=== PATIENT | male | born 2005 | race Caucasian/White ===

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

== ENCOUNTER 2023-03-01 10:14 | Inpatient (IN) | payer OTHER, MEDICAID ==
[~2023-03-01] VITALS: Ht 147.3 cm; Wt 49.9 kg
[2023-03-01 10:25] VITALS: BP 112/75
--- OUTSIDE RECORDS SUMMARY | 2023-03-01 10:49 | XMS REPORT | Clinical Summary ---
Author Author [facility] Organization [facility] Address Unknown Phone Unavailable Care Team Providers Care Six Sigma Black Trainer Name Role Phone Database, Physician Not In PCP Unavailable Laron Crenshaw MD Unavailable Source Comments Some departments are not documenting in the electronic medical record. If you d o not see the information that you expected, contact Release of Information in [facility] [employer] Information Management department at [phone] for further assistan ce in locating additional records.[facility] Allergies Comments Active Allergy Reactions Criticality Noted Date Latex RASH 06/05/2008 Medications End Date Status Medication Sig Dispensed Refills Start Date Active PREVACID 30 mg SuDR Take 30 mg by 0 mouth At Bedtime Daily. Active PREVACID 15 mg SuDR Take 15 mg by 0 mouth Daily. In AM Active Polyethylene Glycol 3350 8.5 g by PEG 0 Powd Tube route Daily. With overnight feeds Active ZYRTEC 1 mg/mL Soln Take 5 mg by 0 mouth At Bedtime Daily. Per peg tube Active SINGULAIR 10 mg Tab Take 4 mg by 0 mouth At Bedtime Daily. Active baclofen(#) (LIORESAL) 10 Take 5 mg by 0 mg/mL mouth Twice Daily. Active POLYCITRA-K PO Take 2 tsp by 0 mouth Daily. With overnight feeds Active albuterol 0.5% Inhale 2.5 mg 0 (PROVENTIL; VENTOLIN) 2.5 by mouth As mg/0.5 mL Nebu Needed Active FLOVENT HFA 44 Inhale 4 0 mcg/Actuation Aero Puffs by mouth Twice Daily. 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 Dermoid cyst neck- removed Hearing loss on right unilateral, moderate, condu ctive- has hearing aid Farsightedness Strabismus Hydrocephalus (HCC) COLD PRESS OPERATOR shunt in 2004 Obstructive sleep apnea Asthma Cerebral palsy (HCC) Constipation Family History Medical History Relation Name Comments Asthma Father Cancer Father Depression Maternal Aunt Migraines Maternal Aunt Arthritis-osteo Maternal Grandfather Depression Maternal Grandfather Diabetes Maternal Grandfather High Cholesterol Maternal Grandfather Hypertension Maternal Grandfather Depression Maternal Grandmother Diabetes Maternal Grandmother High Cholesterol Maternal Grandmother Hypertension Maternal Grandmother Migraines Maternal Grandmother Asthma Maternal Uncle Depression Maternal Uncle Asthma Mother Depression Mother Migraines Mother Rashes/Skin Problems Mother Thyroid Disease Mother Asthma Paternal Grandfather Diabetes Paternal Grandfather Hypertension Paternal Grandfather Diabetes Paternal Grandmother Heart Failure Paternal Grandmother High Cholesterol Paternal Grandmother Hypertension Paternal Grandmother Thyroid Disease Paternal Grandmother Relation Name Status Comments Father Maternal Aunt Maternal Grandfather Maternal Grandmother Maternal Uncle Mother Paternal Grandfather Paternal Grandmother Social History Date Tobacco Use Types Packs/Day Years Used Smoking Tobacco: Never Comments Alcohol Use Standard Drinks/Week No 0 (1 standard drink = 0.6 o z pure alcohol) Date Recorded Sex and Gender Information Value Sex Assigned at Not on file Gender Identity Not on file Sexual Orientation Not on file Obstetrics History Growth Chart Information Age Height Weight Frdnoa-qjf-o BMI Head Circum Head Circum Date ength Percentile Percentile Percentile 2 years 101 cm (3' 17 kg (37 lb 77.53 %* 82.09 %* 06/06/20 08 3.76") 7.7 oz) 2 years 17 kg (37 lb 06/05/2008 7.7 oz) * CDC (Boys, 2-20 Years) Last Filed Vital Signs Reading Time Taken Comments Vital Sign 139/71 06/06/2008 2:00 PM CDT Blood Pressure 109 06/06/2008 2:00 PM CDT Pulse 36.3 C (97.3 F) 06/06/2008 2:00 PM CDT Temperature - - Respiratory Rate 97% 06/06/2008 2:00 PM CDT Oxygen Saturation - - Inhaled Oxygen Concentration 17 kg (37 lb 7.7 oz) 06/06/2008 2:00 PM CDT Wt from 06/05. Weight 101 cm (3' 3.76") 06/06/2008 2:00 PM CDT Ht from 06/06. Height 77.53 % 06/06/2008 2:00 PM CDT Dsquek-asg-Vtrlyk Percentile Growth Chart: [facility] (Boys, 2-20 Years) 16.66 06/06/2008 2:00 PM CDT Body Mass Index 82.09 % 06/06/2008 2:00 PM CDT Body Mass Index Percentile Growth Chart: [facility] (Boys, 2-20 Years) Plan of Treatment Health Maintenance Due Date Last Done Comments COVID-19 VACCINE (#1) 03/08/2004 HPV VACCINES (1 - Male 2014 2-dose series) HIV SCREENING 2018 DTAP/TDAP VACCINES (1 - 2021 Tdap) HEPATITIS C SCREENING 2021 PHYSICAL (COMPREHENSIVE) 2021 EXAM DEPRESSION SCREENING 09/06/2022 INFLUENZA VACCINE (Season 06/06/2023 Ended) MENINGOCOCCAL VACCINE Aged Out No longer eligib le based on patient's age to (ACWY,Menactra) complete this topic PNEUMOCOCCAL VACCINE 0-64 Aged Out No longer el igible based on patient's age to YRS complete this topic Results Not on filefrom Last 3 Months Care Teams Start Date End Date Six Sigma Black Trainer Relationship Specialty 06/05/08 Database, Physician Not PCP - General In 07/07/10 Laron Crenshaw MD [address] [place] [address]
--- OUTSIDE RECORDS SUMMARY | 2023-03-01 10:49 | XMS REPORT ---
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 confirmed 952928586 Problem Non-seasonal allergic rhinitis due to pollen J30.1 confirmed 57901576 Problem 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 confirmed 216776297 Problem Chronic idiopathic constipation K59.04 confi rmed 13554641 Problem Environmental and seasonal allergies J30.89 confirmed 872720146 Problem Acquired subluxation of left hip, sequela S73.002S confirmed 567276941 Problem Allergic rhinitis, unspecified J30.9 confir med 25592604 Problem 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 confirmed 7 8149366 Problem Port-a-cath in place Z95.828 confirmed 326443206 Problem Presence of intrathecal baclofen pump Z96.89 confirmed 439500227 Problem AGRICULTURE MANAGER (ventriculoperitoneal) shunt status Z98.2 confirmed 796760046 Problem History of hydrocephalus Z86.69 confirmed 388321499 Problem Mild intermittent asthma without complication J45.20 confirmed 481143906 Problem Hearing loss, unspecified laterality H91.90 confirmed 77258337 Problem Obstructive sleep apnea G47.33 confirmed 75428322 Problem Gastroesophageal reflux disease without esophagitis K21.9 confirmed 957560004 Problem 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 confirm ed 79913606 Problem Renal calculus N20.0 confirmed 47353 007 Problem Other dysphagia R13.19 confirmed 4073 9000 Problem 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, 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 confirmed 6966344 6 Problem Hydrocele, unspecified hydrocele type N43.3 confirmed 44467064 Problem Iron deficiency anemia, unspecified iron deficiency an emia type D50.9 confirmed 98715222 Problem High risk medication use Z79.899 confirmed [id number] Problem 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 confirmed 302430139 Problem Seizure disorder G40.909 confirmed 12 2220182 Problem Secondary hypertension I15.9 confirmed 98003282 Problem 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 confirmed 47142446 Problem History of nephrolithiasis Z87.442 confirmed 313339304 Problem Nephrolithiasis N20.0 confirmed 9557 0007 Problem Scrotal swelling N50.89 confirmed 271 562973 Problem Short stature R62.52 confirmed 776698 008 ALLERGIES Allergen (clinical drug ingredient) Drug/Non Drug Allergy do cumented on EMR Reaction Allergy Type Onset Date Status Latex Gloves([facility] Code:09918-12636) hives Drug Allergy Active Rocephin hives Drug Allergy Active Morphine Unknown Drug Allergy Active ENCOUNTERS from 2003 to 2023-02-08 Encounter Location Date Provider Diagnosis [facility] [address] [facility] [id number] [place] [address] Feb, JOHN BIGGS Dental examination Z 01.20 IMMUNIZATIONS Vaccine Route Administration Date Status PRIVATE MENINGOCOCCAL (MENACTRA) Unknown Sep 26, 2014 Administered PRIVATE BEXSERO (MEN B) IM Intramuscular February 02, 2020 Adminis tered Hib-Hep B Unknown 2003 Administered PRIVATE MENINGOCOCCAL (MENVEO) IM Intramuscular February 02, 2020 Administered hib (history) Unknown January 07, 2004 Administered hib (history) Unknown March 13, 2004 Administered PRIVATE DTAP (DAPTACEL) Unknown March 13, 2004 Administ ered PRIVATE GARDASIL 9 (HPV) IM Intramuscular January 20, 2017 Admini stered PRIVATE DTAP (DAPTACEL) Unknown December 16, 2004 Administ ered PRIVATE PPSV23 (PNEUMOVAX) IM Intramuscular Jul 17, 2022 Admi nistered PRIVATE DTAP (DAPTACEL) Unknown December 14, 2007 Administ ered 1st Dose PFIZER HRSA, COVID-19, 0.3 mL IM Intramuscular December Administered PRIVATE TDAP (ADACEL) Unknown Sep 26, 2014 Administer ed PRIVATE FLULAVAL QUAD 0.5ML (6 MO AND UP) 2018 IM Intramuscular May 22, 2019 Administered PRIVATE HEP B (PEDS/ADOLESCENT, 3-DOSE) Unknown January 07, 2004 Administered hib (history) Unknown December 16, 2004 Administered PRIVATE BEXSERO (MEN B) IM Intramuscular February 28, 2021 Adminis tered PRIVATE POLIO (IPV) Unknown January 07, 2004 Administered PRIVATE POLIO (IPV) Unknown 2003 Administered PRIVATE VARICELLA Unknown December 14, 2007 Administered PRIVATE VARICELLA Unknown Sep 23, 2004 Administered PRIVATE PPSV23 (PNEUMOVAX) Unknown May 21, 2009 Admin istered PRIVATE MMR Unknown December 14, 2007 Administered PRIVATE MMR Unknown Sep 23, 2004 Administered PRIVATE HEP B (PEDS/ADOLESCENT, 3-DOSE) Unknown Jul 29, 2004 Administered FLUARIX QUAD P-FREE 3 AND UP .50 2015 IM Intramuscular May 19, 2016 Administered PRIVATE HEP A (PEDS/ADOLESCENT-2 DOSE) Unknown Jul 12 008 Administered Booster PFIZER, COVID-19, 0.3mL IM Intramuscular Aug 21, 2021 Administered prevnar pcv 7 (history) Unknown 2003 Administ ered 1st Booster PFIZER Bivalent , COVID-19, 0.3mL (Comirnaty) IM Intramuscular Jul 17, 2022 Administered prevnar pcv 7 (history) Unknown January 07, 2004 Administ ered C FLU 22-23 (FLULAVAL) AGE 6MO & UP IM Intramuscular Jun 05, 2022 Administered prevnar pcv 7 (history) Unknown March 13, 2004 Administ ered FLUARIX QUAD (3 AND UP) 2016 IM Intramuscular May 21, 2017 Ad ministered PRIVATE FLULAVAL QUAD 0.5ML (6 MO AND UP) 2018 IM Intramuscular May 27, 2018 Administered PRIVATE POLIO (IPV) Unknown December 16, 2004 Administered PRIVATE FLULAVAL QUAD 0.5ML (6 MO AND UP) 2019 IM Intramuscular May 17, 2020 Administered PRIVATE POLIO (IPV) Unknown December 14, 2007 Administered 2nd Dose PFIZER HRSA, COVID-19, 0.3 mL IM Intramuscular January 17, 2021 Administered PRIVATE HEP A (PEDS/ADOLESCENT-2 DOSE) Unknown December 14, 2007 Administered PRIVATE FLULAVAL QUAD 0.5ML (6 MO AND UP) 2020 IM Intramuscular May 23, 2021 Administered prevnar pcv 7 (history) Unknown Sep 23, 2004 Administ ered FLUARIX QUAD P-FREE 3 AND UP .50 2016 IM Intramuscular May 14, 2016 Administered PRIVATE DTAP (DAPTACEL) Unknown 2003 Administ ered PRIVATE DTAP (DAPTACEL) Unknown January 07, 2004 Administ ered FLUARIX QUAD (3 & UP)-GSK-2014 ID Intradermal May 27, 2015 A dministered PRIVATE GARDASIL 9 (HPV) IM Intramuscular Apr 20, 2018 Admini yumi SOCIAL HISTORY Sex Assigned At : Social History Observation Description Sex Assigned At Unknown PHQ2 Question Answer Notes In the last 2 weeks, how often have you had little interest or pleasure in doing things? Declined to specify In the last 2 weeks, how often have you been feeling down, depressed, or hopeless? Declined to specify Total PHQ2 Score 0 REASON FOR REFERRAL No Information VITAL SIGNS No information MEDICATIONS Medication SIG (Take, Route, Frequency, Duration) Notes Start Da te End Date Status Levocetirizine Dihydrochloride 2.5 MG/5ML 10 mL by PEG tube once daily as needed peg tube Once a day Active Albuterol Sulfate (2.5 MG/3ML) 0.083% 3 ml Inhalation every 4 hours as needed for shortness of breath or wheezing prn Jul, Not-Taking Albuterol Sulfate 2.5 mg /3 mL (0.083 %) 1 Each by Inh alation route every 4 hours for cough and wheeze PRN for wheezing or cough [facility] Apr, Active Cytra-K 1100-334 MG/5ML 10mL g-tube three times daily for 90 days Active Amoxicillin 500 MG 1 capsule Orally every 12 hours for 7 days May, Not-Taking Nutren 1.0/Fiber - 240 mL (1 can) G-TUBE 6 times per day Di spejade 1 month supply Nov, Active Baclofen 41753 MCG/20ML Intrathecal Active CARON-BYERS Gastrostomy Kit 14FR 1 14 Danish, 2.5 cm lengt h; Use with tube feedings via g-tube as directed. Fill to 2cm water. Nov, Active Mometasone Furoate 50 MCG/ACT 2 sprays (1 spray in eac h nostril) Nasally twice a day for 30 days Dec, Active Amoxicillin 400 MG/5ML 6.25mL Orally twice a day for 5 days May, Not-Taking Trileptal 300 MG/5ML 5 mL by PEG tube route 3 drew es per day in the morning Orally 3 times a day Nov, Active hydroCHLOROthiazide 25 MG GIVE ONE TABLET VIA G-TUBE ONCE DAILY for 9 0 Active Polyethylene Glycol 3350 17 gm/dose 17 grams PEG tube Once a day Aug, Active Zonisamide 100 MG 3 capsules G-TUBE Once a day Active ProAir HFA 108 (90 Base) MCG/ACT 2 -4 puffs with space r Inhalation every 4 hrs as needed for shortness of breath prn Nov, Active Acetaminophen 160 MG/5ML 15-20 ml G-TUBE Every 6 hours as needed for 3 days Mar, Active Lidocaine-Prilocaine 2.5-2.5 % apply a jazlyn sized am ount of cream over center of ITB pump one hour before refill Externally PRN for 1 days prn Active Potassium Citrate-Citric Acid 1100-334 MG/5ML GIVE 10M LS VIA G-TUBE THREE (3) TIMES DAILY for 30 Active Lansoprazole 30 MG 1 tablet dissolved G-TUBE twice a day for 30 day(s ) Active PROCEDURES No Information RESULTS No Results REASON FOR VISIT intdent/wcc/peds MEDICAL (GENERAL) HISTORY Type Description Date Medical History Congenital subaortic stenosis Medical History Stricture and stenosis of esophagus Medical History Unspecified hearing loss Medical History Unspecified anemia Medical History Unspecified orchitis and epididymitis Medical History VACTERL (vertebral: multiple michelle-vertebrae, Anal anomaly:imperforate anus with perineal fistula(repaired), cardiac anomaly: ASD(now closed) VSD(no longer detectable-was 5mm at )Sub Aortic Valve St enosis, tracheoesophageal Fistula (TEF with atresia-repaired), Renal anomaly: kidney stone (no longer present), 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, left radial club hand and absent thumb (anomaly found on U/S(partially repaired) Medical History Prematurity (31 weeks) Medical History GERD Medical History ROP-resolved Medical History Congenital scoliosis Medical History Tethered cord-Lipoma in filtrum (repaire d) Medical History Tracheomalacia Medical History Subglottic cysts - 1 removed Medical History Dermoid cyst in neck - removed Medical History Hearing loss- moderate, conductive (has hearing aids) Medical History Farsighted (wears glasses) Medical History Right ocular Lipodermoid Medical History Strabismus Medical History Hydrocephalus (AGRICULTURE MANAGER shunt) Medical History Obstructive Sleep Apnea Medical History Asthma (intermittent-no symp toms since 2012 laryngeal cleft repair Medical History Cerebral palsy Medical History Constipation Medical History Right Temporal Lobe Seizures Medical History Laryngeal cleft (see surgery list) Medical History Esophageal stricture Medical History hypertension Surgical History TE fistula repair, anoplasty (to repair imperforate anus)- Dr. Tellez, [facility] 2003 Surgical History Fabian Fundoplication, G-tub e placement, circumcision, bilateral inguinal hernia repair - Dr. Tellez, [facility] 2003 Surgical History Second G-tube placement- Dr. Rodrigues, [facility] 2003 Surgical History Left wrist- ulnar centralization- Dr. Stu dave, [facility] 06/18/2004 Surgical History Tethered cord release -Dr. Crenshaw, [facility] 1 2003 Surgical History Left index finger pollicizat ion (to form thumb)- Dr. Hernandez, [facility] 10/08/2004 Surgical History Bilateral ear tubes, broncho scopy, subglottic cyst removed-- Dr. Mitzi Mckeon, [facility] 01/14/2005 Surgical History AGRICULTURE MANAGER Shunt-- Dr. Crenshaw, [facility] 01/27/2005 Surgical History Bilateral ear tubes, broncho scopy, tonsillectomy, adeneoidectomy --Dr. Mitzi Mckeon, [facility] 12/02/2005 Surgical History Midline dermoid cyst removal (from neck) & bilateral ear tubes-- Dr. Mitzi Mckeon, [facility] 06/16/2006 Surgical [facility] & bilateral ear tubes ( Dr. Chávez, [facility]) 01/12/2007 Surgical History Bilateral ear tubes, broncho scopy, adneoidectomy, laryngeal cleft repair, [facility] & endoscopy & esophageal dilation ( Dr. Rincon, [facility]) 07/17/2009 Surgical History Endoscopy & esophageal dilation- Dr. Juan Carlos hardin, [facility] 07/30/2009 Surgical History Endoscopy & esophageal dilation- Dr. Carlo gonzalez, [facility] 11/22/2009 Surgical History Endoscopy & esophageal dilation- Dr. Juan Carlos hardin, [facility] 01/28/2010 Surgical History Endoscopy & esophageal dilation- Dr. Antonio wolff, [facility] 03/21/2010 Surgical History Laryngeal cleft repaired, tu rbinectomy, bilateral ear tubes - Dr. Josias Mckeon, [facility] 04/07/2012 Surgical History Baclofen pump placement- Dr. Lal, [facility] 11/19/2014 [facility] Surgical History AGRICULTURE MANAGER shunt revision - Dr. Lal, [facility] 05/12/2015 Surgical History AGRICULTURE MANAGER [facility] Ventriculostomy and baclofen pump removal- Dr. Lal [facility] 06/26/2015 [facility] AGRICULTURE MANAGER [facility] Surgical History Kidney stone removal and sti nt placement- Dr. Esparza [facility] 07/10/2015 Surgical History Residential Child Care Counselor [facility] Surgical History AGRICULTURE MANAGER shunt revision and port p lacement-Dr. Lal(shunt) & Dr. Choudhury (port), [facility] 07/29/2015 Surgical History Kindey Stone removal and sti nt replacement- Dr. Esparza, [facility] 07/30/2015 Surgical History Right Abdominal Baclofen Pum p with intrathecal catheter-Dr. Lal, [facility] 11/18/2015 Surgical History Baclofen pump replacement-Dr Venus Cadet, [facility] 02/2022 Surgical History Baclofen pump revision Dr. Mehul rosen [facility], Port replacement by IR 03/2022 Hospitalization History NICU- [facility] 2003 Hospitalization History NICU- [facility] /0 11/2003-12/20/2003 Hospitalization History After some surgeries for observation Hospitalization History Non-RSV Bronchiolitis 10/29/2004-10/2004 Hospitalization History [facility]- pH probe stud y 06/10/2005 Hospitalization History [facility]-- Upper GI ble eding 09/24/2007- 09/26/2007 Hospitalization History [facility] -sudden unconsciousne ss, later determined to be seizures 06/06/2008-06/07/2008 Hospitalization History [facility]- epididymi tis 04/10/[address] [facility] for seizures an d AGRICULTURE MANAGER Shunt failure 05/12/2015-05/23/2015 Hospitalization History [facility]- AGRICULTURE MANAGER sh unt failure, CSF infection, [place] lomax, HTN 06/21/2015-07/13/2015 Goals Section No Information Health Concerns No Information MEDICAL EQUIPMENT No Information MENTAL STATUS No Information FUNCTIONAL STATUS No Information ASSESSMENTS Encounter Date Diagnosis Assessment Notes Treatment Notes Treatm ent Clinical Notes Feb, Dental examination (ICD-10 - Z01.20) PLAN OF TREATMENT Next Appt Details Provider Name:BULMARO MOLINA, 2023-03-26 1 1:00:00 AM, [address] [facility], [id number], [place], [address], Insurance Providers Payer Name Payer Address Payer Phone Insured Name Patient Relati onship to Insured Coverage Start Date Coverage End Date Subscriber Number Group Nu mber [facility] Benefits [address] [facility] [address] [phone] Pricilla Sauer Child - Insured has Financial Responsibility [id number] MEDICATIONS ADMINISTERED Medication Instructions Date of Administration Dosage ROCEPHIN 1 GM (IM) January, 1 grm Ketorolac Tromethamine January, 30 mg Bicillin L-A Sep, 2 mL Penicillin G Benzathine & Proc January, 2 mL Bicillin L-A Oct, [id number] U
--- OUTSIDE RECORDS SUMMARY | 2023-03-01 10:49 | XMS REPORT ---
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 confirmed 268514739 Problem Non-seasonal allergic rhinitis due to pollen J30.1 confirmed 19670812 Problem 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 confirmed 570480325 Problem Chronic idiopathic constipation K59.04 confi rmed 90212338 Problem Environmental and seasonal allergies J30.89 confirmed 292771773 Problem Acquired subluxation of left hip, sequela S73.002S confirmed 110408278 Problem Allergic rhinitis, unspecified J30.9 confir med 99980778 Problem 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 confirmed 7 6163756 Problem Port-a-cath in place Z95.828 confirmed 184671852 Problem Presence of intrathecal baclofen pump Z96.89 confirmed 461006446 Problem 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 confirmed 776612696 Problem History of hydrocephalus Z86.69 confirmed 144551585 Problem Mild intermittent asthma without complication J45.20 confirmed 603718393 Problem Hearing loss, unspecified laterality H91.90 confirmed 23946362 Problem Obstructive sleep apnea G47.33 confirmed 64996755 Problem Gastroesophageal reflux disease without esophagitis K21.9 confirmed 118354398 Problem 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 confirm ed 89876682 Problem Renal calculus N20.0 confirmed 24542 007 Problem Other dysphagia R13.19 confirmed 4073 9000 Problem 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, 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 confirmed 8110709 6 Problem Hydrocele, unspecified hydrocele type N43.3 confirmed 81746723 Problem Iron deficiency anemia, unspecified iron deficiency an emia type D50.9 confirmed 03025065 Problem High risk medication use Z79.899 confirmed [id number] Problem 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 confirmed 737309676 Problem Seizure disorder G40.909 confirmed 12 4423616 Problem Secondary hypertension I15.9 confirmed 75890855 Problem 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 [address] [facility] [id number] [place] [address] Feb, LUCIANA ARMENDARIZ Counseled by nurse Z 71.9 IMMUNIZATIONS Vaccine Route Administration Date Status PRIVATE VARICELLA Unknown December 14, 2007 Administered PRIVATE VARICELLA Unknown Sep 23, 2004 Administered PRIVATE PPSV23 (PNEUMOVAX) Unknown May 21, 2009 Admin istered PRIVATE MMR Unknown December 14, 2007 Administered PRIVATE POLIO (IPV) Unknown December 14, 2007 Administered PRIVATE POLIO (IPV) Unknown December 16, 2004 Administered PRIVATE POLIO (IPV) Unknown January 07, 2004 Administered PRIVATE POLIO (IPV) Unknown 2003 Administered PRIVATE PPSV23 (PNEUMOVAX) IM Intramuscular Jul 17, 2022 Admi nistered FLUARIX QUAD (3 AND UP) 2016 IM Intramuscular May 21, 2017 Ad ministered FLUARIX QUAD P-FREE 3 AND UP .50 2015 IM Intramuscular May 14, 2016 Administered PRIVATE BEXSERO (MEN B) IM Intramuscular February 02, 2020 Adminis tered FLUARIX QUAD (3 & UP)-GSK-2015 ID Intradermal May 27, 2015 A dministered influenza IIV3 (history) Unknown May 25, 2014 Pending influenza IIV3 (history) Unknown May 16, 2013 Pending PRIVATE MENINGOCOCCAL (MENVEO) IM Intramuscular February 02, 2020 Administered Influenza, seasonal, injectable (split), for 3 yrs and up Unknow n May 19, 2010 Pending PRIVATE MMR Unknown Sep 23, 2004 Administered PRIVATE HEP B (PEDS/ADOLESCENT, 3-DOSE) Unknown Jul 29, 2004 Administered PRIVATE HEP B (PEDS/ADOLESCENT, 3-DOSE) Unknown January 07, 2004 Administered 1st Booster PFIZER Bivalent , COVID-19, 0.3mL (Comirnaty) IM Intramuscular Jul 17, 2022 Administered VFC FLU 22-23 (FLULAVAL) AGE 6MO & UP IM Intramuscular Jun 05, 2022 Administered Booster PFIZER, COVID-19, 0.3mL IM Intramuscular Aug 21, 2021 Administered 1st Dose PFIZER HRSA, COVID-19, 0.3 mL IM Intramuscular December Administered PRIVATE FLULAVAL QUAD 0.5ML (6 MO AND UP) 2018 IM Intramuscular May 27, 2018 Administered 2nd Dose PFIZER HRSA, COVID-19, 0.3 mL IM Intramuscular January 17, 2021 Administered PRIVATE FLULAVAL QUAD 0.5ML (6 MO AND UP) 2020 IM Intramuscular May 23, 2021 Administered PRIVATE FLULAVAL QUAD 0.5ML (6 MO AND UP) 2019 IM Intramuscular May 17, 2020 Administered PRIVATE FLULAVAL QUAD 0.5ML (6 MO AND UP) 2018 IM Intramuscular May 22, 2019 Administered FLUARIX QUAD P-FREE 3 AND UP .50 2015 IM Intramuscular May 19, 2016 Administered influenza IIV3 (history) Unknown May 12, 2011 Pending hib (history) Unknown December 16, 2004 Administered hib (history) Unknown March 13, 2004 Administered hib (history) Unknown January 07, 2004 Administered PRIVATE BEXSERO (MEN B) IM Intramuscular February 28, 2021 Adminis tered PRIVATE GARDASIL 9 (HPV) IM Intramuscular Apr 20, 2018 Admini stered PRIVATE GARDASIL 9 (HPV) IM Intramuscular January 20, 2017 Admini stered influenza IIV3 (history) Unknown May 13, 2012 Pending Hib-Hep B Unknown 2003 Administered PRIVATE MENINGOCOCCAL (MENACTRA) Unknown Sep 26, 2014 Administered PRIVATE TDAP (ADACEL) Unknown Sep 26, 2014 Administer ed PRIVATE DTAP (DAPTACEL) Unknown 2003 Administ ered prevnar pcv 7 (history) Unknown Sep 23, 2004 Administ ered prevnar pcv 7 (history) Unknown March 13, 2004 Administ ered prevnar pcv 7 (history) Unknown January 07, 2004 Administ ered PRIVATE DTAP (DAPTACEL) Unknown December 14, 2007 Administ ered PRIVATE DTAP (DAPTACEL) Unknown December 16, 2004 Administ ered PRIVATE DTAP (DAPTACEL) Unknown March 13, 2004 Administ ered PRIVATE DTAP (DAPTACEL) Unknown January 07, 2004 Administ ered prevnar pcv 7 (history) Unknown 2003 Administ ered PRIVATE HEP A (PEDS/ADOLESCENT-2 DOSE) Unknown Jul 12 008 Administered PRIVATE HEP A (PEDS/ADOLESCENT-2 DOSE) Unknown December 14, 2007 Administered SOCIAL HISTORY Sex Assigned At : Social [...] REASON FOR REFERRAL No Information VITAL SIGNS Weight 110.8 lbs Feb, Weight-kg 50.26 kg Feb, MEDICATIONS Medication SIG (Take, Route, Frequency, Duration) Notes Start Da te End Date Status Amoxicillin 500 MG 1 capsule Orally every 12 hours for 7 days May, Not-Taking Lansoprazole 30 MG 1 tablet dissolved G-TUBE twice a day for 30 day(s ) Active Zonisamide 100 MG 3 capsules G-TUBE Once a day Active Potassium Citrate-Citric Acid 1100-334 MG/5ML GIVE 10M LS VIA G-TUBE THREE (3) TIMES DAILY for 30 Active Cytra-K 1100-334 MG/5ML 10mL g-tube three times daily for 90 days Active Mometasone Furoate 50 MCG/ACT 2 sprays (1 spray in eac h nostril) Nasally twice a day for 30 days Dec, Active hydroCHLOROthiazide 25 MG GIVE ONE TABLET VIA G-TUBE ONCE DAILY for 9 0 Active Lidocaine-Prilocaine 2.5-2.5 % apply a jazlyn sized am ount of cream over center of ITB pump one hour before refill Externally PRN for 1 days prn Active CARON-BYERS Gastrostomy Kit 14FR 1 14 Slovak, 2.5 cm lengt h; Use with tube feedings via g-tube as directed. Fill to 2cm water. Nov, Active Amoxicillin 400 MG/5ML 6.25mL Orally twice a day for 5 days May, Not-Taking ProAir HFA 108 (90 Base) MCG/ACT 2 -4 puffs with space r Inhalation every 4 hrs as needed for shortness of breath prn Nov, Active Albuterol Sulfate 2.5 mg /3 mL (0.083 %) 1 Each by Inh alation route every 4 hours for cough and wheeze PRN for wheezing or cough [facility] Apr, Active Nutren 1.0/Fiber - 240 mL (1 can) G-TUBE 6 times per day Di emigdio 1 month supply Nov, Active Trileptal 300 MG/5ML 5 mL by PEG tube route 3 drew es per day in the morning Orally 3 times a day Nov, Active Acetaminophen 160 MG/5ML 15-20 ml G-TUBE Every 6 hours as needed for 3 days Mar, Active Baclofen 07033 MCG/20ML Intrathecal Active Levocetirizine Dihydrochloride 2.5 MG/5ML 10 mL by PEG tube once daily as needed peg tube Once a day Active Polyethylene Glycol 3350 17 gm/dose 17 grams PEG tube Once a day Aug, Active Albuterol Sulfate (2.5 MG/3ML) 0.083% 3 ml Inhalation every 4 hours as needed for shortness of breath or wheezing prn Jul, Not-Taking PROCEDURES No Information RESULTS No Results REASON FOR VISIT Weight check---JILLIAN Mchugh MEDICAL (GENERAL) HISTORY Type Description Date Medical [...] Lipodermoid Medical History Strabismus Medical History Hydrocephalus (SPINNING FRAME CHANGER shunt) Medical History Obstructive Sleep Apnea Medical History Asthma (intermittent-no symp toms since 2011 laryngeal cleft repair Medical History Cerebral palsy Medical History Constipation Medical History Right Temporal Lobe Seizures Medical History Laryngeal cleft (see surgery list) Medical History Esophageal stricture Medical History hypertension Surgical History TE fistula repair, anoplasty (to repair imperforate anus)- Dr. Tellez, [facility] 2003 Surgical History Fabian Fundoplication, G-tub e placement, circumcision, bilateral inguinal hernia repair - Dr. Tellez, [facility] 2003 Surgical History Second G-tube placement- Dr. Rodrigues, [facility] 2003 Surgical History Left wrist- ulnar centralization- Dr. Stu dave, [facility] 06/18/2004 Surgical History Tethered cord release -Dr. Crenshaw, [facility] 1 2003 Surgical History Left index finger pollicizat ion (to form thumb)- Dr. Hernandez, [facility] 10/08/2004 Surgical History Bilateral ear tubes, broncho scopy, subglottic cyst removed-- Dr. Mitzi Mckeon, [facility] 01/14/2005 Surgical History SPINNING FRAME [employer]ANGER Shunt-- Dr. Crenshaw, [facility] 01/27/2005 Surgical History Bilateral ear tubes, broncho scopy, tonsillectomy, adeneoidectomy --Dr. Mitzi Mckeon, [facility] 12/02/2005 Surgical History Midline dermoid cyst removal (from neck) & bilateral ear tubes-- Dr. Mitzi Mckeon, [facility] 06/16/2006 Surgical History Left ulnar osteotomy (Dr. Stu dave, [facility]) & bilateral ear tubes ( Dr. Chávez, [facility]) 01/12/2007 Surgical History Bilateral ear tubes, broncho scopy, adneoidectomy, laryngeal cleft repair, turbinectomy (Dr. Mitzi Mckeon, [facility]) & endoscopy & esophageal dilation ( Dr. Rincon, [facility]) 07/17/2009 Surgical History Endoscopy & esophageal dilation- Dr. Juan Carlos hardin, [facility] 07/30/2009 Surgical History Endoscopy & esophageal dilation- Dr. Carlo gonzalez, [facility] 11/22/2009 Surgical History Endoscopy & esophageal dilation- Dr. Juan Carlos hardin, [facility] 01/28/2010 Surgical History Endoscopy & esophageal dilation- Dr. Antonio wolff, [facility] 03/21/2010 Surgical History Laryngeal cleft repaired, tu rbinectomy, bilateral ear tubes - Dr. Josias Mckeon, [facility] 04/07/2012 [facility] [employer] [facility] Ventriculostomy and baclofen pump removal- Dr. Lal [facility] 06/26/2015 Surgical History Ventriculostomy -Dr. Lal [facility] 07/03/2015 Surgical History [employer] [facility] History SP[employer]ING [employer]AME CH[employer]ER shunt revision and port p lacement-Dr. Lal(shunt) & Dr. Choudhury (port[facility] 07/29/2015 Surgical History Kindey Stone [facility] Surgical History Right Abdominal Baclofen Pum p with intrathecal catheter-Dr. Lal, [facility] 11/18/2015 Surgical History Baclofen pump replacement-Dr Venus Cadet, [facility] 02/2022 Surgical History Baclofen pump revision Dr. Mehul rosen [facility], Port replacement by IR 03/2022 Hospitalization History NICU- [facility] 2003 Hospitalization History NICU- [facility] 11/2003-12/20/2003 Hospitalization History After some surgeries for observation Hospitalization History Non-RSV Bronchiolitis 10/29/2004-10/2004 Hospitalization History [facility]- pH probe stud y 06/10/2005 Hospitalization History [facility]-- Upper GI ble eding 09/24/2007- 09/26/2007 Hospitalization History [facility] -sudden unconsciousne ss, later determined to be seizures 06/06/2008-06/07/2008 Hospitalization History [facility]- epididymi tis 04/10/2014 Hospitalization History [facility] seizures an d SP[employer]ER Shunt failure 05/12/2015-05/23/2015 Hospitalization History [facility]- SP[employer]ING [employer]AME CH[employer]ER sh unt failure, CSF infection, [place]akota lomax, HTN 06/21/2015-07/13/2015 Goals Section No Information Health Concerns No Information MEDICAL EQUIPMENT No Information MENTAL STATUS No Information FUNCTIONAL STATUS No Information ASSESSMENTS Encounter Date Diagnosis Assessment Notes Treatment Notes Treatm ent Clinical Notes Feb, Counseled by nurse (ICD-10 - Z71.9) PLAN OF TREATMENT Medication Medication Name Sig Start Date Stop Date Mometasone Furoate 50 MCG/ACT 2 sprays (1 spray in eac h nostril) Nasally twice a day for 30 days Dec, Next Appt Details Provider Name:BULMARO MOLINA, 2023-03-26 1 1:00:00 AM, [address] [facility], [id number], [place], [address], Insurance Providers Payer Name Payer Address Payer Phone Insured Name Patient Relati onship to Insured Coverage Start Date Coverage End Date Subscriber Number Group Nu er [facility] [employer] Benefits [address] [facility] [phone] Pricilla Sauer Child - Insured has Financial Responsibility [id number] MEDICATIONS ADMINISTERED Medication Instructions Date of Administration Dosage Bicillin L-A Sep, 2 mL ROCEPHIN 1 GM (IM) January, 1 grm Bicillin L-A Oct, [id number] U
--- OUTSIDE RECORDS SUMMARY | 2023-03-01 10:49 | XMS REPORT ---
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 confirmed 585361369 Problem Non-seasonal allergic rhinitis due to pollen J30.1 confirmed 03683603 Problem 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 confirmed 548851839 Problem Chronic idiopathic constipation K59.04 confi rmed 92048608 Problem Environmental and seasonal allergies J30.89 confirmed 591723497 Problem Acquired subluxation of left hip, sequela S73.002S confirmed 672053057 Problem Allergic rhinitis, unspecified J30.9 confir med 41294809 Problem 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 confirmed 7 9367644 Problem Port-a-cath in place Z95.828 confirmed 196320034 Problem Presence of intrathecal baclofen pump Z96.89 confirmed 053157274 Problem CORN COOKER (ventriculoperitoneal) shunt status Z98.2 confirmed 908922725 Problem History of hydrocephalus Z86.69 confirmed 837125899 Problem Mild intermittent asthma without complication J45.20 confirmed 287548118 Problem Hearing loss, unspecified laterality H91.90 confirmed 48652818 Problem Obstructive sleep apnea G47.33 confirmed 50399439 Problem Gastroesophageal reflux disease without esophagitis K21.9 confirmed 644081470 Problem 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 confirm ed 42018477 Problem Renal calculus N20.0 confirmed 60726 007 Problem Other dysphagia R13.19 confirmed 4073 9000 Problem 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, 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 confirmed 2050165 6 Problem Hydrocele, unspecified hydrocele type N43.3 confirmed 80250914 Problem Iron deficiency anemia, unspecified iron deficiency an emia type D50.9 confirmed 91781913 Problem High risk medication use Z79.899 confirmed [id number] Problem 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 confirmed 611417992 Problem Seizure disorder G40.909 confirmed 12 3375325 Problem Secondary hypertension I15.9 confirmed 04337622 Problem 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 confirmed 43668218 Problem History of nephrolithiasis Z87.442 confirmed 648489621 Problem Nephrolithiasis N20.0 confirmed 9557 0007 Problem Scrotal swelling N50.89 confirmed 271 422976 Problem Short stature R62.52 confirmed 767439 008 ALLERGIES Allergen (clinical drug ingredient) Drug/Non Drug Allergy do cumented on EMR Reaction Allergy Type Onset Date Status Latex Gloves([facility] Code:13474-12061) hives Drug Allergy Active Rocephin hives Drug Allergy Active Morphine Unknown Drug Allergy Active ENCOUNTERS from 2003 to 2023-02-20 Encounter Location Date Provider Diagnosis [facility] [address] [facility] [id number] [place] [address] Mar, LUCIANA MARCELLO High risk medication use Z79.899 and Iron deficiency anemia, unspecified iron deficiency anemia type D50.9 IMMUNIZATIONS Vaccine Route Administration Date Status PRIVATE DTAP (DAPTACEL) Unknown December 16, 2004 Administ ered FLUARIX QUAD (3 & UP)-GSK-2015 ID Intradermal May 27, 2015 A dministered PRIVATE DTAP (DAPTACEL) Unknown March 13, 2004 Administ ered 1st Dose PFIZER HRSA, COVID-19, 0.3 mL IM Intramuscular December Administered PRIVATE DTAP (DAPTACEL) Unknown January 07, 2004 Administ ered PRIVATE DTAP (DAPTACEL) Unknown 2003 Administ ered Hib-Hep B Unknown 2003 Administered PRIVATE MMR Unknown Sep 23, 2004 Administered PRIVATE MENINGOCOCCAL (MENACTRA) Unknown Sep 26, 2014 Administered PRIVATE HEP B (PEDS/ADOLESCENT, 3-DOSE) Unknown Jul 29, 2004 Administered PRIVATE TDAP (ADACEL) Unknown Sep 26, 2014 Administer ed PRIVATE HEP B (PEDS/ADOLESCENT, 3-DOSE) Unknown January 07, 2004 Administered PRIVATE DTAP (DAPTACEL) Unknown December 14, 2007 Administ ered PRIVATE GARDASIL 9 (HPV) IM Intramuscular January 20, 2017 Admini stered PRIVATE PPSV23 (PNEUMOVAX) IM Intramuscular Jul 17, 2022 Admi nistered prevnar pcv 7 (history) Unknown Sep 23, 2004 Administ ered prevnar pcv 7 (history) Unknown March 13, 2004 Administ ered PRIVATE FLULAVAL QUAD 0.5ML (6 MO AND UP) 2018 IM Intramuscular May 22, 2019 Administered 2nd Dose PFIZER HRSA, COVID-19, 0.3 mL IM Intramuscular January 17, 2021 Administered Booster PFIZER, COVID-19, 0.3mL IM Intramuscular Aug 21, 2021 Administered VFC FLU 22-23 (FLULAVAL) AGE 6MO & UP IM Intramuscular Jun 05, 2022 Administered 1st Booster PFIZER Bivalent , COVID-19, 0.3mL (Comirnaty) IM Intramuscular Jul 17, 2022 Administered PRIVATE FLULAVAL QUAD 0.5ML (6 MO AND UP) 2020 IM Intramuscular May 23, 2021 Administered PRIVATE FLULAVAL QUAD 0.5ML (6 MO AND UP) 2019 IM Intramuscular May 17, 2020 Administered FLUARIX QUAD P-FREE 3 AND UP .50 2015 IM Intramuscular May 19, 2016 Administered prevnar pcv 7 (history) Unknown January 07, 2004 Administ ered PRIVATE BEXSERO (MEN B) IM Intramuscular February 28, 2021 Adminis tered PRIVATE POLIO (IPV) Unknown December 16, 2004 Administered PRIVATE BEXSERO (MEN B) IM Intramuscular February 02, 2020 Adminis tered PRIVATE POLIO (IPV) Unknown January 07, 2004 Administered PRIVATE GARDASIL 9 (HPV) IM Intramuscular Apr 20, 2018 Admini stered PRIVATE POLIO (IPV) Unknown 2003 Administered hib (history) Unknown December 16, 2004 Administered PRIVATE VARICELLA Unknown December 14, 2007 Administered prevnar pcv 7 (history) Unknown 2003 Administ ered PRIVATE FLULAVAL QUAD 0.5ML (6 MO AND UP) 2018 IM Intramuscular May 27, 2018 Administered PRIVATE HEP A (PEDS/ADOLESCENT-2 DOSE) Unknown Jul 12, 008 Administered FLUARIX QUAD (3 AND UP) 2016 IM Intramuscular May 21, 2017 Ad ministered PRIVATE HEP A (PEDS/ADOLESCENT-2 DOSE) Unknown December 14, 2007 Administered FLUARIX QUAD P-FREE 3 AND UP .50 2015 IM Intramuscular May 14, 2016 Administered PRIVATE POLIO (IPV) Unknown December 14, 2007 Administered hib (history) Unknown March 13, 2004 Administered PRIVATE VARICELLA Unknown Sep 23, 2004 Administered hib (history) Unknown January 07, 2004 Administered PRIVATE MENINGOCOCCAL (MENVEO) IM Intramuscular February 02, 2020 Administered PRIVATE PPSV23 (PNEUMOVAX) Unknown May 21, 2009 Admin istered PRIVATE MMR Unknown December 14, 2007 Administered SOCIAL HISTORY [...] Notes Start Da te End Date Status Nutren 1.0/Fiber - 240 mL (1 can) G-TUBE 6 times per day Di emigdio 1 month supply Nov, Active Polyethylene Glycol 3350 17 gm/dose 17 grams PEG tube Once a day Aug, Active Quick Hang-BYERS Gastrostomy Kit 14FR 1 14 Mauritanian, 2.5 cm lengt h; Use with tube feedings via g-tube as directed. Fill to 2cm water. Nov, Active Trileptal 300 MG/5ML 5 mL by PEG tube route 3 drew es per day in the morning Orally 3 times a day Nov, Active Mometasone Furoate 50 MCG/ACT 2 sprays (1 spray in eac h nostril) Nasally twice a day for 30 days Dec, Active Azithromycin 200 MG/5ML 12.5mL Orally once a day for 3 days 500mg daily x 3 days Feb, Active Lidocaine-Prilocaine 2.5-2.5 % apply a jazlyn sized am ount of cream over center of ITB pump one hour before refill Externally PRN for 1 days prn Active Lansoprazole 30 MG 1 tablet dissolved G-TUBE twice a day for 30 day(s ) Active Albuterol Sulfate (2.5 MG/3ML) 0.083% 3 ml Inhalation every 4 hours as needed for shortness of breath or wheezing prn Jul, Not-Taking Amoxicillin 500 MG 1 capsule Orally every 12 hours for 7 days May, Not-Taking ProAir HFA 108 (90 Base) MCG/ACT 2 -4 puffs with space r Inhalation every 4 hrs as needed for shortness of breath prn Nov, Active Baclofen 14557 MCG/20ML Intrathecal Active hydroCHLOROthiazide 25 MG GIVE ONE TABLET VIA G-TUBE ONCE DAILY for 9 0 Active Albuterol Sulfate 2.5 mg /3 mL (0.083 %) 1 Each by Inh alation route every 4 hours for cough and wheeze PRN for wheezing or cough [facility] Apr, Active Diflucan 150 MG 150mg liquid G tube once for 1 days Feb Active Cytra-K 1100-334 MG/5ML 10mL g-tube three times daily for 90 days Active Potassium Citrate-Citric Acid 1100-334 MG/5ML GIVE 10M LS VIA G-TUBE THREE (3) TIMES DAILY for 30 Active Amoxicillin 400 MG/5ML 6.25mL Orally twice a day for 5 days May, Not-Taking Levocetirizine Dihydrochloride 2.5 MG/5ML 10 mL by PEG tube once daily as needed peg tube Once a day Active Zonisamide 100 MG 3 capsules G-TUBE Once a day Active Acetaminophen 160 MG/5ML 15-20 ml G-TUBE Every 6 hours as needed for 3 days Mar, Active PROCEDURES No Information RESULTS No Results REASON FOR VISIT Lab MEDICAL (GENERAL) HISTORY Type Description Date Medical [...] Lipodermoid Medical History Strabismus Medical History Hydrocephalus (CORN COOKER shunt) Medical History Obstructive Sleep Apnea Medical History Asthma (intermittent-no symp toms since 2011 laryngeal cleft repair Medical History Cerebral palsy Medical History Constipation Medical History Right Temporal Lobe Seizures Medical History Laryngeal cleft (see surgery list) Medical History Esophageal stricture Medical History hypertension Surgical History TE fistula repair, anoplasty (to repair imperforate anus)- Dr. Tellez, [facility] 2003 Surgical History Fabian Fundoplication, G-tub e placement, circumcision, bilateral inguinal hernia repair - Dr. Tellez, [facility] 2003 Surgical History Second G-tube placement- Dr. Rodrigues, [facility] 2003 Surgical History Left wrist- ulnar centralization- Dr. Stu dave, [facility] 06/18/2004 Surgical History Tethered cord release -Dr. Crenshaw, [facility] 1 2003 Surgical History Left index finger pollicizat ion (to form thumb)- Dr. Hernandez, [facility] 10/08/2004 Surgical History Bilateral ear tubes, broncho scopy, subglottic cyst removed-- Dr. Mitzi Mckeon, [facility] 01/14/2005 Surgical History CORN COOKER Shunt-- Dr. Crenshaw, [facility] 01/27/2005 Surgical History Bilateral ear tubes, broncho scopy, tonsillectomy, adeneoidectomy --Dr. Mitzi Mckeon, [facility] 12/02/2005 Surgical History Midline dermoid cyst removal (from neck) & bilateral ear tubes-- Dr. Mitzi Mckeon, [facility] 06/16/2006 [facility] & bilateral ear tubes ( Dr. Chávez, [facility]) 01/12/2007 Surgical History Bilateral ear tubes, broncho scopy, adneoidectomy, laryngeal cleft repair, turbinectomy (Dr. Mitzi Mckeon, [facility]) & endoscopy & esophageal dilation ( Dr. Rincon, [facility]) 07/17/2009 Surgical History Endoscopy & esophageal dilation- Dr. Juan Carlos hardin, [facility] 07/30/2009 Surgical History Endoscopy & esophageal dilation- Dr. Carlo gonzalez, [facility] 11/22/2009 Surgical History Endoscopy & esophageal dilation- Dr. Juan Carlos hardin, [facility] 01/28/2010 Surgical History Endoscopy & esophageal dilation- Dr. Antonio wolff, [facility] 03/21/2010 Surgical History Laryngeal cleft repaired, tu rbinectomy, bilateral ear tubes - Dr. Josias Mckeon, [facility] 04/07/2012 [facility] Surgical History CORN COOKER shunt revision - Dr. Lal [facility] 05/12/2015 Surgical History [facility] COOK[facility] Surgical History Kidney stone removal and sti nt placement- Dr. Esparza [facility] 07/10/2015 Surgical History [employer] shunt revision-Dr. Lal [facility] 07/19/2015 Surgical History CORN COOKER shunt revision and port p lacement-Dr. Lal(shunt) & Dr. Choudhury (port)[facility] 07/29/2015 Surgical History Kindey Stone [facility] and [facility] Surgical History Right Abdominal Baclofen Pum p with intrathecal catheter-Dr. Lal, [facility] 11/18/2015 Surgical History Baclofen pump replacement-Dr Venus Cadet, [facility] 02/2022 Surgical History Baclofen pump revision Dr. Mehul rosen [facility], Port replacement by IR 03/2022 Hospitalization History NICU- [facility] 2003 Hospitalization History NICU- [facility] 0 11/2003-12/20/2003 Hospitalization History After some surgeries for observation Hospitalization History Non-RSV Bronchiolitis 10/29/2004-10/2004 Hospitalization History [facility]- pH probe stud y 06/10/2005 Hospitalization History [facility]-- Upper GI ble eding 09/24/2007- 09/26/2007 Hospitalization History [facility] -sudden unconsciousne ss, later determined to be seizures 06/06/2008-06/07/2008 Hospitalization History [facility]- epididymi tis 04/10/2014 Hospitalization History [facility] for seizures an d CORN COOKER Shunt failure 05/12/2015-05/23/2015 Hospitalization History [facility]- CORN COOKER sh unt failure, CSF infection, dakota lomax, HTN 06/21/2015-07/13/2015 Goals Section No Information Health Concerns No Information MEDICAL EQUIPMENT No Information MENTAL STATUS No Information FUNCTIONAL STATUS No Information ASSESSMENTS Encounter Date Diagnosis Assessment Notes Treatment Notes Treatm ent Clinical Notes Mar, High risk medication use (ICD-10 - Z79.8 99) Mar, Iron deficiency anemia, unsp ecified iron deficiency anemia type (ICD-10 - D50.9) PLAN OF TREATMENT Medication Medication Name Sig Start Date Stop Date Diflucan 150 MG 150mg liquid G tube once for 1 days Feb, Azithromycin 200 MG/5ML 12.5mL Orally once a day for 3 days 15 J 2022 Next Appt Details Provider Name:BULMARO MOLINA, 2023-03-26 1 1:00:00 AM, [address] [facility], [id number], [place], [address], Insurance Providers Payer Name Payer Address Payer Phone Insured Name Patient Relati onship to Insured Coverage Start Date Coverage End Date Subscriber Number Group [facility] [address] [facility] [address] [phone] Pricilla Sauer Child - Insured has Financial Responsibility [id number] MEDICATIONS ADMINISTERED Medication Instructions Date of Administration Dosage Penicillin G Benzathine & Proc January, 2 mL Bicillin L-A Feb, 2 mL Bicillin L-A Sep, 2 mL ROCEPHIN 1 GM (IM) January, 1 grm Ketorolac Tromethamine January, 30 mg Bicillin L-A Oct, [id number] U
--- OUTSIDE RECORDS SUMMARY | 2023-03-01 10:49 | XMS REPORT ---
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 confirmed 489717030 Problem Secondary hypertension I15.9 confirmed 55628345 Problem Environmental and seasonal allergies J30.89 confirmed 829484485 Problem Other dysphagia R13.19 confirmed 4073 9000 Problem Allergic rhinitis, unspecified J30.9 confir med 65085537 Problem 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 confirm ed 73501932 Problem Gastroesophageal reflux disease without esophagitis K21.9 confirmed 147148726 Problem Obstructive sleep apnea G47.33 confirmed 60883299 Problem 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 confirmed 7 8002811 Problem Acquired subluxation of left hip, sequela S73.002S confirmed 120917592 Problem Port-a-cath in place Z95.828 confirmed 817864309 Problem Presence of intrathecal baclofen pump Z96.89 confirmed 740687960 Problem 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 confirmed 71756065 Problem 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 confirmed 214572567 Problem [employer] (ventriculoperitoneal) shunt status Z98.2 confirmed 934659006 Problem Renal calculus N20.0 confirmed 04650 007 Problem History of hydrocephalus Z86.69 confirmed 524448588 Problem 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, 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 confirmed 0477697 6 Problem Hydrocele, unspecified hydrocele type N43.3 confirmed 68136247 Problem History of nephrolithiasis Z87.442 confirmed 775866554 Problem Short stature R62.52 confirmed 804298 008 Problem Non-seasonal allergic rhinitis due to pollen J30.1 confirmed 78123377 Problem Seizure disorder G40.909 confirmed 12 4120579 Problem Chronic idiopathic constipation K59.04 confi rmed 89592999 Problem 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 confirmed 948150711 Problem Iron deficiency anemia, unspecified iron deficiency an emia type D50.9 confirmed 15099294 Problem Nephrolithiasis N20.0 confirmed 9557 0007 Problem Scrotal swelling N50.89 confirmed 271 168793 Problem High risk medication use Z79.899 confirmed [id number] ALLERGIES Allergen (clinical drug ingredient) Drug/Non Drug Allergy do cumented on EMR Reaction Allergy Type Onset Date Status Latex Gloves([facility] Code:51947-22476) hives Drug Allergy Active Rocephin hives Drug Allergy Active Morphine Unknown Drug Allergy Active ENCOUNTERS from 2003 to 2023-02-25 Encounter Location Date Provider Diagnosis [facility] [place] [id number] [place] [address] Mar, LUCIANA ARMENDARIZ IMMUNIZATIONS Vaccine Route Administration Date Status PRIVATE HEP A (PEDS/ADOLESCENT-2 DOSE) Unknown Jul 12 008 Administered PRIVATE GARDASIL 9 (HPV) IM Intramuscular Apr 20, 2018 Admini stered PRIVATE HEP A (PEDS/ADOLESCENT-2 DOSE) Unknown December 14, 2007 Administered PRIVATE GARDASIL 9 (HPV) IM Intramuscular January 20, 2017 Admini stered PRIVATE POLIO (IPV) Unknown December 14, 2007 Administered PRIVATE POLIO (IPV) Unknown December 16, 2004 Administered prevnar pcv 7 (history) Unknown Sep 23, 2004 Administ ered PRIVATE FLULAVAL QUAD 0.5ML (6 MO AND UP) 2019 IM Intramuscular May 27, 2018 Administered prevnar pcv 7 (history) Unknown March 13, 2004 Administ ered FLUARIX QUAD (3 AND UP) 2017 IM Intramuscular May 21, 2017 Ad ministered prevnar pcv 7 (history) Unknown January 07, 2004 Administ ered FLUARIX QUAD P-FREE 3 AND UP .50 2015 IM Intramuscular May 14, 2016 Administered prevnar pcv 7 (history) Unknown 2003 Administ ered FLUARIX QUAD (3 & UP)-GSK-2015 ID Intradermal May 27, 2015 A dministered PRIVATE MENINGOCOCCAL (MENVEO) IM Intramuscular February 02, 2020 Administered PRIVATE POLIO (IPV) Unknown January 07, 2004 Administered PRIVATE POLIO (IPV) Unknown 2003 Administered hib (history) Unknown December 16, 2004 Administered PRIVATE BEXSERO (MEN B) IM Intramuscular February 28, 2021 Adminis tered FLUARIX QUAD P-FREE 3 AND UP .50 2015 IM Intramuscular May 19, 2016 Administered 2nd Dose PFIZER HRSA, COVID-19, 0.3 mL IM Intramuscular January 17, 2021 Administered Booster PFIZER, COVID-19, 0.3mL IM Intramuscular Aug 21, 2021 Administered 1st Booster PFIZER Bivalent , COVID-19, 0.3mL (Comirnaty) IM Intramuscular Jul 17, 2022 Administered VFC FLU 22-23 (FLULAVAL) AGE 6MO & UP IM Intramuscular Jun 05, 2022 Administered PRIVATE BEXSERO (MEN B) IM Intramuscular February 02, 2020 Adminis tered PRIVATE VARICELLA Unknown December 14, 2007 Administered PRIVATE MENINGOCOCCAL (MENACTRA) Unknown Sep 26, 2014 Administered PRIVATE MMR Unknown Sep 23, 2004 Administered PRIVATE TDAP (ADACEL) Unknown Sep 26, 2014 Administer ed PRIVATE HEP B (PEDS/ADOLESCENT, 3-DOSE) Unknown Jul 29, 2004 Administered PRIVATE DTAP (DAPTACEL) Unknown December 14, 2007 Administ ered PRIVATE HEP B (PEDS/ADOLESCENT, 3-DOSE) Unknown January 07, 2004 Administered PRIVATE DTAP (DAPTACEL) Unknown December 16, 2004 Administ ered PRIVATE FLULAVAL QUAD 0.5ML (6 MO AND UP) 2020 IM Intramuscular May 23, 2021 Administered PRIVATE VARICELLA Unknown Sep 23, 2004 Administered hib (history) Unknown March 13, 2004 Administered PRIVATE PPSV23 (PNEUMOVAX) IM Intramuscular Jul 17, 2022 Admi nistered hib (history) Unknown January 07, 2004 Administered PRIVATE PPSV23 (PNEUMOVAX) Unknown May 21, 2009 Admin istered Hib-Hep B Unknown 2003 Administered PRIVATE MMR Unknown December 14, 2007 Administered PRIVATE DTAP (DAPTACEL) Unknown March 13, 2004 Administ eregemma 1st Dose PFIZER HRSA, COVID-19, 0.3 mL IM Intramuscular December Administered PRIVATE DTAP (DAPTACEL) Unknown January 07, 2004 Administ ered PRIVATE DTAP (DAPTACEL) Unknown 2003 Administ ered PRIVATE FLULAVAL QUAD 0.5ML (6 MO AND UP) 2019 IM Intramuscular May 17, 2020 Administered PRIVATE FLULAVAL QUAD 0.5ML (6 MO AND UP) 2018 IM Intramuscular May 22, 2019 Administered SOCIAL HISTORY Sex Assigned At : [...] can) G-TUBE 6 times per day Di shantanujanet 1 month supply Nov, Active Polyethylene Glycol 3350 17 gm/dose 17 grams PEG tube Once a day Aug, Active [employer]-BYERS Gastrostomy Kit 14FR 1 14 Divehi, 2.5 cm lengt h; Use with tube [...] shortness of breath prn Nov, Active Baclofen 19512 MCG/20ML Intrathecal Active hydroCHLOROthiazide 25 MG GIVE ONE TABLET VIA G-TUBE ONCE DAILY for 9 0 Active Albuterol Sulfate 2.5 mg /3 mL (0.083 %) 1 Each by Inh alation route every 4 hours for cough and wheeze PRN for wheezing or cough [facility] Apr, Active Diflucan 150 MG 150mg liquid [...] Information RESULTS No Results REASON FOR VISIT New order MEDICAL (GENERAL) HISTORY Type Description Date Medical [...] Lipodermoid Medical History Strabismus Medical History Hydrocephalus ([employer] shunt) Medical History Obstructive Sleep Apnea Medical History Asthma (intermittent-no symp toms since 2012 laryngeal cleft repair Medical History Cerebral palsy Medical History Constipation Medical History Right Temporal Lobe Seizures Medical History Laryngeal cleft (see surgery list) Medical History Esophageal stricture Medical History hypertension Surgical History TE fistula repair, anoplasty (to repair imperforate anus)- Dr. Tellez, [facility] 2003 Surgical History Fabian Fundoplication, G-tub e placement, circumcision, bilateral inguinal hernia repair - Dr. Tellez, [facility] 2003 Surgical History Second G-tube placement- Dr. Rodrigues, [facility] 2003 Surgical History Left wrist- ulnar centralization- Dr. Stu dave, [facility] 06/18/2004 Surgical History Tethered cord release -Dr. Crenshaw, [facility] 1 2003 Surgical History Left index finger pollicizat ion (to form thumb)- Dr. Hernandez, [facility] 10/08/2004 Surgical History Bilateral ear tubes, broncho scopy, subglottic cyst removed-- Dr. Mitzi Mckeon, [facility] 01/14/2005 Surgical History [employer] Shunt-- Dr. Crenshaw, [facility] 01/27/2005 Surgical History Bilateral ear tubes, broncho scopy, tonsillectomy, adeneoidectomy --Dr. Mitzi Mckeon, [facility] 12/02/2005 Surgical History Midline dermoid cyst removal (from neck) & bilateral ear tubes-- Dr. Mitzi Mckeon, [facility] 06/16/2006 [facility] & bilateral ear tubes ( Dr. Chávez, [facility]) 01/12/2007 Surgical History Bilateral ear tubes, broncho scopy, adneoidectomy, laryngeal cleft repair, turbinectomy (Dr. Mitzi Mckeon, [facility]) & endoscopy & esophageal dilation ( Dr. Rincon, [facility]) 07/17/2009 Surgical History Endoscopy & esophageal dilation- Dr. Juan Carlos hardin, [facility] 07/30/2009 Surgical History Endoscopy & esophageal dilation- Dr. Carlo gonzalez, [facility] 11/22/2009 Surgical History Endoscopy & esophageal dilation- Dr. Juan Carlos hardin, [facility] 01/28/2010 Surgical History Endoscopy & esophageal dilation- Dr. Antonio wolff, [facility] 03/21/2010 Surgical History Laryngeal cleft repaired, tu rbinectomy, bilateral ear tubes - Dr. Josias Mckeon, [facility] 04/07/2012 [facility]acl[facility]en pump [facility] History [employer] [facility] [employer] [facility] Ventricul[facility] and baclofen [facility] History [employer] [facility] Surgical History Kidney stone removal and sti nt placement- Dr. Esparza [facility] 07/10/2015 Surgical History Master Carpenter [facility] Surgical History [employer] shunt revision and port p lacement-Dr. Lal(shunt) & Dr. Choudhury (port), [facility] 07/29/2015 Surgical History Kindey Stone [facility] and st[facility] Surgical History Right Abdominal Baclofen Pum p with intrathecal catheter-Dr. Lal, [facility] 11/18/2015 Surgical History [facility] Surgical History Baclofen pump revision Dr. Mehul rosen [facility], Port replacement by IR 03/2022 Hospitalization History NICU- [facility] 2003 Hospitalization History NICU- [facility] 11/2003-12/20/2003 Hospitalization History After some surgeries for observation Hospitalization History Non-RSV Bronchiolitis 10/29/2004-10/2004 Hospitalization History [facility]- pH probe stud y 06/10/2005 Hospitalization History [facility]-- Upper GI ble eding 09/24/2007- 09/26/2007 Hospitalization History [facility] -sudden unconsciousne ss, later determined to be seizures 06/06/2008-06/07/2008 Hospitalization History [facility]- epididymi tis 04/10/2014 Hospitalization History [facility] for seizures an d [employer] Shunt failure 05/12/2015-05/23/2015 Hospitalization History [facility]- [employer] sh unt failure, CSF infection, [place] lomax, HTN 06/21/2015-07/13/2015 Goals Section No Information Health Concerns No Information MEDICAL EQUIPMENT No Information MENTAL STATUS No Information FUNCTIONAL STATUS No Information ASSESSMENTS No Information PLAN OF TREATMENT Medication Medication Name Sig Start Date Stop Date Diflucan 150 MG 150mg liquid G tube once for 1 days Feb, Azithromycin 200 MG/5ML 12.5mL Orally once a day for 3 days 15 J 2022 Next Appt Details Provider Name:BULMARO MOLINA, 2023-03-26 1 1:00:00 AM, [address], [id number], [place], [address], Insurance Providers Payer Name Payer Address Payer Phone Insured Name Patient Relati onship to Insured Coverage Start Date Coverage End Date Subscriber Number Group Nu mber [facility] Health Benefits [address] [place] [id number] [phone] Pricilla Sauer Child - Insured has Financial Responsibility [id number] MEDICATIONS ADMINISTERED Medication Instructions Date of Administration Dosage Bicillin L-A Sep, 2 mL Bicillin L-A Feb, 2 mL Penicillin G Benzathine & Proc January, 2 mL ROCEPHIN 1 GM (IM) January, 1 grm Ketorolac Tromethamine January, 30 mg Bicillin L-A Oct, [id number] U
--- OUTSIDE RECORDS SUMMARY | 2023-03-01 10:49 | XMS REPORT ---
Author Author 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 confirmed 259133819 Problem Non-seasonal allergic rhinitis due to pollen J30.1 confirmed 32677084 Problem 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 confirmed 239426146 Problem Chronic idiopathic constipation K59.04 confi rmed 46302153 Problem Environmental and seasonal allergies J30.89 confirmed 531786227 Problem Acquired subluxation of left hip, sequela S73.002S confirmed 900581326 Problem Allergic rhinitis, unspecified J30.9 confir med 80511888 Problem 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 confirmed 7 9702289 Problem Port-a-cath in place Z95.828 confirmed 277683746 Problem Presence of intrathecal baclofen pump Z96.89 confirmed 902451231 Problem CAR PORTER (ventriculoperitoneal) shunt status Z98.2 confirmed 468667155 Problem History of hydrocephalus Z86.69 confirmed 251356252 Problem Mild intermittent asthma without complication J45.20 confirmed 413610552 Problem Hearing loss, unspecified laterality H91.90 confirmed 18121505 Problem Obstructive sleep apnea G47.33 confirmed 54275421 Problem Gastroesophageal reflux disease without esophagitis K21.9 confirmed 292306127 Problem 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 confirm ed 06661230 Problem Renal calculus N20.0 confirmed 14119 007 Problem Other dysphagia R13.19 confirmed 4073 9000 Problem 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, 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 confirmed 3453428 6 Problem Hydrocele, unspecified hydrocele type N43.3 confirmed 81553524 Problem Iron deficiency anemia, unspecified iron deficiency an emia type D50.9 confirmed 91200951 Problem High risk medication use Z79.899 confirmed [id number] Problem 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 confirmed 779229538 Problem Seizure disorder G40.909 confirmed 12 5750239 Problem Secondary hypertension I15.9 confirmed 76580129 Problem 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 confirmed 65554235 Problem History of nephrolithiasis Z87.442 confirmed 973016653 Problem Nephrolithiasis N20.0 confirmed 9557 0007 Problem Scrotal swelling N50.89 confirmed 271 985204 Problem Short stature R62.52 confirmed 130464 008 ALLERGIES Allergen (clinical drug ingredient) Drug/Non Drug Allergy do cumented on EMR Reaction Allergy Type Onset Date Status Latex Gloves([facility] Code:85907-41617) hives Drug Allergy Active Rocephin hives Drug Allergy Active Morphine Unknown Drug Allergy Active ENCOUNTERS from 2003 to 2023-02-14 Encounter Location Date Provider Diagnosis [facility] [address] [facility] [id number] [place] [address] Feb, LUCIANA ARMENDARIZ IMMUNIZATIONS Vaccine Route Administration Date Status hib (history) Unknown March 13, 2004 Administered PRIVATE MMR Unknown Sep 23, 2004 Administered Hib-Hep B Unknown 2003 Administered PRIVATE HEP B (PEDS/ADOLESCENT, 3-DOSE) Unknown Jul 29, 2004 Administered PRIVATE MENINGOCOCCAL (MENACTRA) Unknown Sep 26, 2014 Administered PRIVATE TDAP (ADACEL) Unknown Sep 26, 2014 Administer ed FLUARIX QUAD (3 & UP)-GSK-2014 ID Intradermal May 27, 2015 A dministered PRIVATE VARICELLA Unknown December 14, 2007 Administered PRIVATE GARDASIL 9 (HPV) IM Intramuscular Apr 20, 2018 Admini stered PRIVATE VARICELLA Unknown Sep 23, 2004 Administered PRIVATE GARDASIL 9 (HPV) IM Intramuscular January 20, 2017 Admini stered PRIVATE PPSV23 (PNEUMOVAX) Unknown May 21, 2009 Admin istered hib (history) Unknown December 16, 2004 Administered PRIVATE MMR Unknown December 14, 2007 Administered PRIVATE HEP B (PEDS/ADOLESCENT, 3-DOSE) Unknown January 07, 2004 Administered PRIVATE DTAP (DAPTACEL) Unknown December 14, 2007 Administ ered PRIVATE DTAP (DAPTACEL) Unknown December 16, 2004 Administ ered PRIVATE FLULAVAL QUAD 0.5ML (6 MO AND UP) 2018 IM Intramuscular May 27, 2018 Administered FLUARIX QUAD P-FREE 3 AND UP .50 2015 IM Intramuscular May 19, 2016 Administered PRIVATE BEXSERO (MEN B) IM Intramuscular February 28, 2021 Adminis tered PRIVATE BEXSERO (MEN B) IM Intramuscular February 02, 2020 Adminis tered hib (history) Unknown January 07, 2004 Administered PRIVATE MENINGOCOCCAL (MENVEO) IM Intramuscular February 02, 2020 Administered prevnar pcv 7 (history) Unknown January 07, 2004 Administ ered PRIVATE PPSV23 (PNEUMOVAX) IM Intramuscular Jul 17, 2022 Admi nistered PRIVATE DTAP (DAPTACEL) Unknown March 13, 2004 Administ ered PRIVATE FLULAVAL QUAD 0.5ML (6 MO AND UP) 2020 IM Intramuscular May 23, 2021 Administered prevnar pcv 7 (history) Unknown 2003 Administ ered 1st Booster PFIZER Bivalent , COVID-19, 0.3mL (Comirnaty) IM Intramuscular Jul 17, 2022 Administered PRIVATE HEP A (PEDS/ADOLESCENT-2 DOSE) Unknown Jul 12 008 Administered VFC FLU 22-23 (FLULAVAL) AGE 6MO & UP IM Intramuscular Jun 05, 2022 Administered PRIVATE HEP A (PEDS/ADOLESCENT-2 DOSE) Unknown December 14, 2007 Administered Booster PFIZER, COVID-19, 0.3mL IM Intramuscular Aug 21, 2021 Administered PRIVATE POLIO (IPV) Unknown December 14, 2007 Administered PRIVATE DTAP (DAPTACEL) Unknown January 07, 2004 Administ ered PRIVATE FLULAVAL QUAD 0.5ML (6 MO AND UP) 2018 IM Intramuscular May 22, 2019 Administered PRIVATE DTAP (DAPTACEL) Unknown 2003 Administ ered PRIVATE FLULAVAL QUAD 0.5ML (6 MO AND UP) 2019 IM Intramuscular May 17, 2020 Administered prevnar pcv 7 (history) Unknown Sep 23, 2004 Administ ered 2nd Dose PFIZER HRSA, COVID-19, 0.3 mL IM Intramuscular January 17, 2021 Administered prevnar pcv 7 (history) Unknown March 13, 2004 Administ ered 1st Dose PFIZER HRSA, COVID-19, 0.3 mL IM Intramuscular December Administered PRIVATE POLIO (IPV) Unknown December 16, 2004 Administered FLUARIX QUAD (3 AND UP) 2017 IM Intramuscular May 21, 2017 Ad ministered FLUARIX QUAD P-FREE 3 AND UP .50 2016 IM Intramuscular May 14, 2016 Administered PRIVATE POLIO (IPV) Unknown January 07, 2004 Administered PRIVATE POLIO (IPV) Unknown 2003 Administered SOCIAL HISTORY Sex Assigned At : [...] Notes Start Da te End Date Status Mometasone Furoate 50 MCG/ACT 2 sprays (1 spray in eac h nostril) Nasally twice a day for 30 days Dec, Active Nutren 1.0/Fiber - 240 mL (1 can) G-TUBE 6 times per day Di emigdio 1 month supply Nov, Active Lidocaine-Prilocaine 2.5-2.5 % apply a jazlyn sized am ount of cream over center of ITB pump one hour before refill Externally PRN for 1 days prn Active Baclofen 92568 MCG/20ML Intrathecal Active CARON-BYERS Gastrostomy Kit 14FR 1 14 Czech, 2.5 cm lengt h; Use with tube feedings via g-tube as directed. Fill to 2cm water. Nov, Active hydroCHLOROthiazide 25 MG GIVE ONE TABLET VIA G-TUBE ONCE DAILY for 9 0 Active Amoxicillin 400 MG/5ML 6.25mL Orally twice a day for 5 days May, Not-Taking Lansoprazole 30 MG 1 tablet dissolved G-TUBE twice a day for 30 day(s ) Active Albuterol Sulfate (2.5 MG/3ML) 0.083% 3 ml Inhalation every 4 hours as needed for shortness of breath or wheezing prn Jul, Not-Taking Amoxicillin 500 MG 1 capsule Orally every 12 hours for 7 days May, Not-Taking Potassium Citrate-Citric Acid 1100-334 MG/5ML GIVE 10M LS VIA G-TUBE THREE (3) TIMES DAILY for 30 Active ProAir HFA 108 (90 Base) MCG/ACT 2 -4 puffs with space r Inhalation every 4 hrs as needed for shortness of breath prn Nov, Active Zonisamide 100 MG 3 capsules G-TUBE Once a day Active Acetaminophen 160 MG/5ML 15-20 ml G-TUBE Every 6 hours as needed for 3 days Mar, Active Trileptal 300 MG/5ML 5 mL by PEG tube route 3 drew es per day in the morning Orally 3 times a day Nov, Active Albuterol Sulfate 2.5 mg /3 mL (0.083 %) 1 Each by Inh alation route every 4 hours for cough and wheeze PRN for wheezing or cough [facility] Apr, Active Diflucan 150 MG 150mg liquid G tube once for 1 days Feb Active Levocetirizine Dihydrochloride 2.5 MG/5ML 10 mL by PEG tube once daily as needed peg tube Once a day Active Cytra-K 1100-334 MG/5ML 10mL g-tube three times daily for 90 days Active Polyethylene Glycol 3350 17 gm/dose 17 grams PEG tube Once a day Aug, Active PROCEDURES No Information RESULTS No Results REASON FOR VISIT updates MEDICAL (GENERAL) HISTORY Type Description Date Medical [...] Lipodermoid Medical History Strabismus Medical History Hydrocephalus (CAR PORTER shunt) Medical History Obstructive Sleep Apnea Medical History Asthma (intermittent-no symp toms since 2012 laryngeal cleft repair Medical History Cerebral palsy Medical History Constipation Medical History Right Temporal Lobe Seizures Medical History Laryngeal cleft (see surgery list) Medical History Esophageal stricture Medical History hypertension Surgical History TE fistula repair, anoplasty (to repair imperforate anus)- Dr. Tellez, [facility] 2003 Surgical History Fabian Fundoplication, G-tub e placement, circumcision, bilateral inguinal hernia repair - Dr. Tellez, [facility] 2003 Surgical History Second G-tube placement- Dr. Rodrigues, [facility] 2003 Surgical History Left wrist- ulnar centralization- Dr. Stu dave, [facility] 06/18/2004 Surgical History Tethered cord release -Dr. Crenshaw, [facility] 1 2003 Surgical History Left index finger pollicizat ion (to form thumb)- Dr. Hernandez, [facility] 10/08/2004 Surgical History Bilateral ear tubes, broncho scopy, subglottic cyst removed-- Dr. Mitzi Mckeon, [facility] 01/14/2005 Surgical History CAR PORTER Shunt-- Dr. Crenshaw, [facility] 01/27/2005 Surgical History Bilateral ear tubes, broncho scopy, tonsillectomy, adeneoidectomy --Dr. Mitzi Mckeon, [facility] 12/02/2005 Surgical History Midline dermoid cyst removal (from neck) & bilateral ear tubes-- Dr. Mitzi Mckeon, [facility] 06/16/2006 [facility] & bilateral ear tubes ( Dr. Chávez, [facility]) 01/12/2007 Surgical History Bilateral ear tubes, broncho scopy, adneoidectomy, laryngeal cleft repair, [facility] & endoscopy & esophageal dilation ( Dr. Rincon, [facility]) 07/17/2009 Surgical History Endoscopy & esophageal dilation- Dr. Juan Carlos hardin, [facility] 07/30/2009 Surgical History Endoscopy & esophageal dilation- Dr. Carlo gonzalez, [facility] 11/22/2009 Surgical History Endoscopy & esophageal dilation- Dr. Juan Carlos hardin, [facility] 01/28/2010 Surgical History Endoscopy & esophageal dilation- Dr. Antonio wolff, [facility] 03/21/2010 Surgical History Laryngeal cleft repaired, tu rbinectomy, bilateral ear tubes - Dr. Josias Mckeon, [facility] 04/07/2012 Surgical History Baclofen pump placement- Dr. Lal, [facility] 11/19/2014 Surgical History [facility] Surgical History Baclofen pump catheter repla cement- [facility] 01/03/2015 Surgical History CAR PORTER shunt revision - Dr. Lal, [facility] 05/12/2015 Surgical History CAR PORTER [facility]unt [facility]- [facility]/22/2015 Surgical History Ventriculostomy and baclofen pump removal- Dr. Lal [facility] 06/26/2015 Surgical History [facility]entricul[facility] 07/[facility]/2015 Surgical History CAR PORTER shunt [facility] 07/06/2015 Surgical History Kidney stone removal and sti nt placement- Dr. Esparza [facility] 07/10/2015 Surgical History Traffic Operator shunt [facility]/19[facility]2015 Surgical History CAR PORTER shunt revision and port p lacement-Dr. Lal(shunt) & Dr. Choudhury (port), [facility] 07/29/2015 Surgical History Kindey Stone removal and sti nt replacement- [facility]/30/2015 Surgical History Right Abdominal Baclofen Pum p with intrathecal catheter-[facility] 11/18/2015 Surgical History Baclofen pump replacement-Dr Venus Cadet, [facility] 02/2022 Surgical History Baclofen pump revision Dr. Mehul rosen [facility], Port replacement by IR 03/2022 Hospitalization History NICU- [facility] 2003 Hospitalization History NICU- [facility] 11/2003-12/20/2003 Hospitalization History After some surgeries for observation Hospitalization History Non-RSV Bronchiolitis 10/29/2004-10/2004 Hospitalization History [facility]- pH probe stud y 06/10/2005 Hospitalization History [facility]-- Upper GI ble eding 09/24/2007- 09/26/2007 Hospitalization History [facility] -sudden unconsciousne ss, later determined to be seizures 06/06/2008-06/07/2008 Hospitalization History [facility]- epididymi tis 04/10/[address] [facility] for seizures an d CAR PORTER Shunt failure 05/12/2015-05/23/2015 Hospitalization History [facility]- CAR PORTER sh unt failure, CSF infection, [place] lomax, HTN 06/21/2015-07/13/2015 Goals Section No Information Health Concerns No Information MEDICAL EQUIPMENT No Information MENTAL STATUS No Information FUNCTIONAL STATUS No Information ASSESSMENTS No Information PLAN OF TREATMENT Medication Medication Name Sig Start Date Stop Date Diflucan 150 MG 150mg liquid G tube once for 1 days Feb, Next Appt Details Provider Name:BULMARO MOLINA, 2023-03-26 1 1:00:00 AM, [address], [id number], [place], [address], Insurance Providers Payer Name Payer Address Payer Phone Insured Name Patient Relati onship to Insured Coverage Start Date Coverage End Date Subscriber Number Group Nu mber [facility] Benefits [address] [facility] [phone] Pricilla Sauer Child - Insured has Financial Responsibility [id number] MEDICATIONS ADMINISTERED Medication Instructions Date of Administration Dosage Bicillin L-A Sep, 2 mL Bicillin L-A Feb, 2 mL Penicillin G Benzathine & Proc January, 2 mL Bicillin L-A Oct, [id number] U ROCEPHIN 1 GM (IM) January, 1 grm Ketorolac Tromethamine January, 30 mg
--- NOTE | 2023-03-01 12:15 | Diagnostic Imaging Report ---
Indication: Hypoxia Frontal chest obtained at 1208 p.m. compared to 05/11/2015. The heart is normal in size. There is a Port-A-Cath over the right chest with tip overlying the low SVC. There is a shunt catheter over the left hemithorax. There is central vascular congestion with perihilar infiltrates. There is no pneumothorax or pleural fluid. Impression: Bilateral perihilar infiltrates are present, pneumonia is not excluded. There is no pneumothorax or pleural fluid. Heart is normal in size. There is dextroscoliotic change. Dictated by: Dictated on workstation # [id number]
[2023-03-01] MEDS: RT-ALBUTEROL SULF 2.5 MG/3 ML PRE-MIX VIAL INH PRN (12:30)
--- NOTE | 2023-03-01 12:33 | Tele-ICU Consult ---
History of Present Illness History of Present Illness Date Seen by Provider: Mar 01, 2023 Time Seen by Provider: 12:33 Date of Admission History of Present Illness (Tele-ICU Physician , consultation as per request of PCP Service provided via interactive audio and video telecommunManjrasoft E-CARE system to a patient admitted to ICU bed in [facility]. Available chart/ vitals / labs / Images reviewed H&P is from ER notes Patient's information available about PMH, Shx, Fhx allergy reviewed inEMR. ROS as per chart and RN report Now in ICU, hemodynamically stable Video assessment done using teleICU camera, rest of exam as per RN Discussed with RN. 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 Discussed with RN to reach out if any questions or concerns A total of 31 minutes of critical care time was devoted to this patient today, required to treat and/or prevent further deterioration of critical care condition ( as above ) . I am remotely monitoring this patient from another state. I am unable to do the bedside exam, and history/physical and pertinent information is taken from other notes in the computer and bedside staff. . Allergies and Home Medications Allergies Coded Allergies: cefazolin (Verified Allergy, Severe, ANAPHYLAXIS, 03/01/23) latex (Verified Allergy, Unknown, 10/28/10) morphine (Verified Allergy, Unknown, 05/12/15) Home Medications Albuterol 8.5 Gm Hfa.aer.ad, 2-4 PUFF IH PRN, (Reported) 2 PUFFS Baclofen 10 Mg Tablet, 1 EACH GT BID, (Reported) O615 AND HS Baclofen 10 Mg Tablet, 0.5 EACH GT DAILY@1400, (Reported) Cetirizine Hcl 10 Mg Tablet, 1 EACH GT HS, (Reported) Fluticasone Propionate 1 Ea Aero, 4 PUFF INH BID, (Reported) Fluticasone Propionate 50 Mcg/16 G [place], 1 SPRAY NA BID, (Reported) Gabapentin 250 Mg/5 Ml Solution, 2 ML GT TID, (Reported) @0615, 1400, HS Lansoprazole 30 Mg/Bottle Tab.rap.dr, 15 MG GT DAILY@614, (Reported) Lansoprazole 30 Mg/Bottle Tab.rap.dr, 30 MG HS@2029, (Reported) Montelukast Sodium 5 Mg Tab.chew, 5 MG GT HS, (Reported) Polyethylene Glycol 17 Gm Pack, 8.5 G GT HS, (Reported) [trileptal] , 4 ML GT TID, (Reported) 60MG/ML SUSPENSION @0615, 1400, HS Past Medical/Social/Family Hx Patient Social History Tobacco Use?: No Smoking Status: Never a Smoker Immunizations Up To Date Tetanus Booster (TDap): Unknown Current Status Advance Directives: No Primary Language: Italian Sensory deficits: Vision impairment, Hearing impairment, Speech impairment Review of Systems Constitutional: see HPI Focused Exam Height, Weight, BMI Height: 4'0" Weight: 72lbs. oz. 32.109325br; BMI Method: Exam Exam Patient acknowledged, consented, and participated in this virtual visit which was conducted using real time audio/video Vital Signs Date Time Temp Pulse Resp B/P (MAP) Pulse Ox O2 Delivery O2 Flow Rate FiO2 03/01/23 12:30 122 26 93 60.00 03/01/23 12:00 124 133/65 (87) 90 NIV Bilevel 45.00 03/01/23 11:37 36.4 NIV Bilevel 45.00 03/01/23 11:01 NIV Bilevel 03/01/23 11:00 110 125/59 (81) 95 NIV Bilevel 45.00 03/01/23 10:57 37.2 03/01/23 10:43 112 22 115/70 (85) 97 NIV Bilevel 45.00 03/01/23 10:39 112 03/01/23 10:25 114 24 97 60.00 Height & Weight Height: 4'0" Weight: 72lbs. oz. 32.964358rh; BMI Method: General Appearance: Other Assessment/Plan Assessment/Plan 1 VANESSA MIRAMONTES MD Mar 01, 2023 12:33
[2023-03-01] MEDS: NS IV 1000 ML 1,000 ML IV SCH ×2 (12:39→22:00)
[2023-03-01 12:53] LABS: BASOPHILS % (AUTO) 1 % (0-10); EOSINOPHILS % (AUTO) 0 % (0-10); HEMATOCRIT 43 % (40-54); HEMOGLOBIN 14.2 g/dL (13.3-17.7); LYMPHOCYTES # (AUTO) 1.2 10^3/uL (1.0-4.0); LYMPHOCYTES % (AUTO) 23 % (12-44); MEAN CORPUSCULAR HEMOGLOBIN 30 pg (25-34); MEAN CORPUSCULAR HGB CONC 33 g/dL (32-36); MEAN CORPUSCULAR VOLUME 90 fL (80-99); MEAN PLATELET VOLUME 11.7 fL (9.0-12.2); MONOCYTES # (AUTO) 0.4 10^3/uL (0.0-1.0); MONOCYTES % (AUTO) 7 % (0-12); NEUTROPHILS # (AUTO) 3.5 10^3/uL (1.8-7.8); NEUTROPHILS % (AUTO) 69 % (42-75); PLATELET COUNT 187 10^3/uL (130-400); WHITE BLOOD COUNT 5.1 10^3/uL (4.3-11.0)
[2023-03-01 13:03] LABS: POTASSIUM 3.4 MMOL/L (3.6-5.0)
[2023-03-01 13:04] LABS: CALCIUM 9.2 MG/DL (8.5-10.1)
[2023-03-01 13:09] LABS: CREATININE SERUM 0.49 MG/DL (0.60-1.30)
[2023-03-01 13:11] LABS: MAGNESIUM 1.7 MG/DL (1.6-2.4)
[2023-03-01] MEDS: MEROPENEM 500 MG in NS (IVPB) 100 ML 100 ML IV SCH ×2 (13:52→19:14)
[2023-03-01] MEDS: ACETAMINOPHEN 325 MG/10.15 ML ORAL SOLN UDC PO PRN (13:53)
[2023-03-01 14:59] VITALS: BP 110/49
[2023-03-01] MEDS: AZITHROMYCIN INJECTION 500 MG in NS (IVPB) 250 ML 250 ML IV SCH (15:03)
[2023-03-01] MEDS ORDERED: ALBUMIN 25% 25 GM/100 ML 100 ML IV PRN (17:45)
[2023-03-01] MEDS ORDERED: KETOROLAC 15 MG/ML VIAL IVP ONE (17:45)
[2023-03-01] MEDS ORDERED: NS IV 500 ML 500 ML IV ONE (18:30)
[2023-03-01 18:39] VITALS: BP 101/52
[2023-03-01] MEDS: RT-ALBUTEROL SULF 2.5 MG/3 ML PRE-MIX VIAL INH SCH ×2 (18:53→22:14)
[2023-03-01] MEDS: LORazepam INJ 2 MG/ML (ATIVAN) VIAL IVP PRN (19:15)
--- NOTE | 2023-03-01 21:49 | History & Physical ---
HPI History of Present Illness: This is a 17 yo with history of spastic CP with intrathecal baclofen pump, [facility] association, history of hydrocephalus and temporal lob epilepsy and valvular heart disease. Patient has had intermittent strep and respiratory infections over the past month for which he has been treated with bicillin x1, clindamycin x7d, zithromax x3 d which he completed about 1 week prior to admission. He would improve then become ill again after treatment was completed. Family members have had similar respiratory issues and were diagnosed with micoplasma. Patient developed increasing congestion and secretions and was seen by his PCP who identified an infiltrate on CXR and noted stats in the 80's requiring 4L of supplemental oxygen to improve. Patient was directly admitted for antibiotic and respiratory support. Source: patient Exam Limitations: physical impairment Date seen by provider: Mar 01, 2023 Time Seen by Provider: 12:00 Attending Physician Harris Mazariegos DO PCP Admitting Physician: Harris Mazariegos DO Attending Physician: Harris Mazariegos DO Consult Date of Admission Mar 01, 2023 at 10:14 Home Medications Home Medications Reviewed patient Home Medication Reconciliation performed by pharmacy medication reconciliations computer hardware technician and/or nursing. Patients Allergies have been reviewed. 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 with multiple revisions G-tube placement [facility] association temporal lobe epilepsy hearing loss, visually impared (legally blind) esophageal stricture MADISYN trachamalacia scoliosis congentail subaortic stenosis 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 s/p removal x1 R ocular lipodermoid Asthma - intermittent chronic constipation laryngeal cleft s/p repair esophageal stricture s/p multiple dilations hypercalciuria hyrdocele hx kidney stone s/p removal/stent placement s/p T&A, ear tubes Family Medical History Significant Family History: No Pertinent Family Hx Review of Systems (CHC) Constitutional: see HPI Reviewed Test Results Reviewed Test Results Lab Laboratory Tests 03/01/23 12:20: White Blood Count 5.1, Red Blood Count 4.79, Hemoglobin 14.2, Hematocrit 43, Mean Corpuscular Volume 90, Mean Corpuscular Hemoglobin 30, Mean Corpuscular Hemoglobin Concent 33, Red Cell Distribution Width 14.0, Platelet Count 187, Mean Platelet Volume 11.7, Immature Granulocyte % (Auto) 0, Neutrophils (%) (Auto) 69, Lymphocytes (%) (Auto) 23, Monocytes (%) (Auto) 7, Eosinophils (%) (Auto) 0, Basophils (%) (Auto) 1, Neutrophils # (Auto) 3.5, Lymphocytes # (Auto) 1.2, Monocytes # (Auto) 0.4, Eosinophils # (Auto) 0.0, Basophils # (Auto) 0.0, Immature Granulocyte # (Auto) 0.0, Sodium Level 133L, Potassium Level 3.4L, Chloride Level 96L, Carbon Dioxide Level 28, Anion Gap 9, Blood Urea Nitrogen 9, Creatinine 0.49L, Estimat Glomerular Filtration Rate 152, BUN/Creatinine Ratio 18, Glucose Level 103, Lactic Acid Level 0.76, Calcium Level 9.2, Phosphorus Level 3.0, Magnesium Level 1.7 03/01/23 15:17: Venous Blood pH 7.37, Venous Blood Partial Pressure CO2 53H, Venous Blood HCO3 30H Radiology ADMIT DATE: 03/01/23/ICU Signed Date of Exam:03/01/23 CHEST 1 VIEW, AP/PA ONLY Indication: Hypoxia Frontal chest obtained at 1208 p.m. compared to 05/11/2015. The heart is normal in size. There is a Port-A-Cath over the right chest with tip overlying the low SVC. There is a shunt catheter over the left hemithorax. There is central vascular congestion with perihilar infiltrates. There is no pneumothorax or pleural fluid. Impression: Bilateral perihilar infiltrates are present, pneumonia is not excluded. There is no pneumothorax or pleural fluid. Heart is normal in size. There is dextroscoliotic change. Dictated by: Dictated on workstation # [id number] Dict: 03/01/23 1212 Trans: 03/01/23 1328 [facility] [id number] Interpreted by: KAMARI MACHUCA MD Physical Exam-(CHC) Physical Exam Vital Signs VS - Last 72 Hours, by Label 03/01/23 03/01/23 03/01/23 03/01/23 10:25 10:39 10:43 10:57 Temp 37.2 Pulse 114 112 112 Resp 24 22 B/P (MAP) 115/70 (85) Pulse Ox 97 97 O2 Delivery NIV Bilevel O2 Flow Rate 60.00 45.00 03/01/23 03/01/23 03/01/23 03/01/23 11:00 11:01 11:37 12:00 Temp 36.4 Pulse 110 124 B/P (MAP) 125/59 (81) 133/65 (87) Pulse Ox 95 90 O2 Delivery NIV Bilevel NIV Bilevel NIV Bilevel NIV Bilevel O2 Flow Rate 45.00 45.00 45.00 03/01/23 03/01/23 03/01/23 03/01/23 12:30 12:46 13:00 13:53 Temp 38.6 Pulse 122 133 137 Resp 26 B/P (MAP) 122/62 (82) Pulse Ox 93 90 O2 Delivery NIV Bilevel O2 Flow Rate 60.00 45.00 03/01/23 03/01/23 03/01/23 03/01/23 14:00 14:23 14:59 15:00 Temp 37.8 Pulse 137 133 137 Resp 29 B/P (MAP) 110/49 (69) 111/52 (71) Pulse Ox 98 90 98 O2 Delivery NIV Bilevel NIV Bilevel O2 Flow Rate 45.00 60.00 45.00 03/01/23 03/01/23 03/01/23 03/01/23 15:34 16:00 16:00 17:00 Temp 35.9 Pulse 129 126 B/P (MAP) 92/44 (60) 88/59 (69) Pulse Ox 90 94 O2 Delivery NIV Bilevel NIV Bilevel NIV Bilevel NIV Bilevel O2 Flow Rate 60.00 60.00 60.00 03/01/23 03/01/23 03/01/23 03/01/23 18:00 18:39 19:00 19:00 Pulse 122 118 122 122 Resp 23 20 B/P (MAP) 117/59 (78) 117/59 (78) Pulse Ox 96 98 97 O2 Delivery NIV Bilevel NIV Bilevel O2 Flow Rate 60.00 50.00 60.00 03/01/23 03/01/23 03/01/23 03/01/23 20:00 20:00 20:24 21:00 Temp 36.3 Pulse 123 116 Resp 26 B/P (MAP) 108/43 (66) 97/57 (71) Pulse Ox 93 91 O2 Delivery NIV Bilevel NIV Bilevel NIV Bilevel O2 Flow Rate 60.00 60.00 FiO2 60 03/01/23 03/01/23 03/01/23 03/01/23 22:00 22:14 23:00 23:52 Temp 37.4 Pulse 113 114 129 Resp 28 29 30 B/P (MAP) 98/52 (66) 120/64 (78) Pulse Ox 91 94 96 O2 Delivery NIV Bilevel NIV Bilevel O2 Flow Rate 60.00 70.00 70.00 03/02/23 03/02/23 03/02/23 03/02/23 00:00 00:00 01:00 01:00 Pulse 134 130 130 Resp 34 30 B/P (MAP) 124/64 (88) 124/64 (84) Pulse Ox 97 96 97 O2 Delivery NIV Bilevel NIV Bilevel NIV Bilevel O2 Flow Rate 70.00 70.00 FiO2 70 03/02/23 03/02/23 03/02/23 03/02/23 02:00 03:00 03:08 03:48 Temp 36.4 Pulse 130 123 122 Resp 37 33 25 B/P (MAP) 118/65 (80) 120/58 (76) Pulse Ox 96 97 96 O2 Delivery NIV Bilevel NIV Bilevel O2 Flow Rate 70.00 70.00 70.00 03/02/23 03/02/23 03/02/23 03/02/23 04:00 04:29 05:00 06:00 Pulse 121 113 133 Resp 24 27 30 B/P (MAP) 100/52 (71) 112/62 (77) 138/91 (107) Pulse Ox 95 94 92 95 O2 Delivery NIV Bilevel NIV Bilevel NIV Bilevel NIV Bilevel O2 Flow Rate 70.00 70.00 70.00 FiO2 70 03/02/23 03/02/23 03/02/23 03/02/23 06:42 07:00 07:00 07:03 Pulse 125 135 135 Resp 20 39 B/P (MAP) 133/69 (90) Pulse Ox 95 92 O2 Delivery NIV Bilevel O2 Flow Rate 75.00 70.00 70.00 03/02/23 03/02/23 03/02/23 03/02/23 07:44 08:00 08:00 09:00 Temp 37.3 Pulse 135 130 Resp 44 43 B/P (MAP) 123/68 (86) 128/71 (90) Pulse Ox 92 96 94 O2 Delivery NIV Bilevel NIV Bilevel NIV Bilevel O2 Flow Rate 70.00 70.00 FiO2 70 03/02/23 03/02/23 03/02/23 09:14 10:00 10:08 Temp 37.0 Pulse 128 131 Resp 35 20 B/P (MAP) 133/79 (97) Pulse Ox 93 92 O2 Delivery NIV Bilevel O2 Flow Rate 70.00 70.00 Capillary Refill : General Appearance: moderate distress (moderate work of breathing) Respiratory: accessory muscle use, rales, rhonchi (throughout all lung gonsales) Cardiovascular: tachycardia Gastrointestinal: soft Extremities: slow capillary refill Assessment/Plan Assessment/Plan Admission Status: Inpatient Order (span 2 midnights) Reason for Inpatient Admission: ICU admission for respiratory distress at risk for decompensation (1) Pneumonia Status: Acute Assessment & Plan: Directly admitted to ICU from the clinic via EMS due to pneumonia and hypoxia. At risk for decompensation due to multiple co-morbidities, discussed transfer options with mother and legal guardian and would like to stay at [facility] if possible and trial IV antibiotics. Currently requiring bi-pap at 60% FIO2 to maintain dixie in the low 90's. Antibiotics started - zithromax and meropenam IVF - will give fluid bolus x1L then 150mL/h initial cbc normal; blood cultures pending. Resume home meds and G-tube feeds - dietary consulted for conversion of home feeding regimen. Qualifiers: (2) Hypoxia HARRIS MAZARIEGOS DO Mar 01, 2023 21:49
[2023-03-01] MEDS ORDERED: OXcarbazepine (TRILEPTAL) 300 MG TAB PO SCH (22:00)
[2023-03-01] MEDS ORDERED: OXCARBAZEPINE GT SCH (22:00)
[2023-03-01] MEDS ORDERED: LANS30TA3 GT (22:02)
[2023-03-01] MEDS ORDERED: LEVO2.5S7 GT (22:03)
[2023-03-01] MEDS ORDERED: OXCA300O GT ×2 (22:07)
[2023-03-01] MEDS ORDERED: ZONI100C79 GT (22:07)
[2023-03-01] MEDS ORDERED: [UNRECOGNIZED DRUG - CODE] PO (22:09)
[2023-03-01 22:14] VITALS: BP 110/61
[2023-03-01] MEDS ORDERED: HYDR25TA4 GT (22:18)
[2023-03-01] MEDS ORDERED: LACT-228 GT (22:18)
[2023-03-01] MEDS ORDERED: POLY17PO6 PO (22:18)
[2023-03-01] MEDS ORDERED: POLY17PO6 GT (22:21)
[2023-03-01] MEDS ORDERED: [UNRECOGNIZED DRUG - CODE] GT (22:21)
[2023-03-02] MEDS: MEROPENEM 500 MG in NS (IVPB) 100 ML 100 ML IV SCH ×4 (01:56→21:04)
[2023-03-02] MEDS: RT-ALBUTEROL SULF 2.5 MG/3 ML PRE-MIX VIAL INH SCH ×6 (03:07→21:54)
[2023-03-02 03:08] VITALS: BP 120/58
[2023-03-02] MEDS ORDERED: NS IV 500 ML 500 ML IV PRN (04:30)
[2023-03-02 04:59] LABS: BASOPHILS % (AUTO) 1 % (0-10); EOSINOPHILS % (AUTO) 0 % (0-10); HEMATOCRIT 36 % (40-54); HEMOGLOBIN 11.9 g/dL (13.3-17.7); LYMPHOCYTES # (AUTO) 1.8 10^3/uL (1.0-4.0); LYMPHOCYTES % (AUTO) 28 % (12-44); MEAN CORPUSCULAR HEMOGLOBIN 30 pg (25-34); MEAN CORPUSCULAR HGB CONC 33 g/dL (32-36); MEAN CORPUSCULAR VOLUME 91 fL (80-99); MEAN PLATELET VOLUME 11.1 fL (9.0-12.2); MONOCYTES # (AUTO) 0.5 10^3/uL (0.0-1.0); MONOCYTES % (AUTO) 7 % (0-12); NEUTROPHILS % (AUTO) 64 % (42-75); PLATELET COUNT 150 10^3/uL (130-400); WHITE BLOOD COUNT 6.3 10^3/uL (4.3-11.0)
[2023-03-02 05:16] LABS: CALCIUM 8.5 MG/DL (8.5-10.1); CREATININE SERUM 0.45 MG/DL (0.60-1.30); MAGNESIUM 1.7 MG/DL (1.6-2.4); PHOSPHORUS 1.9 MG/DL (2.3-4.7)
[2023-03-02] MEDS: LORazepam INJ 2 MG/ML (ATIVAN) VIAL IVP PRN (05:26)
[2023-03-02] MEDS: MAGNESIUM 1 GM/100 ML IVPB 100 ML IV SCH ×3 (05:33→07:54)
[2023-03-02] MEDS: POTASSIUM CL 10MEQ/50ML IVPB 50 ML IV SCH ×6 (05:33→13:09)
[2023-03-02] MEDS: KCL 20 MEQ TAB (K-DUR) PO SCH (05:33)
[2023-03-02] MEDS ORDERED: POTASSIUM CL 10MEQ/50ML IVPB 400 ML IV ONE (06:04)
[2023-03-02] MEDS ORDERED: MAGNESIUM 1 GM/100 ML IVPB 400 ML IV ONE (06:04)
[2023-03-02 06:42] VITALS: BP 129/71
[2023-03-02] MEDS: NS IV 1000 ML 1,000 ML IV SCH ×2 (08:00→18:49)
--- NOTE | 2023-03-02 08:50 | Tele-ICU Progress Note ---
Subjective Date Seen by a Provider: Mar 02, 2023 Time Seen by a Provider: 08:45 Subjective/Events-last exam (Tele-ICU Physician , Progress Note ) Service provided via interactive audio and video telecommunications E-CARE system to a patient admitted to ICU bed in [facility]. Patient is seen today due to persistent need of ICU care Available chart/ vitals / labs / Images reviewed Video assessment done using teleICU camera, rest of exam as per RN Discussed with RN 17 yo M admitted yesterday with PNA-started on IV azithromycin, meropenem, has scoliosis, Now on BiPAP 14/6FiO2 70% with SpO2 hi 80's Working hard to breathe, will be electively intubated Pt is awake, has weak cough Needs suctioning every 2 hours, obtains thck yellowish white secretions tracheomalacia, MADISYN-at night on BIPAP 15/9 Has cerebral palsy, non verbal CXR shows large infiltrate on left, Sepsis Event Evaluation Height, Weight, BMI Height: 4'0" Weight: 72lbs. oz. 32.329611cn; BMI Method: Focused Exam Lactate Level 03/01/23 12:20: Lactic Acid Level 0.76 Exam Exam Patient acknowledged, consented, and participated in this virtual visit which was conducted using real time audio/video Vital Signs Date Time Temp Pulse Resp B/P (MAP) Pulse Ox O2 Delivery O2 Flow Rate FiO2 03/02/23 08:00 135 44 123/68 (86) 92 NIV Bilevel 70.00 03/02/23 07:44 37.3 03/02/23 07:03 70.00 03/02/23 07:00 135 03/02/23 07:00 135 39 133/69 (90) 92 NIV Bilevel 70.00 03/02/23 06:42 125 20 95 75.00 03/02/23 06:00 133 30 138/91 (107) 95 NIV Bilevel 70.00 03/02/23 05:00 113 27 112/62 (77) 92 NIV Bilevel 70.00 03/02/23 04:29 94 NIV Bilevel 70 03/02/23 04:00 121 24 100/52 (71) 95 NIV Bilevel 70.00 03/02/23 03:48 36.4 03/02/23 03:08 122 25 96 70.00 03/02/23 03:00 123 33 120/58 (76) 97 NIV Bilevel 70.00 03/02/23 02:00 130 37 118/65 (80) 96 NIV Bilevel 70.00 03/02/23 01:00 130 03/02/23 01:00 130 30 124/64 (84) 97 NIV Bilevel 70.00 03/02/23 00:00 96 NIV Bilevel 70 03/02/23 00:00 134 34 124/64 (88) 97 NIV Bilevel 70.00 03/01/23 23:52 37.4 03/01/23 23:00 129 30 120/64 (78) 96 NIV Bilevel 70.00 03/01/23 22:14 114 29 94 70.00 03/01/23 22:00 113 28 98/52 (66) 91 NIV Bilevel 60.00 03/01/23 21:00 116 97/57 (71) 91 NIV Bilevel 60.00 03/01/23 20:24 NIV Bilevel 60 03/01/23 20:00 123 26 108/43 (66) 93 NIV Bilevel 60.00 03/01/23 20:00 36.3 03/01/23 19:00 122 03/01/23 19:00 122 20 117/59 (78) 97 NIV Bilevel 60.00 03/01/23 18:39 118 23 98 50.00 03/01/23 18:00 122 117/59 (78) 96 NIV Bilevel 60.00 03/01/23 17:00 126 88/59 (69) 94 NIV Bilevel 60.00 03/01/23 16:00 NIV Bilevel 03/01/23 16:00 129 92/44 (60) 90 NIV Bilevel 60.00 03/01/23 15:34 35.9 NIV Bilevel 60.00 03/01/23 15:00 137 111/52 (71) 98 NIV Bilevel 45.00 03/01/23 14:59 133 29 90 60.00 03/01/23 14:23 37.8 03/01/23 14:00 137 110/49 (69) 98 NIV Bilevel 45.00 03/01/23 13:53 38.6 03/01/23 13:00 137 122/62 (82) 90 NIV Bilevel 45.00 03/01/23 12:46 133 03/01/23 12:30 122 26 93 60.00 03/01/23 12:00 124 133/65 (87) 90 NIV Bilevel 45.00 03/01/23 11:37 36.4 NIV Bilevel 45.00 03/01/23 11:01 NIV Bilevel 03/01/23 11:00 110 125/59 (81) 95 NIV Bilevel 45.00 03/01/23 10:57 37.2 03/01/23 10:43 112 22 115/70 (85) 97 NIV Bilevel 45.00 03/01/23 10:39 112 03/01/23 10:25 114 24 97 60.00 I & O 03/02/23 07:00 Intake Total 3610 ml Output Total 1525 ml Balance 2085 ml Height & Weight Height: 4'0" Weight: 72lbs. oz. 32.683524ct; BMI Method: General Appearance: Moderate Distress, Other Respiratory: Rhonci, Other (loud audbile rhonchi) Cardiovascular: Tachycardia Gastrointestinal: normal bowel sounds, non tender, soft Results Lab Laboratory Tests 03/01/23 12:20 03/02/23 04:50 Assessment/Plan Assessment/Plan WIth poor cough, increasedBP WOB, low SpO2 on 70% and BiPAP I agree elective intubation is best choicer to facilate suctioning, improve oxygenation and decrease high WOB. BP is ok Critical Care: Critically Ill Patient Time spent with patient (mins): 35 CALLIE LOWE MD Mar 02, 2023 08:50
[2023-03-02] MEDS ORDERED: POTASSIUM CITRATE GT SCH (09:00)
[2023-03-02] MEDS ORDERED: OXcarbazepine (TRILEPTAL) 300 MG TAB PO SCH (09:00)
[2023-03-02] MEDS ORDERED: PANTOPRAZOLE 40 MG (PROTONIX) TAB PO SCH (09:00)
[2023-03-02] MEDS ORDERED: CITRIC ACID GT SCH (09:00)
[2023-03-02] MEDS ORDERED: [UNRECOGNIZED DRUG - OTHER] GT SCH (09:00)
[2023-03-02] MEDS ORDERED: NON-FORMULARY MEDICATION 1 EA EA (Lactobacillus Rhamnosus GG (Culturelle) 1 EACH) GT SCH (09:00)
[2023-03-02] MEDS: LORATADINE 5 MG/5 ML SOLN (CLARITIN) UDC GT SCH ×2 (09:47→21:04)
[2023-03-02] MEDS: polyethylene glycoL POWDER 17 GM (MIRALAX) PACK GT SCH (09:47)
[2023-03-02] MEDS: AZITHROMYCIN INJECTION 500 MG in NS (IVPB) 250 ML 250 ML IV SCH (09:48)
[2023-03-02 10:08] VITALS: BP 130/77
--- NOTE | 2023-03-02 10:32 | Consultation ---
HPI History of Present Illness: HPI/Chief Complaint Chief complaint: Acute hypoxic respiratory failure due to pneumonia requiring intubation after failed BiPAP HPI: This is a 17-year-old male with a history of cerebral palsy and severe disability who presented to the ICU with acute hypoxic respiratory failure with hypercapnia requiring BiPAP. I was consulted due to decision for intubation due to failure on BiPAP. Patient has longstanding medical issues from his severe disability. Parents are at the bedside. Anesthesia was consulted and patient w as intubated without complication. eICU was notified. Source: family, RN/MD, old records Exam Limitations: clinical condition Date Seen 03/02/23 Attending Physician Brenna Mar MD PCP Admitting Physician: Ramandeep Mcdonald DO Attending Physician: Ramandeep Mcdonald DO Referring Physician Date of Admission Mar 01, 2023 at 10:14 Home Medications & Allergies Home Medications Reviewed patient Home Medication Reconciliation performed by pharmacy medication reconciliations windshield repair technician and/or nursing. Patients Allergies have been reviewed. Allergies Allergies Coded Allergies cefazolin (Verified Allergy, Severe, ANAPHYLAXIS, 03/01/23) latex (Verified Allergy, Unknown, 10/28/10) morphine (Verified Allergy, Unknown, 05/12/15) Past Dpsmxsv-Ndopgt-Rrokto Hx Past Med/Social Hx: Reviewed Nursing Past Med/Soc Hx, Reviewed and Corrections made Patient Social History Marrital Status: single Employed/Student: unemployed Alcohol Use: Denies Use Smoking Status: Never a Smoker Immunizations Up To Date Tetanus Booster (TDap): Unknown Past Medical History Neurological: Cerebral Palsy, Seizure Disorder Reproductive: No Family History No Pertinent Family Hx Review of Systems ROS-Unable to Obtain: Respiratory failure Constitutional: see HPI Physical Exam Physical Exam Vital Signs Vital Signs - First Documented 03/01/23 03/01/23 03/01/23 03/01/23 10:25 10:43 10:57 20:24 Temp 37.2 Pulse 114 Resp 24 B/P (MAP) 115/70 (85) Pulse Ox 97 O2 Delivery NIV Bilevel O2 Flow Rate 60.00 FiO2 60 Capillary Refill : Height, Weight, BMI Height: 4'0" Weight: 72lbs. oz. 32.981450np; BMI Method: General Appearance: Chronically ill, Moderate Distress, Other Respiratory: Decreased Breath Sounds, Rhonci, Other (loud audbile rhonchi) Cardiovascular: Tachycardia Results Results/Procedures Labs Laboratory Tests 03/01/23 12:20 03/02/23 04:50 03/02/23 15:45 Patient resulted labs reviewed. Assessment/Plan Assessment and Plan Assess & Plan/Chief Complaint Assessment: Acute hypoxic hypercapnic respiratory failure failed BiPAP requiring intubation Severe cerebral palsy with severe disability Sepsis Plan: Intubation eICU consulted Antibiotics Supportive care Critical Care Critically Ill Patient JP UNDERWOOD 27, 2023 10:32
[2023-03-02] MEDS ORDERED: PROPOFOL DRIP (ICU) 100 ML IV ONE ×2 (11:02→18:43)
[2023-03-02] MEDS ORDERED: NS IV 1000 ML 1,000 ML ONE (11:06)
--- NOTE | 2023-03-02 11:22 | Progress Note ---
Subjective Subjective/Events-last exam Worsening respiratory status overnight, now requiring 70% FIO2 to maintain sats and prevent acidosis. More tachypneic. Focused Exam Lactate Level 03/01/23 12:20: Lactic Acid Level 0.76 Objective Exam Last Set of Vital Signs Vital Signs Date Time Temp Pulse Resp B/P (MAP) Pulse Ox O2 Delivery O2 Flow Rate FiO2 03/02/23 10:08 131 20 92 70.00 03/02/23 10:00 133/79 (97) NIV Bilevel 03/02/23 09:14 37.0 03/02/23 08:00 70 Capillary Refill : I&O Intake and Output 03/02/23 00:00 Intake Total 2015 ml Output Total 625 ml Balance 1390 ml Intake Oral 0 ml IV Total 1200 ml Tube Feeding 140 ml Enteral Flush 135 ml Other 540 ml Output Urine Total 625 ml Daily Weight Change No General: Moderate Distress Lungs: Other (coarse rhonchi throughout) Heart: Other (tachycardic) Abdomen: Soft Skin: No Rashes Results/Procedures Lab Laboratory Tests 03/01/23 12:20: White Blood Count 5.1, Red Blood Count 4.79, Hemoglobin 14.2, Hematocrit 43, Mean Corpuscular Volume 90, Mean Corpuscular Hemoglobin 30, Mean Corpuscular Hemoglobin Concent 33, Red Cell Distribution Width 14.0, Platelet Count 187, Mean Platelet Volume 11.7, Immature Granulocyte % (Auto) 0, Neutrophils (%) (Auto) 69, Lymphocytes (%) (Auto) 23, Monocytes (%) (Auto) 7, Eosinophils (%) (Auto) 0, Basophils (%) (Auto) 1, Neutrophils # (Auto) 3.5, Lymphocytes # (Auto) 1.2, Monocytes # (Auto) 0.4, Eosinophils # (Auto) 0.0, Basophils # (Auto) 0.0, Immature Granulocyte # (Auto) 0.0, Sodium Level 133L, Potassium Level 3.4L, Chloride Level 96L, Carbon Dioxide Level 28, Anion Gap 9, Blood Urea Nitrogen 9, Creatinine 0.49L, Estimat Glomerular Filtration Rate 152, BUN/Creatinine Ratio 18, Glucose Level 103, Lactic Acid Level 0.76, Calcium Level 9.2, Phosphorus Level 3.0, Magnesium Level 1.7 03/01/23 15:17: Venous Blood pH 7.37, Venous Blood Partial Pressure CO2 53H, Venous Blood HCO3 30H 03/01/23 21:38: Venous Blood pH 7.29L, Venous Blood Partial Pressure CO2 63H, Venous Blood HCO3 30H 03/01/23 23:37: Venous Blood pH 7.30L, Venous Blood Partial Pressure CO2 61H, Venous Blood HCO3 30H 03/02/23 04:50: White Blood Count 6.3, Red Blood Count 4.00L, Hemoglobin 11.9L, Hematocrit 36L, Mean Corpuscular Volume 91, Mean Corpuscular Hemoglobin 30, Mean Corpuscular Hemoglobin Concent 33, Red Cell Distribution Width 14.0, Platelet Count 150, Mean Platelet Volume 11.1, Immature Granulocyte % (Auto) 0, Neutrophils (%) (Auto) 64, Lymphocytes (%) (Auto) 28, Monocytes (%) (Auto) 7, Eosinophils (%) (Auto) 0, Basophils (%) (Auto) 1, Neutrophils # (Auto) 4.0, Lymphocytes # (Auto) 1.8, Monocytes # (Auto) 0.5, Eosinophils # (Auto) 0.0, Basophils # (Auto) 0.0, Immature Granulocyte # (Auto) 0.0, Venous Blood pH 7.33, Venous Blood Partial Pressure CO2 57H, Venous Blood HCO3 29H, Sodium Level 135, Potassium Level 3.0L, Chloride Level 101, Carbon Dioxide Level 26, Anion Gap 8, Blood Urea Nitrogen 6L , Creatinine 0.45L, Estimat Glomerular Filtration Rate 156, BUN/Creatinine Ratio 13, Glucose Level 133H, Calcium Level 8.5, Phosphorus Level 1.9L, Magnesium Level 1.7 03/02/23 11:00: Radiology ADMIT DATE: 03/01/23/ICU Signed Date of Exam:03/01/23 CHEST 1 VIEW, AP/PA ONLY Indication: Hypoxia Frontal chest obtained at 1208 p.m. compared to 05/11/2015. The heart is normal in size. There is a Port-A-Cath over the right chest with tip overlying the low SVC. There is a shunt catheter over the left hemithorax. There is central vascular congestion with perihilar infiltrates. There is no pneumothorax or pleural fluid. Impression: Bilateral perihilar infiltrates are present, pneumonia is not excluded. There is no pneumothorax or pleural fluid. Heart is normal in size. There is dextroscoliotic change. Dictated by: Dictated on workstation # [id number] Dict: 03/01/23 1212 Trans: 03/01/23 1328 [facility] [id number] Interpreted by: KAMARI MACHUCA MD Assessment/Plan Assessment/Plan Assessment & Plan Greater than 30 minutes spent on patient care and coordination of care. (1) Pneumonia Status: Acute Assessment & Plan: Directly admitted to ICU from the clinic via EMS due to pneumonia and hypoxia. At risk for decompensation due to multiple co-morbidities, discussed transfer options with mother and legal guardian and would like to stay at [facility] if possible and trial IV antibiotics. Currently requiring bi-pap at 60% FIO2 to maintain dixie in the low 90's. Antibiotics started - zithromax and meropenam IVF - will give fluid bolus x1L then 150mL/h initial cbc normal; blood cultures pending. Resume home meds and G-tube feeds - dietary consulted for conversion of home feeding regimen. 03/02/2023: Worsening respiratory status overnight, now requiring 70% FIO2 to maintain sats and prevent acidosis. More tachypneic. Consult Dr. Rahman for critical care. Recommending intubation. Discussed consideration of transfer, Dr. Rahman recommends intubation prior to transfer due to risk of clinical deterioration en route if transfer is chosen by parents Discussed code status, would like to proceed with intubation but would prefer not to have chest compressions. Parents are legal guardian of patient but as an adult, court must order DNR or modified DNR. Qualifiers: (2) Hypoxia (3) Electrolyte abnormality Status: Acute Assessment & Plan: 03/02/23: -potassium and magnesium replaced. HARRIS MAZARIEGOS DO Mar 02, 2023 11:22
--- NOTE | 2023-03-02 11:28 | Tele-ICU Progress Note ---
Subjective Date Seen by a Provider: Mar 02, 2023 Time Seen by a Provider: 11:27 Subjective/Events-last exam successfully intubated without problem, will order restraints Sepsis Event Evaluation Height, Weight, BMI Height: 4'0" Weight: 72lbs. oz. 32.039273st; BMI Method: Focused Exam Lactate Level 03/01/23 12:20: Lactic Acid Level 0.76 Exam Exam Patient acknowledged, consented, and participated in this virtual visit which was conducted using real time audio/video Vital Signs Date Time Temp Pulse Resp B/P (MAP) Pulse Ox O2 Delivery O2 Flow Rate FiO2 03/02/23 11:18 Mechanical Ventilator 100.00 03/02/23 11:00 131 40 139/81 (100) 93 NIV Bilevel 70.00 03/02/23 10:08 131 20 92 70.00 03/02/23 10:00 128 35 133/79 (97) 93 NIV Bilevel 70.00 03/02/23 09:14 37.0 03/02/23 09:00 130 43 128/71 (90) 94 NIV Bilevel 70.00 03/02/23 08:00 96 NIV Bilevel 70 03/02/23 08:00 135 44 123/68 (86) 92 NIV Bilevel 70.00 03/02/23 07:44 37.3 03/02/23 07:03 70.00 03/02/23 07:00 135 03/02/23 07:00 135 39 133/69 (90) 92 NIV Bilevel 70.00 03/02/23 06:42 125 20 95 75.00 03/02/23 06:00 133 30 138/91 (107) 95 NIV Bilevel 70.00 03/02/23 05:00 113 27 112/62 (77) 92 NIV Bilevel 70.00 03/02/23 04:29 94 NIV Bilevel 70 03/02/23 04:00 121 24 100/52 (71) 95 NIV Bilevel 70.00 03/02/23 03:48 36.4 03/02/23 03:08 122 25 96 70.00 03/02/23 03:00 123 33 120/58 (76) 97 NIV Bilevel 70.00 03/02/23 02:00 130 37 118/65 (80) 96 NIV Bilevel 70.00 6/27/23 01:00 130 03/02/23 01:00 130 30 124/64 (84) 97 NIV Bilevel 70.00 03/02/23 00:00 96 NIV Bilevel 70 03/02/23 00:00 134 34 124/64 (88) 97 NIV Bilevel 70.00 03/01/23 23:52 37.4 03/01/23 23:00 129 30 120/64 (78) 96 NIV Bilevel 70.00 03/01/23 22:14 114 29 94 70.00 03/01/23 22:00 113 28 98/52 (66) 91 NIV Bilevel 60.00 03/01/23 21:00 116 97/57 (71) 91 NIV Bilevel 60.00 03/01/23 20:24 NIV Bilevel 60 03/01/23 20:00 123 26 108/43 (66) 93 NIV Bilevel 60.00 03/01/23 20:00 36.3 03/01/23 19:00 122 03/01/23 19:00 122 20 117/59 (78) 97 NIV Bilevel 60.00 03/01/23 18:39 118 23 98 50.00 03/01/23 18:00 122 117/59 (78) 96 NIV Bilevel 60.00 03/01/23 17:00 126 88/59 (69) 94 NIV Bilevel 60.00 03/01/23 16:00 NIV Bilevel 03/01/23 16:00 129 92/44 (60) 90 NIV Bilevel 60.00 03/01/23 15:34 35.9 NIV Bilevel 60.00 03/01/23 15:00 137 111/52 (71) 98 NIV Bilevel 45.00 03/01/23 14:59 133 29 90 60.00 03/01/23 14:23 37.8 03/01/23 14:00 137 110/49 (69) 98 NIV Bilevel 45.00 03/01/23 13:53 38.6 03/01/23 13:00 137 122/62 (82) 90 NIV Bilevel 45.00 03/01/23 12:46 133 03/01/23 12:30 122 26 93 60.00 03/01/23 12:00 124 133/65 (87) 90 NIV Bilevel 45.00 03/01/23 11:37 36.4 NIV Bilevel 45.00 I & O 03/02/23 07:00 Intake Total 3610 ml Output Total 1525 ml Balance 2085 ml Height & Weight Height: 4'0" Weight: 72lbs. oz. 32.526802km; BMI Method: General Appearance: Moderate Distress, Other Respiratory: Rhonci, Other (loud audbile rhonchi) Cardiovascular: Tachycardia Gastrointestinal: soft Results Lab Laboratory Tests 03/01/23 12:20 03/02/23 04:50 Assessment/Plan Assessment/Plan will order restraints will check CXR and ABG Critical Care: Ventilator Management Time spent with patient (mins): 20 CALLIE LOWE MD Mar 02, 2023 11:28
--- NOTE | 2023-03-02 11:50 | Diagnostic Imaging Report ---
CLINICAL INDICATION: Patient is status post intubation. EXAM: Portable chest x-ray, upright view. COMPARISON: Chest x-ray dated 03/01/2023. FINDINGS: ET tube has been placed in the interim. The claudia and mainstem are obscured. The ET tube tip is seen at the upper T4 vertebral body level. There are diffuse patchy infiltrates throughout the left lung and moderate patchy infiltrates throughout the right lung. There is levorotoscoliosis of the thoracolumbar spine. There is blunting of the left costophrenic angle region, which may represent a small left pleural effusion. There is no pneumothorax. [id number] is again seen overlying the right chest. Pulmonary vasculature is obscured. Cardiac silhouette appears within normal limits. IMPRESSION: 1: There is interval progression of diffuse bilateral lung infiltrates, left side more than the right. 2: ET tube has been placed in the interim and is in good position. 3: The remainder of this exam shows no significant interval change compared to the prior study of comparison. Dictated by: Dictated on workstation # [id number]
[2023-03-02] MEDS ORDERED: DexMEDEtomidine 250 ML DRIP 250 ML IV ONE (11:52)
--- NOTE | 2023-03-02 11:56 | Tele-ICU Progress Note ---
Subjective Date Seen by a Provider: Mar 02, 2023 Time Seen by a Provider: 11:53 Subjective/Events-last exam called for need for additional sedation, on IV Propofol @ 60, Pt has bradycardia with morphine and fentanyl, Will add IV Precedex CXR shows ET ok, but extensive PNA on left Now on AC 20, Vt 380, FIO2 100%-will be titrated downward as tolerated will continue on IV azithromycin and IV meropenem ABG pending Sepsis Event Evaluation Height, Weight, BMI Height: 4'0" Weight: 72lbs. oz. 32.307001rf; BMI Method: Focused Exam Lactate Level 03/01/23 12:20: Lactic Acid Level 0.76 Exam Exam Patient acknowledged, consented, and participated in this virtual visit which was conducted using real time audio/video Vital Signs Date Time Temp Pulse Resp B/P (MAP) Pulse Ox O2 Delivery O2 Flow Rate FiO2 03/02/23 11:39 36.2 03/02/23 11:18 Mechanical Ventilator 100.00 03/02/23 11:00 131 40 139/81 (100) 93 NIV Bilevel 70.00 03/02/23 10:08 131 20 92 70.00 03/02/23 10:00 128 35 133/79 (97) 93 NIV Bilevel 70.00 03/02/23 09:14 37.0 03/02/23 09:00 130 43 128/71 (90) 94 NIV Bilevel 70.00 03/02/23 08:00 96 NIV Bilevel 70 03/02/23 08:00 135 44 123/68 (86) 92 NIV Bilevel 70.00 03/02/23 07:44 37.3 03/02/23 07:03 70.00 03/02/23 07:00 135 03/02/23 07:00 135 39 133/69 (90) 92 NIV Bilevel 70.00 03/02/23 06:42 125 20 95 75.00 03/02/23 06:00 133 30 138/91 (107) 95 NIV Bilevel 70.00 03/02/23 05:00 113 27 112/62 (77) 92 NIV Bilevel 70.00 03/02/23 04:29 94 NIV Bilevel 70 03/02/23 04:00 121 24 100/52 (71) 95 NIV Bilevel 70.00 03/02/23 03:48 36.4 03/02/23 03:08 122 25 96 70.00 03/02/23 03:00 123 33 120/58 (76) 97 NIV Bilevel 70.00 03/02/23 02:00 130 37 118/65 (80) 96 NIV Bilevel 70.00 03/02/23 01:00 130 03/02/23 01:00 130 30 124/64 (84) 97 NIV Bilevel 70.00 03/02/23 00:00 96 NIV Bilevel 70 03/02/23 00:00 134 34 124/64 (88) 97 NIV Bilevel 70.00 03/01/23 23:52 37.4 03/01/23 23:00 129 30 120/64 (78) 96 NIV Bilevel 70.00 03/01/23 22:14 114 29 94 70.00 03/01/23 22:00 113 28 98/52 (66) 91 NIV Bilevel 60.00 03/01/23 21:00 116 97/57 (71) 91 NIV Bilevel 60.00 03/01/23 20:24 NIV Bilevel 60 03/01/23 20:00 123 26 108/43 (66) 93 NIV Bilevel 60.00 03/01/23 20:00 36.3 03/01/23 19:00 122 03/01/23 19:00 122 20 117/59 (78) 97 NIV Bilevel 60.00 03/01/23 18:39 118 23 98 50.00 03/01/23 18:00 122 117/59 (78) 96 NIV Bilevel 60.00 03/01/23 17:00 126 88/59 (69) 94 NIV Bilevel 60.00 03/01/23 16:00 NIV Bilevel 03/01/23 16:00 129 92/44 (60) 90 NIV Bilevel 60.00 03/01/23 15:34 35.9 NIV Bilevel 60.00 03/01/23 15:00 137 111/52 (71) 98 NIV Bilevel 45.00 03/01/23 14:59 133 29 90 60.00 03/01/23 14:23 37.8 03/01/23 14:00 137 110/49 (69) 98 NIV Bilevel 45.00 03/01/23 13:53 38.6 03/01/23 13:00 137 122/62 (82) 90 NIV Bilevel 45.00 03/01/23 12:46 133 03/01/23 12:30 122 26 93 60.00 03/01/23 12:00 124 133/65 (87) 90 NIV Bilevel 45.00 I & O 03/02/23 07:00 Intake Total 3610 ml Output Total 1525 ml Balance 2085 ml Height & Weight Height: 4'0" Weight: 72lbs. oz. 32.754626jt; BMI Method: General Appearance: Moderate Distress, Other Respiratory: Rhonci, Other (loud audbile rhonchi) Cardiovascular: Tachycardia Gastrointestinal: normal bowel sounds, non tender, soft Results Lab Laboratory Tests 03/01/23 12:20 03/02/23 04:50 Assessment/Plan Assessment/Plan called for need for additional sedation, on IV Propofol @ 60, Pt has bradycardia with morphine and fentanyl, Will add IV Precedex CXR shows ET ok, but extensive PNA on left Now on AC 20, Vt 380, FIO2 100%-will be titrated downward as tolerated will continue on IV azithromycin and IV meropenem ABG pending Critical Care: Ventilator Management Time spent with patient (mins): 20 CALLIE LOWE MD Mar 02, 2023 11:56
--- NOTE | 2023-03-02 11:57 | Anesthesia-Procedure Note ---
Procedures/Interventions Procedure Start/Stop/Diagnosis Date of Procedure: Mar 02, 2023 Start Time: 11:05 Referring Physician: ICU Preprocedural Diagnosis: Respiratory Failure Brief History Dr. Sauer (mother) and mother at bedside. Brief report obtained. Upon my arrival, patient currently on BIPAP with SP02 80-90's. Removed mask, PPV with ambu until SP02 increased. Intubation x 1 attempt with no issue. Thick secretions noted in ETT. BBS coarse, but present. Patient stable upon my departure. Stop Time: 11:15 Intubation RSI: Yes 100% pre-Ox, [id number]: Yes Intubation Method: orotracheal (7.0) Videoscope used: Yes (Glidescope 3 ) Medications: Propofol (40mg), Succinylcholine (60mg) Mask Ventilation: positive Positive End Tide CO2: Yes Breath Sounds after Intubation: bilateral-equal ETT Securred @ (cm): 21 Intubated with ease: Yes Intubation Complications: no complications Post Intubation Xray-done: Yes EUGENIO RON CRNA Mar 02, 2023 11:57
[2023-03-02] MEDS: DexMEDEtomidine 250 ML DRIP 250 ML IV SCH ×2 (12:00→13:59)
[2023-03-02 14:54] VITALS: BP 123/76
[2023-03-02] MEDS ORDERED: proPOfol 200 MG/20 ML (DIPRIVAN) VIAL IV ONE (14:56)
[2023-03-02] MEDS ORDERED: SUCCINYLCHOLINE INJ 20 MG/1 ML 10 ML VIAL INJ ONE (14:56)
[2023-03-02] MEDS: ACETAMINOPHEN 325 MG/10.15 ML ORAL SOLN UDC PO PRN (15:54)
[2023-03-02 16:06] LABS: POTASSIUM 4.5 MMOL/L (3.6-5.0)
[2023-03-02 16:13] LABS: MAGNESIUM 2.3 MG/DL (1.6-2.4)
[2023-03-02] MEDS ORDERED: VANCOMYCIN INJECTION 0.1 MG in NS (IVPB) 250 ML 250 ML IV SCH (18:15)
[2023-03-02] MEDS ORDERED: VANCOMYCIN 1 GM/NS 250 ML IVPB IV NR ×2 (18:30)
[2023-03-02] MEDS: PROPOFOL DRIP (ICU) 100 ML IV SCH (18:56)
[2023-03-02 19:13] VITALS: BP 124/63
[2023-03-02 20:44] LABS: ALBUMIN 3.2 GM/DL (3.2-4.5); BILIRUBIN,DIRECT 0.3 MG/DL (0.0-0.3); BILIRUBIN,INDIRECT 0.1 MG/DL; BILIRUBIN,TOTAL 0.4 MG/DL (0.1-1.0); TOTAL PROTEIN 5.2 GM/DL (6.4-8.2)
[2023-03-02 21:54] VITALS: BP 108/68
[2023-03-03] MEDS: MEROPENEM 500 MG in NS (IVPB) 100 ML 100 ML IV SCH ×4 (01:31→20:25)
[2023-03-03 02:45] VITALS: BP 106/55
[2023-03-03] MEDS: RT-ALBUTEROL SULF 2.5 MG/3 ML PRE-MIX VIAL INH SCH ×3 (02:45→10:30)
[2023-03-03] MEDS: VANCOMYCIN 750 MG/NS 250 ML IVPB IV SCH ×4 (02:49→11:35)
[2023-03-03] MEDS: MAGNESIUM 1 GM/100 ML IVPB 100 ML IV SCH ×5 (05:16→09:57)
[2023-03-03] MEDS: POTASSIUM CL 10MEQ/50ML IVPB 50 ML IV SCH ×8 (05:16→13:00)
[2023-03-03] MEDS: KCL 20 MEQ TAB (K-DUR) PO SCH (05:16)
[2023-03-03] MEDS ORDERED: POTASSIUM CL 10MEQ/50ML IVPB 400 ML IV ONE (05:24)
[2023-03-03] MEDS ORDERED: MAGNESIUM 1 GM/100 ML IVPB 400 ML IV ONE (05:24)
[2023-03-03] MEDS: NS IV 1000 ML 1,000 ML IV SCH ×3 (05:55→22:48)
--- NOTE | 2023-03-03 05:55 | Progress Note ---
Subjective Date Seen by a Provider: Mar 03, 2023 Time Seen by a Provider: 11:00 Subjective/Events-last exam Patient remains on the ventilator No distress noted Sedation effective Mother at the bedside Reviewed labs Focused Exam Lactate Level 03/01/23 12:20: Lactic Acid Level 0.76 Objective Exam Last Set of Vital Signs Vital Signs Date Time Temp Pulse Resp B/P (MAP) Pulse Ox O2 Delivery O2 Flow Rate FiO2 03/03/23 05:00 112 20 111/60 (77) 95 Mechanical Ventilator 80.00 03/03/23 04:11 80 03/03/23 04:11 35.7 Capillary Refill : I&O Intake and Output 03/03/23 00:00 Intake Total 4820 ml Output Total 1800 ml Balance 3020 ml Intake Oral 0 ml IV Total 200 ml Tube Feeding 840 ml Enteral Flush 540 ml Other 3240 ml Output Urine Total 1800 ml General: Other (Sedated and on ventilator) Lungs: Clear to Auscultation Heart: Regular Rate Results Lab Laboratory Tests 03/02/23 11:00: Influenza Type A (RT-PCR) Not Detected, Influenza Type B (RT-PCR) Not Detected, SARS-CoV-2 RNA (RT-PCR) Not Detected 03/02/23 15:45: Venous Blood pH 7.37, Venous Blood Partial Pressure CO2 43, Venous Blood HCO3 24, Potassium Level 4.5, Magnesium Level 2.3, Total Bilirubin 0.4, Direct Bilirubin 0.3, Indirect Bilirubin 0.1, Aspartate Amino Transf (AST/SGOT) 20, Alanine Aminotransferase (ALT/SGPT) 11, Alkaline Phosphatase 63, Total Protein 5.2L, Albumin 3.2 03/02/23 17:35: Glucometer 155H 03/03/23 04:30: Potassium Level 3.3L, Magnesium Level 1.7, Total Bilirubin 0.3, Aspartate Amino Transf (AST/SGOT) 13, Alanine Aminotransferase (ALT/SGPT) 12, Alkaline Phosphatase 61, Total Protein 4.7L, Albumin 2.8L, Sodium Level 134L, Chloride Level 106, Carbon Dioxide Level 22, Anion Gap 6, Blood Urea Nitrogen 8, Creatinine 0.39L, Estimat Glomerular Filtration Rate 162, BUN/Creatinine Ratio 21, Glucose Level 182H, Calcium Level 8.0L, Corrected Calcium 9.0, Phosphorus Level 1.1L, Triglycerides Level 57 Microbiology 03/01/23 Blood Culture - Preliminary, Resulted No growth 03/01/23 MRSA Screen - Final, Complete MRSA not isolated Assessment/Plan Assessment/Plan Assess & Plan/Chief Complaint Assessment: Acute hypoxic hypercapnic respiratory failure failed BiPAP requiring intubation Severe cerebral palsy with severe disability Sepsis Bilateral pneumonia Lovenox for DVT prophylaxis Plan: Intubation eICU consulted Antibiotics Supportive care JP UNDERWOOD DO Mar 03, 2023 05:55
[2023-03-03 06:48] VITALS: BP 113/59
[2023-03-03 06:59] LABS: BASOPHILS % (AUTO) 0 % (0-10); EOSINOPHILS # (AUTO) 0.1 10^3/uL (0.0-0.3); EOSINOPHILS % (AUTO) 1 % (0-10); HEMOGLOBIN 10.5 g/dL (13.3-17.7); MEAN CORPUSCULAR HEMOGLOBIN 30 pg (25-34); MEAN CORPUSCULAR VOLUME 90 fL (80-99); MEAN PLATELET VOLUME 11.3 fL (9.0-12.2)
[2023-03-03 07:01] LABS: HEMATOCRIT 32 % (40-54); LYMPHOCYTES # (AUTO) 1.2 10^3/uL (1.0-4.0); LYMPHOCYTES % (AUTO) 14 % (12-44); MEAN CORPUSCULAR HGB CONC 33 g/dL (32-36); MONOCYTES # (AUTO) 0.6 10^3/uL (0.0-1.0); MONOCYTES % (AUTO) 6 % (0-12); NEUTROPHILS % (AUTO) 78 % (42-75); PLATELET COUNT 145 10^3/uL (130-400)
[2023-03-03 07:28] LABS: ALBUMIN 2.9 GM/DL (3.2-4.5); POTASSIUM 3.5 MMOL/L (3.6-5.0)
[2023-03-03 07:30] LABS: CALCIUM 8.1 MG/DL (8.5-10.1)
[2023-03-03 07:31] LABS: TOTAL PROTEIN 4.8 GM/DL (6.4-8.2)
[2023-03-03 07:32] LABS: BILIRUBIN,TOTAL 0.2 MG/DL (0.1-1.0)
[2023-03-03 07:34] LABS: CREATININE SERUM 0.43 MG/DL (0.60-1.30); PHOSPHORUS 1.2 MG/DL (2.3-4.7)
[2023-03-03 07:37] LABS: MAGNESIUM 2.3 MG/DL (1.6-2.4)
[2023-03-03] MEDS: PANTOPRAZOLE 40 MG (PROTONIX) VIAL IV SCH (08:06)
[2023-03-03] MEDS: ENOXAPARIN 30 MG/0.3 ML SYRINGE SC SCH ×2 (08:06→20:26)
[2023-03-03] MEDS: LORATADINE 5 MG/5 ML SOLN (CLARITIN) UDC GT SCH ×2 (08:06→20:25)
[2023-03-03] MEDS: polyethylene glycoL POWDER 17 GM (MIRALAX) PACK GT SCH (08:07)
[2023-03-03] MEDS: AZITHROMYCIN INJECTION 500 MG in NS (IVPB) 250 ML 250 ML IV SCH (08:07)
[2023-03-03] MEDS: PROPOFOL DRIP (ICU) 100 ML IV SCH ×2 (08:08→16:50)
--- NOTE | 2023-03-03 09:34 | Diagnostic Imaging Report ---
Indication: Lower respiratory infection Portable chest 9:17 AM Comparison made to previous day ET tube projects over the trachea. Right IJ central tip projects over the SVC. There is cardiomegaly. There is a scoliotic curvature of the spine. There is extensive infiltrate in the left lung with some patchy infiltrates in the right upper and right lower lobe. IMPRESSION: Severe bilateral pulmonary infiltrates are not appreciably changed from the previous study. Dictated by: Dictated on workstation # [id number]
[2023-03-03 10:30] VITALS: BP 115/62
--- NOTE | 2023-03-03 11:05 | Tele-ICU Progress Note ---
Subjective Date Seen by a Provider: Mar 03, 2023 Time Seen by a Provider: 11:05 Subjective/Events-last exam (Tele-ICU Physician , Progress Note ) Service provided via interactive audio and video telecommunications E-CARE system to a patient admitted to ICU bed in [facility]. Patient is seen today due to persistent need of ICU care Available chart/ vitals / labs / Images reviewed Video assessment done using teleICU camera, rest of exam as per RN Discussed with RN Events overnight : Afebrile hemodynamically stable Respiratory - 60% I/O = ++ Drips: Pressors- no VENT SETTINGS and ABG reviewed NOT CANDIDATE for SBTreviewed possible contraindications including Cardiovascular Stability /Sedation Score / FI02/PEEP / ABG / CXR/ secretions Sedation, discussed with RN, RASS -1 on precedex 0.8 Hospital course: (03/01) 17y/o M admitted with pneumonia, hypoxia. 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 Discussed with RN to reach out if any questions or concerns Case and care daily discussed on multidisciplinary rounds ( RN, PharmD, Condenser Operator , Respiratory Therapy, church worker ) A total of 31 minutes of critical care time was devoted to this patient today, required to treat and/or prevent further deterioration of critical care condition ( as above ) . I am remotely monitoring this patient from another state. I am unable to do the bedside exam, and history/physical and pertinent information is taken from other notes in the computer and bedside staff. ... Sepsis Event Evaluation Height, Weight, BMI Height: 4'0" Weight: 72lbs. oz. 32.696197os; 26.22 BMI Method: Focused Exam Lactate Level 03/01/23 12:20: Lactic Acid Level 0.76 Exam Exam Patient acknowledged, consented, and participated in this virtual visit which was conducted using real time audio/video Vital Signs Date Time Temp Pulse Resp B/P (MAP) Pulse Ox O2 Delivery O2 Flow Rate FiO2 03/03/23 10:30 87 20 96 60 03/03/23 10:00 86 19 121/68 (85) 96 Mechanical Ventilator 60.00 03/03/23 09:38 Mechanical Ventilator 60.00 03/03/23 09:00 93 19 116/62 (80) 98 Mechanical Ventilator 80.00 03/03/23 08:08 107 113/59 03/03/23 08:00 98 Mechanical Ventilator 80 03/03/23 08:00 112 34 143/81 (101) 96 Mechanical Ventilator 80.00 03/03/23 07:27 36.5 Mechanical Ventilator 80.00 03/03/23 07:20 107 03/03/23 07:00 114 17 108/51 (70) 98 Mechanical Ventilator 80.00 03/03/23 06:48 101 20 98 80 03/03/23 06:00 105 20 106/63 (77) 96 Mechanical Ventilator 80.00 03/03/23 05:00 112 20 111/60 (77) 95 Mechanical Ventilator 80.00 03/03/23 04:11 98 Mechanical Ventilator 80 03/03/23 04:11 35.7 03/03/23 04:00 36.3 03/03/23 04:00 92 20 119/62 (81) 97 Mechanical Ventilator 80.00 03/03/23 03:00 114 20 101/50 (67) 97 Mechanical Ventilator 80.00 03/03/23 02:45 103 20 98 80 03/03/23 02:00 Mechanical Ventilator 80.00 03/03/23 02:00 123 20 100/49 (66) 98 Mechanical Ventilator 80.00 03/03/23 01:01 109 03/03/23 01:00 110 20 117/62 (80) 96 Mechanical Ventilator 90.00 03/03/23 00:00 105 20 105/52 (69) 96 Mechanical Ventilator 90.00 03/02/23 23:56 36.1 03/02/23 23:29 96 Mechanical Ventilator 90 03/02/23 23:00 106 20 101/49 (66) 95 Mechanical Ventilator 90.00 03/02/23 22:00 98 20 108/68 (81) 90 Mechanical Ventilator 90.00 03/02/23 21:54 98 20 91 90 03/02/23 21:00 73 20 116/58 (77) 96 Mechanical Ventilator 90.00 03/02/23 20:00 Mechanical Ventilator 90.00 03/02/23 20:00 84 20 115/59 (77) 94 Mechanical Ventilator 90.00 03/02/23 20:00 94 Mechanical Ventilator 90 03/02/23 19:40 35.7 03/02/23 19:13 96 20 92 90 03/02/23 19:00 78 03/02/23 19:00 78 20 114/65 (81) 95 Mechanical Ventilator 100.00 03/02/23 18:00 122 24 117/59 (78) 96 Mechanical Ventilator 100.00 03/02/23 17:00 89 20 116/57 (76) 96 Mechanical Ventilator 100.00 03/02/23 16:00 97/49 03/02/23 16:00 109 19 105/55 (72) 95 Mechanical Ventilator 100.00 03/02/23 16:00 94 Mechanical Ventilator 100 03/02/23 15:54 38.1 03/02/23 15:50 38.1 03/02/23 15:45 36.8 03/02/23 15:15 90 03/02/23 15:00 105 24 123/76 (92) 90 Mechanical Ventilator 100.00 03/02/23 14:54 122 20 95 100 03/02/23 14:00 87 20 113/70 (84) 95 Mechanical Ventilator 100.00 03/02/23 13:00 98 20 102/48 (66) 96 Mechanical Ventilator 100.00 03/02/23 12:17 117 03/02/23 12:00 125 103/59 (74) 95 Mechanical Ventilator 100.00 03/02/23 12:00 94 Mechanical Ventilator 100 03/02/23 11:39 36.2 03/02/23 11:18 Mechanical Ventilator 100.00 03/02/23 11:14 132 141/83 03/02/23 11:10 129 29 95 100 I & O 03/03/23 07:00 Intake Total 4820 ml Output Total 1325 ml Balance 3495 ml Height & Weight Height: 4'0" Weight: 72lbs. oz. 32.133336ku; 26.22 BMI Method: General Appearance: Chronically ill, Moderate Distress, Other Respiratory: Decreased Breath Sounds, Rhonci, Other (loud audbile rhonchi) Cardiovascular: Tachycardia Gastrointestinal: normal bowel sounds, non tender, soft Results Lab Laboratory Tests 03/01/23 12:20 03/02/23 04:50 03/02/23 15:45 03/03/23 06:50 Assessment/Plan Assessment/Plan 1 VANESSA MIRAMONTES MD Mar 03, 2023 11:05
--- NOTE | 2023-03-03 11:08 | Progress Note ---
Subjective Subjective/Events-last exam Patient sedated on the vent. Breathing more comfortably. Focused Exam Lactate Level 03/01/23 12:20: Lactic Acid Level 0.76 Respiratory: No Accessory Muscle Use, Rhonci (throughout but improved from prior to intubationi); No Wheezing Cardiovascular: Regular Rate, Rhythm Skin: warm/dry Objective Exam Last Set of Vital Signs Vital Signs Date Time Temp Pulse Resp B/P (MAP) Pulse Ox O2 Delivery O2 Flow Rate FiO2 03/03/23 10:30 87 20 96 60 03/03/23 10:00 121/68 (85) Mechanical Ventilator 60.00 03/03/23 07:27 36.5 Capillary Refill : I&O Intake and Output 03/03/23 00:00 Intake Total 4820 ml Output Total 1800 ml Balance 3020 ml Intake Oral 0 ml IV Total 200 ml Tube Feeding 840 ml Enteral Flush 540 ml Other 3240 ml Output Urine Total 1800 ml Results/Procedures Lab Laboratory Tests 03/02/23 15:45: Venous Blood pH 7.37, Venous Blood Partial Pressure CO2 43, Venous Blood HCO3 24, Potassium Level 4.5, Magnesium Level 2.3, Total Bilirubin 0.4, Direct Bilirubin 0.3, Indirect Bilirubin 0.1, Aspartate Amino Transf (AST/SGOT) 20, Alanine Aminotransferase (ALT/SGPT) 11, Alkaline Phosphatase 63, Total Protein 5.2L, Albumin 3.2 03/02/23 17:35: Glucometer 155H 03/03/23 06:50: Venous Blood pH 7.31, Venous Blood Partial Pressure CO2 47, Venous Blood HCO3 23, Potassium Level 3.5L, Magnesium Level 2.3, Total Bilirubin 0.2, Aspartate Amino Transf (AST/SGOT) 16, Alanine Aminotransferase (ALT/SGPT) 14, Alkaline Phosphatase 65, Total Protein 4.8L, Albumin 2.9L, White Blood Count 9.0, Red Blood Count 3.54L, Hemoglobin 10.5L, Hematocrit 32L, Mean Corpuscular Volume 90, Mean Corpuscular Hemoglobin 30, Mean Corpuscular Hemoglobin Concent 33, Red Cell Distribution Width 14.0, Platelet Count 145, Mean Platelet Volume 11.3, Immature Granulocyte % (Auto) 1, Neutrophils (%) (Auto) 78H, Lymphocytes (%) (Auto) 14, Monocytes (%) (Auto) 6, Eosinophils (%) (Auto) 1, Basophils (%) (Auto) 0, Neutrophils # (Auto) 7.0, Lymphocytes # (Auto) 1.2, Monocytes # (Auto) 0.6, Eosinophils # (Auto) 0.1, Basophils # (Auto) 0.0, Immature Granulocyte # (Auto) 0.1, Percent Immature Platelet Fraction 7.3, Sodium Level 134L, Chloride Level 107, Carbon Dioxide Level 22, Anion Gap 5, Blood Urea Nitrogen 7, Creatinine 0.43L, Estimat Glomerular Filtration Rate 158, BUN/Creatinine Ratio 16, Glucose Level 167H, Calcium Level 8.1L, Corrected Calcium 9.0, Phosphorus Level 1.2L, Triglycerides Level 56 Microbiology 03/02/23 Gram Stain - Final, Resulted 03/02/23 Sputum Culture - Preliminary, Resulted 03/01/23 Blood Culture - Preliminary, Resulted No growth Radiology ADMIT DATE: 03/01/23/ICU Signed Date of Exam:03/01/23 CHEST 1 VIEW, AP/PA ONLY Indication: Hypoxia Frontal chest obtained at 1208 p.m. compared to 05/11/2015. The heart is normal in size. There is a Port-A-Cath over the right chest with tip overlying the low SVC. There is a shunt catheter over the left hemithorax. There is central vascular congestion with perihilar infiltrates. There is no pneumothorax or pleural fluid. Impression: Bilateral perihilar infiltrates are present, pneumonia is not excluded. There is no pneumothorax or pleural fluid. Heart is normal in size. There is dextroscoliotic change. Dictated by: Dictated on workstation # [id number] Dict: 03/01/23 1212 Trans: 03/01/23 1328 [facility] [id number] Interpreted by: KAMARI MACHUCA MD Assessment/Plan Assessment/Plan (1) Pneumonia Status: Acute Assessment & Plan: Directly admitted to ICU from the clinic via EMS due to pneumonia and hypoxia. At risk for decompensation due to multiple co-morbidities, discussed transfer options with mother and legal guardian and would like to stay at [facility] if possible and trial IV antibiotics. Currently requiring bi-pap at 60% FIO2 to maintain dixie in the low 90's. Antibiotics started - zithromax and meropenam IVF - will give fluid bolus x1L then 150mL/h initial cbc normal; blood cultures pending. Resume home meds and G-tube feeds - dietary consulted for conversion of home feeding regimen. 03/02/2023: Worsening respiratory status overnight, now requiring 70% FIO2 to maintain sats and prevent acidosis. More tachypneic. Consult Dr. Rahman for critical care. Recommending intubation. Discussed consideration of transfer, Dr. Rahman recommends intubation prior to transfer due to risk of clinical deterioration en route if transfer is chosen by parents Discussed code status, would like to proceed with intubation but would prefer not to have chest compressions. Parents are legal guardian of patient but as an adult, court must order DNR or modified DNR. 03/03/23: Intubated without incident yesterday. Sedated on vent currently, more comfortable. O2 98% on 80% FIO2; VBG 7.31 am CXR severe, bilateral infiltrates, unchanged from yesterday Vancomycin added yesterday. labs, vitals stable blood culture negative Dr. Rahman and eICU provider co-managing Qualifiers: (2) Respiratory failure with hypoxia Assessment & Plan: Intubated 03/02/23 Qualifiers: Qualified Codes: J96.01 - Acute respiratory failure with hypoxia (3) Electrolyte abnormality Status: Acute Assessment & Plan: 03/02/23: -potassium and magnesium replaced per protocol HARRIS MAZARIEGOS DO Mar 03, 2023 11:08
[2023-03-03] MEDS: aCETylcysteine 20% (RT/PO) 4 ML SOLN VIAL INH SCH ×2 (14:22→21:49)
[2023-03-03] MEDS: RT-ALBUTEROL/IPRATROPIUM 3 ML (DUONEB) VIAL INH SCH ×3 (14:22→21:50)
[2023-03-03 14:23] VITALS: BP 122/79
[2023-03-03] MEDS: DexMEDEtomidine 250 ML DRIP 250 ML IV SCH (16:50)
[2023-03-03] MEDS ORDERED: TROUGH ORDER-PHARMACY XX NR (17:30)
[2023-03-03] MEDS: VANCOMYCIN 1 GM/NS 250 ML IVPB IV SCH ×2 (18:51)
[2023-03-03 19:04] VITALS: BP 110/71
[2023-03-03 21:55] VITALS: BP 117/63
[2023-03-04] MEDS: MEROPENEM 500 MG in NS (IVPB) 100 ML 100 ML IV SCH ×4 (01:00→18:48)
[2023-03-04] MEDS: PROPOFOL DRIP (ICU) 100 ML IV SCH ×4 (01:01→20:00)
[2023-03-04] MEDS: RT-ALBUTEROL/IPRATROPIUM 3 ML (DUONEB) VIAL INH SCH ×6 (02:19→22:06)
[2023-03-04 02:20] VITALS: BP 117/63
[2023-03-04] MEDS: aCETylcysteine 20% (RT/PO) 4 ML SOLN VIAL INH SCH ×4 (02:20→22:15)
[2023-03-04] MEDS: VANCOMYCIN 1 GM/NS 250 ML IVPB IV SCH ×6 (03:49→18:48)
[2023-03-04 05:32] LABS: BASOPHILS % (AUTO) 0 % (0-10); EOSINOPHILS # (AUTO) 0.2 10^3/uL (0.0-0.3); EOSINOPHILS % (AUTO) 2 % (0-10); HEMATOCRIT 31 % (40-54); HEMOGLOBIN 10.3 g/dL (13.3-17.7); LYMPHOCYTES # (AUTO) 1.5 10^3/uL (1.0-4.0); LYMPHOCYTES % (AUTO) 18 % (12-44); MEAN CORPUSCULAR HEMOGLOBIN 30 pg (25-34); MEAN CORPUSCULAR HGB CONC 34 g/dL (32-36); MEAN CORPUSCULAR VOLUME 89 fL (80-99); MEAN PLATELET VOLUME 11.7 fL (9.0-12.2); MONOCYTES # (AUTO) 0.7 10^3/uL (0.0-1.0); MONOCYTES % (AUTO) 9 % (0-12); NEUTROPHILS # (AUTO) 5.7 10^3/uL (1.8-7.8); NEUTROPHILS % (AUTO) 70 % (42-75); PLATELET COUNT 153 10^3/uL (130-400); WHITE BLOOD COUNT 8.1 10^3/uL (4.3-11.0)
[2023-03-04 05:43] LABS: ALBUMIN 2.8 GM/DL (3.2-4.5); POTASSIUM 3.5 MMOL/L (3.6-5.0)
[2023-03-04 05:44] LABS: CALCIUM 7.9 MG/DL (8.5-10.1)
[2023-03-04 05:45] LABS: TOTAL PROTEIN 4.8 GM/DL (6.4-8.2)
[2023-03-04 05:47] LABS: BILIRUBIN,TOTAL 0.3 MG/DL (0.1-1.0)
[2023-03-04 05:49] LABS: CREATININE SERUM 0.4 MG/DL (0.60-1.30); PHOSPHORUS 1.6 MG/DL (2.3-4.7)
[2023-03-04] MEDS: KCL 20 MEQ TAB (K-DUR) PO SCH (05:51)
[2023-03-04] MEDS: POTASSIUM CL 10MEQ/50ML IVPB 50 ML IV SCH ×5 (05:51→09:30)
[2023-03-04 05:52] LABS: MAGNESIUM 1.8 MG/DL (1.6-2.4)
[2023-03-04] MEDS: MAGNESIUM 1 GM/100 ML IVPB 100 ML IV SCH ×3 (05:54→07:18)
--- NOTE | 2023-03-04 06:10 | Progress Note ---
Subjective Date Seen by a Provider: Mar 04, 2023 Time Seen by a Provider: 11:00 Subjective/Events-last exam No major changes Supportive care we will continue Remains on ventilator Focused Exam Lactate Level 03/01/23 12:20: Lactic Acid Level 0.76 Objective Exam Last Set of Vital Signs Vital Signs Date Time Temp Pulse Resp B/P (MAP) Pulse Ox O2 Delivery O2 Flow Rate FiO2 03/04/23 05:00 98 117/65 (82) 95 Mechanical Ventilator 35.00 03/04/23 04:00 37.4 03/04/23 04:00 35 03/04/23 02:20 20 Capillary Refill : I&O Intake and Output 03/04/23 00:00 Intake Total 4720 ml Output Total 3650 ml Balance 1070 ml Intake Oral 0 ml IV Total 200 ml Tube Feeding 840 ml Enteral Flush 405 ml Other 3275 ml Output Urine Total 3650 ml General: Other (Sedated and intubated) Lungs: Other ( coarse breath sounds) Results Lab Laboratory Tests 03/03/23 06:50: White Blood Count 9.0, Red Blood Count 3.54L, Hemoglobin 10.5L, Hematocrit 32L, Mean Corpuscular Volume 90, Mean Corpuscular Hemoglobin 30, Mean Corpuscular Hemoglobin Concent 33, Red Cell Distribution Width 14.0, Platelet Count 145, Mean Platelet Volume 11.3, Immature Granulocyte % (Auto) 1, Neutrophils (%) (Auto) 78H, Lymphocytes (%) (Auto) 14, Monocytes (%) (Auto) 6, Eosinophils (%) (Auto) 1, Basophils (%) (Auto) 0, Neutrophils # (Auto) 7.0, Lymphocytes # (Auto) 1.2, Monocytes # (Auto) 0.6, Eosinophils # (Auto) 0.1, Basophils # (Auto) 0.0, Immature Granulocyte # (Auto) 0.1, Percent Immature Platelet Fraction 7.3, Venous Blood pH 7.31, Venous Blood Partial Pressure CO2 47, Venous Blood HCO3 23, Sodium Level 134L, Potassium Level 3.5L, Chloride Level 107, Carbon Dioxide Level 22, Anion Gap 5, Blood Urea Nitrogen 7, Creatinine 0.43L, Estimat Glomerular Filtration Rate 158, BUN/Creatinine Ratio 16, Glucose Level 167H, Calcium Level 8.1L, Corrected Calcium 9.0, Phosphorus Level 1.2L, Magnesium Level 2.3, Total Bilirubin 0.2, Aspartate Amino Transf (AST/SGOT) 16, Alanine Aminotransferase (ALT/SGPT) 14, Alkaline Phosphatase 65, Total Protein 4.8L, Albumin 2.9L, Triglycerides Level 56 03/03/23 11:34: Glucometer 154H 03/03/23 17:37: Glucometer 118H 03/03/23 18:14: Vancomycin Level Trough 8.9L 03/04/23 00:20: Glucometer 124H 03/04/23 04:35: White Blood Count 8.1, Red Blood Count 3.43L, Hemoglobin 10.3L, Hematocrit 31L, Mean Corpuscular Volume 89, Mean Corpuscular Hemoglobin 30, Mean Corpuscular Hemoglobin Concent 34, Red Cell Distribution Width 14.5, Platelet Count 153, Mean Platelet Volume 11.7, Immature Granulocyte % (Auto) 1, Neutrophils (%) (Auto) 70, Lymphocytes (%) (Auto) 18, Monocytes (%) (Auto) 9, Eosinophils (%) (Auto) 2, Basophils (%) (Auto) 0, Neutrophils # (Auto) 5.7, Lymphocytes # (Auto) 1.5, Monocytes # (Auto) 0.7, Eosinophils # (Auto) 0.2, Basophils # (Auto) 0.0, Immature Granulocyte # (Auto) 0.0, Sodium Level 138, Potassium Level 3.5L, Chloride Level 108H, Carbon Dioxide Level 24, Anion Gap 6, Blood Urea Nitrogen 4L, Creatinine 0.40L, Estimat Glomerular Filtration Rate 161, BUN/Creatinine Ratio 10, Glucose Level 107H, Calcium Level 7.9L, Corrected Calcium 8.9, Phosphorus Level 1.6L, Magnesium Level 1.8, Total Bilirubin 0.3, Aspartate Amino Transf (AST/SGOT) 16, Alanine Aminotransferase (ALT/SGPT) 16, Alkaline Phosphatase 72, Total Protein 4.8L, Albumin 2.8L Microbiology 03/02/23 Gram Stain - Final, Resulted 03/02/23 Sputum Culture - Preliminary, Resulted 03/01/23 Blood Culture - Preliminary, Resulted No growth Assessment/Plan Assessment/Plan Assess & Plan/Chief Complaint Assessment: Acute hypoxic hypercapnic respiratory failure failed BiPAP requiring intubation Severe cerebral palsy with severe disability Sepsis Bilateral pneumonia Lovenox for DVT prophylaxis Plan: Intubation eICU consulted Antibiotics Supportive care JP UNDERWOOD DO Mar 04, 2023 06:10
[2023-03-04] MEDS ORDERED: MAGNESIUM 1 GM/100 ML IVPB 200 ML IV ONE (06:19)
[2023-03-04] MEDS ORDERED: POTASSIUM CL 10MEQ/50ML IVPB 200 ML IV ONE (06:19)
[2023-03-04 07:24] VITALS: BP 129/79
[2023-03-04] MEDS: AZITHROMYCIN INJECTION 500 MG in NS (IVPB) 250 ML 250 ML IV SCH (08:44)
[2023-03-04] MEDS: PANTOPRAZOLE 40 MG (PROTONIX) VIAL IV SCH (08:44)
[2023-03-04] MEDS: polyethylene glycoL POWDER 17 GM (MIRALAX) PACK GT SCH (08:44)
[2023-03-04] MEDS: ENOXAPARIN 30 MG/0.3 ML SYRINGE SC SCH ×2 (08:44→20:18)
[2023-03-04] MEDS: LORATADINE 5 MG/5 ML SOLN (CLARITIN) UDC GT SCH ×2 (08:44→20:49)
--- NOTE | 2023-03-04 09:42 | Tele-ICU Progress Note ---
Subjective Date Seen by a Provider: Mar 04, 2023 Time Seen by a Provider: 09:35 Subjective/Events-last exam (Tele-ICU Physician , Progress Note ) Service provided via interactive audio and video telecommunications E-CARE system to a patient admitted to ICU bed in [facility]. Patient is seen today due to persistent need of ICU care Available chart/ vitals / labs / Images reviewed Video assessment done using teleICU camera, rest of exam as per RN Remains on full vent support due to extensive bilateral PNA, BC NG, sputum NRF On AC 20/Vt 380/FiO2 35% PEEP 5, on IV Proporol @ 40 IV Precedex @ 1, RASS -3, Needs suctioning frequently Covid and flu serology negative T max 99.1 Sepsis Event Evaluation Height, Weight, BMI Height: 4'0" Weight: 72lbs. oz. 32.204170rp; 27.69 BMI Method: Focused Exam Lactate Level 03/01/23 12:20: Lactic Acid Level 0.76 Exam Exam Patient acknowledged, consented, and participated in this virtual visit which was conducted using real time audio/video Vital Signs Date Time Temp Pulse Resp B/P (MAP) Pulse Ox O2 Delivery O2 Flow Rate FiO2 03/04/23 09:00 122 14 133/74 (93) 98 Mechanical Ventilator 35.00 03/04/23 08:00 135 13 116/56 (76) 91 Mechanical Ventilator 35.00 03/04/23 07:59 36.6 Mechanical Ventilator 35.00 03/04/23 07:24 102 22 100 35 03/04/23 07:00 108 13 114/59 (77) 96 Mechanical Ventilator 35.00 03/04/23 07:00 108 03/04/23 06:00 96 13 129/69 (89) 94 Mechanical Ventilator 35.00 03/04/23 05:00 98 117/65 (82) 95 Mechanical Ventilator 35.00 03/04/23 04:00 37.4 117 119/79 (92) 95 Mechanical Ventilator 35.00 03/04/23 04:00 96 Mechanical Ventilator 35 03/04/23 03:00 126 115/77 (90) 94 Mechanical Ventilator 35.00 03/04/23 02:20 101 20 95 35 03/04/23 02:00 93 129/66 (87) 96 Mechanical Ventilator 35.00 03/04/23 01:30 Mechanical Ventilator 35.00 03/04/23 01:00 100 03/04/23 01:00 101 126/68 (87) 95 Mechanical Ventilator 30.00 03/04/23 00:15 95 Mechanical Ventilator 30 03/04/23 00:00 36.8 96 118/68 (85) 94 Mechanical Ventilator 30.00 03/03/23 23:00 120 110/60 (77) 93 Mechanical Ventilator 30.00 03/03/23 22:00 88 116/69 (85) 100 Mechanical Ventilator 30.00 03/03/23 21:55 104 23 95 35 03/03/23 21:00 93 14 122/65 (84) 94 Mechanical Ventilator 30.00 03/03/23 20:00 94 21 113/73 (86) 92 Mechanical Ventilator 30.00 03/03/23 20:00 92 Mechanical Ventilator 30 03/03/23 19:56 37.3 03/03/23 19:04 104 20 92 30 03/03/23 19:00 116 03/03/23 19:00 Mechanical Ventilator 30.00 03/03/23 19:00 113 121/67 (85) 91 Mechanical Ventilator 30.00 03/03/23 18:00 104 19 124/64 (84) 94 Mechanical Ventilator 30.00 03/03/23 17:00 94 26 109/69 (82) 94 Mechanical Ventilator 30.00 03/03/23 16:50 92 118/66 03/03/23 16:50 92 118/66 03/03/23 16:00 92 118/66 (83) 92 Mechanical Ventilator 30.00 03/03/23 16:00 93 Mechanical Ventilator 30 03/03/23 15:48 37.1 Mechanical Ventilator 30.00 03/03/23 15:00 106 116/60 (78) 91 Mechanical Ventilator 30.00 03/03/23 14:23 100 20 94 30 03/03/23 14:00 78 115/65 (82) 91 Mechanical Ventilator 30.00 03/03/23 13:59 Mechanical Ventilator 30.00 03/03/23 13:20 Mechanical Ventilator 40.00 03/03/23 13:00 80 26 127/67 (87) 98 Mechanical Ventilator 50.00 03/03/23 12:54 77 03/03/23 12:08 80 127/67 03/03/23 12:00 95 Mechanical Ventilator 50 03/03/23 12:00 80 25 116/62 (80) 95 Mechanical Ventilator 50.00 03/03/23 11:48 37.1 Mechanical Ventilator 50.00 03/03/23 11:33 Mechanical Ventilator 50.00 03/03/23 11:00 112 26 121/67 (85) 98 Mechanical Ventilator 60.00 03/03/23 10:30 87 20 96 60 03/03/23 10:00 86 19 121/68 (85) 96 Mechanical Ventilator 60.00 03/03/23 09:38 Mechanical Ventilator 60.00 I & O 03/04/23 07:00 Intake Total 5105 ml Output Total 4525 ml Balance 580 ml Height & Weight Height: 4'0" Weight: 72lbs. oz. 32.474636vo; 27.69 BMI Method: General Appearance: Chronically ill, Moderate Distress, Other Respiratory: No Accessory Muscle Use, Rhonci (throughout but improved from prior to intubationi); No Wheezing; Other (better than yesterday according to RN) Cardiovascular: Regular Rate, Rhythm Gastrointestinal: normal bowel sounds, non tender, soft Extremity: No Pedal Edema, Other (mild sdrotal edema) Results Lab Laboratory Tests 03/02/23 15:45 03/03/23 06:50 03/04/23 04:35 Assessment/Plan Assessment/Plan Extensive bilateral PNA, vs ARDS from ?, aspiration? Continue on IV Azithromycin, Meropenem, Now on IV Vancomycin Not a candidate for SBT Albumin 2.8, getting TF @ 35 mL not having problems with residuals Also cerebral palsy Sz disorder Hx esophgeal stricture, s/p Fabian fundoplication Critical Care: Ventilator Management Time spent with patient (mins): 25 CALLIE LOWE MD Mar 04, 2023 09:42
[2023-03-04 10:05] VITALS: BP 115/63
[2023-03-04] MEDS: DexMEDEtomidine 250 ML DRIP 250 ML IV SCH (11:57)
[2023-03-04 14:33] VITALS: BP 128/66
[2023-03-04] MEDS: ACETAMINOPHEN 325 MG/10.15 ML ORAL SOLN UDC PO PRN (15:53)
[2023-03-04] MEDS ORDERED: PATIENT MAY USE OWN MEDS, ALL MC SCH (17:00)
[2023-03-04] MEDS ORDERED: PATIENT MAY USE OWN MED,SINGLE MED PO SCH (18:30)
[2023-03-04 19:04] VITALS: BP 125/66
[2023-03-04] MEDS: TRILEPTAL GT SCH (20:49)
[2023-03-04] MEDS: ZONISAMIDE 100 MG CAP (ZONEGRAN) NON-FORMULARY PO SCH (20:49)
[2023-03-04 22:15] VITALS: BP 124/67
[2023-03-05] MEDS: NS IV 1000 ML 1,000 ML IV SCH ×2 (01:04→18:19)
[2023-03-05] MEDS: MEROPENEM 500 MG in NS (IVPB) 100 ML 100 ML IV SCH ×4 (01:05→20:24)
[2023-03-05] MEDS: DexMEDEtomidine 250 ML DRIP 250 ML IV SCH ×2 (01:30→16:40)
[2023-03-05 02:21] VITALS: BP 129/69
[2023-03-05] MEDS: aCETylcysteine 20% (RT/PO) 4 ML SOLN VIAL INH SCH ×4 (02:21→21:57)
[2023-03-05] MEDS: PROPOFOL DRIP (ICU) 100 ML IV SCH ×4 (02:29→20:45)
[2023-03-05] MEDS: VANCOMYCIN 1 GM/NS 250 ML IVPB IV SCH ×6 (03:12→18:26)
[2023-03-05 04:38] LABS: BASOPHILS % (AUTO) 1 % (0-10); EOSINOPHILS # (AUTO) 0.4 10^3/uL (0.0-0.3); EOSINOPHILS % (AUTO) 4 % (0-10); HEMATOCRIT 29 % (40-54); HEMOGLOBIN 9.7 g/dL (13.3-17.7); LYMPHOCYTES # (AUTO) 2.2 10^3/uL (1.0-4.0); LYMPHOCYTES % (AUTO) 27 % (12-44); MEAN CORPUSCULAR HEMOGLOBIN 30 pg (25-34); MEAN CORPUSCULAR HGB CONC 33 g/dL (32-36); MEAN CORPUSCULAR VOLUME 89 fL (80-99); MEAN PLATELET VOLUME 11.5 fL (9.0-12.2); MONOCYTES # (AUTO) 0.6 10^3/uL (0.0-1.0); MONOCYTES % (AUTO) 8 % (0-12); NEUTROPHILS # (AUTO) 4.9 10^3/uL (1.8-7.8); NEUTROPHILS % (AUTO) 60 % (42-75); PLATELET COUNT 154 10^3/uL (130-400); WHITE BLOOD COUNT 8.2 10^3/uL (4.3-11.0)
[2023-03-05 05:01] LABS: ALBUMIN 2.8 GM/DL (3.2-4.5); POTASSIUM 3.3 MMOL/L (3.6-5.0)
[2023-03-05 05:02] LABS: CALCIUM 7.9 MG/DL (8.5-10.1)
[2023-03-05 05:05] LABS: BILIRUBIN,TOTAL 0.2 MG/DL (0.1-1.0)
[2023-03-05 05:07] LABS: CREATININE SERUM 0.4 MG/DL (0.60-1.30); PHOSPHORUS 1.8 MG/DL (2.3-4.7)
[2023-03-05 05:10] LABS: MAGNESIUM 1.9 MG/DL (1.6-2.4)
[2023-03-05] MEDS ORDERED: POTASSIUM BICARB 20 MEQ (EFFER-K) TABLET PO SCH (06:00)
[2023-03-05] MEDS: POTASSIUM CL 10MEQ/50ML IVPB 50 ML IV SCH ×7 (06:07→13:01)
[2023-03-05] MEDS: MAGNESIUM 1 GM/100 ML IVPB 100 ML IV SCH ×3 (06:08→07:09)
[2023-03-05] MEDS: KCL 20 MEQ TAB (K-DUR) PO SCH (06:08)
[2023-03-05 07:11] VITALS: BP 124/68
[2023-03-05] MEDS: RT-LEVALBUTEROL (XOPENEX) 1.25 MG/3 ML NEB NON-FORMULARY INH PRN ×3 (07:11→21:57)
--- NOTE | 2023-03-05 07:25 | Progress Note ---
Subjective Subjective/Events-last exam Late entry note, patient seen 03/04/23 0900: Stable on vent. Fi02 no 35%. Mother would like to provide home meds for seizure as he requires specific brand/formulation to prevent seizures. Focused Exam Time of Focused Exam: 09:00 Respiratory: Rhonci Cardiovascular: Regular Rate, Rhythm, Systolic Murmur Skin: normal color, warm/dry Objective Exam Last Set of Vital Signs Vital Signs Date Time Temp Pulse Resp B/P (MAP) Pulse Ox O2 Delivery O2 Flow Rate FiO2 03/05/23 07:11 109 20 94 35 03/05/23 06:30 128/70 (92) Mechanical Ventilator 35.00 03/05/23 04:15 37.1 Capillary Refill : I&O Intake and Output0 03/04/23 23:59 Intake Total 5250 ml Output Total 5046 ml Balance 204 ml Intake Oral 0 ml IV Total 800 ml Tube Feeding 805 ml Enteral Flush 540 ml Other 3105 ml Output Urine Total 5046 ml Results/Procedures Lab Laboratory Tests 03/04/23 11:28: Glucometer 123H 03/04/23 17:53: Glucometer 117H 03/04/23 23:06: Glucometer 120H 03/05/23 04:20: White Blood Count 8.2, Red Blood Count 3.28L, Hemoglobin 9.7L, Hematocrit 29L, Mean Corpuscular Volume 89, Mean Corpuscular Hemoglobin 30, Mean Corpuscular Hemoglobin Concent 33, Red Cell Distribution Width 14.5, Platelet Count 154, Mean Platelet Volume 11.5, Immature Granulocyte % (Auto) 1, Neutrophils (%) (Auto) 60, Lymphocytes (%) (Auto) 27, Monocytes (%) (Auto) 8, Eosinophils (%) (Auto) 4, Basophils (%) (Auto) 1, Neutrophils # (Auto) 4.9, Lymphocytes # (Auto) 2.2, Monocytes # (Auto) 0.6, Eosinophils # (Auto) 0.4H, Basophils # (Auto) 0.0, Immature Granulocyte # (Auto) 0.0, Venous Blood pH 7.37, Venous Blood Partial Pressure CO2 49, Venous Blood HCO3 27, Sodium Level 139, Potassium Level 3.3L, Chloride Level 107, Carbon Dioxide Level 24, Anion Gap 8, Blood Urea Nitrogen 4L , Creatinine 0.40L, Estimat Glomerular Filtration Rate 161, BUN/Creatinine Ratio 10, Glucose Level 142H, Calcium Level 7.9L, Corrected Calcium 8.9, Phosphorus Level 1.8L, Magnesium Level 1.9, Total Bilirubin 0.2, Aspartate Amino Transf (AST/SGOT) 23, Alanine Aminotransferase (ALT/SGPT) 19, Alkaline Phosphatase 80, Total Protein 5.0L, Albumin 2.8L, Triglycerides Level 83 Microbiology 03/02/23 Gram Stain - Final, Complete 03/02/23 Sputum Culture - Final, Complete Corynebacterium striatum 03/01/23 Blood Culture - Preliminary, Resulted No growth Radiology ADMIT DATE: 03/01/23/ICU Signed Date of Exam:03/01/23 CHEST 1 VIEW, AP/PA ONLY Indication: Hypoxia Frontal chest obtained at 1208 p.m. compared to 05/11/2015. The heart is normal in size. There is a Port-A-Cath over the right chest with tip overlying the low SVC. There is a shunt catheter over the left hemithorax. There is central vascular congestion with perihilar infiltrates. There is no pneumothorax or pleural fluid. Impression: Bilateral perihilar infiltrates are present, pneumonia is not excluded. There is no pneumothorax or pleural fluid. Heart is normal in size. There is dextroscoliotic change. Dictated by: Dictated on workstation # [id number] Dict: 03/01/23 1212 Trans: 03/01/23 1328 [facility] [id number] Interpreted by: KAMARI MACHUCA MD Assessment/Plan Assessment/Plan (1) Pneumonia Status: Acute Assessment & Plan: Directly admitted to ICU from the clinic via EMS due to pneumonia and hypoxia. At risk for decompensation due to multiple co-morbidities, discussed transfer options with mother and legal guardian and would like to stay at [facility] if possible and trial IV antibiotics. Currently requiring bi-pap at 60% FIO2 to maintain dixie in the low 90's. Antibiotics started - zithromax and meropenam IVF - will give fluid bolus x1L then 150mL/h initial cbc normal; blood cultures pending. Resume home meds and G-tube feeds - dietary consulted for conversion of home feeding regimen. 03/02/2023: Worsening respiratory status overnight, now requiring 70% FIO2 to maintain sats and prevent acidosis. More tachypneic. Consult Dr. Rahman for critical care. Recommending intubation. Discussed consideration of transfer, Dr. Rahman recommends intubation prior to transfer due to risk of clinical deterioration en route if transfer is chosen by parents Discussed code status, would like to proceed with intubation but would prefer not to have chest compressions. Parents are legal guardian of patient but as an adult, court must order DNR or modified DNR. 03/03/23: Intubated without incident yesterday. Sedated on vent currently, more comfortable. O2 98% on 80% FIO2; VBG 7. am CXR severe, bilateral infiltrates, unchanged from yesterday Vancomycin added yesterday. labs, vitals stable blood culture negative Dr. Rahman and eICU provider co-managing 03/04/23: Fi02 35%, stable, sedated on vent. continue current care Qualifiers: (2) Respiratory failure with hypoxia Assessment & Plan: Intubated 03/02/23 Qualifiers: Qualified Codes: J96.01 - Acute respiratory failure with hypoxia (3) Electrolyte abnormality Status: Acute Assessment & Plan: 03/02/23: -potassium and magnesium replaced per protocol HARRIS MAZARIEGOS DO Mar 05, 2023 07:25
[2023-03-05] MEDS: ENOXAPARIN 30 MG/0.3 ML SYRINGE SC SCH ×2 (07:49→20:25)
[2023-03-05] MEDS: polyethylene glycoL POWDER 17 GM (MIRALAX) PACK GT SCH (07:51)
[2023-03-05] MEDS: LORATADINE 5 MG/5 ML SOLN (CLARITIN) UDC GT SCH ×2 (07:51→21:44)
[2023-03-05] MEDS: PANTOPRAZOLE 40 MG (PROTONIX) VIAL IV SCH (07:54)
--- NOTE | 2023-03-05 08:44 | Diagnostic Imaging Report ---
INDICATION: Respiratory distress. Frontal chest obtained at 05:34 a.m. compared to 03/03/2023 FINDINGS: The ET tube and Port-A-Cath are unchanged. Extensive bilateral infiltrates are again noted with underlying chronic chest wall deformity. There is no change in [employer] shunt over the left chest wall. IMPRESSION: Cardiomegaly. Unchanged extensive bilateral infiltrates. No pneumothorax or pleural fluid. Dictated by: Dictated on workstation # [id number]
[2023-03-05] MEDS ORDERED: FUROSEMIDE 40 MG/4 ML INJ (LASIX) IVP ONE (08:45)
[2023-03-05] MEDS: AZITHROMYCIN INJECTION 500 MG in NS (IVPB) 250 ML 250 ML IV SCH (09:01)
[2023-03-05 09:26] VITALS: BP 125/65
[2023-03-05] MEDS: TRILEPTAL GT SCH ×2 (09:30→21:43)
[2023-03-05] MEDS ORDERED: RT-ALBUINH INH (09:42)
[2023-03-05] MEDS ORDERED: POLY17PO6 GT (09:42)
[2023-03-05] MEDS ORDERED: MOME17SP11 NS (09:42)
--- NOTE | 2023-03-05 10:37 | Progress Note ---
Subjective Date Seen by a Provider: Mar 05, 2023 Time Seen by a Provider: 11:00 Subjective/Events-last exam Patient remains intubated IV antibiotics maintained Labs reviewed Mother at bedside Focused Exam Time of Focused Exam: 09:00 Objective Exam Last Set of Vital Signs Vital Signs Date Time Temp Pulse Resp B/P (MAP) Pulse Ox O2 Delivery O2 Flow Rate FiO2 03/05/23 10:00 110 110/65 (81) 93 Mechanical Ventilator 35.00 03/05/23 09:26 23 35 03/05/23 07:50 36.1 Capillary Refill : I&O Intake and Output 03/05/23 00:00 Intake Total 5250 ml Output Total 5046 ml Balance 204 ml Intake Oral 0 ml IV Total 800 ml Tube Feeding 805 ml Enteral Flush 540 ml Other 3105 ml Output Urine Total 5046 ml General: Other (Intubated and sedated) Lungs: Other ( coarse breath sounds) Heart: Regular Rate Results Lab Laboratory Tests 03/04/23 11:28: Glucometer 123H 03/04/23 17:53: Glucometer 117H 03/04/23 23:06: Glucometer 120H 03/05/23 04:20: White Blood Count 8.2, Red Blood Count 3.28L, Hemoglobin 9.7L, Hematocrit 29L, Mean Corpuscular Volume 89, Mean Corpuscular Hemoglobin 30, Mean Corpuscular Hemoglobin Concent 33, Red Cell Distribution Width 14.5, Platelet Count 154, Mean Platelet Volume 11.5, Immature Granulocyte % (Auto) 1, Neutrophils (%) (Auto) 60, Lymphocytes (%) (Auto) 27, Monocytes (%) (Auto) 8, Eosinophils (%) (Auto) 4, Basophils (%) (Auto) 1, Neutrophils # (Auto) 4.9, Lymphocytes # (Auto) 2.2, Monocytes # (Auto) 0.6, Eosinophils # (Auto) 0.4H, Basophils # (Auto) 0.0, Immature Granulocyte # (Auto) 0.0, Venous Blood pH 7.37, Venous Blood Partial Pressure CO2 49, Venous Blood HCO3 27, Sodium Level 139, Potassium Level 3.3L, Chloride Level 107, Carbon Dioxide Level 24, Anion Gap 8, Blood Urea Nitrogen 4L , Creatinine 0.40L, Estimat Glomerular Filtration Rate 161, BUN/Creatinine Ratio 10, Glucose Level 142H, Calcium Level 7.9L, Corrected Calcium 8.9, Phosphorus Level 1.8L, Magnesium Level 1.9, Total Bilirubin 0.2, Aspartate Amino Transf (AST/SGOT) 23, Alanine Aminotransferase (ALT/SGPT) 19, Alkaline Phosphatase 80, Total Protein 5.0L, Albumin 2.8L, Triglycerides Level 83 Microbiology 03/02/23 Gram Stain - Final, Complete 03/02/23 Sputum Culture - Final, Complete Corynebacterium striatum 03/01/23 Blood Culture - Preliminary, Resulted No growth Assessment/Plan Assessment/Plan Assess & Plan/Chief Complaint Assessment: Acute hypoxic hypercapnic respiratory failure failed BiPAP requiring intubation Severe cerebral palsy with severe disability Sepsis Bilateral pneumonia Lovenox for DVT prophylaxis Plan: Intubation eICU consulted Antibiotics Supportive care JP UNDERWOOD DO Mar 05, 2023 10:37
--- NOTE | 2023-03-05 11:26 | Progress Note ---
Subjective Subjective/Events-last exam Stable, no significant changes. Focused Exam Time of Focused Exam: 09:00 Respiratory: Rhonci Cardiovascular: Regular Rate, Rhythm Skin: warm/dry Objective Exam Last Set of Vital Signs Vital Signs Date Time Temp Pulse Resp B/P (MAP) Pulse Ox O2 Delivery O2 Flow Rate FiO2 03/05/23 11:00 89 35 115/61 (75) 93 Mechanical Ventilator 35.00 03/05/23 09:26 35 03/05/23 07:50 36.1 Capillary Refill : I&O Intake and Output 03/05/23 00:00 Intake Total 5250 ml Output Total 5046 ml Balance 204 ml Intake Oral 0 ml IV Total 800 ml Tube Feeding 805 ml Enteral Flush 540 ml Other 3105 ml Output Urine Total 5046 ml Results/Procedures Lab Laboratory Tests 03/04/23 11:28: Glucometer 123H 03/04/23 17:53: Glucometer 117H 03/04/23 23:06: Glucometer 120H 03/05/23 04:20: White Blood Count 8.2, Red Blood Count 3.28L, Hemoglobin 9.7L, Hematocrit 29L, Mean Corpuscular Volume 89, Mean Corpuscular Hemoglobin 30, Mean Corpuscular Hemoglobin Concent 33, Red Cell Distribution Width 14.5, Platelet Count 154, Mean Platelet Volume 11.5, Immature Granulocyte % (Auto) 1, Neutrophils (%) (Auto) 60, Lymphocytes (%) (Auto) 27, Monocytes (%) (Auto) 8, Eosinophils (%) (Auto) 4, Basophils (%) (Auto) 1, Neutrophils # (Auto) 4.9, Lymphocytes # (Auto) 2.2, Monocytes # (Auto) 0.6, Eosinophils # (Auto) 0.4H, Basophils # (Auto) 0.0, Immature Granulocyte # (Auto) 0.0, Venous Blood pH 7.37, Venous Blood Partial Pressure CO2 49, Venous Blood HCO3 27, Sodium Level 139, Potassium Level 3.3L, Chloride Level 107, Carbon Dioxide Level 24, Anion Gap 8, Blood Urea Nitrogen 4L , Creatinine 0.40L, Estimat Glomerular Filtration Rate 161, BUN/Creatinine Ratio 10, Glucose Level 142H, Calcium Level 7.9L, Corrected Calcium 8.9, Phosphorus Level 1.8L, Magnesium Level 1.9, Total Bilirubin 0.2, Aspartate Amino Transf (AST/SGOT) 23, Alanine Aminotransferase (ALT/SGPT) 19, Alkaline Phosphatase 80, Total Protein 5.0L, Albumin 2.8L, Triglycerides Level 83 Microbiology 03/02/23 Gram Stain - Final, Complete 03/02/23 Sputum Culture - Final, Complete Corynebacterium striatum 03/01/23 Blood Culture - Preliminary, Resulted No growth Radiology ADMIT DATE: 03/01/23/ICU Signed Date of Exam:03/01/23 CHEST 1 VIEW, AP/PA ONLY Indication: Hypoxia Frontal chest obtained at 1208 p.m. compared to 05/11/2015. The heart is normal in size. There is a Port-A-Cath over the right chest with tip overlying the low SVC. There is a shunt catheter over the left hemithorax. There is central vascular congestion with perihilar infiltrates. There is no pneumothorax or pleural fluid. Impression: Bilateral perihilar infiltrates are present, pneumonia is not excluded. There is no pneumothorax or pleural fluid. Heart is normal in size. There is dextroscoliotic change. Dictated by: Dictated on workstation # [id number] Dict: 03/01/23 1212 Trans: 03/01/23 1328 [facility] [id number] Interpreted by: KAMARI MACHUCA MD Assessment/Plan Assessment/Plan (1) Pneumonia Status: Acute Assessment & Plan: Directly admitted to ICU from the clinic via EMS due to pneumonia and hypoxia. At risk for decompensation due to multiple co-morbidities, discussed transfer options with mother and legal guardian and would like to stay at [facility] if possible and trial IV antibiotics. Currently requiring bi-pap at 60% FIO2 to maintain dixie in the low 90's. Antibiotics started - zithromax and meropenam IVF - will give fluid bolus x1L then 150mL/h initial cbc normal; blood cultures pending. Resume home meds and G-tube feeds - dietary consulted for conversion of home feeding regimen. 03/02/2023: Worsening respiratory status overnight, now requiring 70% FIO2 to maintain sats and prevent acidosis. More tachypneic. Consult Dr. Rahman for critical care. Recommending intubation. Discussed consideration of transfer, Dr. Rahman recommends intubation prior to transfer due to risk of clinical deterioration en route if transfer is chosen by parents Discussed code status, would like to proceed with intubation but would prefer not to have chest compressions. Parents are legal guardian of patient but as an adult, court must order DNR or modified DNR. 03/03/23: Intubated without incident yesterday. Sedated on vent currently, more comfortable. O2 98% on 80% FIO2; VBG 7.31//23 am CXR severe, bilateral infiltrates, unchanged from yesterday Vancomycin added yesterday. labs, vitals stable blood [facility] 03/04/23: Fi02 35%, stable, sedated on vent. continue current care 03/05/23: sputum culture grew corynebacterium - typically sensitive to vancomycin and meropenum Fi02 35%, stable, sedated on vent. continue current care Qualifiers: (2) Respiratory failure with hypoxia Assessment & Plan: Intubated 03/02/23 Qualifiers: Qualified Codes: J96.01 - Acute respiratory failure with hypoxia (3) Electrolyte abnormality Status: Acute Assessment & Plan: -potassium and magnesium replaced per protocol HARRIS MAZARIEGOS DO Mar 05, 2023 11:26
--- NOTE | 2023-03-05 12:46 | Consultation - Surgery ---
History of Present Illness History of Present Illness Patient Consulted On(angelina/time) 03/05/23 12:45 Date Seen by Provider: Mar 05, 2023 Time Seen by Provider: 12:46 History of Present Illness Consult requested for central line placement for poor venous access. Patient is a 17 year old male admitted with pneumonia and hypoxia to ICU from clinic. Required intubation. Lost IV access except for port. Patient needing more access for administration of medications. Family at bedside. Allergies and Home Medications Allergies Coded Allergies: cefazolin (Verified Allergy, Severe, ANAPHYLAXIS, 03/01/23) latex (Verified Allergy, Unknown, 10/28/10) morphine (Verified Allergy, Unknown, 05/12/15) Patient Home Medication List Home Medication List Reviewed: Yes Albuterol Sulfate (Ventolin Hfa) 1 Puff Puff, 2 PUFF INH Q4H PRN for SHORTNESS OF BREATH, (Reported) Entered as Reported by: BULMARO ALARCON on 03/05/23941 Last Action: Reviewed Hydrochlorothiazide (Hydrochlorothiazide) 25 Mg Tablet, 25 MG GT DAILY, (Reported) Entered as Reported by: HARRIS MAZARIEGOS on 03/01/232217 Last Action: Reviewed Lactobacillus Rhamnosus GG (Culturelle) 15 Billion Cell Cap.sprink, 1 EACH GT DAILY, (Reported) Entered as Reported by: HARRIS MAZARIEGOS on 03/01/232217 Last Action: Reviewed Lansoprazole (Prevacid) 30 Mg Tab.rap.dr, 30 MG GT BID, (Reported) Entered as Reported by: HARRIS MAZARIEGOS on 03/01/232201 Last Action: Reviewed Levocetirizine Dihydrochloride (Xyzal) 2.5 Mg/5 Ml Solution, 2.5 MG GT BID, (Reported) Entered as Reported by: HARRIS MAZARIEGOS on 03/01/232202 Last Action: Reviewed Mometasone Furoate (Mometasone Furoate) 50 Mcg/Actuation [place].pump, 2 SPRAYS NS BID PRN for CONGESTION, (Reported) Entered as Reported by: BULMARO ALARCON on 03/05/23941 Last Action: Reviewed Oxcarbazepine (Trileptal) 300 Mg/5 Ml (60 Mg/Ml) Susp, 5 ML GT DAILY, (Reported) Entered as Reported by: HARRIS MAZARIEGOS on 03/01/232206 Last Action: Reviewed Oxcarbazepine (Trileptal) 300 Mg/5 Ml (60 Mg/Ml) Susp, 10 ML GT HS, (Reported) Entered as Reported by: HARRIS MAZARIEGOS on 03/01/232206 Last Action: Reviewed Polyethylene Glycol 3350 (Miralax) 17 Gram Powd.pack, 17 GM GT HS, (Reported) Entered as Reported by: BULMARO ALARCON on 03/05/2308 Last Action: Reviewed Potassium Citrate/Citric Acid (Cytra-K Oral Solution) 1,100 Mg-334 Mg/5 Ml Solution, 10 ML GT BID Prescribed by: HARRIS MAZARIEGOS on 03/01/232220 Last Action: Reviewed Zonisamide (Zonisamide) 100 Mg Capsule, 300 MG GT HS, (Reported) Entered as Reported by: HARRIS MAZARIEGOS on 03/01/232206 Last Action: Reviewed Discontinued Medications Albuterol (Proair Hfa) 8.5 Gm Hfa.aer.ad, 2-4 PUFF IH PRN, (Reported) Discontinued Reason: Prescription changed Entered as Reported by: ZAHRAA HENDERSON on 10/28/101356 Last Action: Reviewed Baclofen (Baclofen) 10 Mg Tablet, 1 EACH GT BID, (Reported) Entered as Reported by: ZAHRAA HENDERSON on 10/28/101346 Last Action: Discontinued Baclofen (Baclofen) 10 Mg Tablet, 0.5 EACH GT DAILY@1400, (Reported) Entered as Reported by: ZAHRAA HENDERSON on 10/28/101346 Last Action: Discontinued Cetirizine Hcl (Zyrtec) 10 Mg Tablet, 1 EACH GT HS, (Reported) Entered as Reported by: ZAHRAA HENDERSON on 10/28/101346 Last Action: Discontinued Fluticasone Propionate (Flovent Hfa 44 Mcg) 1 Ea Aero, 4 PUFF INH BID, (Reported) Entered as Reported by: ZAHRAA HENDERSON on 10/28/101346 Last Action: Discontinued Fluticasone Propionate (Flonase [place] (Non-Formulary)) 50 Mcg/16 G [place], 1 SPRAY NA BID, (Reported) Entered as Reported by: ZAHRAA HENDERSON on 10/28/101346 Last Action: Discontinued Gabapentin (Neurontin) 250 Mg/5 Ml Solution, 2 ML GT TID, (Reported) Entered as Reported by: ZAHRAA HENDERSON on 10/28/101356 Last Action: Discontinued Lansoprazole (Prevacid) 30 Mg/Bottle Tab., 15 MG GT DAILY@0615, (Reported) Entered as Reported by: ZAHRAA HENDERSON on 10/28/101346 Last Action: Discontinued Lansoprazole (Prevacid) 30 Mg/Bottle Tab., 30 MG HS@2030, (Reported) Entered as Reported by: ZAHRAA HENDERSON on 10/28/101346 Last Action: Discontinued Montelukast Sodium (Singulair) 5 Mg Tab.chew, 5 MG GT HS, (Reported) Entered as Reported by: ZAHRAA HENDERSON on 10/28/101346 Last Action: Discontinued Polyethylene Glycol (Miralax 17 Gm Packet) 17 Gm Pack, 8.5 G GT HS, (Reported) Entered as Reported by: ZAHRAA HENDERSON on 10/28/101346 Last Action: Discontinued Polyethylene Glycol 3350 (Miralax) 17 Gram Powd.pack, 17 GM GT DAILY Discontinued Reason: Duplicate Order Prescribed by: HARRIS MAZARIEGOS on 03/01/232220 Last Action: Discontinued [trileptal] , 4 ML GT TID, (Reported) Entered as Reported by: ZAHRAA HENDERSON on 10/28/101353 Last Action: Discontinued Past Wscncwf-Baibil-Mknbqf Hx Patient Social History Smoking Status: Never a Smoker Immunizations Up To Date Tetanus Booster (TDap): Unknown Surgeries History of Surgeries: Yes (Port, Baclofen pump, vp packaging shunt, fundoplication, g tube) Neurological Neurological Disorders: Cerebral Palsy, Seizure Disorder Reproductive System Hx Reproductive Disorders: No Reviewed Nursing Assessment Reviewed/Agree w Nursing PMH: Yes Family Medical History Significant Family History: No Pertinent Family Hx Review of Systems-General ROS-Unable to Obtain: intubated and sedated Physical Exam-General Problems Physical Exam Vital Signs Vital Signs - First Documented 03/01/23 03/01/23 03/01/23 03/01/23 10:25 10:43 10:57 20:24 Temp 37.2 Pulse 114 Resp 24 B/P (MAP) 115/70 (85) Pulse Ox 97 O2 Delivery NIV Bilevel O2 Flow Rate 60.00 FiO2 60 Capillary Refill : General Appearance: no apparent distress, other (t tube) HEENT: normal ENT inspection Neck: supple Respiratory: chest non-tender, other (equal chest rise) Cardiovascular: regular rate, rhythm, no JVD Gastrointestinal: soft, distended Rectal: deferred Extremities: other (incomplete limbs upper extremity, dislocation left lower extremity) Neurologic/Psychiatric: other (sedated) Skin: normal color, warm/dry Lymphatic: no adenopathy Data Review Labs Laboratory Tests 03/04/23 17:53: Glucometer 117H 03/04/23 23:06: Glucometer 120H 03/05/23 04:20: White Blood Count 8.2, Red Blood Count 3.28L, Hemoglobin 9.7L, Hematocrit 29L, Mean Corpuscular Volume 89, Mean Corpuscular Hemoglobin 30, Mean Corpuscular Hemoglobin Concent 33, Red Cell Distribution Width 14.5, Platelet Count 154, Mean Platelet Volume 11.5, Immature Granulocyte % (Auto) 1, Neutrophils (%) (Auto) 60, Lymphocytes (%) (Auto) 27, Monocytes (%) (Auto) 8, Eosinophils (%) (Auto) 4, Basophils (%) (Auto) 1, Neutrophils # (Auto) 4.9, Lymphocytes # (Auto) 2.2, Monocytes # (Auto) 0.6, Eosinophils # (Auto) 0.4H, Basophils # (Auto) 0.0, Immature Granulocyte # (Auto) 0.0, Venous Blood pH 7.37, Venous Blood Partial Pressure CO2 49, Venous Blood HCO3 27, Sodium Level 139, Potassium Level 3.3L, Chloride Level 107, Carbon Dioxide Level 24, Anion Gap 8, Blood Urea Nitrogen 4L , Creatinine 0.40L, Estimat Glomerular Filtration Rate 161, BUN/Creatinine Ratio 10, Glucose Level 142H, Calcium Level 7.9L, Corrected Calcium 8.9, Phosphorus Level 1.8L, Magnesium Level 1.9, Total Bilirubin 0.2, Aspartate Amino Transf (AST/SGOT) 23, Alanine Aminotransferase (ALT/SGPT) 19, Alkaline Phosphatase 80, Total Protein 5.0L, Albumin 2.8L, Triglycerides Level 83 03/05/23 11:43: Glucometer 127H Microbiology 03/02/23 Gram Stain - Final, Complete 03/02/23 Sputum Culture - Final, Complete Corynebacterium striatum 03/01/23 Blood Culture - Preliminary, Resulted No growth Assessment/Plan Assessment/Plan Assessment/Plan pneumonia b/l hypoxia respiratory failure requiring intubation poor venous access constipation right u/s guided femoral line placed abdominal x ray constipation soap suds enema can hook g tube to suction for decompression RAFFI MAGAÑA DO Mar 05, 2023 12:46
--- NOTE | 2023-03-05 12:53 | Tele-ICU Progress Note ---
Subjective Date Seen by a Provider: Mar 05, 2023 Time Seen by a Provider: 12:53 Subjective/Events-last exam (Tele-ICU Physician , Progress Note ) Service provided via interactive audio and video telecommunications E-CARE system to a patient admitted to ICU bed in [facility]. Patient is seen today due to persistent need of ICU care Available chart/ vitals / labs / Images reviewed Video assessment done using teleICU camera, rest of exam as per RN Discussed with RN Events overnight : Afebrile hemodynamically stable Respiratory - 60% I/O = ++ Drips: ns 50 Pressors- no VENT SETTINGS and ABG reviewed NOT CANDIDATE for SBTreviewed possible contraindications including Cardiova scular Stability /Sedation Score / FI02/PEEP / ABG / CXR/ secretions Sedation, discussed with RN, RASS -1 on precedex 0.8 Hospital course: (03/01) 17y/o M admitted with pneumonia, hypoxia. (03/02) INTUBATED 03/03-Ac 20 380 + 8 60% , RASS -1 on propfol 30 precedex 0.8 , added mucomist , cut down fluids 03/05- Ac 20 380 + 8 35 % propfol 50 precedex 1.4 A/P Acute hypoxixc resp failure ( with conjenital scoliosis, tracheomalacia and MADISYN ) -(03/02) INTUBATED Ac 20 380 + 8 35 % - thick sectetions - add duo neb and mucomist PNA - cont abx , cxr with infioltrateds , cx sputum - neg so far Cerebral palsy Right temporal lobe Sz dz - off AEDs [employer] - monitor Esophageal stricture , nissanfundoplication , PEG tube placement - cont TF H/o Hydrocephalus - s/p [employer] shunt Baclofen pump - 60 mg/day - cont Anemia stable skin - clear MADISYN- BIPAP 9/5 at night , NOT on O2 when doing well Lines : R port periph , (Central Line Necessity Reviewed) [place]: + OG: Nutrition: PEG - TF Analgesia: Anxiety/ delirium VTE Prophylaxis: trina 30 Stress Ulcer Prophylaxis: na Plans in collaboration with bedside consultants and IM MDs. Discussed with RN to reach out if any questions or concerns Case and care daily discussed on multidisciplinary rounds ( RN, PharmD, Coil Winder Hand , Respiratory Therapy, yarn dry room worker ) A total of 31 minutes of critical care time was devoted to this patient today, required to treat and/or prevent further deterioration of critical care condition ( as above ) . I am remotely monitoring this patient from another state. I am unable to do the bedside exam, and history/physical and pertinent information is taken from other notes in the computer and bedside staff. ... Sepsis Event Evaluation Height, Weight, BMI Height: 4'0" Weight: 72lbs. oz. 32.294398km; 27.23 BMI Method: Focused Exam Time of Focused Exam: 09:00 Exam Exam Patient acknowledged, consented, and participated in this virtual visit which was conducted using real time audio/video Vital Signs Date Time Temp Pulse Resp B/P (MAP) Pulse Ox O2 Delivery O2 Flow Rate FiO2 03/05/23 12:52 84 03/05/23 12:04 36.4 03/05/23 12:00 88 108/64 (77) 94 Mechanical Ventilator 35.00 03/05/23 11:00 89 35 115/61 (75) 93 Mechanical Ventilator 35.00 03/05/23 10:00 110 110/65 (81) 93 Mechanical Ventilator 35.00 03/05/23 09:26 107 23 98 35 03/05/23 09:00 113 22 114/60 (78) 92 Mechanical Ventilator 35.00 03/05/23 08:00 108 134/77 (96) 93 Mechanical Ventilator 35.00 03/05/23 07:50 36.1 03/05/23 07:48 124 122/76 03/05/23 07:11 109 20 94 35 03/05/23 07:00 80 124/68 (86) 93 Mechanical Ventilator 35.00 03/05/23 07:00 107 03/05/23 06:30 80 128/70 (92) 94 Mechanical Ventilator 35.00 03/05/23 06:17 90 120/71 03/05/23 06:15 90 120/71 (84) 94 Mechanical Ventilator 35.00 03/05/23 06:00 84 132/77 (95) 94 Mechanical Ventilator 35.00 03/05/23 05:32 94 119/70 03/05/23 05:00 85 28 131/78 (95) 93 Mechanical Ventilator 35.00 03/05/23 04:35 92 Mechanical Ventilator 35 03/05/23 04:15 37.1 03/05/23 04:00 85 26 133/77 (95) 94 Mechanical Ventilator 35.00 03/05/23 03:00 87 28 132/70 (90) 93 Mechanical Ventilator 35.00 03/05/23 02:30 133/80 (95) Mechanical Ventilator 35.00 03/05/23 02:29 93 123/69 03/05/23 02:21 96 20 92 35 03/05/23 02:15 95 29 123/69 (84) 92 Mechanical Ventilator 35.00 03/05/23 02:00 84 36 131/71 (87) 92 Mechanical Ventilator 35.00 03/05/23 01:45 81 21 136/69 (89) 93 Mechanical Ventilator 35.00 03/05/23 01:30 79 27 137/73 (90) 93 Mechanical Ventilator 35.00 03/05/23 01:30 86 136/70 03/05/23 01:15 86 30 136/70 (88) 92 Mechanical Ventilator 35.00 03/05/23 01:00 85 36 133/70 (91) 93 Mechanical Ventilator 35.00 03/05/23 01:00 85 03/05/23 00:45 87 16 132/80 (86) 92 Mechanical Ventilator 35.00 03/05/23 00:30 79 15 132/72 (92) 94 Mechanical Ventilator 35.00 03/05/23 00:15 98 11 115/67 (83) 93 Mechanical Ventilator 35.00 03/05/23 00:10 93 133/77 03/05/23 00:00 85 15 132/72 (92) 94 Mechanical Ventilator 35.00 03/04/23 23:59 93 Mechanical Ventilator 35 03/04/23 23:00 93 7 131/77 (95) 94 Mechanical Ventilator 35.00 03/04/23 22:45 37.0 97 10 131/73 (91) 94 Mechanical Ventilator 35.00 03/04/23 22:30 98 16 135/74 (91) 94 Mechanical Ventilator 35.00 03/04/23 22:15 105 0 124/67 (84) 91 Mechanical Ventilator 35.00 03/04/23 22:15 105 20 91 35 03/04/23 22:00 98 21 130/81 (93) 96 Mechanical Ventilator 35.00 03/04/23 21:45 82 34 126/68 (86) 92 Mechanical Ventilator 35.00 03/04/23 21:30 85 24 130/67 (84) 91 Mechanical Ventilator 35.00 03/04/23 20:15 133 8 96/57 (73) 93 Mechanical Ventilator 35.00 03/04/23 20:15 91 Mechanical Ventilator 35 03/04/23 20:00 130 39 115/64 (90) 76 Mechanical Ventilator 35.00 03/04/23 20:00 128 123/65 03/04/23 19:58 125 0 123/65 (85) 91 Mechanical Ventilator 35.00 03/04/23 19:45 140 51 116/60 (83) 89 Mechanical Ventilator 35.00 03/04/23 19:30 146 18 125/66 (91) 90 Mechanical Ventilator 35.00 03/04/23 19:15 141 24 132/78 (94) 90 Mechanical Ventilator 35.00 03/04/23 19:04 106 21 97 35 03/04/23 19:00 105 03/04/23 19:00 105 0 125/66 (87) 75 Mechanical Ventilator 35.00 03/04/23 18:45 81 0 138/79 (98) 92 Mechanical Ventilator 35.00 03/04/23 18:30 93 0 133/69 (95) 90 Mechanical Ventilator 35.00 03/04/23 18:00 79 129/73 (91) 92 Mechanical Ventilator 35.00 03/04/23 17:00 86 137/72 (93) 97 Mechanical Ventilator 35.00 03/04/23 16:05 38.1 Mechanical Ventilator 35.00 03/04/23 16:00 97 Mechanical Ventilator 35 03/04/23 16:00 106 20 110/63 (79) 92 Mechanical Ventilator 35.00 03/04/23 15:57 86 137/72 03/04/23 15:57 86 137/72 03/04/23 15:53 38.1 03/04/23 15:00 95 20 129/67 (87) 97 Mechanical Ventilator 35.00 03/04/23 14:33 85 20 97 35 03/04/23 14:00 90 19 126/71 (89) 96 Mechanical Ventilator 35.00 03/04/23 13:00 86 131/72 (91) 97 Mechanical Ventilator 35.00 03/04/23 12:57 85 I & O 03/05/23 07:00 Intake Total 5348 ml Output Total 4846 ml Balance 502 ml Height & Weight Height: 4'0" Weight: 72lbs. oz. 32.671305jl; 27.23 BMI Method: General Appearance: Chronically ill, Moderate Distress, Other Respiratory: Rhonci Cardiovascular: Regular Rate, Rhythm Gastrointestinal: normal bowel sounds, non tender, soft Extremity: No Pedal Edema, Other (mild sdrotal edema) Results Lab Laboratory Tests 03/04/23 04:35 03/05/23 04:20 Assessment/Plan Assessment/Plan 1 VANESSA MIRAMONTES MD Mar 05, 2023 12:53
--- NOTE | 2023-03-05 14:32 | Diagnostic Imaging Report ---
INDICATION: Abdominal distention. There is air and stool throughout the mildly distended colon suggestive of a colonic ileus. No substantial small bowel or gastric dilatation. Significant rotation and underlying scoliotic curvature are present. There is a right-sided femoral catheter at the iliac level. IMPRESSION: Colonic constipation and obstipation. Correlate for a large bowel ileus. No small bowel obstruction. No small bowel dilatation. Vascular catheter on the right is at the iliac level. There is severe scoliosis. Dictated by: Dictated on workstation # [id number]
[2023-03-05 14:58] VITALS: BP 107/59
[2023-03-05 19:16] VITALS: BP 118/67
[2023-03-05] MEDS: ZONISAMIDE 100 MG CAP (ZONEGRAN) NON-FORMULARY PO SCH (21:42)
[2023-03-05] MEDS ORDERED: FLEET ENEMA ADULT 1 EA BTL PR ONE (21:45)
[2023-03-05 21:57] VITALS: BP 11/63
[2023-03-06] MEDS: MEROPENEM 500 MG in NS (IVPB) 100 ML 100 ML IV SCH ×4 (01:44→19:31)
[2023-03-06 02:22] VITALS: BP 114/64
[2023-03-06] MEDS: aCETylcysteine 20% (RT/PO) 4 ML SOLN VIAL INH SCH ×4 (02:22→22:11)
[2023-03-06] MEDS: PROPOFOL DRIP (ICU) 100 ML IV SCH ×4 (02:40→19:32)
[2023-03-06] MEDS: VANCOMYCIN 1 GM/NS 250 ML IVPB IV SCH ×6 (02:44→18:10)
--- NOTE | 2023-03-06 05:43 | OPERATIVE REPORT ---
DATE OF SERVICE: 03/05/2023 PREOPERATIVE DIAGNOSIS: Poor venous access. POSTOPERATIVE DIAGNOSIS: Poor venous access. PROCEDURE: Right femoral central line, ultrasound-guided. SURGEON: Raffi Saleh DO ANESTHESIA: 1% lidocaine 3 mL. COMPLICATIONS: None. DESCRIPTION OF PROCEDURE: The patient is a 17-year-old male, intubated and sedated with poor venous access, needing more central access. Risks and benefits of procedure were discuss with mother and consent was obtained. The right groin area was prepped and draped in sterile fashion. Timeout was performed. Ultrasound was used to isolate the right femoral vein. Under direct visualization with ultrasound, the right femoral vein was then accessed. Dark nonpulsatile blood was withdrawn. The guidewire was inserted and the needle was removed. An 11 blade scalpel was used to make a small skin incision. The dilator was advanced over the guidewire and removed. The triple lumen catheter was advanced over the guidewire and the wire was removed. The triple lumen catheter was then secured with 3-0 silk suture. All ports were accessed and flushed with saline without difficulty. The area was washed and dried and sterile bandage was applied. The patient tolerated the procedure well without complications. Job ID: [id number] DocumentID: [id number] Dictated Date: 03/05/2023 18:42:39 Powder Room Attendant Date: 03/06/2023 05:40:00 Dictated By: RAFFI SALEH DO
[2023-03-06] MEDS: KCL 20 MEQ TAB (K-DUR) PO SCH (06:00)
[2023-03-06] MEDS: MAGNESIUM 1 GM/100 ML IVPB 100 ML IV SCH ×3 (06:00→08:13)
[2023-03-06] MEDS: POTASSIUM CL 10MEQ/50ML IVPB 50 ML IV SCH ×2 (06:00→07:34)
[2023-03-06 06:06] LABS: BASOPHILS % (AUTO) 0 % (0-10); EOSINOPHILS # (AUTO) 0.5 10^3/uL (0.0-0.3); EOSINOPHILS % (AUTO) 6 % (0-10); HEMATOCRIT 28 % (40-54); HEMOGLOBIN 9.3 g/dL (13.3-17.7); LYMPHOCYTES # (AUTO) 2.3 10^3/uL (1.0-4.0); LYMPHOCYTES % (AUTO) 26 % (12-44); MEAN CORPUSCULAR HEMOGLOBIN 30 pg (25-34); MEAN CORPUSCULAR HGB CONC 33 g/dL (32-36); MEAN CORPUSCULAR VOLUME 90 fL (80-99); MEAN PLATELET VOLUME 11.3 fL (9.0-12.2); MONOCYTES # (AUTO) 0.7 10^3/uL (0.0-1.0); MONOCYTES % (AUTO) 8 % (0-12); NEUTROPHILS # (AUTO) 5.3 10^3/uL (1.8-7.8); NEUTROPHILS % (AUTO) 60 % (42-75); PLATELET COUNT 182 10^3/uL (130-400); WHITE BLOOD COUNT 8.9 10^3/uL (4.3-11.0)
[2023-03-06 06:27] LABS: ALBUMIN 2.7 GM/DL (3.2-4.5); BILIRUBIN,TOTAL 0.4 MG/DL (0.1-1.0); CALCIUM 8.2 MG/DL (8.5-10.1); CREATININE SERUM 0.4 MG/DL (0.60-1.30); MAGNESIUM 1.8 MG/DL (1.6-2.4); PHOSPHORUS 1.9 MG/DL (2.3-4.7); POTASSIUM 3.7 MMOL/L (3.6-5.0)
--- NOTE | 2023-03-06 06:45 | Progress Note ---
Subjective Date Seen by a Provider: Mar 06, 2023 Time Seen by a Provider: 11:00 Subjective/Events-last exam No significant changes Mother at the bedside Mother requested court process to start for DNR Reviewed labs and meds Focused Exam Time of Focused Exam: 09:00 Objective Exam Last Set of Vital Signs Vital Signs Date Time Temp Pulse Resp B/P (MAP) Pulse Ox O2 Delivery O2 Flow Rate FiO2 03/06/23 06:00 82 20 104/54 (71) 94 Mechanical Ventilator 50.00 03/06/23 04:00 35 03/06/23 04:00 37.3 Capillary Refill : I&O Intake and Output 03/06/23 00:00 Intake Total 4726 ml Output Total 4450 ml Balance 276 ml Intake Oral 0 ml IV Total 1700 ml Tube Feeding 523 ml Enteral Flush 405 ml Other 2098 ml Output Urine Total 4450 ml General: Other (Sedated and intubated) Lungs: Other ( coarse breath sounds) Heart: Regular Rate Results Lab Laboratory Tests 03/05/23 11:43: Glucometer 127H 03/05/23 17:42: Glucometer 92 03/06/23 00:28: Glucometer 95 03/06/23 05:00: Venous Blood pH 7.32, Venous Blood Partial Pressure CO2 57H, Venous Blood HCO3 29H 03/06/23 05:30: White Blood Count 8.9, Red Blood Count 3.15L, Hemoglobin 9.3L, Hematocrit 28L, Mean Corpuscular Volume 90, Mean Corpuscular Hemoglobin 30, Mean Corpuscular Hemoglobin Concent 33, Red Cell Distribution Width 14.8H, Platelet Count 182, Mean Platelet Volume 11.3, Immature Granulocyte % (Auto) 1, Neutrophils (%) (Auto) 60, Lymphocytes (%) (Auto) 26, Monocytes (%) (Auto) 8, Eosinophils (%) (Auto) 6, Basophils (%) (Auto) 0, Neutrophils # (Auto) 5.3, Lymphocytes # (Auto) 2.3, Monocytes # (Auto) 0.7, Eosinophils # (Auto) 0.5H, Basophils # (Auto) 0.0, Immature Granulocyte # (Auto) 0.1, Sodium Level 138, Potassium Level 3.7, Chloride Level 105, Carbon Dioxide Level 24, Anion Gap 9, Blood Urea Nitrogen 5L , Creatinine 0.40L, Estimat Glomerular Filtration Rate 161, BUN/Creatinine Ratio 13, Glucose Level 88, Calcium Level 8.2L, Corrected Calcium 9.2, Phosphorus Level 1.9L, Magnesium Level 1.8, Total Bilirubin 0.4, Aspartate Amino Transf (AST/SGOT) 22, Alanine Aminotransferase (ALT/SGPT) 19, Alkaline Phosphatase 82, Total Protein 5.0L, Albumin 2.7L Microbiology 03/02/23 Gram Stain - Final, Complete 03/02/23 Sputum Culture - Final, Complete Corynebacterium striatum 03/01/23 Blood Culture - Preliminary, Resulted No growth Assessment/Plan Assessment/Plan Assess & Plan/Chief Complaint Assessment: Acute hypoxic hypercapnic respiratory failure failed BiPAP requiring intubation Severe cerebral palsy with severe disability Sepsis Bilateral pneumonia Lovenox for DVT prophylaxis Plan: Intubation eICU consulted Antibiotics Supportive care Start process for DNR through court process per mother request JP UNDERWOOD DO Mar 06, 2023 06:45
[2023-03-06 07:00] VITALS: BP 111/60
[2023-03-06] MEDS: RT-LEVALBUTEROL (XOPENEX) 1.25 MG/3 ML NEB NON-FORMULARY INH PRN ×2 (07:00→18:54)
--- NOTE | 2023-03-06 07:09 | Diagnostic Imaging Report ---
CHEST 1 VIEW, AP/PA ONLY INDICATION: Pneumonia. COMPARISON: Chest radiograph 03/05/2023. FINDINGS: Right central venous catheter tip projects over the SVC. Endotracheal tube tip projects over the mid trachea. Lungs: Extensive diffuse bilateral airspace opacities. Pleura: No pleural effusion or pneumothorax. Heart and Mediastinum: The cardiac silhouette is not seen due to overlying opacities. Osseous Structures and Soft Tissues: No acute osseous abnormality. Normal soft tissues.. Dextroconvex scoliosis of the thoracic spine. IMPRESSION: Unchanged extensive diffuse bilateral airspace opacities. Dictated by: Dictated on workstation # [id number]
[2023-03-06] MEDS: DexMEDEtomidine 250 ML DRIP 250 ML IV SCH ×2 (07:32→22:17)
[2023-03-06] MEDS: ENOXAPARIN 30 MG/0.3 ML SYRINGE SC SCH ×2 (08:12→19:33)
[2023-03-06] MEDS: polyethylene glycoL POWDER 17 GM (MIRALAX) PACK GT SCH (08:12)
[2023-03-06] MEDS: PANTOPRAZOLE 40 MG (PROTONIX) VIAL IV SCH (08:12)
[2023-03-06] MEDS: LORATADINE 5 MG/5 ML SOLN (CLARITIN) UDC GT SCH ×2 (08:12→21:48)
[2023-03-06] MEDS: AZITHROMYCIN INJECTION 500 MG in NS (IVPB) 250 ML 250 ML IV SCH (08:12)
[2023-03-06] MEDS: TRILEPTAL GT SCH ×2 (08:13→21:49)
[2023-03-06] MEDS ORDERED: ALBUMIN 25% 25 GM/100 ML 50 ML IV ONE (09:15)
[2023-03-06 10:04] VITALS: BP 91/63
[2023-03-06] MEDS ORDERED: FUROSEMIDE 40 MG/4 ML INJ (LASIX) IVP NR (10:45)
--- NOTE | 2023-03-06 10:59 | Tele-ICU Progress Note ---
Subjective Date Seen by a Provider: Mar 06, 2023 Time Seen by a Provider: 10:59 Subjective/Events-last exam (Tele-ICU Physician , Progress Note ) Service provided via interactive audio and video telecommunications E-CARE system to a patient admitted to ICU bed in [facility]. Patient is seen today due to persistent need of ICU care Available chart/ vitals / labs / Images reviewed Video assessment done using teleICU camera, rest of exam as per RN Discussed with RN Events overnight : Afebrile hemodynamically stable Respiratory - 60% I/O = ++ Drips: Pressors- no VENT SETTINGS and ABG reviewed NOT CANDIDATE for SBTreviewed possible contraindications including Cardiovascular Stability /Sedation Score / FI02/PEEP / ABG / CXR/ secretions Sedation, discussed with RN, RASS -2-propfol 50 precedex 1.4 Hospital course: (03/01) 17y/o M admitted with pneumonia, hypoxia. (03/02) INTUBATED 03/03-Ac 20 380 + 8 60% , RASS -1 on propfol 30 precedex 0.8 , added mucomist , cut down fluids 03/05- Ac 20 380 + 5 35 % propfol 50 precedex 1.4 03/06-Ac 20 380 + 5 50% propfol 50 precedex 1.4 A/P Acute hypoxixc resp failure ( with conjenital scoliosis, tracheomalacia and MADISYN ) -(03/02) INTUBATED Ac 20 380 + 5 50% - thick sectetions -duo neb and mucomist - cxr worsening - try diuresis PNA - cont abx , cxr with infioltrateds , cx sputum - neg so far - 03/02 sputum= corinebacterioum Cerebral palsy Right temporal lobe Sz dz - off AEDs HAND BENDER - monitor Abd distension 03/05 - KUB - Colonic constipation and obstipation, large bowel ileus. No small bowel obstruction. 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 Discussed with RN to reach out if any questions or concerns Case and care daily discussed on multidisciplinary rounds ( RN, PharmD, Biztalk Consultant , Respiratory Therapy, bridge ironworker helper ) A total of 31 minutes of critical care time was devoted to this patient today, required to treat and/or prevent further deterioration of critical care con dition ( as above ) . I am remotely monitoring this patient from another state. I am unable to do the bedside exam, and history/physical and pertinent information is taken from other notes in the computer and bedside staff. ... Sepsis Event Evaluation Height, Weight, BMI Height: 4'0" Weight: 72lbs. oz. 32.726806ih; 28.62 BMI Method: Focused Exam Time of Focused Exam: 09:00 Exam Exam Patient acknowledged, consented, and participated in this virtual visit which was conducted using real time audio/video Vital Signs Date Time Temp Pulse Resp B/P (MAP) Pulse Ox O2 Delivery O2 Flow Rate FiO2 03/06/23 10:33 Mechanical Ventilator 55.00 03/06/23 10:00 95 35 91/63 (74) 93 Mechanical Ventilator 50.00 03/06/23 09:00 80 21 109/61 (74) 95 Mechanical Ventilator 50.00 03/06/23 08:20 95 Mechanical Ventilator 50 03/06/23 08:17 90 115/61 03/06/23 08:00 84 28 111/62 (77) 94 Mechanical Ventilator 50.00 03/06/23 07:32 82 104/54 03/06/23 07:00 74 24 115/62 (76) 96 Mechanical Ventilator 50.00 03/06/23 07:00 92 03/06/23 06:40 82 104/54 03/06/23 06:00 82 20 104/54 (71) 94 Mechanical Ventilator 50.00 03/06/23 05:00 73 20 123/65 (84) 95 Mechanical Ventilator 50.00 03/06/23 04:00 93 Mechanical Ventilator 35 03/06/23 04:00 71 20 123/59 (80) 95 Mechanical Ventilator 50.00 03/06/23 04:00 37.3 03/06/23 03:55 Mechanical Ventilator 50.00 03/06/23 03:00 70 20 120/65 (83) 95 Mechanical Ventilator 35.00 03/06/23 02:40 67 114/64 03/06/23 02:22 67 20 94 50 03/06/23 02:00 67 20 116/70 (85) 95 Mechanical Ventilator 35.00 03/06/23 01:00 70 20 119/68 (85) 95 Mechanical Ventilator 35.00 03/06/23 01:00 67 03/06/23 00:45 70 119/68 03/06/23 00:00 70 20 116/62 (80) 95 Mechanical Ventilator 35.00 03/05/23 23:59 94 Mechanical Ventilator 35 03/05/23 23:00 84 20 118/67 (84) 95 Mechanical Ventilator 35.00 03/05/23 22:00 83 20 110/60 (77) 91 Mechanical Ventilator 35.00 03/05/23 21:57 82 20 91 35 03/05/23 21:00 80 20 110/63 (79) 92 Mechanical Ventilator 35.00 03/05/23 20:45 82 118/67 03/05/23 20:45 82 118/67 03/05/23 20:00 91 Mechanical Ventilator 35 03/05/23 20:00 81 20 115/65 (82) 92 Mechanical Ventilator 35.00 03/05/23 19:36 37.4 03/05/23 19:16 82 20 92 35 03/05/23 19:00 81 20 120/64 (82) 92 Mechanical Ventilator 35.00 03/05/23 19:00 81 03/05/23 18:20 86 118/63 03/05/23 18:00 87 116/64 (77) 92 Mechanical Ventilator 35.00 03/05/23 17:00 93 15 123/67 (82) 92 Mechanical Ventilator 35.00 03/05/23 16:41 92 Mechanical Ventilator 35 03/05/23 16:40 98 114/62 03/05/23 16:00 85 16 121/69 (81) 91 Mechanical Ventilator 35.00 03/05/23 15:51 37.4 03/05/23 15:00 117 28 115/63 (77) 97 Mechanical Ventilator 35.00 03/05/23 14:58 115 20 97 35 03/05/23 14:00 112 10 106/66 (79) 96 Mechanical Ventilator 35.00 03/05/23 13:53 83 114/72 03/05/23 13:00 101 19 109/66 (77) 94 Mechanical Ventilator 35.00 03/05/23 12:52 84 03/05/23 12:04 36.4 03/05/23 12:00 88 108/64 (77) 94 Mechanical Ventilator 35.00 03/05/23 12:00 92 Mechanical Ventilator 30 03/05/23 11:00 89 35 115/61 (75) 93 Mechanical Ventilator 35.00 I & O 03/06/23 07:00 Intake Total 2648 ml Output Total 4025 ml Balance -1377 ml Height & Weight Height: 4'0" Weight: 72lbs. oz. 32.206505mx; 28.62 BMI Method: General Appearance: Chronically ill, Moderate Distress, Other Respiratory: Rhonci Cardiovascular: Regular Rate, Rhythm Gastrointestinal: soft, distended Extremity: No Pedal Edema, Other (mild sdrotal edema) Results Lab Laboratory Tests 03/05/23 04:20 03/06/23 05:30 Assessment/Plan Assessment/Plan 1 VANESSA MIRAMONTES MD Mar 06, 2023 10:59
[2023-03-06] MEDS: NS IV 1000 ML 1,000 ML IV SCH (11:11)
--- NOTE | 2023-03-06 11:33 | Progress Note ---
Subjective Subjective/Events-last exam Mother at bedside. Afebrile, having worsening hypoxia this morning. Has had agitation overnight and unable to tolerate mucomyst. Mother notes he has history of aortic stenosis and last echo was in November after he had COVID, was not too bad then and Plaster Form Maker recommended avoiding volume depletion. Has never had heart failure or blood clot in past. Focused Exam Time of Focused Exam: 09:00 Objective Exam Last Set of Vital Signs Vital Signs Date Time Temp Pulse Resp B/P (MAP) Pulse Ox O2 Delivery O2 Flow Rate FiO2 03/06/23 11:15 74 128/73 03/06/23 11:00 19 95 Mechanical Ventilator 55.00 03/06/23 08:20 50 03/06/23 04:00 37.3 Capillary Refill : I&O Intake and Output 03/06/23 00:00 Intake Total 4726 ml Output Total 4450 ml Balance 276 ml Intake Oral 0 ml IV Total 1700 ml Tube Feeding 523 ml Enteral Flush 405 ml Other 2098 ml Output Urine Total 4450 ml General: Other (intubated, sedated, moving arms) Lungs: Other (marked ronchi throughout, masking heart sounds) Abdomen: Normal Bowel Sounds, Other (mildly distended) Extremities: No Edema Results/Procedures Lab Laboratory Tests 03/05/23 11:43: Glucometer 127H 03/05/23 17:42: Glucometer 92 03/06/23 00:28: Glucometer 95 03/06/23 05:00: Venous Blood pH 7.32, Venous Blood Partial Pressure CO2 57H, Venous Blood HCO3 29H 03/06/23 05:30: White Blood Count 8.9, Red Blood Count 3.15L, Hemoglobin 9.3L, Hematocrit 28L, Mean Corpuscular Volume 90, Mean Corpuscular Hemoglobin 30, Mean Corpuscular Hemoglobin Concent 33, Red Cell Distribution Width 14.8H, Platelet Count 182, Mean Platelet Volume 11.3, Immature Granulocyte % (Auto) 1, Neutrophils (%) (Auto) 60, Lymphocytes (%) (Auto) 26, Monocytes (%) (Auto) 8, Eosinophils (%) (Auto) 6, Basophils (%) (Auto) 0, Neutrophils # (Auto) 5.3, Lymphocytes # (Auto) 2.3, Monocytes # (Auto) 0.7, Eosinophils # (Auto) 0.5H, Basophils # (Auto) 0.0, Immature Granulocyte # (Auto) 0.1, Sodium Level 138, Potassium Level 3.7, Chloride Level 105, Carbon Dioxide Level 24, Anion Gap 9, Blood Urea Nitrogen 5L , Creatinine 0.40L, Estimat Glomerular Filtration Rate 161, BUN/Creatinine Ratio 13, Glucose Level 88, Calcium Level 8.2L, Corrected Calcium 9.2, Phosphorus Level 1.9L, Magnesium Level 1.8, Total Bilirubin 0.4, Aspartate Amino Transf (AST/SGOT) 22, Alanine Aminotransferase (ALT/SGPT) 19, Alkaline Phosphatase 82, Total Protein 5.0L, Albumin 2.7L 03/06/23 11:13: Glucometer 91 Microbiology 03/02/23 Gram Stain - Final, Complete 03/02/23 Sputum Culture - Final, Complete Corynebacterium striatum 03/01/23 Blood Culture - Preliminary, Resulted No growth Radiology ADMIT DATE: 03/01/23/ICU Signed Date of Exam:03/01/23 CHEST 1 VIEW, AP/PA ONLY Indication: Hypoxia Frontal chest obtained at 1208 p.m. compared to 05/11/2015. The heart is normal in size. There is a Port-A-Cath over the right chest with tip overlying the low SVC. There is a shunt catheter over the left hemithorax. There is central vascular congestion with perihilar infiltrates. There is no pneumothorax or pleural fluid. Impression: Bilateral perihilar infiltrates are present, pneumonia is not excluded. There is no pneumothorax or pleural fluid. Heart is normal in size. There is dextroscoliotic change. Dictated by: Dictated on workstation # [id number] Dict: 03/01/23 1212 Trans: 03/01/23 1328 [facility] [id number] Interpreted by: KAMARI MACHUCA MD Assessment/Plan Assessment/Plan (1) Pneumonia Status: Acute Assessment & Plan: Directly admitted to ICU from the clinic via EMS due to pneumonia and hypoxia. At risk for decompensation due to multiple co-morbidities, discussed transfer options with mother and legal guardian and would like to stay at [facility] if possible and trial IV antibiotics. Currently requiring bi-pap at 60% FIO2 to maintain dixie in the low 90's. Antibiotics started - zithromax and meropenam IVF - will give fluid bolus x1L then 150mL/h initial cbc normal; blood cultures pending. Resume home meds and G-tube feeds - dietary consulted for conversion of home feeding regimen. 03/02/2023: Worsening respiratory status overnight, now requiring 70% FIO2 to maintain sats and prevent acidosis. More tachypneic. Consult Dr. Rahman for critical care. Recommending intubation. Discussed consideration of transfer, Dr. Rahman recommends intubation prior to transfer due to risk of clinical deterioration en route if transfer is chosen by parents Discussed code status, would like to proceed with intubation but would prefer not to have chest compressions. Parents are legal guardian of patient but as an adult, court must order DNR or modified DNR. 03/03/23: Intubated without incident yesterday. Sedated on vent currently, more comfortab le. O2 98% on 80% FIO2; VBG 7. am CXR severe, bilateral infiltrates, unchanged from yesterday Vancomycin added yesterday. labs, vitals stable blood culture negative Dr. Rahman and eICU provider co-managing 03/04/23: Fi02 35%, stable, sedated on vent. continue current care 03/05/23: sputum culture grew corynebacterium - typically sensitive to vancomycin and meropenum Fi02 35%, stable, sedated on vent. continue current care 03/06/23: Persistent worsening hypoxia, FiO2 55% this am, continued on vancomycin, meropenem and azithromycin. Good diuresis with albumin and lasix yesterday, repeating today per [facility], appreciate recommendations. Qualifiers: (2) Respiratory failure with hypoxia Status: Acute Assessment & Plan: Intubated 03/02/23 Qualifiers: Qualified Codes: J96.01 - Acute respiratory failure with hypoxia (3) Electrolyte abnormality Status: Acute Assessment & Plan: -potassium and magnesium replaced per protocol 03/06 will replace phos (4) Hydrocephalus Status: Chronic Assessment & Plan: with AUTOMOBILE SALESMAN shunt, no evidence of dysfunction (5) Hypokalemia Status: Acute (6) VACTERL association Status: Chronic (7) Cerebral palsy Status: Chronic (8) Seizure disorder Status: Chronic Assessment & Plan: No seizure activity noted, continue home meds (9) Subaortic valve stenosis, congenital Status: Chronic Assessment & Plan: Check echo given worsening respiratory status. (10) Obstipation Status: Acute Assessment & Plan: Appreciate Surgery recommendations. No bowel movement with enema yesterday per mother's report. 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 Anticipate status change later next week due to holiday if he is still in critical condition. (13) DVT prophylaxis Status: Acute Assessment & Plan: Enoxaparin RADHA SCHROEDER MD Mar 06, 2023 11:32
[2023-03-06] MEDS ORDERED: POTASSIUM PHOSPHATE INJ 30 MM in NS (IVPB) 250 ML 250 ML IV ONE (12:00)
[2023-03-06 19:01] VITALS: BP 143/100
--- NOTE | 2023-03-06 19:15 | Progress Note - Surgery ---
Subjective Date Seen by a Provider: Mar 06, 2023 Time Seen by a Provider: 11:49 Subjective/Events-last exam Intubated and sedated. Enema last night not productive. Gastrostomy on liws. Mother at bedside. Chest x ray:Unchanged extensive diffuse bilateral airspace opacities. Focused Exam Time of Focused Exam: 09:00 Objective Exam Vital Signs Date Time Temp Pulse Resp B/P (MAP) Pulse Ox O2 Delivery O2 Flow Rate FiO2 03/06/23 19:01 90 20 95 55 03/06/23 18:51 81 03/06/23 18:00 79 148/83 (105) 95 Mechanical Ventilator 55.00 03/06/23 17:00 81 13 154/80 (109) 95 Mechanical Ventilator 55.00 03/06/23 17:00 78 154/80 03/06/23 16:00 78 19 145/75 (95) 96 Mechanical Ventilator 55.00 03/06/23 16:00 95 Mechanical Ventilator 50 03/06/23 16:00 36.6 03/06/23 15:00 83 18 137/73 (97) 96 Mechanical Ventilator 55.00 03/06/23 14:20 89 20 96 55 03/06/23 14:00 64 19 154/79 (99) 95 Mechanical Ventilator 55.00 03/06/23 13:00 68 19 149/74 (96) 94 Mechanical Ventilator 55.00 03/06/23 13:00 52 03/06/23 12:59 71 140/77 03/06/23 12:30 52 134/63 03/06/23 12:00 95 Mechanical Ventilator 50 03/06/23 12:00 58 23 141/65 (84) 95 Mechanical Ventilator 55.00 03/06/23 11:34 37.4 03/06/23 11:15 74 128/73 03/06/23 11:00 80 19 133/65 (83) 95 Mechanical Ventilator 55.00 03/06/23 10:33 Mechanical Ventilator 55.00 03/06/23 10:04 98 20 92 55 03/06/23 10:00 95 35 91/63 (74) 93 Mechanical Ventilator 50.00 03/06/23 09:00 80 21 109/61 (74) 95 Mechanical Ventilator 50.00 03/06/23 08:20 95 Mechanical Ventilator 50 03/06/23 08:17 90 115/61 03/06/23 08:00 84 28 111/62 (77) 94 Mechanical Ventilator 50.00 03/06/23 07:32 82 104/54 03/06/23 07:00 74 24 115/62 (76) 96 Mechanical Ventilator 50.00 03/06/23 07:00 71 20 96 50 03/06/23 07:00 92 03/06/23 06:40 82 104/54 03/06/23 06:00 82 20 104/54 (71) 94 Mechanical Ventilator 50.00 03/06/23 05:00 73 20 123/65 (84) 95 Mechanical Ventilator 50.00 03/06/23 04:00 93 Mechanical Ventilator 35 03/06/23 04:00 71 20 123/59 (80) 95 Mechanical Ventilator 50.00 03/06/23 04:00 37.3 03/06/23 03:55 Mechanical Ventilator 50.00 03/06/23 03:00 70 20 120/65 (83) 95 Mechanical Ventilator 35.00 03/06/23 02:40 67 114/64 03/06/23 02:22 67 20 94 50 03/06/23 02:00 67 20 116/70 (85) 95 Mechanical Ventilator 35.00 03/06/23 01:00 70 20 119/68 (85) 95 Mechanical Ventilator 35.00 03/06/23 01:00 67 03/06/23 00:45 70 119/68 03/06/23 00:00 70 20 116/62 (80) 95 Mechanical Ventilator 35.00 03/05/23 23:59 94 Mechanical Ventilator 35 03/05/23 23:00 84 20 118/67 (84) 95 Mechanical Ventilator 35.00 03/05/23 22:00 83 20 110/60 (77) 91 Mechanical Ventilator 35.00 03/05/23 21:57 82 20 91 35 03/05/23 21:00 80 20 110/63 (79) 92 Mechanical Ventilator 35.00 03/05/23 20:45 82 118/67 03/05/23 20:45 82 118/67 03/05/23 20:00 91 Mechanical Ventilator 35 03/05/23 20:00 81 20 115/65 (82) 92 Mechanical Ventilator 35.00 03/05/23 19:36 37.4 03/05/23 19:16 82 20 92 35 I & O 03/06/23 07:00 Intake Total 2648 ml Output Total 4025 ml Balance -1377 ml Capillary Refill : General Appearance: Chronically ill, Other (intubated) HEENT: Normal ENT Inspection Neck: Normal Inspection, Supple Respiratory: Rhonci, Other (equal chest rise) Cardiovascular: Regular Rate, Rhythm, No JVD Gastrointestinal: soft, distended (slightly less) Extremity: Non Tender, No Calf Tenderness, No Pedal Edema, Other (mild sdrotal edema) Neurologic/Psychiatric: Other (intubated) Skin: Normal Color, Warm/Dry Lymphatic: No Adenopathy Other comments rectal exam: nurse at bedside. narrowing of anus, no stool in rectal vault, no blood, no palpable masses Results Lab Laboratory Tests 03/06/23 00:28: Glucometer 95 03/06/23 05:00: Venous Blood pH 7.32, Venous Blood Partial Pressure CO2 57H, Venous Blood HCO3 29H 03/06/23 05:30: White Blood Count 8.9, Red Blood Count 3.15L, Hemoglobin 9.3L, Hematocrit 28L, Mean Corpuscular Volume 90, Mean Corpuscular Hemoglobin 30, Mean Corpuscular Hemoglobin Concent 33, Red Cell Distribution Width 14.8H, Platelet Count 182, Mean Platelet Volume 11.3, Immature Granulocyte % (Auto) 1, Neutrophils (%) (Auto) 60, Lymphocytes (%) (Auto) 26, Monocytes (%) (Auto) 8, Eosinophils (%) (Auto) 6, Basophils (%) (Auto) 0, Neutrophils # (Auto) 5.3, Lymphocytes # (Auto) 2.3, Monocytes # (Auto) 0.7, Eosinophils # (Auto) 0.5H, Basophils # (Auto) 0.0, Immature Granulocyte # (Auto) 0.1, Sodium Level 138, Potassium Level 3.7, Chloride Level 105, Carbon Dioxide Level 24, Anion Gap 9, Blood Urea Nitrogen 5L , Creatinine 0.40L, Estimat Glomerular Filtration Rate 161, BUN/Creatinine Ratio 13, Glucose Level 88, Calcium Level 8.2L, Corrected Calcium 9.2, Phosphorus Level 1.9L, Magnesium Level 1.8, Total Bilirubin 0.4, Aspartate Amino Transf (AST/SGOT) 22, Alanine Aminotransferase (ALT/SGPT) 19, Alkaline Phosphatase 82, Total Protein 5.0L, Albumin 2.7L 7/1/23 11:13: Glucometer 91 03/06/23 18:17: Glucometer 84 Microbiology 03/02/23 Gram Stain - Final, Complete 03/02/23 Sputum Culture - Final, Complete Corynebacterium striatum 03/01/23 Blood Culture - Preliminary, Resulted No growth Assessment/Plan Assessment/Plan Assessment/Plan pneumonia b/l hypoxia respiratory failure requiring intubation poor venous access constipation Abdominal distetnion abdominal x ray constipation enema without much result abdomen less distended slightly-g tube to suction for decompression to liws will KUB in am, no stool in rectal vault on rectal exam may need further enema/bowel regimen RAFFI MAGAÑA DO Mar 06, 2023 19:15
[2023-03-06] MEDS: ZONISAMIDE 100 MG CAP (ZONEGRAN) NON-FORMULARY PO SCH (21:49)
[2023-03-06 22:12] VITALS: BP 135/69
[2023-03-07] MEDS ORDERED: MEROPENEM 500 MG VIAL (MERREM) IV ONE (01:01)
[2023-03-07] MEDS: MEROPENEM 500 MG in NS (IVPB) 100 ML 100 ML IV SCH ×4 (01:11→19:48)
[2023-03-07] MEDS: PROPOFOL DRIP (ICU) 100 ML IV SCH ×4 (01:18→21:26)
[2023-03-07] MEDS: RT-LEVALBUTEROL (XOPENEX) 1.25 MG/3 ML NEB NON-FORMULARY INH PRN ×5 (02:12→21:53)
[2023-03-07] MEDS: aCETylcysteine 20% (RT/PO) 4 ML SOLN VIAL INH SCH ×4 (02:12→21:53)
[2023-03-07 02:13] VITALS: BP 148/76
[2023-03-07] MEDS: NS IV 1000 ML 1,000 ML IV SCH ×2 (03:04→19:44)
[2023-03-07] MEDS: VANCOMYCIN 1 GM/NS 250 ML IVPB IV SCH ×2 (03:18)
[2023-03-07 05:15] LABS: BASOPHILS % (AUTO) 1 % (0-10); EOSINOPHILS # (AUTO) 0.5 10^3/uL (0.0-0.3); EOSINOPHILS % (AUTO) 6 % (0-10); HEMATOCRIT 27 % (40-54); HEMOGLOBIN 8.8 g/dL (13.3-17.7); LYMPHOCYTES # (AUTO) 1.8 10^3/uL (1.0-4.0); LYMPHOCYTES % (AUTO) 23 % (12-44); MEAN CORPUSCULAR HEMOGLOBIN 30 pg (25-34); MEAN CORPUSCULAR HGB CONC 33 g/dL (32-36); MEAN CORPUSCULAR VOLUME 90 fL (80-99); MONOCYTES # (AUTO) 0.5 10^3/uL (0.0-1.0); MONOCYTES % (AUTO) 7 % (0-12); NEUTROPHILS # (AUTO) 4.8 10^3/uL (1.8-7.8); NEUTROPHILS % (AUTO) 62 % (42-75); PLATELET COUNT 183 10^3/uL (130-400); WHITE BLOOD COUNT 7.7 10^3/uL (4.3-11.0)
[2023-03-07 05:23] LABS: ALBUMIN 2.9 GM/DL (3.2-4.5); POTASSIUM 3.6 MMOL/L (3.6-5.0)
[2023-03-07 05:25] LABS: TOTAL PROTEIN 5.1 GM/DL (6.4-8.2)
[2023-03-07 05:27] LABS: BILIRUBIN,TOTAL 0.4 MG/DL (0.1-1.0)
[2023-03-07 05:29] LABS: CREATININE SERUM 0.39 MG/DL (0.60-1.30)
[2023-03-07 05:32] LABS: MAGNESIUM 1.9 MG/DL (1.6-2.4)
[2023-03-07] MEDS: KCL 20 MEQ TAB (K-DUR) PO SCH (06:00)
[2023-03-07] MEDS: POTASSIUM CL 10MEQ/50ML IVPB 50 ML IV SCH ×6 (06:00→09:41)
[2023-03-07] MEDS: MAGNESIUM 1 GM/100 ML IVPB 100 ML IV SCH ×3 (06:00→07:54)
[2023-03-07 07:24] VITALS: BP 132/70
--- NOTE | 2023-03-07 07:25 | Progress Note ---
Subjective Date Seen by a Provider: Mar 07, 2023 Time Seen by a Provider: 11:00 Subjective/Events-last exam Patient about the same Remains intubated Labs reviewed CO2 on venous gas is improved Focused Exam Time of Focused Exam: 09:00 Objective Exam Last Set of Vital Signs Vital Signs Date Time Temp Pulse Resp B/P (MAP) Pulse Ox O2 Delivery O2 Flow Rate FiO2 03/07/23 06:00 89 131/72 (91) 96 Mechanical Ventilator 55.00 03/07/23 04:00 55 03/07/23 02:13 20 03/06/23 16:00 36.6 Capillary Refill : I&O Intake and Output 03/07/23 00:00 Intake Total 1610 ml Output Total 3350 ml Balance -1740 ml Intake Oral 0 ml IV Total 1610 ml Output Urine Total 3350 ml General: Other (Intubated and sedated) Lungs: Other ( coarse breath sounds) Results Lab Laboratory Tests 03/06/23 11:13: Glucometer 91 03/06/23 18:17: Glucometer 84 03/07/23 01:14: Glucometer 78 03/07/23 05:03: White Blood Count 7.7, Red Blood Count 2.96L, Hemoglobin 8.8L, Hematocrit 27L, Mean Corpuscular Volume 90, Mean Corpuscular Hemoglobin 30, Mean Corpuscular Hemoglobin Concent 33, Red Cell Distribution Width 14.6H, Platelet Count 183, Mean Platelet Volume 11.0, Immature Granulocyte % (Auto) 1, Neutrophils (%) (Au to) 62, Lymphocytes (%) (Auto) 23, Monocytes (%) (Auto) 7, Eosinophils (%) (Auto) 6, Basophils (%) (Auto) 1, Neutrophils # (Auto) 4.8, Lymphocytes # (Auto) 1.8, Monocytes # (Auto) 0.5, Eosinophils # (Auto) 0.5H, Basophils # (Auto) 0.0, Immature Granulocyte # (Auto) 0.1, Venous Blood pH 7.39, Venous Blood Partial Pressure CO2 43, Venous Blood HCO3 26, Sodium Level 143, Potassium Level 3.6, Chloride Level 108H, Carbon Dioxide Level 23, Anion Gap 12, Blood Urea Nitrogen 5L, Creatinine 0.39L, Estimat Glomerular Filtration Rate 162, BUN/Creatinine Ratio 13, Glucose Level 85, Calcium Level 8.0L, Corrected Calcium 8.9, Phosphorus Level 2.0L, Magnesium Level 1.9, Total Bilirubin 0.4, Aspartate Amino Transf (AST/SGOT) 24, Alanine Aminotransferase (ALT/SGPT) 18, Alkaline Phosphatase 70, Total Protein 5.1L, Albumin 2.9L Microbiology 03/02/23 Gram Stain - Final, Complete 03/02/23 Sputum Culture - Final, Complete Corynebacterium striatum 03/01/23 Blood Culture - Preliminary, Resulted No growth Assessment/Plan Assessment/Plan Assess & Plan/Chief Complaint Assessment: Acute hypoxic hypercapnic respiratory failure failed BiPAP requiring intubation Severe cerebral palsy with severe disability Sepsis Bilateral pneumonia Lovenox for DVT prophylaxis Plan: Intubation eICU consulted Antibiotics Supportive care Start process for DNR through court process per mother request JP UNDERWOOD DO Mar 07, 2023 07:25
[2023-03-07] MEDS: ENOXAPARIN 30 MG/0.3 ML SYRINGE SC SCH ×2 (07:55→19:48)
[2023-03-07] MEDS: LORATADINE 5 MG/5 ML SOLN (CLARITIN) UDC GT SCH ×2 (08:01→21:23)
[2023-03-07] MEDS: polyethylene glycoL POWDER 17 GM (MIRALAX) PACK GT SCH ×3 (08:01→21:24)
[2023-03-07] MEDS: PANTOPRAZOLE 40 MG (PROTONIX) VIAL IV SCH (08:01)
[2023-03-07] MEDS: AZITHROMYCIN INJECTION 500 MG in NS (IVPB) 250 ML 250 ML IV SCH (08:02)
[2023-03-07] MEDS: TRILEPTAL GT SCH ×2 (08:02→21:23)
[2023-03-07] MEDS ORDERED: POTASSIUM PHOSPHATE INJ 30 MM in NS (IVPB) 250 ML 250 ML IV ONE (09:00)
--- NOTE | 2023-03-07 09:07 | Progress Note ---
Subjective Subjective/Events-last exam Afebrile, stable vitals. Mother at bedside. No stool yet. Focused Exam Time of Focused Exam: 09:00 Objective Exam Last Set of Vital Signs Vital Signs Date Time Temp Pulse Resp B/P (MAP) Pulse Ox O2 Delivery O2 Flow Rate FiO2 03/07/23 08:21 96 127/69 03/07/23 08:00 36.4 03/07/23 08:00 94 Mechanical Ventilator 55.00 03/07/23 07:45 55 03/07/23 07:24 20 Capillary Refill : I&O Intake and Output 03/07/23 00:00 Intake Total 1610 ml Output Total 3350 ml Balance -1740 ml Intake Oral 0 ml IV Total 1610 ml Output Urine Total 3350 ml General: Other (intubated, sedated) Lungs: Other (ronchi throughout, muffling heart sounds) Abdomen: Other (NABS, mildly distended) Extremities: No Edema Results/Procedures Lab Laboratory Tests 03/06/23 11:13: Glucometer 91 03/06/23 18:17: Glucometer 84 03/07/23 01:14: Glucometer 78 03/07/23 05:03: White Blood Count 7.7, Red Blood Count 2.96L, Hemoglobin 8.8L, Hematocrit 27L, Mean Corpuscular Volume 90, Mean Corpuscular Hemoglobin 30, Mean Corpuscular Hemoglobin Concent 33, Red Cell Distribution Width 14.6H, Platelet Count 183, Mean Platelet Volume 11.0, Immature Granulocyte % (Auto) 1, Neutrophils (%) (Auto) 62, Lymphocytes (%) (Auto) 23, Monocytes (%) (Auto) 7, Eosinophils (%) (Auto) 6, Basophils (%) (Auto) 1, Neutrophils # (Auto) 4.8, Lymphocytes # (Auto) 1.8, Monocytes # (Auto) 0.5, Eosinophils # (Auto) 0.5H, Basophils # (Auto) 0.0, Immature Granulocyte # (Auto) 0.1, Venous Blood pH 7.39, Venous Blood Partial Pressure CO2 43, Venous Blood HCO3 26, Sodium Level 143, Potassium Level 3.6, Chloride Level 108H, Carbon Dioxide Level 23, Anion Gap 12, Blood Urea Nitrogen 5L, Creatinine 0.39L, Estimat Glomerular Filtration Rate 162, BUN/Creatinine Ratio 13, Glucose Level 85, Calcium Level 8.0L, Corrected Calcium 8.9, Phosphorus Level 2.0L, Magnesium Level 1.9, Total Bilirubin 0.4, Aspartate Amino Transf (AST/SGOT) 24, Alanine Aminotransferase (ALT/SGPT) 18, Alkaline Phosphatase 70, Total Protein 5.1L, Albumin 2.9L Microbiology 03/02/23 Gram Stain - Final, Complete 03/02/23 Sputum Culture - Final, Complete Corynebacterium striatum 03/01/23 Blood Culture - Preliminary, Resulted No growth Radiology ADMIT DATE: 03/01/23/ICU Signed Date of Exam:03/01/23 CHEST 1 VIEW, AP/PA ONLY Indication: Hypoxia Frontal chest obtained at 1208 p.m. compared to 05/11/2015. The heart is normal in size. There is a Port-A-Cath over the right chest with tip overlying the low SVC. There is a shunt catheter over the left hemithorax. There is central vascular congestion with perihilar infiltrates. There is no pneumothorax or pleural fluid. Impression: Bilateral perihilar infiltrates are present, pneumonia is not excluded. There is no pneumothorax or pleural fluid. Heart is normal in size. There is dextroscoliotic change. Dictated by: Dictated on workstation # [id number] Dict: 03/01/23 1212 Trans: 03/01/23 1328 [facility] [id number] Interpreted by: KAMARI MACHUCA MD Assessment/Plan Assessment/Plan (1) Pneumonia Status: Acute Assessment & Plan: Directly admitted to ICU from the clinic via EMS due to pneumonia and hypoxia. At risk for decompensation due to multiple co-morbidities, discussed transfer options with mother and legal guardian and would like to stay at [facility] if possible and trial IV antibiotics. Currently requiring bi-pap at 60% FIO2 to maintain dixie in the low 90's. Antibiotics started - zithromax and meropenam IVF - will give fluid bolus x1L then 150mL/h initial cbc normal; blood cultures pending. Resume home meds and G-tube feeds - dietary consulted for conversion of home feeding regimen. 03/02/2023: Worsening respiratory status overnight, now requiring 70% FIO2 to maintain sats and prevent acidosis. More tachypneic. Consult Dr. Rahman for critical care. Recommending intubation. Discussed consideration of transfer, Dr. Rahman recommends intubation prior to transfer due to risk of clinical deterioration en route if transfer is chosen by parents Discussed code status, would like to proceed with intubation but would prefer not to have chest compressions. Parents are legal guardian of patient but as an adult, court must order DNR or modified DNR. 03/03/23: Intubated without incident yesterday. Sedated on vent currently, more comfortable. O2 98% on 80% FIO2; VBG 7. am CXR severe, bilateral infiltrates, unchanged from yesterday Vancomycin added yesterday. labs, vitals stable [facility] 03/04/23: Fi02 35%, stable, sedated on vent. continue current care 03/05/23: sputum culture grew corynebacterium - typically sensitive to vancomycin and meropenum Fi02 35%, stable, sedated on vent. continue current care 03/06/23: Persistent worsening hypoxia, FiO2 55% this am, continued on vancomycin, meropenem and azithromycin. Good diuresis with albumin and lasix yesterday, repeating today per [facility] ICU, appreciate recommendations. 03/07/23: Stable, continued current treatment plans Qualifiers: (2) Respiratory failure with hypoxia Status: Acute Assessment & Plan: Intubated 03/02/23 Qualifiers: Qualified Codes: J96.01 - Acute respiratory failure with hypoxia (3) Electrolyte abnormality Status: Acute Assessment & Plan: -potassium and magnesium replaced per protocol 03/06 will replace phos 03/07 replace phos and add extra K above protocol to try to get K above 4 due to obstipation (4) Hydrocephalus Status: Chronic Assessment & Plan: with MUSIC MIXER shunt, no evidence of dysfunction (5) Hypokalemia Status: Acute (6) VACTERL association Status: Chronic (7) Cerebral palsy Status: Chronic (8) Seizure disorder Status: Chronic Assessment & Plan: No seizure activity noted, continue home meds (9) Subaortic valve stenosis, congenital Status: Chronic Assessment & Plan: Check echo given worsening respiratory status. (10) Obstipation Status: Acute Assessment & Plan: Appreciate Surgery recommendations. No bowel movement with enema yesterday per mother's report. 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 Anticipate status change later next week due to holiday if he is still in critical condition. (13) DVT prophylaxis Status: Acute Assessment & Plan: Enoxaparin RADHA SCHROEDER MD Mar 07, 2023 09:07
--- NOTE | 2023-03-07 09:28 | Diagnostic Imaging Report ---
EXAM: ABDOMEN/KUB 1VIEW INDICATION: Abdominal distention. COMPARISON: 03/05/2023. FINDINGS: Nonspecific bowel gas pattern. Right femoral CVC. Partially visualized ASSISTANT AT SURGERY shunt. Pain pump. IMPRESSION: Nonspecific bowel gas pattern including gaseous distention and moderate amount of stool. No dilated bowel loops. Dictated by: Dictated on workstation # [id number]
--- NOTE | 2023-03-07 09:29 | Diagnostic Imaging Report ---
EXAM: CHEST 1 VIEW, AP/PA ONLY INDICATION: Pneumonia. COMPARISON: 03/06/2023. FINDINGS: Dense airspace opacities throughout both lungs. Cardiac silhouette is obscured. ETT tip just below the level of the clavicles. Right IJ tunneled port CVC tip lower SVC. Ventriculoperitoneal shunt catheter tubing is partially visualized. No definite pleural effusion or pneumothorax. No acute osseous findings. IMPRESSION: 1. Extensive airspace opacities throughout both lungs obscuring the cardiac silhouette. 2. Stable support lines. Dictated by: Dictated on workstation # [id number]
[2023-03-07] MEDS ORDERED: LACTULOSE SYRUP 10GM/15ML (ENULOSE) 30ML UDC PO NR (09:30)
[2023-03-07] MEDS ORDERED: TROUGH ORDER-PHARMACY XX ONE (10:00)
[2023-03-07 10:32] VITALS: BP 105/52
[2023-03-07] MEDS ORDERED: FUROSEMIDE 40 MG/4 ML INJ (LASIX) IVP NR (10:45)
[2023-03-07] MEDS ORDERED: ALBUMIN 25% 25 GM/100 ML 50 ML IV ONE (10:45)
[2023-03-07] MEDS: dexAMETHasone INJ 10 MG/ML 1 ML VIAL IV SCH (11:20)
--- NOTE | 2023-03-07 12:39 | Tele-ICU Progress Note ---
Subjective Date Seen by a Provider: Mar 07, 2023 Time Seen by a Provider: 12:34 Subjective/Events-last exam (Tele-ICU Physician , Progress Note ) Service provided via interactive audio and video telecommunications E-CARE system to a patient admitted to ICU bed in [facility]. Patient is seen today due to persistent need of ICU care Available chart/ vitals / labs / Images reviewed Video assessment done using teleICU camera, rest of exam as per RN Discussed with RN Events overnight : Afebrile hemodynamically stable Respiratory - 60% I/O = ++ Drips: Pressors- no VENT SETTINGS and ABG reviewed NOT CANDIDATE for SBTreviewed possible contraindications including Cardiovascular Stability /Sedation Score / FI02/PEEP / ABG / CXR/ secretions Sedation, discussed with RN, RASS -2-propfol 50 precedex 1.4 Hospital course: (03/01) 17y/o M admitted with pneumonia, hypoxia. (03/02) INTUBATED 03/03-Ac 20 380 + 8 60% , RASS -1 on propfol 30 precedex 0.8 , added mucomist , cut down fluids 03/05- Ac 20 380 + 5 35 % propfol 50 precedex 1.4 03/06-Ac 20 380 + 5 50% propfol 50 precedex 1.4 , echo EF 60% , RVSP 30 mmHg, subaortic stenosis- moder 03/07- large neg fluid balance , ? ARDS - empiric steroids 03/07 A/P Acute hypoxic resp failure ( with congenital scoliosis, tracheomalacia and MADISYN ) -(03/02) INTUBATED Ac 20 380 + 5 50% - thick secretions -duo neb and mucomist - cxr worsening - try diuresis - RESPONDED WELL with less rhonchorous and good urine outpuit - to cont today - CXR without improvement - ? 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 No small bowel obstruction. - Sx consuled - lactulose started ( h/o Esophageal stricture , nissanfundoplication , PEG tube placement H/o Hydrocephalus - s/p RACING SECRETARY AND HANDICAPPER shunt Baclofen pump - 60 mg/day - cont Anemia stable skin - clear MADISYN- BIPAP 05/11 at night , NOT on O2 when doing well Nutrition - TF on hold 03/05 - d2 Lines : R port periph , RIGHT fem line , (Central Line Necessity Reviewed) [place]: + OG: Nutrition: PEG - off TF Analgesia: Anxiety/ delirium VTE Prophylaxis: trina 30 Stress Ulcer Prophylaxis: na Plans in collaboration with bedside consultants and IM MDs. Discussed with RN to reach out if any questions or concerns Case and care daily discussed on multidisciplinary rounds ( RN, PharmD, Marble Helper , Respiratory Therapy, buffing line set up worker ) A total of 31 minutes of critical care time was devoted to this patient today, required to treat and/or prevent further deterioration of critical care condition ( as above ) . Sepsis Event Evaluation Height, Weight, BMI Height: 4'0" Weight: 72lbs. oz. 32.919073mz; 28.39 BMI Method: Focused Exam Time of Focused Exam: 09:00 Exam Exam Patient acknowledged, consented, and participated in this virtual visit which was conducted using real time audio/video Vital Signs Date Time Temp Pulse Resp B/P (MAP) Pulse Ox O2 Delivery O2 Flow Rate FiO2 03/07/23 12:00 103 97/51 (63) 91 Mechanical Ventilator 55.00 03/07/23 11:53 91 Mechanical Ventilator 55 03/07/23 11:00 98 20 105/53 (72) 97 Mechanical Ventilator 55.00 03/07/23 10:32 90 20 97 55 03/07/23 10:00 91 130/71 (87) 98 Mechanical Ventilator 55.00 03/07/23 09:00 96 21 134/68 (98) 96 Mechanical Ventilator 55.00 03/07/23 08:21 96 127/69 03/07/23 08:00 36.4 03/07/23 08:00 94 137/71 (97) 94 Mechanical Ventilator 55.00 03/07/23 07:45 95 Mechanical Ventilator 55 03/07/23 07:24 69 20 95 55 03/07/23 07:00 96 03/07/23 07:00 100 137/70 (91) 96 Mechanical Ventilator 55.00 03/07/23 06:00 89 131/72 (91) 96 Mechanical Ventilator 55.00 03/07/23 05:18 82 138/71 03/07/23 05:00 82 138/71 (93) 95 Mechanical Ventilator 55.00 03/07/23 04:00 93 Mechanical Ventilator 55 03/07/23 04:00 75 137/67 (90) 95 Mechanical Ventilator 55.00 03/07/23 03:00 101 131/76 (94) 91 Mechanical Ventilator 55.00 03/07/23 02:17 79 148/76 03/07/23 02:13 79 20 92 55 03/07/23 02:00 76 148/76 (100) 91 Mechanical Ventilator 55.00 03/07/23 01:43 71 03/07/23 01:18 82 139/76 03/07/23 01:00 81 151/75 (100) 91 Mechanical Ventilator 55.00 03/07/23 00:00 82 139/76 (97) 91 Mechanical Ventilator 55.00 03/06/23 23:59 94 Mechanical Ventilator 50 03/06/23 23:32 82 139/76 03/06/23 23:00 76 139/70 (93) 92 Mechanical Ventilator 55.00 03/06/23 22:17 68 135/69 03/06/23 22:12 68 20 91 55 03/06/23 22:00 66 135/74 (94) 92 Mechanical Ventilator 55.00 03/06/23 21:00 77 126/71 (89) 92 Mechanical Ventilator 55.00 03/06/23 20:00 94 Mechanical Ventilator 50 03/06/23 20:00 92 135/69 (91) 92 Mechanical Ventilator 55.00 03/06/23 19:32 90 138/67 03/06/23 19:01 90 20 95 55 03/06/23 19:00 92 154/82 (106) 90 Mechanical Ventilator 55.00 03/06/23 18:51 81 03/06/23 18:00 79 148/83 (105) 95 Mechanical Ventilator 55.00 03/06/23 17:00 81 13 154/80 (109) 95 Mechanical Ventilator 55.00 03/06/23 17:00 78 154/80 03/06/23 16:00 78 19 145/75 (95) 96 Mechanical Ventilator 55.00 03/06/23 16:00 95 Mechanical Ventilator 50 03/06/23 16:00 36.6 03/06/23 15:00 83 18 137/73 (97) 96 Mechanical Ventilator 55.00 03/06/23 14:20 89 20 96 55 03/06/23 14:00 64 19 154/79 (99) 95 Mechanical Ventilator 55.00 03/06/23 13:00 68 19 149/74 (96) 94 Mechanical Ventilator 55.00 03/06/23 13:00 52 03/06/23 12:59 71 140/77 I & O 03/07/23 07:00 Intake Total 1610 ml Output Total 2925 ml Balance -1315 ml Height & Weight Height: 4'0" Weight: 72lbs. oz. 32.829826os; 28.39 BMI Method: General Appearance: Chronically ill, Other (intubated) HEENT: Normal ENT Inspection Neck: Normal Inspection, Supple Respiratory: Rhonci, Other (equal chest rise) Cardiovascular: Regular Rate, Rhythm, No JVD Gastrointestinal: soft, distended (slightly less) Extremity: Non Tender, No Calf Tenderness, No Pedal Edema, Other (mild sdrotal edema) Neurologic/Psychiatric: Other (intubated) Skin: Normal Color, Warm/Dry Lymphatic: No Adenopathy Results Lab Laboratory Tests 03/06/23 05:30 03/07/23 05:03 Assessment/Plan Assessment/Plan 1 VNAESSA MIRAMONTES MD Mar 07, 2023 12:39
[2023-03-07 14:47] VITALS: BP 129/70
[2023-03-07] MEDS: DexMEDEtomidine 250 ML DRIP 250 ML IV SCH (16:18)
[2023-03-07 18:50] VITALS: BP 144/66
--- NOTE | 2023-03-07 20:52 | Progress Note - Surgery ---
Subjective Date Seen by a Provider: Mar 07, 2023 Time Seen by a Provider: 08:58 Subjective/Events-last exam Intubated and sedated. Abdomen less distended. G tube to liws. No bowel function. KUB Nonspecific bowel gas pattern including gaseous distention and moderate amount of stool. No dilated bowel loops. Focused Exam Time of Focused Exam: 09:00 Objective Exam Vital Signs Date Time Temp Pulse Resp B/P (MAP) Pulse Ox O2 Delivery O2 Flow Rate FiO2 03/07/23 18:50 71 20 95 03/07/23 18:00 61 19 146/70 (94) 94 Mechanical Ventilator 45.00 03/07/23 17:00 60 137/70 (90) 93 Mechanical Ventilator 45.00 03/07/23 16:19 93 Mechanical Ventilator 55 03/07/23 16:00 98 26 139/75 (93) 94 Mechanical Ventilator 45.00 03/07/23 16:00 36.2 03/07/23 15:00 100 20 129/71 (87) 96 Mechanical Ventilator 45.00 03/07/23 14:51 Mechanical Ventilator 45.00 03/07/23 14:47 90 20 100 45 03/07/23 14:00 65 15 136/66 (91) 96 Mechanical Ventilator 55.00 03/07/23 13:30 83 117/64 03/07/23 13:00 76 117/61 (77) 98 Mechanical Ventilator 55.00 03/07/23 12:52 90 03/07/23 12:47 89 113/59 03/07/23 12:00 103 97/51 (63) 91 Mechanical Ventilator 55.00 03/07/23 11:53 91 Mechanical Ventilator 55 03/07/23 11:00 98 20 105/53 (72) 97 Mechanical Ventilator 55.00 03/07/23 10:32 90 20 97 55 03/07/23 10:00 91 130/71 (87) 98 Mechanical Ventilator 55.00 03/07/23 09:00 96 21 134/68 (98) 96 Mechanical Ventilator 55.00 03/07/23 08:21 96 127/69 03/07/23 08:00 36.4 03/07/23 08:00 94 137/71 (97) 94 Mechanical Ventilator 55.00 03/07/23 07:45 95 Mechanical Ventilator 55 03/07/23 07:24 69 20 95 55 03/07/23 07:00 96 03/07/23 07:00 100 137/70 (91) 96 Mechanical Ventilator 55.00 03/07/23 06:00 89 131/72 (91) 96 Mechanical Ventilator 55.00 03/07/23 05:18 82 138/71 03/07/23 05:00 82 138/71 (93) 95 Mechanical Ventilator 55.00 03/07/23 04:00 93 Mechanical Ventilator 55 03/07/23 04:00 75 137/67 (90) 95 Mechanical Ventilator 55.00 03/07/23 03:00 101 131/76 (94) 91 Mechanical Ventilator 55.00 03/07/23 02:17 79 148/76 03/07/23 02:13 79 20 92 55 03/07/23 02:00 76 148/76 (100) 91 Mechanical Ventilator 55.00 03/07/23 01:43 71 03/07/23 01:18 82 139/76 03/07/23 01:00 81 151/75 (100) 91 Mechanical Ventilator 55.00 03/07/23 00:00 82 139/76 (97) 91 Mechanical Ventilator 55.00 03/06/23 23:59 94 Mechanical Ventilator 50 03/06/23 23:32 82 139/76 03/06/23 23:00 76 139/70 (93) 92 Mechanical Ventilator 55.00 03/06/23 22:17 68 135/69 03/06/23 22:12 68 20 91 55 03/06/23 22:00 66 135/74 (94) 92 Mechanical Ventilator 55.00 03/06/23 21:00 77 126/71 (89) 92 Mechanical Ventilator 55.00 I & O 03/07/23 07:00 Intake Total 2410 ml Output Total 2925 ml Balance -515 ml Capillary Refill : General Appearance: Chronically ill, Other (intubated) HEENT: Normal ENT Inspection Neck: Normal Inspection, Supple Respiratory: Other (equal chest rise) Cardiovascular: Regular Rate, Rhythm, No JVD Gastrointestinal: soft, distended (less) Extremity: Non Tender, No Calf Tenderness, No Pedal Edema, Other (mild sdrotal edema) Neurologic/Psychiatric: Other (intubated) Skin: Normal Color, Warm/Dry Lymphatic: No Adenopathy Results Lab Laboratory Tests 03/07/23 01:14: Glucometer 78 03/07/23 05:03: White Blood Count 7.7, Red Blood Count 2.96L, Hemoglobin 8.8L, Hematocrit 27L, Mean Corpuscular Volume 90, Mean Corpuscular Hemoglobin 30, Mean Corpuscular Hemoglobin Concent 33, Red Cell Distribution Width 14.6H, Platelet Count 183, Mean Platelet Volume 11.0, Immature Granulocyte % (Auto) 1, Neutrophils (%) (Auto) 62, Lymphocytes (%) (Auto) 23, Monocytes (%) (Auto) 7, Eosinophils (%) (Auto) 6, Basophils (%) (Auto) 1, Neutrophils # (Auto) 4.8, Lymphocytes # (Auto) 1.8, Monocytes # (Auto) 0.5, Eosinophils # (Auto) 0.5H, Basophils # (Auto) 0.0, Immature Granulocyte # (Auto) 0.1, Venous Blood pH 7.39, Venous Blood Partial Pressure CO2 43, Venous Blood HCO3 26, Sodium Level 143, Potassium Level 3.6, Chloride Level 108H, Carbon Dioxide Level 23, Anion Gap 12, Blood Urea Nitrogen 5L, Creatinine 0.39L, Estimat Glomerular Filtration Rate 162, BUN/Creatinine Ratio 13, Glucose Level 85, Calcium Level 8.0L, Corrected Calcium 8.9, Phosphorus Level 2.0L, Magnesium Level 1.9, Total Bilirubin 0.4, Aspartate Amino Transf (AST/SGOT) 24, Alanine Aminotransferase (ALT/SGPT) 18, Alkaline Phospha tase 70, Total Protein 5.1L, Albumin 2.9L 03/07/23 09:25: Vancomycin Level Trough 16.1 03/07/23 11:49: Glucometer 89 03/07/23 17:58: Glucometer 113H Microbiology 03/02/23 Gram Stain - Final, Complete 03/02/23 Sputum Culture - Final, Complete Corynebacterium striatum 03/01/23 Blood Culture - Final, Complete No growth Assessment/Plan Assessment/Plan Assessment/Plan pneumonia b/l hypoxia respiratory failure requiring intubation poor venous access constipation Abdominal distension abdomen less distended -g tube to suction for decompression to liws Lactulose x 1 today may need further enema/bowel regimen RAFFI MAGAÑA DO Mar 07, 2023 20:52
[2023-03-07] MEDS: ZONISAMIDE 100 MG CAP (ZONEGRAN) NON-FORMULARY PO SCH (21:23)
[2023-03-07 21:53] VITALS: BP 150/110
[2023-03-08] MEDS: MEROPENEM 500 MG in NS (IVPB) 100 ML 100 ML IV SCH ×4 (01:30→18:38)
[2023-03-08 02:47] VITALS: BP 143/67
[2023-03-08] MEDS: RT-LEVALBUTEROL (XOPENEX) 1.25 MG/3 ML NEB NON-FORMULARY INH PRN ×4 (02:47→21:06)
[2023-03-08] MEDS: aCETylcysteine 20% (RT/PO) 4 ML SOLN VIAL INH SCH ×4 (02:47→21:59)
[2023-03-08] MEDS: PROPOFOL DRIP (ICU) 100 ML IV SCH ×3 (04:42→18:38)
[2023-03-08 05:01] LABS: BASOPHILS % (AUTO) 0 % (0-10); EOSINOPHILS # (AUTO) 0.2 10^3/uL (0.0-0.3); EOSINOPHILS % (AUTO) 3 % (0-10); HEMATOCRIT 27 % (40-54); HEMOGLOBIN 8.8 g/dL (13.3-17.7); LYMPHOCYTES # (AUTO) 2.7 10^3/uL (1.0-4.0); LYMPHOCYTES % (AUTO) 39 % (12-44); MEAN CORPUSCULAR HEMOGLOBIN 29 pg (25-34); MEAN CORPUSCULAR HGB CONC 33 g/dL (32-36); MEAN CORPUSCULAR VOLUME 89 fL (80-99); MEAN PLATELET VOLUME 10.6 fL (9.0-12.2); MONOCYTES # (AUTO) 0.5 10^3/uL (0.0-1.0); MONOCYTES % (AUTO) 7 % (0-12); NEUTROPHILS # (AUTO) 3.7 10^3/uL (1.8-7.8); NEUTROPHILS % (AUTO) 52 % (42-75); PLATELET COUNT 208 10^3/uL (130-400); WHITE BLOOD COUNT 7.1 10^3/uL (4.3-11.0)
[2023-03-08 05:27] LABS: ALBUMIN 3.1 GM/DL (3.2-4.5); POTASSIUM 3.9 MMOL/L (3.6-5.0)
[2023-03-08 05:28] LABS: CALCIUM 8.3 MG/DL (8.5-10.1)
[2023-03-08 05:30] LABS: TOTAL PROTEIN 5.4 GM/DL (6.4-8.2)
[2023-03-08 05:31] LABS: BILIRUBIN,TOTAL 0.4 MG/DL (0.1-1.0)
[2023-03-08 05:33] LABS: CREATININE SERUM 0.42 MG/DL (0.60-1.30); PHOSPHORUS 2.1 MG/DL (2.3-4.7)
[2023-03-08 05:36] LABS: MAGNESIUM 2.1 MG/DL (1.6-2.4)
[2023-03-08] MEDS: MAGNESIUM 1 GM/100 ML IVPB 100 ML IV SCH (05:49)
[2023-03-08] MEDS: KCL 20 MEQ TAB (K-DUR) PO SCH (05:49)
[2023-03-08] MEDS: POTASSIUM CL 10MEQ/50ML IVPB 50 ML IV SCH ×3 (05:49→16:36)
[2023-03-08 06:42] VITALS: BP 144/66
--- NOTE | 2023-03-08 07:22 | Progress Note - Surgery ---
Subjective Date Seen by a Provider: Mar 08, 2023 Time Seen by a Provider: 07:20 Subjective/Events-last exam Remains on vent. No bowel function. G tube to LIWS. No family at bedside at this time. Focused Exam Time of Focused Exam: 09:00 Objective Exam Vital Signs Date Time Temp Pulse Resp B/P (MAP) Pulse Ox O2 Delivery O2 Flow Rate FiO2 03/08/23 06:42 71 20 95 45 03/08/23 06:00 63 20 142/64 (90) 93 Mechanical Ventilator 45.00 03/08/23 05:00 82 20 144/68 (93) 93 Mechanical Ventilator 45.00 03/08/23 04:42 90 128/71 03/08/23 04:00 90 20 128/71 (90) 93 Mechanical Ventilator 45.00 03/08/23 04:00 93 Mechanical Ventilator 45 03/08/23 03:32 36.6 03/08/23 03:00 89 20 138/75 (99) 95 Mechanical Ventilator 45.00 03/08/23 02:47 89 20 96 45 03/08/23 02:00 63 20 146/70 (94) 95 Mechanical Ventilator 45.00 03/08/23 01:26 70 144/74 03/08/23 01:00 70 20 144/74 (91) 95 Mechanical Ventilator 45.00 03/08/23 01:00 70 03/08/23 00:00 80 20 146/68 (91) 94 Mechanical Ventilator 45.00 03/07/23 23:59 95 Mechanical Ventilator 45 03/07/23 23:00 67 20 143/70 (92) 94 Mechanical Ventilator 45.00 03/07/23 22:00 75 20 147/71 (92) 95 Mechanical Ventilator 45.00 03/07/23 21:53 77 20 93 45 03/07/23 21:26 71 144/66 03/07/23 21:00 57 20 152/69 (97) 94 Mechanical Ventilator 45.00 03/07/23 20:18 71 144/66 03/07/23 20:00 36.5 03/07/23 20:00 94 Mechanical Ventilator 45 03/07/23 20:00 55 20 158/73 (105) 94 Mechanical Ventilator 45.00 03/07/23 19:00 65 20 148/72 (98) 93 Mechanical Ventilator 45.00 03/07/23 19:00 65 03/07/23 18:50 71 20 95 03/07/23 18:00 61 19 146/70 (94) 94 Mechanical Ventilator 45.00 03/07/23 17:00 60 137/70 (90) 93 Mechanical Ventilator 45.00 03/07/23 16:19 93 Mechanical Ventilator 55 03/07/23 16:00 98 26 139/75 (93) 94 Mechanical Ventilator 45.00 03/07/23 16:00 36.2 03/07/23 15:00 100 20 129/71 (87) 96 Mechanical Ventilator 45.00 03/07/23 14:51 Mechanical Ventilator 45.00 03/07/23 14:47 90 20 100 45 03/07/23 14:00 65 15 136/66 (91) 96 Mechanical Ventilator 55.00 03/07/23 13:30 83 117/64 03/07/23 13:00 76 117/61 (77) 98 Mechanical Ventilator 55.00 03/07/23 12:52 90 03/07/23 12:47 89 113/59 03/07/23 12:00 103 97/51 (63) 91 Mechanical Ventilator 55.00 03/07/23 11:53 91 Mechanical Ventilator 55 03/07/23 11:00 98 20 105/53 (72) 97 Mechanical Ventilator 55.00 03/07/23 10:32 90 20 97 55 03/07/23 10:00 91 130/71 (87) 98 Mechanical Ventilator 55.00 03/07/23 09:00 96 21 134/68 (98) 96 Mechanical Ventilator 55.00 03/07/23 08:21 96 127/69 03/07/23 08:00 36.4 03/07/23 08:00 94 137/71 (97) 94 Mechanical Ventilator 55.00 03/07/23 07:45 95 Mechanical Ventilator 55 03/07/23 07:24 69 20 95 55 I & O 03/08/23 07:00 Intake Total 1970 ml Output Total 2750 ml Balance -780 ml Capillary Refill : General Appearance: No Apparent Distress, Chronically ill, Other (intubated) HEENT: Normal ENT Inspection Neck: Normal Inspection, Supple Respiratory: Other (equal chest rise) Cardiovascular: Regular Rate, Rhythm, No JVD Gastrointestinal: soft, distended (same as yesterday) Extremity: Non Tender, No Calf Tenderness, No Pedal Edema, Other (mild sdrotal edema) Neurologic/Psychiatric: Other (intubated) Skin: Normal Color, Warm/Dry Lymphatic: No Adenopathy Results Lab Laboratory Tests 03/07/23 09:25: Vancomycin Level Trough 16.1 03/07/23 11:49: Glucometer 89 03/07/23 17:58: Glucometer 113H 03/07/23 23:58: Glucometer 101 03/08/23 04:50: White Blood Count 7.1, Red Blood Count 3.02L, Hemoglobin 8.8L, Hematocrit 27L, Mean Corpuscular Volume 89, Mean Corpuscular Hemoglobin 29, Mean Corpuscular Hemoglobin Concent 33, Red Cell Distribution Width 14.8H, Platelet Count 208, Mean Platelet Volume 10.6, Immature Granulocyte % (Auto) 0, Neutrophils (%) (Auto) 52, Lymphocytes (%) (Auto) 39, Monocytes (%) (Auto) 7, Eosinophils (%) (Auto) 3, Basophils (%) (Auto) 0, Neutrophils # (Auto) 3.7, Lymphocytes # (Auto) 2.7, Monocytes # (Auto) 0.5, Eosinophils # (Auto) 0.2, Basophils # (Auto) 0.0, Immature Granulocyte # (Auto) 0.0, Venous Blood pH 7.40, Venous Blood Partial Pressure CO2 40, Venous Blood HCO3 25, Sodium Level 142, Potassium Level 3.9, Chloride Level 108H, Carbon Dioxide Level 23, Anion Gap 11, Blood Urea Nitrogen 7, Creatinine 0.42L, Estimat Glomerular Filtration Rate 159, BUN/Creatinine Ratio 17, Glucose Level 90, Calcium Level 8.3L, Corrected Calcium 9.0, Phosphorus Level 2.1L, Magnesium Level 2.1, Total Bilirubin 0.4, Aspartate Amino Transf (AST/SGOT) 22, Alanine Aminotransferase (ALT/SGPT) 20, Alkaline Phosphatase 67, Total Protein 5.4L, Albumin 3.1L, Triglycerides Level 130 Microbiology 03/02/23 Gram Stain - Final, Complete 03/02/23 Sputum Culture - Final, Complete Corynebacterium striatum 03/01/23 Blood Culture - Final, Complete No growth Assessment/Plan Assessment/Plan Assessment/Plan pneumonia b/l hypoxia respiratory failure requiring intubation poor venous access constipation Abdominal distension abdomen same as yesterday -g tube to suction for decompression to liws Lactulose today may need further enema/bowel regimen consider ct abdomen/pelvis c gastrograffin contrast through g tube. RAFFI MAGAÑA DO Mar 08, 2023 07:22
[2023-03-08] MEDS: DexMEDEtomidine 250 ML DRIP 250 ML IV SCH (08:09)
[2023-03-08] MEDS: polyethylene glycoL POWDER 17 GM (MIRALAX) PACK GT SCH ×3 (08:09→20:03)
[2023-03-08] MEDS: AZITHROMYCIN INJECTION 500 MG in NS (IVPB) 250 ML 250 ML IV SCH (08:09)
[2023-03-08] MEDS: LORATADINE 5 MG/5 ML SOLN (CLARITIN) UDC GT SCH ×2 (08:09→20:03)
[2023-03-08] MEDS: dexAMETHasone INJ 10 MG/ML 1 ML VIAL IV SCH (08:10)
[2023-03-08] MEDS: ENOXAPARIN 30 MG/0.3 ML SYRINGE SC SCH ×2 (08:10→19:58)
[2023-03-08] MEDS: PANTOPRAZOLE 40 MG (PROTONIX) VIAL IV SCH (08:10)
[2023-03-08] MEDS: TRILEPTAL GT SCH ×2 (08:11→20:05)
--- NOTE | 2023-03-08 09:15 | Diagnostic Imaging Report ---
INDICATION: Respiratory distress. TECHNIQUE/COMPARISON: A frontal chest was obtained at 3:51 AM and compared to 03/07/2023. FINDINGS: The ET tube and Port-A-Cath are unchanged. There is no change in the extensive bilateral infiltrates. Scoliotic changes of the thoracic spine are noted. There is no pneumothorax or pleural fluid. IMPRESSION: No change in the extensive bilateral infiltrates. There is no pneumothorax or pleural fluid. No new findings compared to yesterday. Dictated by: Dictated on workstation # [id number]
--- NOTE | 2023-03-08 09:55 | Tele-ICU Progress Note ---
Subjective Date Seen by a Provider: Mar 08, 2023 Time Seen by a Provider: 09:48 Subjective/Events-last exam (Tele-ICU Physician , Progress Note ) Service provided via interactive audio and video telecommunications E-CARE system to a patient admitted to ICU bed in [facility]. Patient is seen today due to persistent need of ICU care Available chart/ vitals / labs / Images reviewed Video assessment done using teleICU camera, rest of exam as per RN Discussed with RN Events overnight : no new events. remained on vent. CXR reviewed. showed extensice matt. infiltrates. Afebrile hemodynamically stable Respiratory - 45% . peep 5 I/O = ++ Drips: Pressors- no VENT SETTINGS and ABG reviewed NOT CANDIDATE for SBTreviewed possible contraindications including Cardiovascular Stability /Sedation Score / FI02/PEEP / ABG / CXR/ secretions Sedation, discussed with RN, RASS -2-propfol 50 precedex 1.4 Hospital course: (03/01) 17y/o M admitted with pneumonia, hypoxia. (03/02) INTUBATED 03/03-Ac 20 380 + 8 60% , RASS -1 on propfol 30 precedex 0.8 , added mucomist , cut down fluids 03/05- Ac 20 380 + 5 35 % propfol 50 precedex 1.4 03/06-Ac 20 380 + 5 50% propfol 50 precedex 1.4 , echo EF 60% , RVSP 30 mmHg, subaortic stenosis- moder 03/07- large neg fluid balance , ? ARDS - empiric steroids 03/07 03/08- vent. AC 20, 380, 45% ,peep 5. not ready for SBT A/P Acute hypoxic resp failure ( with congenital scoliosis, tracheomalacia and MADISYN ) -03/02- INTUBATED Ac 20 380 + 5 50% - thick secretions -duo neb and mucomist - cxr worsening - try diuresis - RESPONDED WELL with less rhonchorous and good urine outpuit - to cont today - CXR without improvement - ? 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 No small bowel obstruction. - Sx consuled - lactulose started ( h/o Esophageal stricture , nissanfundoplication , PEG tube placement GEN. surgery following H/o Hydrocephalus - s/p UMBRELLA REPAIRER shunt Baclofen pump - 60 mg/day - cont Anemia stable skin - clear MADISYN- BIPAP 05/11 at night , NOT on O2 when doing well Nutrition - TF on hold 03/05 - d2 Lines : R port periph , RIGHT fem line , (Central Line Necessity Reviewed) [place]: + OG: Nutrition: PEG - off TF Analgesia: Anxiety/ delirium VTE Prophylaxis: 30 Stress Ulcer Prophylaxis: na Plans in collaboration with bedside consultants and IM MDs. Discussed with RN to reach out if any questions or concerns Case and care daily discussed on multidisciplinary rounds ( RN, PharmD, Parboiler , Respiratory Therapy, general distillery worker ) A total of 35 minutes of critical care time was devoted to this patient today, required to treat and/or prevent further deterioration of critical care condition ( as above ) . Sepsis Event Evaluation Height, Weight, BMI Height: 4'0" Weight: 72lbs. oz. 32.748424dh; 27.79 BMI Method: Focused Exam Time of Focused Exam: 09:00 Exam Exam Patient acknowledged, consented, and participated in this virtual visit which was conducted using real time audio/video Vital Signs Date Time Temp Pulse Resp B/P (MAP) Pulse Ox O2 Delivery O2 Flow Rate FiO2 03/08/23 09:00 74 8 141/77 (98) 92 Mechanical Ventilator 45.00 03/08/23 08:09 80 136/66 03/08/23 08:00 92 Mechanical Ventilator 45 03/08/23 08:00 64 134/64 (87) 93 Mechanical Ventilator 45.00 03/08/23 07:40 36.4 03/08/23 07:02 80 03/08/23 07:00 78 20 136/66 (89) 93 Mechanical Ventilator 45.00 03/08/23 06:42 71 20 95 45 03/08/23 06:00 63 20 142/64 (90) 93 Mechanical Ventilator 45.00 03/08/23 05:00 82 20 144/68 (93) 93 Mechanical Ventilator 45.00 03/08/23 04:42 90 128/71 03/08/23 04:00 90 20 128/71 (90) 93 Mechanical Ventilator 45.00 03/08/23 04:00 93 Mechanical Ventilator 45 03/08/23 03:32 36.6 03/08/23 03:00 89 20 138/75 (99) 95 Mechanical Ventilator 45.00 03/08/23 02:47 89 20 96 45 03/08/23 02:00 63 20 146/70 (94) 95 Mechanical Ventilator 45.00 03/08/23 01:26 70 144/74 03/08/23 01:00 70 20 144/74 (91) 95 Mechanical Ventilator 45.00 03/08/23 01:00 70 03/08/23 00:00 80 20 146/68 (91) 94 Mechanical Ventilator 45.00 03/07/23 23:59 95 Mechanical Ventilator 45 03/07/23 23:00 67 20 143/70 (92) 94 Mechanical Ventilator 45.00 03/07/23 22:00 75 20 147/71 (92) 95 Mechanical Ventilator 45.00 03/07/23 21:53 77 20 93 45 03/07/23 21:26 71 144/66 03/07/23 21:00 57 20 152/69 (97) 94 Mechanical Ventilator 45.00 03/07/23 20:18 71 144/66 03/07/23 20:00 36.5 03/07/23 20:00 94 Mechanical Ventilator 45 03/07/23 20:00 55 20 158/73 (105) 94 Mechanical Ventilator 45.00 03/07/23 19:00 65 20 148/72 (98) 93 Mechanical Ventilator 45.00 03/07/23 19:00 65 03/07/23 18:50 71 20 95 03/07/23 18:00 61 19 146/70 (94) 94 Mechanical Ventilator 45.00 03/07/23 17:00 60 137/70 (90) 93 Mechanical Ventilator 45.00 03/07/23 16:19 93 Mechanical Ventilator 55 03/07/23 16:00 98 26 139/75 (93) 94 Mechanical Ventilator 45.00 03/07/23 16:00 36.2 03/07/23 15:00 100 20 129/71 (87) 96 Mechanical Ventilator 45.00 03/07/23 14:51 Mechanical Ventilator 45.00 03/07/23 14:47 90 20 100 45 03/07/23 14:00 65 15 136/66 (91) 96 Mechanical Ventilator 55.00 03/07/23 13:30 83 117/64 03/07/23 13:00 76 117/61 (77) 98 Mechanical Ventilator 55.00 03/07/23 12:52 90 03/07/23 12:47 89 113/59 03/07/23 12:00 103 97/51 (63) 91 Mechanical Ventilator 55.00 03/07/23 11:53 91 Mechanical Ventilator 55 03/07/23 11:00 98 20 105/53 (72) 97 Mechanical Ventilator 55.00 03/07/23 10:32 90 20 97 55 03/07/23 10:00 91 130/71 (87) 98 Mechanical Ventilator 55.00 I & O 03/08/23 07:00 Intake Total 1970 ml Output Total 2750 ml Balance -780 ml Height & Weight Height: 4'0" Weight: 72lbs. oz. 32.871709nf; 27.79 BMI Method: General Appearance: No Apparent Distress, Chronically ill, Other (intubated) HEENT: Normal ENT Inspection Neck: Normal Inspection, Supple Respiratory: Other (equal chest rise) Cardiovascular: Regular Rate, Rhythm, No JVD Gastrointestinal: soft, distended (same as yesterday) Extremity: Non Tender, No Calf Tenderness, No Pedal Edema, Other (mild sdrotal edema) Neurologic/Psychiatric: Other (intubated) Skin: Normal Color, Warm/Dry Lymphatic: No Adenopathy Results Lab Laboratory Tests 03/07/23 05:03 03/08/23 04:50 Assessment/Plan Assessment/Plan as above Critical Care: Ventilator Management Time spent with patient (mins): 35 PANKAJ CANDELARIA MD Mar 08, 2023 09:54
[2023-03-08] MEDS ORDERED: POTASSIUM PHOSPHATE INJ 30 MM in NS (IVPB) 250 ML 250 ML IV ONE (10:00)
[2023-03-08 10:03] VITALS: BP 141/78
--- NOTE | 2023-03-08 10:36 | Progress Note ---
Subjective Subjective/Events-last exam Afebrile, is more awake this morning although sedation dose unchanged. Focused Exam Time of Focused Exam: 09:00 Objective Exam Last Set of Vital Signs Vital Signs Date Time Temp Pulse Resp B/P (MAP) Pulse Ox O2 Delivery O2 Flow Rate FiO2 03/08/23 10:03 78 20 97 45 03/08/23 10:00 141/78 (99) Mechanical Ventilator 45.00 03/08/23 07:40 36.4 Capillary Refill : I&O Intake and Output 03/08/23 00:00 Intake Total 2420 ml Output Total 2700 ml Balance -280 ml Intake Oral 0 ml IV Total 2060 ml Other 360 ml Output Urine Total 2700 ml General: Alert, No Acute Distress Lungs: Other (ronchi) Heart: Other (muffled heart sounds due to lung ronchi) Abdomen: Other (hypoactive, mildly distended) Extremities: No Edema Results/Procedures Lab Laboratory Tests 03/07/23 11:49: Glucometer 89 03/07/23 17:58: Glucometer 113H 03/07/23 23:58: Glucometer 101 03/08/23 04:50: White Blood Count 7.1, Red Blood Count 3.02L, Hemoglobin 8.8L, Hematocrit 27L, Mean Corpuscular Volume 89, Mean Corpuscular Hemoglobin 29, Mean Corpuscular Hemoglobin Concent 33, Red Cell Distribution Width 14.8H, Platelet Count 208, Mean Platelet Volume 10.6, Immature Granulocyte % (Auto) 0, Neutrophils (%) (Auto) 52, Lymphocytes (%) (Auto) 39, Monocytes (%) (Auto) 7, Eosinophils (%) (Auto) 3, Basophils (%) (Auto) 0, Neutrophils # (Auto) 3.7, Lymphocytes # (Auto) 2.7, Monocytes # (Auto) 0.5, Eosinophils # (Auto) 0.2, Basophils # (Auto) 0.0, Immature Granulocyte # (Auto) 0.0, Venous Blood pH 7.40, Venous Blood Partial Pressure CO2 40, Venous Blood HCO3 25, Sodium Level 142, Potassium Level 3.9, Chloride Level 108H, Carbon Dioxide Level 23, Anion Gap 11, Blood Urea Nitrogen 7, Creatinine 0.42L, Estimat Glomerular Filtration Rate 159, BUN/Creatinine Ratio 17, Glucose Level 90, Calcium Level 8.3L, Corrected Calcium 9.0, Phosphorus Level 2.1L, Magnesium Level 2.1, Total Bilirubin 0.4, Aspartate Amino Transf (AST/SGOT) 22, Alanine Aminotransferase (ALT/SGPT) 20, Alkaline Phosphatase 67, Total Protein 5.4L, Albumin 3.1L, Triglycerides Level 130 Microbiology 03/02/23 Gram Stain - Final, Complete 03/02/23 Sputum Culture - Final, Complete Corynebacterium striatum 03/01/23 Blood Culture - Final, Complete No growth Radiology ADMIT DATE: 03/01/23/ICU Signed Date of Exam:03/01/23 CHEST 1 VIEW, AP/PA ONLY Indication: Hypoxia Frontal chest obtained at 1208 p.m. compared to 05/11/2015. The heart is normal in size. There is a Port-A-Cath over the right chest with tip overlying the low SVC. There is a shunt catheter over the left hemithorax. There is central vascular congestion with perihilar infiltrates. There is no pneumothorax or pleural fluid. Impression: Bilateral perihilar infiltrates are present, pneumonia is not excluded. There is no pneumothorax or pleural fluid. Heart is normal in size. There is dextroscoliotic change. Dictated by: Dictated on workstation # [id number] Dict: 03/01/23 1212 Trans: 03/01/23 1328 [facility] [id number] Interpreted by: KAMARI MACHUCA MD Assessment/Plan Assessment/Plan (1) Pneumonia Status: Acute Assessment & Plan: Directly admitted to ICU from the clinic via EMS due to pneumonia and hypoxia. At risk for decompensation due to multiple co-morbidities, discussed transfer options with mother and legal guardian and would like to stay at [facility] if possible and trial IV antibiotics. Currently requiring bi-pap at 60% FIO2 to maintain dixie in the low 90's. Antibiotics started - zithromax and meropenam IVF - will give fluid bolus x1L then 150mL/h initial cbc normal; blood cultures pending. Resume home meds and G-tube feeds - dietary consulted for conversion of home feeding regimen. 03/02/2023: Worsening respiratory status overnight, now requiring 70% FIO2 to maintain sats and prevent acidosis. More tachypneic. Consult Dr. Rahman for critical care. Recommending intubation. Discussed consideration of transfer, Dr. Rahman recommends intubation prior to transfer due to risk of clinical deterioration en route if transfer is chosen by parents Discussed code status, would like to proceed with intubation but would prefer not to have chest compressions. Parents are legal guardian of patient but as an adult, court must order DNR or modified DNR. 03/03/23: Intubated without incident yesterday. Sedated on vent currently, more comfortable. O2 98% on 80% FIO2; VBG 7. am CXR severe, bilateral infiltrates, unchanged from yesterday Vancomycin added yesterday. labs, vitals stable blood culture negative Dr. Rahman and eICU provider co-managing 03/04/23: Fi02 35%, stable, sedated on vent. continue current care 03/05/23: sputum culture grew corynebacterium - typically sensitive to vancomycin and meropenum Fi02 35%, stable, sedated on vent. continue current care 03/06/23: Persistent worsening hypoxia, FiO2 55% this am, continued on vancomycin, meropenem and azithromycin. Good diuresis with albumin and lasix yesterday, repeating today per [facility], appreciate recommendations. 03/07/23: Stable, continued current treatment plans 03/08/23: FiO2 down to 45% today, will resume vancomycin for corynebacterium, has completed azithromycin, will complete 2 more days of meropenem. Started dexamethasone 03/07 with possible slight improvement noted. Qualifiers: (2) Respiratory failure with hypoxia Status: Acute Assessment & Plan: Intubated 03/02/23 Qualifiers: Qualified Codes: J96.01 - Acute respiratory failure with hypoxia (3) Electrolyte abnormality Status: Acute Assessment & Plan: -potassium and magnesium replaced per protocol 03/06 will replace phos 03/07 replace phos and add extra K above protocol to try to get K above 4 due to obstipation (4) Hydrocephalus Status: Chronic Assessment & Plan: with SOLUTIONS ARCHITECT shunt, no evidence of dysfunction (5) Hypokalemia Status: Acute (6) VACTERL association Status: Chronic (7) Cerebral palsy Status: Chronic (8) Seizure disorder Status: Chronic Assessment & Plan: No seizure activity noted, continue home meds (9) Subaortic valve stenosis, congenital Status: Chronic Assessment & Plan: Check echo given worsening respiratory status. (10) Obstipation Status: Acute Assessment & Plan: Appreciate Surgery recommendations. No bowel movement with enema yesterday per mother's report. 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 Anticipate status change later next week due to holiday if he is still in critical condition. (13) DVT prophylaxis Status: Acute Assessment & Plan: Enoxaparin RADHA SCHROEDER MD Mar 08, 2023 10:36
[2023-03-08] MEDS: VANCOMYCIN 1 GM/NS 250 ML IVPB IV SCH ×4 (13:20→20:00)
[2023-03-08] MEDS: NS IV 1000 ML 1,000 ML IV SCH (13:36)
[2023-03-08 14:40] VITALS: BP 50/73
[2023-03-08 19:05] VITALS: BP 151/64
[2023-03-08] MEDS: ZONISAMIDE 100 MG CAP (ZONEGRAN) NON-FORMULARY PO SCH (20:04)
[2023-03-09] MEDS: PROPOFOL DRIP (ICU) 100 ML IV SCH ×4 (01:35→20:32)
[2023-03-09] MEDS: MEROPENEM 500 MG in NS (IVPB) 100 ML 100 ML IV SCH ×4 (01:35→18:42)
[2023-03-09] MEDS: DexMEDEtomidine 250 ML DRIP 250 ML IV SCH ×2 (01:36→19:22)
[2023-03-09 02:43] VITALS: BP 156/69
[2023-03-09] MEDS: RT-LEVALBUTEROL (XOPENEX) 1.25 MG/3 ML NEB NON-FORMULARY INH SCH ×4 (02:43→21:54)
[2023-03-09 03:52] LABS: BASOPHILS % (AUTO) 0 % (0-10); EOSINOPHILS # (AUTO) 0.2 10^3/uL (0.0-0.3); EOSINOPHILS % (AUTO) 3 % (0-10); HEMATOCRIT 28 % (40-54); HEMOGLOBIN 9.2 g/dL (13.3-17.7); LYMPHOCYTES # (AUTO) 3.7 10^3/uL (1.0-4.0); LYMPHOCYTES % (AUTO) 47 % (12-44); MEAN CORPUSCULAR HEMOGLOBIN 30 pg (25-34); MEAN CORPUSCULAR HGB CONC 33 g/dL (32-36); MEAN CORPUSCULAR VOLUME 89 fL (80-99); MEAN PLATELET VOLUME 10.6 fL (9.0-12.2); MONOCYTES # (AUTO) 0.4 10^3/uL (0.0-1.0); MONOCYTES % (AUTO) 5 % (0-12); NEUTROPHILS # (AUTO) 3.5 10^3/uL (1.8-7.8); NEUTROPHILS % (AUTO) 45 % (42-75); PLATELET COUNT 242 10^3/uL (130-400); WHITE BLOOD COUNT 7.8 10^3/uL (4.3-11.0)
[2023-03-09 04:05] LABS: ALBUMIN 3.1 GM/DL (3.2-4.5); POTASSIUM 3.6 MMOL/L (3.6-5.0)
[2023-03-09 04:06] LABS: CALCIUM 8.3 MG/DL (8.5-10.1)
[2023-03-09 04:08] LABS: TOTAL PROTEIN 5.2 GM/DL (6.4-8.2)
[2023-03-09 04:09] LABS: BILIRUBIN,TOTAL 0.3 MG/DL (0.1-1.0)
[2023-03-09 04:11] LABS: CREATININE SERUM 0.4 MG/DL (0.60-1.30); PHOSPHORUS 2.2 MG/DL (2.3-4.7)
[2023-03-09 04:14] LABS: MAGNESIUM 1.9 MG/DL (1.6-2.4)
[2023-03-09] MEDS: KCL 20 MEQ TAB (K-DUR) PO SCH (04:14)
[2023-03-09] MEDS: POTASSIUM CL 10MEQ/50ML IVPB 50 ML IV SCH ×8 (04:14→11:44)
[2023-03-09] MEDS: MAGNESIUM 1 GM/100 ML IVPB 100 ML IV SCH ×3 (04:16→05:30)
[2023-03-09] MEDS: VANCOMYCIN 1 GM/NS 250 ML IVPB IV SCH ×6 (05:11→20:31)
[2023-03-09] MEDS: NS IV 1000 ML 1,000 ML IV SCH ×2 (05:30→21:58)
[2023-03-09] MEDS: aCETylcysteine 20% (RT/PO) 4 ML SOLN VIAL INH SCH ×3 (07:07→22:00)
[2023-03-09 07:08] VITALS: BP 143/61
[2023-03-09] MEDS: LORATADINE 5 MG/5 ML SOLN (CLARITIN) UDC GT SCH ×2 (08:17→20:30)
[2023-03-09] MEDS: ENOXAPARIN 30 MG/0.3 ML SYRINGE SC SCH ×2 (08:17→20:31)
[2023-03-09] MEDS: dexAMETHasone INJ 10 MG/ML 1 ML VIAL IV SCH (08:17)
[2023-03-09] MEDS: PANTOPRAZOLE 40 MG (PROTONIX) VIAL IV SCH (08:17)
[2023-03-09] MEDS: polyethylene glycoL POWDER 17 GM (MIRALAX) PACK GT SCH ×3 (08:17→20:31)
[2023-03-09] MEDS: TRILEPTAL GT SCH ×2 (08:18→20:31)
[2023-03-09] MEDS ORDERED: POTASSIUM PHOSPHATE INJ 30 MM in NS (IVPB) 250 ML 250 ML IV ONE (08:30)
--- NOTE | 2023-03-09 08:36 | Diagnostic Imaging Report ---
EXAMINATION: Chest 1 view HISTORY: Pneumonia COMPARISON: 03/08/2023 FINDINGS: Endotracheal tube is in the mid trachea. Right port catheter tip terminates in the superior vena cava. There is severe bilateral airspace opacities. Shunt catheter projects over the chest. No pneumothorax. No large pleural effusion. Heart size is normal. IMPRESSION: 1. Persistent severe bilateral airspace opacities in keeping with pneumonia. Dictated by: Dictated on workstation # [id number]
--- NOTE | 2023-03-09 10:13 | Progress Note - Surgery ---
Subjective Date Seen by a Provider: Mar 09, 2023 Time Seen by a Provider: 10:09 Subjective/Events-last exam Intubated and sedated. No bowel movement. Mother at bedside. Focused Exam Time of Focused Exam: 09:00 Objective Exam Vital Signs Date Time Temp Pulse Resp B/P (MAP) Pulse Ox O2 Delivery O2 Flow Rate FiO2 03/09/23 09:08 73 131/60 03/09/23 09:00 71 20 126/62 (83) 98 Mechanical Ventilator 45.00 03/09/23 08:00 95 Mechanical Ventilator 45 03/09/23 08:00 73 131/60 (83) 94 Mechanical Ventilator 45.00 03/09/23 07:35 36.8 03/09/23 07:15 63 03/09/23 07:00 59 18 143/61 (88) 94 Mechanical Ventilator 45.00 03/09/23 06:00 61 20 126/56 (79) 93 Mechanical Ventilator 45.00 03/09/23 05:31 65 131/58 03/09/23 05:31 64 131/58 03/09/23 05:00 70 20 131/57 (81) 93 Mechanical Ventilator 45.00 03/09/23 04:06 94 Mechanical Ventilator 45 03/09/23 04:00 36.2 03/09/23 04:00 80 20 125/61 (82) 93 Mechanical Ventilator 45.00 03/09/23 03:00 81 20 135/66 (89) 94 Mechanical Ventilator 45.00 03/09/23 02:43 66 20 95 45 03/09/23 02:00 53 20 161/69 (99) 95 Mechanical Ventilator 45.00 03/09/23 01:36 50 166/79 03/09/23 01:35 50 166/79 03/09/23 01:00 52 03/09/23 01:00 52 20 141/65 (90) 95 Mechanical Ventilator 45.00 03/09/23 00:00 60 20 150/68 (95) 94 Mechanical Ventilator 45.00 03/09/23 00:00 36.1 03/08/23 23:59 94 Mechanical Ventilator 45 03/08/23 23:00 62 20 159/68 (98) 94 Mechanical Ventilator 45.00 03/08/23 22:39 64 153/70 03/08/23 22:38 64 153/70 03/08/23 22:00 56 20 143/68 (93) 95 Mechanical Ventilator 45.00 03/08/23 21:00 53 20 153/67 (99) 94 Mechanical Ventilator 45.00 03/08/23 20:00 95 Mechanical Ventilator 45 03/08/23 20:00 64 20 159/73 (108) 96 Mechanical Ventilator 45.00 03/08/23 20:00 35.9 03/08/23 19:05 58 20 95 45 03/08/23 19:00 57 20 151/64 (99) 95 Mechanical Ventilator 45.00 03/08/23 19:00 57 03/08/23 18:38 61 154/73 03/08/23 18:00 61 16 154/73 (100) 95 Mechanical Ventilator 45.00 03/08/23 17:00 61 15 154/73 (100) 95 Mechanical Ventilator 45.00 03/08/23 16:00 93 Mechanical Ventilator 45 03/08/23 16:00 70 26 148/72 (97) 94 Mechanical Ventilator 45.00 03/08/23 15:53 70 148/72 03/08/23 15:26 37.1 03/08/23 15:00 100 37 143/76 (98) 95 Mechanical Ventilator 45.00 03/08/23 14:40 82 20 94 45 03/08/23 14:00 60 9 149/72 (97) 94 Mechanical Ventilator 45.00 03/08/23 13:15 75 03/08/23 13:00 73 15 147/69 (95) 94 Mechanical Ventilator 45.00 03/08/23 12:09 79 148/71 03/08/23 12:00 94 Mechanical Ventilator 45 03/08/23 12:00 79 28 148/71 (96) 94 Mechanical Ventilator 45.00 03/08/23 11:53 82 147/78 03/08/23 11:21 36.9 03/08/23 11:00 82 18 147/78 (101) 95 Mechanical Ventilator 45.00 I & O 03/09/23 07:00 Intake Total 1460 ml Output Total 1950 ml Balance -490 ml Capillary Refill : General Appearance: No Apparent Distress, Chronically ill, Other (intubated) HEENT: Normal ENT Inspection Neck: Normal Inspection, Supple Respiratory: No Accessory Muscle Use, Other (equal chest rise) Cardiovascular: Regular Rate, Rhythm, No JVD Gastrointestinal: soft, distended (same as yesterday) Extremity: Non Tender, No Calf Tenderness, No Pedal Edema, Other (mild sdrotal edema) Neurologic/Psychiatric: Other (intubated, sedated) Skin: Normal Color, Warm/Dry Lymphatic: No Adenopathy Results Lab Laboratory Tests 03/08/23 11:30: Glucometer 106 03/08/23 17:48: Glucometer 124H 03/08/23 23:58: Glucometer 92 03/09/23 03:40: White Blood Count 7.8, Red Blood Count 3.12L, Hemoglobin 9.2L, Hematocrit 28L, Mean Corpuscular Volume 89, Mean Corpuscular Hemoglobin 30, Mean Corpuscular Hemoglobin Concent 33, Red Cell Distribution Width 14.9H, Platelet Count 242, Mean Platelet Volume 10.6, Immature Granulocyte % (Auto) 0, Neutrophils (%) (Auto) 45, Lymphocytes (%) (Auto) 47H, Monocytes (%) (Auto) 5, Eosinophils (%) (Auto) 3, Basophils (%) (Auto) 0, Neutrophils # (Auto) 3.5, Lymphocytes # (Auto) 3.7, Monocytes # (Auto) 0.4, Eosinophils # (Auto) 0.2, Basophils # (Auto) 0.0, Immature Granulocyte # (Auto) 0.0, Venous Blood pH 7.39, Venous Blood Partial Pressure CO2 38L, Venous Blood HCO3 22, Sodium Level 141, Potassium Level 3.6, Chloride Level 109H, Carbon Dioxide Level 20L, Anion Gap 12, Blood Urea Nitrogen 8, Creatinine 0.40L, Estimat Glomerular Filtration Rate 161, BUN/Creatinine Ratio 20, Glucose Level 85, Calcium Level 8.3L, Corrected Calcium 9.0, Phosphorus Level 2.2L, Magnesium Level 1.9, Total Bilirubin 0.3, Aspartate Amino Transf (AST/SGOT) 33, Alanine Aminotransferase (ALT/SGPT) 33, Alkaline Hernandez sphatase 64, Total Protein 5.2L, Albumin 3.1L Microbiology 03/02/23 Gram Stain - Final, Complete 03/02/23 Sputum Culture - Final, Complete Corynebacterium striatum 03/01/23 Blood Culture - Final, Complete No growth Assessment/Plan Assessment/Plan Assessment/Plan pneumonia b/l hypoxia respiratory failure requiring intubation poor venous access constipation Abdominal distension abdomen same as yesterday -g tube to suction for decompression to liws Bowel regimen Mag citrate today may need further enema/bowel regimen consider ct abdomen/pelvis c gastrograffin contrast through g tube if does not resolve. Hope to restart tube feeds after bowel function Right femoral line, will try and see if we can get further access tomorrow with midlines or picc RAFFI MAGAÑA DO Mar 09, 2023 10:13
--- NOTE | 2023-03-09 10:30 | Progress Note ---
Subjective Subjective/Events-last exam Pt remains stable, somewhat awake this morning. Focused Exam Time of Focused Exam: 09:00 Objective Exam Last Set of Vital Signs Vital Signs Date Time Temp Pulse Resp B/P (MAP) Pulse Ox O2 Delivery O2 Flow Rate FiO2 03/09/23 09:08 73 131/60 03/09/23 09:00 20 98 Mechanical Ventilator 45.00 03/09/23 08:00 45 03/09/23 07:35 36.8 Capillary Refill : I&O Intake and Output 03/09/23 00:00 Intake Total 460 ml Output Total 1725 ml Balance -1265 ml Intake Oral 0 ml IV Total 100 ml Other 360 ml Output Urine Total 1725 ml General: Alert, No Acute Distress Lungs: Other (ronchi throughout) Heart: Regular Rate, Other (holosystolic murmur) Abdomen: Normal Bowel Sounds, Other (diffuse mild distension) Extremities: Other (trace edema) Results/Procedures Lab Laboratory Tests 03/08/23 11:30: Glucometer 106 03/08/23 17:48: Glucometer 124H 03/08/23 23:58: Glucometer 92 03/09/23 03:40: White Blood Count 7.8, Red Blood Count 3.12L, Hemoglobin 9.2L, Hematocrit 28L, Mean Corpuscular Volume 89, Mean Corpuscular Hemoglobin 30, Mean Corpuscular Hemoglobin Concent 33, Red Cell Distribution Width 14.9H, Platelet Count 242, Mean Platelet Volume 10.6, Immature Granulocyte % (Auto) 0, Neutrophils (%) (Auto) 45, Lymphocytes (%) (Auto) 47H, Monocytes (%) (Auto) 5, Eosinophils (%) (Auto) 3, Basophils (%) (Auto) 0, Neutrophils # (Auto) 3.5, Lymphocytes # (Auto) 3.7, Monocytes # (Auto) 0.4, Eosinophils # (Auto) 0.2, Basophils # (Auto) 0.0, Immature Granulocyte # (Auto) 0.0, Venous Blood pH 7.39, Venous Blood Partial Pressure CO2 38L, Venous Blood HCO3 22, Sodium Level 141, Potassium Level 3.6, Chloride Level 109H, Carbon Dioxide Level 20L, Anion Gap 12, Blood Urea Nitrogen 8, Creatinine 0.40L, Estimat Glomerular Filtration Rate 161, BUN/Creatinine Ratio 20, Glucose Level 85, Calcium Level 8.3L, Corrected Calcium 9.0, Phosphorus Level 2.2L, Magnesium Level 1.9, Total Bilirubin 0.3, Aspartate Amino Transf (AST/SGOT) 33, Alanine Aminotransferase (ALT/SGPT) 33, Alkaline Phosphatase 64, Total Protein 5.2L, Albumin 3.1L Microbiology 03/02/23 Gram Stain - Final, Complete 03/02/23 Sputum Culture - Final, Complete Corynebacterium striatum 03/01/23 Blood Culture - Final, Complete No growth Radiology ADMIT DATE: 03/01/23/ICU Signed Date of Exam:03/01/23 CHEST 1 VIEW, AP/PA ONLY Indication: Hypoxia Frontal chest obtained at 1208 p.m. compared to 05/11/2015. The heart is normal in size. There is a Port-A-Cath over the right chest with tip overlying the low SVC. There is a shunt catheter over the left hemithorax. There is central vascular congestion with perihilar infiltrates. There is no pneumothorax or pleural fluid. Impression: Bilateral perihilar infiltrates are present, pneumonia is not excluded. There is no pneumothorax or pleural fluid. Heart is normal in size. There is dextroscoliotic change. Dictated by: Dictated on workstation # [id number] Dict: 03/01/23 1212 Trans: 03/01/23 1328 [facility] [id number] Interpreted by: KAMARI MACHUCA MD Assessment/Plan Assessment/Plan (1) Pneumonia Status: Acute Assessment & Plan: Directly admitted to ICU from the clinic via EMS due to pneumonia and hypoxia. At risk for decompensation due to multiple co-morbidities, discussed transfer options with mother and legal guardian and would like to stay at [facility] if possible and trial IV antibiotics. Currently requiring bi-pap at 60% FIO2 to maintain dixie in the low 90's. Antibiotics started - zithromax and meropenam IVF - will give fluid bolus x1L then 150mL/h initial cbc normal; blood cultures pending. Resume home meds and G-tube feeds - dietary consulted for conversion of home f eeding regimen. 03/02/2023: Worsening respiratory status overnight, now requiring 70% FIO2 to maintain sats and prevent acidosis. More tachypneic. Consult Dr. Rahman for critical care. Recommending intubation. Discussed consideration of transfer, Dr. Rahman recommends intubation prior to transfer due to risk of clinical deterioration en route if transfer is chosen by parents Discussed code status, would like to proceed with intubation but would prefer not to have chest compressions. Parents are legal guardian of patient but as an adult, court must order DNR or modified DNR. 03/03/23: Intubated without incident yesterday. Sedated on vent currently, more comfortable. O2 98% on 80% FIO2; VBG 7. am CXR severe, bilateral infiltrates, unchanged from yesterday Vancomycin added yesterday. labs, vitals stable blood culture negative Dr. Rahman and eICU provider co-managing 03/04/23: Fi02 35%, stable, sedated on vent. continue current care 03/05/23: sputum culture grew corynebacterium - typically sensitive to vancomycin and meropenum Fi02 35%, stable, sedated on vent. continue current care 03/06/23: Persistent worsening hypoxia, FiO2 55% this am, continued on vancomycin, meropenem and azithromycin. Good diuresis with albumin and lasix yesterday, repeating today per [facility], appreciate recommendations. 03/07/23: Stable, continued current treatment plans 03/08/23: FiO2 down to 45% today, will resume vancomycin for corynebacterium, has completed azithromycin, will complete 2 more days of meropenem. Started dexameth asone 03/07 with possible slight improvement noted. 03/09/23: Stable, continue current vancomycin and meropenem, dexamethasone. Qualifiers: (2) Respiratory failure with hypoxia Status: Acute Assessment & Plan: Intubated 03/02/23 Qualifiers: Qualified Codes: J96.01 - Acute respiratory failure with hypoxia (3) Electrolyte abnormality Status: Acute Assessment & Plan: -potassium and magnesium replaced per protocol 03/06 will replace phos 03/07 replace phos and add extra K above protocol to try to get K above 4 due to obstipation (4) Hydrocephalus Status: Chronic Assessment & Plan: with CLOTH BLEACHING RANGE BACK TENDER shunt, no evidence of dysfunction (5) Hypokalemia Status: Acute (6) VACTERL association Status: Chronic (7) Cerebral palsy Status: Chronic (8) Seizure disorder Status: Chronic Assessment & Plan: No seizure activity noted, continue home meds (9) Subaortic valve stenosis, congenital Status: Chronic Assessment & Plan: Check echo given worsening respiratory status. (10) Obstipation Status: Acute Assessment & Plan: Appreciate Surgery recommendations. No bowel movement with enema yesterday per mother's report. 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 No acute need to change status at this time, continuing to address on a daily basis. (13) DVT prophylaxis Status: Acute Assessment & Plan: Enoxaparin RADHA SCHROEDER MD Mar 09, 2023 10:30
[2023-03-09 11:29] VITALS: BP 127/65
[2023-03-09] MEDS: polyethylene glycoL Bowel Prep(MIRALAX) 238 GM PO SCH ×10 (11:30→12:40)
--- NOTE | 2023-03-09 13:08 | Tele-ICU Progress Note ---
Subjective Date Seen by a Provider: Mar 09, 2023 Time Seen by a Provider: 13:08 Subjective/Events-last exam (Tele-ICU Physician , Progress Note ) Service provided via interactive audio and video telecommunications E-CARE system to a patient admitted to ICU bed in [facility]. Patient is seen today due to persistent need of ICU care Available chart/ vitals / labs / Images reviewed Video assessment done using teleICU camera, rest of exam as per RN Discussed with RN Events overnight : Afebrile hemodynamically stable Respiratory - 60% I/O = NEG Drips: Pressors- no VENT SETTINGS and ABG reviewed NOT CANDIDATE for SBTreviewed possible contraindications including Cardiovascular Stability /Sedation Score / FI02/PEEP / ABG / CXR/ secretions Sedation, discussed with RN, RASS -1 -propfol 45 precedex 1.2 Hospital course: (03/01) 17y/o M admitted with pneumonia, hypoxia. (03/02) INTUBATED 03/03-Ac 20 380 + 8 60% , RASS -1 on propfol 30 precedex 0.8 , added mucomist , cut down fluids 03/05- Ac 20 380 + 5 35 % propfol 50 precedex 1.4 03/06-Ac 20 380 + 5 50% propfol 50 precedex 1.4 , echo EF 60% , RVSP 30 mmHg, subaortic stenosis- moder 03/07- large neg fluid balance , ? ARDS - empiric steroids 03/07 03/08- vent. AC 20, 380, 45% ,peep 5. not ready for SBT 03/09- Bowel regimen Mag citrate started -RASS -1 -propfol 45 precedex 1.2 ,Ac 20 380 + 5 50% A/P Acute hypoxic resp failure ( with congenital scoliosis, tracheomalacia and MADISYN ) - pna WITH SUSPRCTEED ARDS -(03/02) INTUBATED Ac 20 380 + 5 50% - thick secretions -duo neb and mucomist - less amount , - cxr worsening - try diuresis - RESPONDED WELL with less rhonchorous and good urine outpuit - to cont today - CXR without improvement - ? 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 No small bowel obstruction. - Sx consuled - lactulose started-GEN. surgery following- Bowel regimen Mag citrate started ( h/o Esophageal stricture , nissanfundoplication , PEG tube placement H/o Hydrocephalus - s/p ANIMAL SKINNER shunt Baclofen pump - 60 mg/day - cont Anemia stable skin - clear MADISYN- BIPAP 05/11 at night , NOT on O2 when doing well Nutrition - TF on hold 03/05 - -Bowel regimen Mag citrate started 03/09 Elev TGL - on propfol , repeted pending Lines : R port periph , RIGHT fem line , (Central Line Necessity Reviewed) [place]: + OG: Nutrition: PEG - off TF 03/05 Analgesia: Anxiety/ delirium VTE Prophylaxis: trina 30 Stress Ulcer Prophylaxis: na Plans in collaboration with bedside consultants and IM MDs. Discussed with RN to reach out if any questions or concerns Case and care daily discussed on multidisciplinary rounds ( RN, PharmD, Converting Technician , Respiratory Therapy, cotton farmworker ) A total of 31 minutes of critical care time was devoted to this patient today, required to treat and/or prevent further deterioration of critical care condition ( as above ) . Sepsis Event Evaluation Height, Weight, BMI Height: 4'0" Weight: 72lbs. oz. 32.627026tr; 28.25 BMI Method: Focused Exam Time of Focused Exam: 09:00 Exam Exam Patient acknowledged, consented, and participated in this virtual visit which was conducted using real time audio/video Vital Signs Date Time Temp Pulse Resp B/P (MAP) Pulse Ox O2 Delivery O2 Flow Rate FiO2 03/09/23 12:30 105 03/09/23 12:00 89 21 128/62 (84) 94 Mechanical Ventilator 45.00 03/09/23 11:17 36.9 03/09/23 11:00 86 13 127/65 (85) 94 Mechanical Ventilator 45.00 03/09/23 10:00 100 20 121/56 (77) 97 Mechanical Ventilator 45.00 03/09/23 09:08 73 131/60 03/09/23 09:00 71 20 126/62 (83) 98 Mechanical Ventilator 45.00 03/09/23 08:00 95 Mechanical Ventilator 45 03/09/23 08:00 73 131/60 (83) 94 Mechanical Ventilator 45.00 03/09/23 07:35 36.8 03/09/23 07:15 63 03/09/23 07:00 59 18 143/61 (88) 94 Mechanical Ventilator 45.00 03/09/23 06:00 61 20 126/56 (79) 93 Mechanical Ventilator 45.00 03/09/23 05:31 65 131/58 03/09/23 05:31 64 131/58 03/09/23 05:00 70 20 131/57 (81) 93 Mechanical Ventilator 45.00 03/09/23 04:06 94 Mechanical Ventilator 45 03/09/23 04:00 36.2 03/09/23 04:00 80 20 125/61 (82) 93 Mechanical Ventilator 45.00 03/09/23 03:00 81 20 135/66 (89) 94 Mechanical Ventilator 45.00 03/09/23 02:43 66 20 95 45 03/09/23 02:00 53 20 161/69 (99) 95 Mechanical Ventilator 45.00 03/09/23 01:36 50 166/79 03/09/23 01:35 50 166/79 03/09/23 01:00 52 03/09/23 01:00 52 20 141/65 (90) 95 Mechanical Ventilator 45.00 03/09/23 00:00 60 20 150/68 (95) 94 Mechanical Ventilator 45.00 03/09/23 00:00 36.1 03/08/23 23:59 94 Mechanical Ventilator 45 03/08/23 23:00 62 20 159/68 (98) 94 Mechanical Ventilator 45.00 03/08/23 22:39 64 153/70 03/08/23 22:38 64 153/70 03/08/23 22:00 56 20 143/68 (93) 95 Mechanical Ventilator 45.00 03/08/23 21:00 53 20 153/67 (99) 94 Mechanical Ventilator 45.00 03/08/23 20:00 95 Mechanical Ventilator 45 03/08/23 20:00 64 20 159/73 (108) 96 Mechanical Ventilator 45.00 03/08/23 20:00 35.9 03/08/23 19:05 58 20 95 45 03/08/23 19:00 57 20 151/64 (99) 95 Mechanical Ventilator 45.00 03/08/23 19:00 57 03/08/23 18:38 61 154/73 03/08/23 18:00 61 16 154/73 (100) 95 Mechanical Ventilator 45.00 03/08/23 17:00 61 15 154/73 (100) 95 Mechanical Ventilator 45.00 03/08/23 16:00 93 Mechanical Ventilator 45 03/08/23 16:00 70 26 148/72 (97) 94 Mechanical Ventilator 45.00 03/08/23 15:53 70 148/72 03/08/23 15:26 37.1 03/08/23 15:00 100 37 143/76 (98) 95 Mechanical Ventilator 45.00 03/08/23 14:40 82 20 94 45 03/08/23 14:00 60 9 149/72 (97) 94 Mechanical Ventilator 45.00 03/08/23 13:15 75 I & O 03/09/23 07:00 Intake Total 1460 ml Output Total 1950 ml Balance -490 ml Height & Weight Height: 4'0" Weight: 72lbs. oz. 32.251698lj; 28.25 BMI Method: General Appearance: No Apparent Distress, Chronically ill, Other (intubated) HEENT: Normal ENT Inspection Neck: Normal Inspection, Supple Respiratory: No Accessory Muscle Use, Other (equal chest rise) Cardiovascular: Regular Rate, Rhythm, No JVD Gastrointestinal: soft, distended (same as yesterday) Extremity: Non Tender, No Calf Tenderness, No Pedal Edema, Other (mild sdrotal edema) Neurologic/Psychiatric: Other (intubated, sedated) Skin: Normal Color, Warm/Dry Lymphatic: No Adenopathy Results Lab Laboratory Tests 03/08/23 04:50 03/09/23 03:40 Assessment/Plan Assessment/Plan 1 VANESSA MIRAMONTES MD Mar 09, 2023 13:08
[2023-03-09 14:06] VITALS: BP 116/59
[2023-03-09 18:38] VITALS: BP 126/64
[2023-03-09] MEDS: ZONISAMIDE 100 MG CAP (ZONEGRAN) NON-FORMULARY PO SCH (20:31)
[2023-03-09 21:54] VITALS: BP 119/65
[2023-03-10] MEDS: MEROPENEM 500 MG in NS (IVPB) 100 ML 100 ML IV SCH ×4 (02:47→20:07)
[2023-03-10 02:50] VITALS: BP 126/62
[2023-03-10] MEDS: RT-LEVALBUTEROL (XOPENEX) 1.25 MG/3 ML NEB NON-FORMULARY INH SCH ×4 (02:50→21:09)
[2023-03-10] MEDS: aCETylcysteine 20% (RT/PO) 4 ML SOLN VIAL INH SCH ×5 (02:58→21:10)
[2023-03-10 03:59] LABS: BASOPHILS % (AUTO) 0 % (0-10); EOSINOPHILS # (AUTO) 0.1 10^3/uL (0.0-0.3); EOSINOPHILS % (AUTO) 2 % (0-10); HEMATOCRIT 29 % (40-54); HEMOGLOBIN 9.4 g/dL (13.3-17.7); LYMPHOCYTES # (AUTO) 2.9 10^3/uL (1.0-4.0); LYMPHOCYTES % (AUTO) 41 % (12-44); MEAN CORPUSCULAR HEMOGLOBIN 29 pg (25-34); MEAN CORPUSCULAR HGB CONC 33 g/dL (32-36); MEAN CORPUSCULAR VOLUME 89 fL (80-99); MEAN PLATELET VOLUME 10.8 fL (9.0-12.2); MONOCYTES # (AUTO) 0.4 10^3/uL (0.0-1.0); MONOCYTES % (AUTO) 5 % (0-12); NEUTROPHILS # (AUTO) 3.6 10^3/uL (1.8-7.8); NEUTROPHILS % (AUTO) 51 % (42-75); PLATELET COUNT 254 10^3/uL (130-400)
[2023-03-10 04:10] LABS: ALBUMIN 3.1 GM/DL (3.2-4.5)
[2023-03-10 04:11] LABS: POTASSIUM 3.8 MMOL/L (3.6-5.0)
[2023-03-10 04:12] LABS: CALCIUM 7.8 MG/DL (8.5-10.1)
[2023-03-10 04:13] LABS: TOTAL PROTEIN 5.3 GM/DL (6.4-8.2)
[2023-03-10 04:15] LABS: BILIRUBIN,TOTAL 0.3 MG/DL (0.1-1.0)
[2023-03-10 04:16] LABS: PHOSPHORUS 2.4 MG/DL (2.3-4.7)
[2023-03-10] MEDS: KCL 20 MEQ TAB (K-DUR) PO SCH (04:16)
[2023-03-10] MEDS: POTASSIUM CL 10MEQ/50ML IVPB 50 ML IV SCH ×2 (04:16→04:24)
[2023-03-10 04:17] LABS: CREATININE SERUM 0.41 MG/DL (0.60-1.30)
[2023-03-10] MEDS: VANCOMYCIN 1 GM/NS 250 ML IVPB IV SCH ×6 (04:20→20:46)
[2023-03-10] MEDS: PROPOFOL DRIP (ICU) 100 ML IV SCH ×4 (04:20→23:55)
[2023-03-10] MEDS: MAGNESIUM 1 GM/100 ML IVPB 100 ML IV SCH (05:18)
[2023-03-10 06:45] VITALS: BP 129/69
--- NOTE | 2023-03-10 07:33 | Tele-ICU Progress Note ---
Subjective Date Seen by a Provider: Mar 10, 2023 Time Seen by a Provider: 11:48 Subjective/Events-last exam (Tele-ICU Physician , Progress Note ) Service provided via interactive audio and video telecommunications E-CARE system to a patient admitted to ICU bed in [facility]. Patient is seen today due to persistent need of ICU care Available chart/ vitals / labs / Images reviewed Video assessment done using teleICU camera, rest of exam as per RN Discussed with RN Events overnight : Afebrile hemodynamically stable Respiratory - 60% I/O = NEG Drips: Pressors- no VENT SETTINGS and ABG reviewed NOT CANDIDATE for SBTreviewed possible contraindications including Cardiovascular Stability /Sedation Score / FI02/PEEP / ABG / CXR/ secretions Sedation, discussed with RN, RASS -1 -propfol 45 precedex 1.2 Hospital course: (03/01) 17y/o M admitted with pneumonia, hypoxia. (03/02) INTUBATED 03/03-Ac 20 380 + 8 60% , RASS -1 on propfol 30 precedex 0.8 , added mucomist , cut down fluids 03/05- Ac 20 380 + 5 35 % propfol 50 precedex 1.4 03/06-Ac 20 380 + 5 50% propfol 50 precedex 1.4 , echo EF 60% , RVSP 30 mmHg, subaortic stenosis- moder 03/07- large neg fluid balance , ? ARDS - empiric steroids 03/07 03/08- vent. AC 20, 380, 45% ,peep 5. not ready for SBT 03/09- Bowel regimen Mag citrate started -RASS -1 -propfol 45 precedex 1.2 ,Ac 20 380 + 5 50% 03/10 had bms. tricle feeding recommended by GI. cxr looks slight improvement in pneumonia A/P Acute hypoxic resp failure ( with congenital scoliosis, tracheomalacia and MADISYN ) - pna WITH SUSPRCTEED ARDS -(03/02) INTUBATED Ac 20 380 + 5 50% - thick secretions -duo neb and mucomist - less amount , - cxr worsening - try diuresis - RESPONDED WELL with less rhonchorous and good urine outpuit - to cont today - CXR without improvement - ? ARDS - will try empiric steroids 03/07 03/10 cxr slight improvement PNA - cont abx , cxr with infiltrated , cx sputum - neg so far - 03/02 sputum= corinebacterioum - ON VANCO AND NERREM ECHO 03/06/23 -echo EF 60% , RVSP 30 mmHg, subaortic stenosis- moder Cerebral palsy Right temporal lobe Sz dz - off AEDs DIRECTOR OF SOCIAL WORK - monitor Abd distension 03/05 - KUB - Colonic constipation and obstipation, large bowel ileus. No small bowel obstruction. - Sx consuled - lactulose started-GEN. surgery following- Bowel regimen Mag citrate started ( h/o Esophageal stricture , nissanfundoplication , PEG tube placement H/o Hydrocephalus - s/p RESULTS TECHNICIAN shunt Baclofen pump - 60 mg/day - cont Anemia stable skin - clear MADISYN- BIPAP 05/11 at night , NOT on O2 when doing well Nutrition - TF on hold 03/05 - -Bowel regimen Mag citrate started 03/09 03/10 G-Tube . trickle feeds will be started and see how he handles. Elev TGL - on propfol , repeted pending Lines : R port periph , RIGHT fem line , (Central Line Necessity Reviewed) [place]: + OG: Nutrition: PEG - off TF 03/05 03/10 trickle feeds will be started Analgesia: Anxiety/ delirium VTE Prophylaxis: 30 Stress Ulcer Prophylaxis: na Plans in collaboration with bedside consultants and IM MDs. Discussed with RN to reach out if any questions or concerns Case and care daily discussed on multidisciplinary rounds ( RN, PharmD, Fixture Builder , Respiratory Therapy, psychiatric social worker supervisor ) A total of 32 minutes of critical care time was devoted to this patient today, required to treat and/or prevent further deterioration of critical care condition ( as above ) . Sepsis Event Evaluation Height, Weight, BMI Height: 4'0" Weight: 72lbs. oz. 32.330797tk; 26.91 BMI Method: Focused Exam Time of Focused Exam: 09:00 Exam Exam Patient acknowledged, consented, and participated in this virtual visit which was conducted using real time audio/video Vital Signs Date Time Temp Pulse Resp B/P (MAP) Pulse Ox O2 Delivery O2 Flow Rate FiO2 03/10/23 06:45 99 20 98 45 03/10/23 06:00 93 20 105/55 (72) 95 Mechanical Ventilator 45.00 03/10/23 05:00 96 20 111/59 (76) 95 Mechanical Ventilator 45.00 03/10/23 04:20 89 117/59 03/10/23 04:00 90 20 119/62 (78) 94 Mechanical Ventilator 45.00 03/10/23 04:00 94 Mechanical Ventilator 45 03/10/23 04:00 36.9 03/10/23 03:00 81 20 129/65 (83) 94 Mechanical Ventilator 45.00 03/10/23 02:50 56 20 94 45 03/10/23 02:00 75 20 129/61 (82) 95 Mechanical Ventilator 45.00 03/10/23 01:00 79 03/10/23 01:00 84 20 122/63 (79) 95 Mechanical Ventilator 45.00 03/10/23 00:32 70 127/62 03/10/23 00:00 36.6 03/10/23 00:00 83 20 122/68 (82) 94 Mechanical Ventilator 45.00 03/09/23 23:59 94 Mechanical Ventilator 45 03/09/23 23:30 78 124/63 03/09/23 23:00 77 20 122/66 (80) 93 Mechanical Ventilator 45.00 03/09/23 22:00 84 20 126/65 (83) 95 Mechanical Ventilator 45.00 03/09/23 21:54 66 20 96 45 03/09/23 21:00 80 20 112/57 (74) 96 Mechanical Ventilator 45.00 03/09/23 20:32 93 117/63 03/09/23 20:26 95 Mechanical Ventilator 45 03/09/23 20:03 36.7 03/09/23 20:00 90 20 121/63 (80) 96 Mechanical Ventilator 45.00 03/09/23 19:22 62 126/64 03/09/23 19:00 93 03/09/23 19:00 86 20 126/62 (83) 92 Mechanical Ventilator 45.00 03/09/23 18:56 62 126/64 03/09/23 18:38 62 20 92 45 03/09/23 18:00 57 16 125/64 (84) 94 Mechanical Ventilator 45.00 03/09/23 17:00 62 6 127/62 (83) 94 Mechanical Ventilator 45.00 03/09/23 16:32 36.6 03/09/23 16:00 68 118/65 (82) 94 Mechanical Ventilator 45.00 03/09/23 15:31 96 Mechanical Ventilator 45 03/09/23 15:00 58 15 120/59 (79) 93 Mechanical Ventilator 45.00 03/09/23 14:56 63 116/59 03/09/23 14:06 64 20 94 45 03/09/23 14:00 63 19 116/59 (78) 93 Mechanical Ventilator 45.00 03/09/23 13:08 63 116/59 03/09/23 13:00 86 37 108/60 (76) 91 Mechanical Ventilator 45.00 03/09/23 12:30 105 03/09/23 12:00 96 Mechanical Ventilator 45 03/09/23 12:00 89 21 128/62 (84) 94 Mechanical Ventilator 45.00 03/09/23 11:29 89 20 94 45 03/09/23 11:17 36.9 03/09/23 11:00 86 13 127/65 (85) 94 Mechanical Ventilator 45.00 03/09/23 10:00 100 20 121/56 (77) 97 Mechanical Ventilator 45.00 03/09/23 09:08 73 131/60 03/09/23 09:00 71 20 126/62 (83) 98 Mechanical Ventilator 45.00 03/09/23 08:00 95 Mechanical Ventilator 45 03/09/23 08:00 73 131/60 (83) 94 Mechanical Ventilator 45.00 03/09/23 07:35 36.8 I & O 03/10/23 06:59 Intake Total 1730 ml Output Total 3325 ml Balance -1595 ml Height & Weight Height: 4'0" Weight: 72lbs. oz. 32.116350ts; 26.91 BMI Method: General Appearance: No Apparent Distress, Chronically ill, Other (intubated) HEENT: Normal ENT Inspection Neck: Normal Inspection, Supple Respiratory: No Accessory Muscle Use, Other (equal chest rise) Cardiovascular: Regular Rate, Rhythm, No JVD Gastrointestinal: soft, distended (same as yesterday) Extremity: Non Tender, No Calf Tenderness, No Pedal Edema, Other (mild sdrotal edema) Neurologic/Psychiatric: Other (intubated, sedated) Skin: Normal Color, Warm/Dry Lymphatic: No Adenopathy Results Lab Laboratory Tests 03/09/23 03:40 03/10/23 03:40 Assessment/Plan Assessment/Plan ABOVE Critical Care: Ventilator Management Time spent with patient (mins): 32 PANKAJ CANDELARIA MD Mar 10, 2023 07:33
--- NOTE | 2023-03-10 07:55 | Diagnostic Imaging Report ---
Indication: Respiratory distress Frontal chest obtained at 0504 a.m. compared with yesterday. ET tube and Port-A-Cath are unchanged. Shunt catheter over the left hemithorax again noted. There is no change in extensive bilateral infiltrates. There is no pneumothorax or pleural fluid. IMPRESSION: Stable bilateral infiltrates compared to yesterday. No change in supportive apparatus. Dictated by: Dictated on workstation # [id number]
--- NOTE | 2023-03-10 08:18 | Progress Note - Surgery ---
Subjective Date Seen by a Provider: Mar 10, 2023 Time Seen by a Provider: 08:18 Subjective/Events-last exam Intubated and sedated. Having bowel function. Abdomen less distended. Focused Exam Time of Focused Exam: 09:00 Objective Exam Vital Signs Date Time Temp Pulse Resp B/P (MAP) Pulse Ox O2 Delivery O2 Flow Rate FiO2 03/10/23 08:00 97 28 111/57 (75) 94 Mechanical Ventilator 45.00 03/10/23 07:53 36.2 03/10/23 07:26 81 03/10/23 07:00 94 49 105/54 (71) 96 Mechanical Ventilator 45.00 03/10/23 06:45 99 20 98 45 03/10/23 06:00 93 20 105/55 (72) 95 Mechanical Ventilator 45.00 03/10/23 05:00 96 20 111/59 (76) 95 Mechanical Ventilator 45.00 03/10/23 04:20 89 117/59 03/10/23 04:00 90 20 119/62 (78) 94 Mechanical Ventilator 45.00 03/10/23 04:00 94 Mechanical Ventilator 45 03/10/23 04:00 36.9 03/10/23 03:00 81 20 129/65 (83) 94 Mechanical Ventilator 45.00 03/10/23 02:50 56 20 94 45 03/10/23 02:00 75 20 129/61 (82) 95 Mechanical Ventilator 45.00 03/10/23 01:00 79 03/10/23 01:00 84 20 122/63 (79) 95 Mechanical Ventilator 45.00 03/10/23 00:32 70 127/62 03/10/23 00:00 36.6 03/10/23 00:00 83 20 122/68 (82) 94 Mechanical Ventilator 45.00 03/09/23 23:59 94 Mechanical Ventilator 45 03/09/23 23:30 78 124/63 03/09/23 23:00 77 20 122/66 (80) 93 Mechanical Ventilator 45.00 03/09/23 22:00 84 20 126/65 (83) 95 Mechanical Ventilator 45.00 03/09/23 21:54 66 20 96 45 03/09/23 21:00 80 20 112/57 (74) 96 Mechanical Ventilator 45.00 03/09/23 20:32 93 117/63 03/09/23 20:26 95 Mechanical Ventilator 45 03/09/23 20:03 36.7 03/09/23 20:00 90 20 121/63 (80) 96 Mechanical Ventilator 45.00 03/09/23 19:22 62 126/64 03/09/23 19:00 93 03/09/23 19:00 86 20 126/62 (83) 92 Mechanical Ventilator 45.00 03/09/23 18:56 62 126/64 03/09/23 18:38 62 20 92 45 03/09/23 18:00 57 16 125/64 (84) 94 Mechanical Ventilator 45.00 03/09/23 17:00 62 6 127/62 (83) 94 Mechanical Ventilator 45.00 03/09/23 16:32 36.6 03/09/23 16:00 68 118/65 (82) 94 Mechanical Ventilator 45.00 03/09/23 15:31 96 Mechanical Ventilator 45 03/09/23 15:00 58 15 120/59 (79) 93 Mechanical Ventilator 45.00 03/09/23 14:56 63 116/59 03/09/23 14:06 64 20 94 45 03/09/23 14:00 63 19 116/59 (78) 93 Mechanical Ventilator 45.00 03/09/23 13:08 63 116/59 03/09/23 13:00 86 37 108/60 (76) 91 Mechanical Ventilator 45.00 03/09/23 12:30 105 03/09/23 12:00 96 Mechanical Ventilator 45 03/09/23 12:00 89 21 128/62 (84) 94 Mechanical Ventilator 45.00 03/09/23 11:29 89 20 94 45 03/09/23 11:17 36.9 03/09/23 11:00 86 13 127/65 (85) 94 Mechanical Ventilator 45.00 03/09/23 10:00 100 20 121/56 (77) 97 Mechanical Ventilator 45.00 03/09/23 09:08 73 131/60 03/09/23 09:00 71 20 126/62 (83) 98 Mechanical Ventilator 45.00 I & O 03/10/23 07:00 Intake Total 1730 ml Output Total 3325 ml Balance -1595 ml Capillary Refill : General Appearance: No Apparent Distress, Chronically ill, Other (intubated) HEENT: Normal ENT Inspection Neck: Normal Inspection, Supple Respiratory: No Accessory Muscle Use, Other (equal chest rise) Cardiovascular: Regular Rate, Rhythm, No JVD Gastrointestinal: soft, distended (minimal) Extremity: Non Tender, No Calf Tenderness, No Pedal Edema, Other (mild sdrotal edema) Neurologic/Psychiatric: Other (intubated, sedated) Skin: Normal Color, Warm/Dry Lymphatic: No Adenopathy Results Lab Laboratory Tests 03/09/23 11:33: Glucometer 106 03/09/23 17:29: Glucometer 111H 03/10/23 01:31: Glucometer 81 03/10/23 03:40: White Blood Count 7.0, Red Blood Count 3.22L, Hemoglobin 9.4L, Hematocrit 29L, Mean Corpuscular Volume 89, Mean Corpuscular Hemoglobin 29, Mean Corpuscular Hemoglobin Concent 33, Red Cell Distribution Width 14.9H, Platelet Count 254, Mean Platelet Volume 10.8, Immature Granulocyte % (Auto) 0, Neutrophils (%) (Auto) 51, Lymphocytes (%) (Auto) 41, Monocytes (%) (Auto) 5, Eosinophils (%) (Auto) 2, Basophils (%) (Auto) 0, Neutrophils # (Auto) 3.6, Lymphocytes # (Auto) 2.9, Monocytes # (Auto) 0.4, Eosinophils # (Auto) 0.1, Basophils # (Auto) 0.0, I mmature Granulocyte # (Auto) 0.0, Venous Blood pH 7.38, Venous Blood Partial Pressure CO2 39L, Venous Blood HCO3 23, Sodium Level 143, Potassium Level 3.8, Chloride Level 111H, Carbon Dioxide Level 20L, Anion Gap 12, Blood Urea Nitrogen 6L, Creatinine 0.41L, Estimat Glomerular Filtration Rate 160, BUN/Creatinine Ratio 15, Glucose Level 90, Calcium Level 7.8L, Corrected Calcium 8.5, P hosphorus Level 2.4, Magnesium Level 2.0, Total Bilirubin 0.3, Aspartate Amino Transf (AST/SGOT) 29, Alanine Aminotransferase (ALT/SGPT) 39, Alkaline Phosphatase 62, Total Protein 5.3L, Albumin 3.1L Microbiology 03/02/23 Gram Stain - Final, Complete 03/02/23 Sputum Culture - Final, Complete Corynebacterium striatum 03/01/23 Blood Culture - Final, Complete No growth Assessment/Plan Assessment/Plan Assessment/Plan pneumonia b/l hypoxia respiratory failure requiring intubation poor venous access constipation Abdominal distension abdomen minimal distention after bowel function -g tube to start trickle feeds Bowel regimen Right femoral line, will try and see if we can get further access today with midlines or picc RAFFI MAGAÑA DO Mar 10, 2023 08:18
[2023-03-10] MEDS ORDERED: MEROPENEM 500 MG VIAL (MERREM) IV ONE (08:36)
[2023-03-10] MEDS: PANTOPRAZOLE 40 MG (PROTONIX) VIAL IV SCH (08:56)
[2023-03-10] MEDS: dexAMETHasone INJ 10 MG/ML 1 ML VIAL IV SCH (08:56)
[2023-03-10] MEDS: LORATADINE 5 MG/5 ML SOLN (CLARITIN) UDC GT SCH ×2 (08:56→20:45)
[2023-03-10] MEDS: ENOXAPARIN 30 MG/0.3 ML SYRINGE SC SCH ×2 (08:57→20:07)
[2023-03-10] MEDS: TRILEPTAL GT SCH ×2 (08:59→20:47)
[2023-03-10] MEDS: polyethylene glycoL POWDER 17 GM (MIRALAX) PACK GT SCH ×3 (09:00→20:43)
[2023-03-10 11:18] VITALS: BP 121/66
[2023-03-10 14:44] VITALS: BP 129/71
[2023-03-10] MEDS: DexMEDEtomidine 250 ML DRIP 250 ML IV SCH (15:16)
--- NOTE | 2023-03-10 15:35 | Progress Note ---
Subjective Subjective/Events-last exam Mother at bedside this AM. Patient awake and responding more like himself with mother. Tube feeds have not yet been started. Having good BMs 4-5 since yesterday Review of Systems Patient nonverbal at baseline Focused Exam Time of Focused Exam: 09:00 Objective Exam Last Set of Vital Signs Vital Signs Date Time Temp Pulse Resp B/P (MAP) Pulse Ox O2 Delivery O2 Flow Rate FiO2 03/10/23 15:16 62 124/62 03/10/23 14:44 20 93 45 03/10/23 14:00 Mechanical Ventilator 45.00 03/10/23 11:45 36.2 Capillary Refill : I&O Intake and Output 03/10/23 00:00 Intake Total 2180 ml Output Total 3300 ml Balance -1120 ml Intake Oral 0 ml IV Total 1500 ml Other 680 ml Output Urine Total 3300 ml # Bowel Movements 5 General: Other (Awake) Lungs: Other (Diffuse crackles in all lung gonsales, normal work of breathing, having alot of secretions) Heart: Regular Rate, No Murmurs Abdomen: Normal Bowel Sounds, Soft Extremities: Other (trace LE swelling) Results/Procedures Lab Laboratory Tests 03/09/23 17:29: Glucometer 111H 03/10/23 01:31: Glucometer 81 03/10/23 03:40: White Blood Count 7.0, Red Blood Count 3.22L, Hemoglobin 9.4L, Hematocrit 29L, Mean Corpuscular Volume 89, Mean Corpuscular Hemoglobin 29, Mean Corpuscular Hemoglobin Concent 33, Red Cell Distribution Width 14.9H, Platelet Count 254, Mean Platelet Volume 10.8, Immature Granulocyte % (Auto) 0, Neutrophils (%) (Auto) 51, Lymphocytes (%) (Auto) 41, Monocytes (%) (Auto) 5, Eosinophils (%) (Auto) 2, Basophils (%) (Auto) 0, Neutrophils # (Auto) 3.6, Lymphocytes # (Auto) 2.9, Monocytes # (Auto) 0.4, Eosinophils # (Auto) 0.1, Basophils # (Auto) 0.0, Immature Granulocyte # (Auto) 0.0, Venous Blood pH 7.38, Venous Blood Partial Pressure CO2 39L, Venous Blood HCO3 23, Sodium Level 143, Potassium Level 3.8, Chloride Level 111H, Carbon Dioxide Level 20L, Anion Gap 12, Blood Urea Nitrogen 6L, Creatinine 0.41L, Estimat Glomerular Filtration Rate 160, BUN/Creatinine Ratio 15, Glucose Level 90, Calcium Level 7.8L, Corrected Calcium 8.5, Phosphorus Level 2.4, Magnesium Level 2.0, Total Bilirubin 0.3, Aspartate Amino Transf (AST/SGOT) 29, Alanine Aminotransferase (ALT/SGPT) 39, Alkaline Phosphatase 62, Total Protein 5.3L, Albumin 3.1L 03/10/23 11:26: Glucometer 101 Microbiology 03/02/23 Gram Stain - Final, Complete 03/02/23 Sputum Culture - Final, Complete Corynebacterium striatum 03/01/23 Blood Culture - Final, Complete No growth Radiology ADMIT DATE: 03/01/23/ICU Signed Date of Exam:03/01/23 CHEST 1 VIEW, AP/PA ONLY Indication: Hypoxia Frontal chest obtained at 1208 p.m. compared to 05/11/2015. The heart is normal in size. There is a Port-A-Cath over the right chest with tip overlying the low SVC. There is a shunt catheter over the left hemithorax. There is central vascular congestion with perihilar infiltrates. There is no pneumothorax or pleural fluid. Impression: Bilateral perihilar infiltrates are present, pneumonia is not excluded. There is no pneumothorax or pleural fluid. Heart is normal in size. There is dextroscoliotic change. Dictated by: Dictated on workstation # [id number] Dict: 03/01/23 1212 Trans: 03/01/23 1328 [facility] [id number] Interpreted by: KAMARI MACHUCA MD Assessment/Plan Assessment/Plan (1) Pneumonia Status: Acute Assessment & Plan: Directly admitted to ICU from the clinic via EMS due to pneumonia and hypoxia. At risk for decompensation due to multiple co-morbidities, discussed transfer options with mother and legal guardian and would like to stay at [facility] if possible and trial IV antibiotics. Currently requiring bi-pap at 60% FIO2 to maintain dixie in the low 90's. Antibiotics started - zithromax and meropenam IVF - will give fluid bolus x1L then 150mL/h initial cbc normal; blood cultures pending. Resume home meds and G-tube feeds - dietary consulted for conversion of home feeding regimen. 03/02/2023: Worsening respiratory status overnight, now requiring 70% FIO2 to maintain sats and prevent acidosis. More tachypneic. Consult Dr. Rahman for critical care. Recommending intubation. Discussed consideration of transfer, Dr. Rahman recommends intubation prior to transfer due to risk of clinical deterioration en route if transfer is chosen by parents Discussed code status, would like to proceed with intubation but would prefer not to have chest compressions. Parents are legal guardian of patient but as an adult, court must order DNR or modified DNR. 03/03/23: Intubated without incident yesterday. Sedated on vent currently, more comfortable. O2 98% on 80% FIO2; VBG 7. am CXR severe, bilateral infiltrates, unchanged from yesterday Vancomycin added yesterday. labs, vitals stable blood culture negative Dr. Rahman and eICU provider co-managing 03/04/23: Fi02 35%, stable, sedated on vent. continue current care 03/05/23: sputum culture grew corynebacterium - typically sensitive to vancomycin and meropenum Fi02 35%, stable, sedated on vent. continue current care 03/06/23: Persistent worsening hypoxia, FiO2 55% this am, continued on vancomycin, meropenem and azithromycin. Good diuresis with albumin and lasix yesterday, repeating today per [facility], appreciate recommendations. 03/07/23: Stable, continued current treatment plans 03/08/23: FiO2 down to 45% today, will resume vancomycin for corynebacterium, has completed azithromycin, will complete 2 more days of meropenem. Started dexamethasone 03/07 with possible slight improvement noted. 03/09/23: Stable, continue current vancomycin and meropenem, dexamethasone. 03/10: - Will titrate FiO2 as tolerated, weaning sedation in preparation of possible SBT, no change in antibiotics at this time Qualifiers: (2) Respiratory failure with hypoxia Status: Acute Assessment & Plan: Intubated 03/02/23 Qualifiers: Qualified Codes: J96.01 - Acute respiratory failure with hypoxia (3) Electrolyte abnormality Status: Acute Assessment & Plan: -potassium and magnesium replaced per protocol 03/06 will replace phos 03/07 replace phos and add extra K above protocol to try to get K above 4 due to obstipation (4) Hydrocephalus Status: Chronic Assessment & Plan: with HANDICRAFT OR HOBBY SHOP MANAGER shunt, no evidence of dysfunction (5) Hypokalemia Status: Acute (6) VACTERL association Status: Chronic (7) Cerebral palsy Status: Chronic (8) Seizure disorder Status: Chronic Assessment & Plan: No seizure activity noted, continue home meds (9) Subaortic valve stenosis, congenital Status: Chronic Assessment & Plan: Check echo given worsening respiratory status. (10) Obstipation Status: Acute Assessment & Plan: Appreciate Surgery recommendations. No bowel movement with enema yesterday per mother's report. 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 No acute need to change status at this time, continuing to address on a daily basis. (13) DVT prophylaxis Status: Acute Assessment & Plan: Enoxaparin CHERY HAAS MD Mar 10, 2023 15:35
[2023-03-10 18:42] VITALS: BP 131/60
[2023-03-10] MEDS: ZONISAMIDE 100 MG CAP (ZONEGRAN) NON-FORMULARY PO SCH (20:46)
[2023-03-10 21:10] VITALS: BP 130/69
[2023-03-10] MEDS ORDERED: fentaNYL INJ 100 MCG/2 ML AMP ONE (23:02)
[2023-03-10] MEDS: fentaNYL INJ 100 MCG/2 ML AMP IVP PRN (23:06)
[2023-03-11] MEDS: MEROPENEM 500 MG in NS (IVPB) 100 ML 100 ML IV SCH ×2 (01:35→07:57)
[2023-03-11 03:37] LABS: BASOPHILS % (AUTO) 0 % (0-10); EOSINOPHILS % (AUTO) 1 % (0-10); HEMATOCRIT 28 % (40-54); HEMOGLOBIN 9.2 g/dL (13.3-17.7); LYMPHOCYTES % (AUTO) 41 % (12-44); MEAN CORPUSCULAR HEMOGLOBIN 29 pg (25-34); MEAN CORPUSCULAR HGB CONC 33 g/dL (32-36); MEAN CORPUSCULAR VOLUME 89 fL (80-99); MEAN PLATELET VOLUME 10.3 fL (9.0-12.2); MONOCYTES % (AUTO) 5 % (0-12); NEUTROPHILS # (AUTO) 4.1 X 10^3 (1.8-7.8); NEUTROPHILS % (AUTO) 53 % (42-75); PLATELET COUNT 312 10^3/uL (130-400); WHITE BLOOD COUNT 7.9 10^3/uL (4.3-11.0)
[2023-03-11 03:38] LABS: EOSINOPHILS # (AUTO) 0.1 10^3/uL (0.0-0.3); LYMPHOCYTES # (AUTO) 3.2 X 10^3 (1.0-4.0); MONOCYTES # (AUTO) 0.4 X 10^3 (0.0-1.0)
[2023-03-11 04:16] LABS: ALBUMIN 3.2 GM/DL (3.2-4.5); POTASSIUM 3.2 MMOL/L (3.6-5.0)
[2023-03-11] MEDS: VANCOMYCIN 1 GM/NS 250 ML IVPB IV SCH ×6 (04:16→20:16)
[2023-03-11 04:17] LABS: CALCIUM 8.2 MG/DL (8.5-10.1)
[2023-03-11 04:19] LABS: TOTAL PROTEIN 5.2 GM/DL (6.4-8.2)
[2023-03-11 04:20] LABS: BILIRUBIN,TOTAL 0.2 MG/DL (0.1-1.0)
[2023-03-11 04:22] LABS: CREATININE SERUM 0.41 MG/DL (0.60-1.30); PHOSPHORUS 2.1 MG/DL (2.3-4.7)
[2023-03-11] MEDS: POTASSIUM CL 10MEQ/50ML IVPB 50 ML IV SCH ×7 (04:23→07:46)
[2023-03-11] MEDS: KCL 20 MEQ TAB (K-DUR) PO SCH (04:24)
[2023-03-11] MEDS: MAGNESIUM 1 GM/100 ML IVPB 100 ML IV SCH (05:26)
[2023-03-11] MEDS: fentaNYL INJ 100 MCG/2 ML AMP IVP PRN ×3 (05:40→16:40)
[2023-03-11] MEDS: NS IV 1000 ML 1,000 ML IV SCH ×3 (06:45→23:22)
[2023-03-11 06:51] VITALS: BP 104/59
[2023-03-11] MEDS: RT-LEVALBUTEROL (XOPENEX) 1.25 MG/3 ML NEB NON-FORMULARY INH SCH ×3 (06:51→21:36)
[2023-03-11] MEDS: aCETylcysteine 20% (RT/PO) 4 ML SOLN VIAL INH SCH ×3 (06:51→21:36)
[2023-03-11] MEDS: DexMEDEtomidine 250 ML DRIP 250 ML IV SCH (07:58)
[2023-03-11] MEDS: LORATADINE 5 MG/5 ML SOLN (CLARITIN) UDC GT SCH ×2 (08:00→20:16)
[2023-03-11] MEDS: dexAMETHasone INJ 10 MG/ML 1 ML VIAL IV SCH (08:00)
[2023-03-11] MEDS: polyethylene glycoL POWDER 17 GM (MIRALAX) PACK GT SCH (08:00)
[2023-03-11] MEDS: ENOXAPARIN 30 MG/0.3 ML SYRINGE SC SCH ×2 (08:00→20:16)
[2023-03-11] MEDS: PANTOPRAZOLE 40 MG (PROTONIX) VIAL IV SCH (08:00)
[2023-03-11] MEDS: TRILEPTAL GT SCH ×2 (08:01→20:18)
--- NOTE | 2023-03-11 08:41 | Diagnostic Imaging Report ---
EXAMINATION: Chest 1 view HISTORY: Pneumonia. COMPARISON: 03/10/2023 FINDINGS: Endotracheal tube tip terminates 5 cm above the claudia. Right port catheter tip terminates in the superior vena cava. There are persistent moderate airspace opacities in both lungs. Small right pleural effusion is present. No pneumothorax. Heart size is normal. IMPRESSION: 1. Persistent moderate airspace opacities in both lungs with a small effusion in keeping with history of pneumonia. Dictated by: Dictated on workstation # [id number]
--- NOTE | 2023-03-11 09:26 | Tele-ICU Progress Note ---
Subjective Date Seen by a Provider: Mar 11, 2023 Time Seen by a Provider: 09:25 Subjective/Events-last exam (Tele-ICU Physician , Progress Note ) Service provided via interactive audio and video telecommunications E-CARE system to a patient admitted to ICU bed in [facility]. Patient is seen today due to persistent need of ICU care Available chart/ vitals / labs / Images reviewed Video assessment done using teleICU camera, rest of exam as per RN Discussed with RN Events overnight : Afebrile hemodynamically stable Respiratory - 60% I/O = NEG Drips: Pressors- no VENT SETTINGS and ABG reviewed CANDIDATE for SBTreviewed possible contraindications including Cardiovascular Stability /Sedation Score / FI02/PEEP / ABG / CXR/ secretions Sedation, discussed with RN, RASS -1 -propfol 20 precedex 1.0 Hospital course: (03/01) 17y/o M admitted with pneumonia, hypoxia. (03/02) INTUBATED 03/03-Ac 20 380 + 8 60% , RASS -1 on propfol 30 precedex 0.8 , added mucomist , cut down fluids 03/05- Ac 20 380 + 5 35 % propfol 50 precedex 1.4 03/06-Ac 20 380 + 5 50% propfol 50 precedex 1.4 , echo EF 60% , RVSP 30 mmHg, subaortic stenosis- moder 03/07- large neg fluid balance , ? ARDS - empiric steroids 03/07 03/08- vent. AC 20, 380, 45% ,peep 5. not ready for SBT 03/09- Bowel regimen Mag citrate started -RASS -1 -propfol 45 precedex 1.2 ,Ac 20 380 + 5 50% 03/11 - increase sedation back 2/2 oral secretion , tachycardia - propofol 20 , precedex 1.0 A/P Acute hypoxic resp failure ( with congenital scoliosis, tracheomalacia and MADISYN ) - pna WITH SUSPRCTEED ARDS -(03/02) INTUBATED Ac 20 380 + 5 50% - thick secretions -duo neb and mucomist - less amount - cxr worsening - try diuresis - RESPONDED WELL with less rhonchorous and good urine outpuit - to cont today - CXR without improvement - ? ARDS - will try empiric steroids 03/07 -03/10 and 03/11 cxr slight improvement - WILL TRTY SBT today PNA - cont abx , cxr with infiltrated , cx sputum - neg so far - 03/02 sputum= corinebacterioum - ON VANCO AND NERREM ECHO 03/06/23 -echo EF 60% , RVSP 30 mmHg, subaortic stenosis- moder Cerebral palsy Right temporal lobe Sz dz - off AEDs BRAID FOLDER - monitor Abd distension 03/05 - KUB - Colonic constipation and obstipation, large bowel ileus. No small bowel obstruction. - Sx consuled - lactulose started-GEN. surgery following- Bowel regimen Mag citrate started ( h/o Esophageal stricture , nissanfundoplication , PEG tube placement H/o Hydrocephalus - s/p TYPESETTER PERFORATOR OPERATOR shunt Baclofen pump - 60 mg/day - cont Anemia stable skin - clear MADISYN- BIPAP 05/11 at night , NOT on O2 when doing well Nutrition - TF on hold 03/05 - resumed 03/11 not up to goal yet -Bowel regimen Mag citrate started 03/09- effective - Elev TGL - on propfol , repeted pending Lines : R port periph , RIGHT fem line , (Central Line Necessity Reviewed) [place]: + OG: Nutrition: PEG - off TF 03/05 Analgesia: Anxiety/ delirium VTE Prophylaxis: Stress Ulcer Prophylaxis: na Plans in collaboration with bedside consultants and IM MDs. Discussed with RN to reach out if any questions or concerns Case and care daily discussed on multidisciplinary rounds ( RN, PharmD, Child Welfare Social Worker , Respiratory Therapy, older worker specialist ) A total of 31 minutes of critical care time was devoted to this patient today, required to treat and/or prevent further deterioration of critical care condition ( as above ) . Sepsis Event Evaluation Height, Weight, BMI Height: 4'0" Weight: 72lbs. oz. 32.565399ul; 25.85 BMI Method: Focused Exam Time of Focused Exam: 09:00 Exam Exam Patient acknowledged, consented, and participated in this virtual visit which was conducted using real time audio/video Vital Signs Date Time Temp Pulse Resp B/P (MAP) Pulse Ox O2 Delivery O2 Flow Rate FiO2 03/11/23 09:00 92 19 87/44 (58) 97 Mechanical Ventilator 35.00 03/11/23 08:00 70 19 109/56 (73) 95 Mechanical Ventilator 35.00 03/11/23 07:58 115 87/44 03/11/23 07:52 36.4 03/11/23 07:45 115 87/44 03/11/23 07:00 101 20 87/44 (58) 94 Mechanical Ventilator 35.00 03/11/23 07:00 115 03/11/23 06:51 93 20 94 35 03/11/23 06:44 35 03/11/23 06:00 102 19 108/57 (74) 97 Mechanical Ventilator 35.00 03/11/23 05:00 78 20 120/63 (82) 97 Mechanical Ventilator 35.00 03/11/23 04:00 88 25 122/60 (80) 97 Mechanical Ventilator 35.00 03/11/23 03:53 82 104/57 03/11/23 03:40 96 Mechanical Ventilator 35 03/11/23 03:40 37.2 Mechanical Ventilator 35.00 03/11/23 03:26 87 99/51 03/11/23 03:05 105 102/49 03/11/23 03:05 105 102/49 03/11/23 03:00 84 26 104/57 (73) 97 Mechanical Ventilator 35.00 03/11/23 02:00 65 31 128/65 (86) 96 Mechanical Ventilator 35.00 03/11/23 01:00 94 03/11/23 01:00 95 19 123/66 (85) 97 Mechanical Ventilator 35.00 03/11/23 00:10 36.3 Mechanical Ventilator 35.00 03/11/23 00:00 91 16 121/67 (85) 96 Mechanical Ventilator 35.00 03/10/23 23:55 100 117/63 03/10/23 23:47 104 117/67 03/10/23 23:30 92 Mechanical Ventilator 35 03/10/23 23:30 Mechanical Ventilator 35.00 03/10/23 23:00 113 19 120/61 (80) 95 Mechanical Ventilator 45.00 03/10/23 22:24 131 122/59 03/10/23 22:07 133 133/71 03/10/23 22:00 110 20 119/62 (81) 96 Mechanical Ventilator 45.00 03/10/23 21:10 98 20 95 35 03/10/23 21:00 80 25 130/69 (89) 95 Mechanical Ventilator 45.00 03/10/23 20:04 105 141/77 03/10/23 20:00 93 Mechanical Ventilator 45 03/10/23 20:00 60 17 141/77 (98) 97 Mechanical Ventilator 45.00 03/10/23 19:35 37.0 105 20 143/71 (95) 93 Mechanical Ventilator 45.00 03/10/23 19:16 105 132/63 03/10/23 19:00 90 03/10/23 18:42 95 21 97 45 03/10/23 18:00 76 14 143/73 (96) 92 Mechanical Ventilator 45.00 03/10/23 17:00 68 20 134/72 (92) 92 Mechanical Ventilator 45.00 03/10/23 16:00 97 Mechanical Ventilator 45 03/10/23 16:00 83 27 117/61 (79) 95 Mechanical Ventilator 45.00 03/10/23 15:56 36.0 03/10/23 15:16 62 124/62 03/10/23 15:00 61 20 135/62 (86) 94 Mechanical Ventilator 45.00 03/10/23 14:44 58 20 93 45 03/10/23 14:00 104 19 114/50 (71) 98 Mechanical Ventilator 45.00 03/10/23 13:00 64 8 128/64 (85) 93 Mechanical Ventilator 45.00 03/10/23 12:14 75 03/10/23 12:00 97 Mechanical Ventilator 45 03/10/23 12:00 79 20 128/68 (88) 94 Mechanical Ventilator 45.00 03/10/23 11:45 36.2 03/10/23 11:24 90 121/66 03/10/23 11:18 91 20 95 45 03/10/23 11:00 91 20 122/65 (84) 94 Mechanical Ventilator 45.00 03/10/23 10:00 96 20 118/69 (85) 98 Mechanical Ventilator 45.00 I & O 03/11/23 07:00 Intake Total 1760 ml Output Total 3050 ml Balance -1290 ml Height & Weight Height: 4'0" Weight: 72lbs. oz. 32.487867yb; 25.85 BMI Method: General Appearance: No Apparent Distress, Chronically ill, Other (intubated) HEENT: Normal ENT Inspection Neck: Normal Inspection, Supple Respiratory: No Accessory Muscle Use, Other (equal chest rise) Cardiovascular: Regular Rate, Rhythm, No JVD Capillary Refill: Less Than 3 Seconds Gastrointestinal: soft, distended (same as yesterday) Extremity: Non Tender, No Calf Tenderness, No Pedal Edema, Other (mild sdrotal edema) Neurologic/Psychiatric: Other (intubated, sedated) Skin: Normal Color, Warm/Dry Lymphatic: No Adenopathy Results Lab Laboratory Tests 03/10/23 03:40 03/11/23 03:27 Assessment/Plan Assessment/Plan 1 VANESSA MIRAMONTES MD Mar 11, 2023 09:25
[2023-03-11 10:07] VITALS: BP 110/60
[2023-03-11 14:33] VITALS: BP 124/62
[2023-03-11 15:15] VITALS: BP 134/69
--- NOTE | 2023-03-11 17:43 | Progress Note - Surgery ---
Subjective Date Seen by a Provider: Mar 11, 2023 Time Seen by a Provider: 16:05 Subjective/Events-last exam Remains intubated and sedated. Tolerating tube feeds. Having bowel function. No family at bedside. Abdomen back to normal. Focused Exam Time of Focused Exam: 09:00 Objective Exam Vital Signs Date Time Temp Pulse Resp B/P (MAP) Pulse Ox O2 Delivery O2 Flow Rate FiO2 03/11/23 17:09 92 130/74 03/11/23 16:31 113 130/70 03/11/23 16:01 120 132/69 03/11/23 16:00 97 16 132/69 (90) 94 Mechanical Ventilator 35.00 03/11/23 15:46 37.4 03/11/23 15:32 96 Mechanical Ventilator 35 03/11/23 15:31 117 143/73 03/11/23 15:15 126 35 92 35 03/11/23 15:00 111 34 134/69 (90) 95 Mechanical Ventilator 35.00 03/11/23 14:51 35 03/11/23 14:50 90 124/62 03/11/23 14:33 91 16 98 35 03/11/23 14:19 93 129/70 03/11/23 14:00 104 20 126/65 (85) 97 Mechanical Ventilator 35.00 03/11/23 13:24 99 121/71 03/11/23 13:21 35 03/11/23 13:00 101 20 121/71 (88) 97 Mechanical Ventilator 35.00 03/11/23 13:00 101 03/11/23 12:29 102 128/73 03/11/23 12:00 97 19 120/72 (88) 100 Mechanical Ventilator 35.00 03/11/23 11:55 36.4 03/11/23 11:42 95 127/67 03/11/23 11:36 95 127/67 03/11/23 11:05 97 Mechanical Ventilator 35 03/11/23 11:00 94 27 119/64 (82) 97 Mechanical Ventilator 35.00 03/11/23 10:58 86 112/63 03/11/23 10:57 35 03/11/23 10:21 105 105/58 03/11/23 10:07 98 20 98 35 03/11/23 10:00 97 20 105/58 (74) 94 Mechanical Ventilator 35.00 03/11/23 09:00 92 19 87/44 (58) 97 Mechanical Ventilator 35.00 03/11/23 08:00 95 Mechanical Ventilator 35 03/11/23 08:00 70 19 109/56 (73) 95 Mechanical Ventilator 35.00 03/11/23 07:58 115 87/44 03/11/23 07:52 36.4 03/11/23 07:45 115 87/44 03/11/23 07:00 101 20 87/44 (58) 94 Mechanical Ventilator 35.00 03/11/23 07:00 115 03/11/23 06:51 93 20 94 35 03/11/23 06:44 35 03/11/23 06:00 102 19 108/57 (74) 97 Mechanical Ventilator 35.00 03/11/23 05:00 78 20 120/63 (82) 97 Mechanical Ventilator 35.00 03/11/23 04:00 88 25 122/60 (80) 97 Mechanical Ventilator 35.00 03/11/23 03:53 82 104/57 03/11/23 03:40 96 Mechanical Ventilator 35 03/11/23 03:40 37.2 Mechanical Ventilator 35.00 03/11/23 03:26 87 99/51 03/11/23 03:05 105 102/49 03/11/23 03:05 105 102/49 03/11/23 03:00 84 26 104/57 (73) 97 Mechanical Ventilator 35.00 03/11/23 02:00 65 31 128/65 (86) 96 Mechanical Ventilator 35.00 03/11/23 01:00 94 03/11/23 01:00 95 19 123/66 (85) 97 Mechanical Ventilator 35.00 03/11/23 00:10 36.3 Mechanical Ventilator 35.00 03/11/23 00:00 91 16 121/67 (85) 96 Mechanical Ventilator 35.00 03/10/23 23:55 100 117/63 03/10/23 23:47 104 117/67 03/10/23 23:30 92 Mechanical Ventilator 35 03/10/23 23:30 Mechanical Ventilator 35.00 03/10/23 23:00 113 19 120/61 (80) 95 Mechanical Ventilator 45.00 03/10/23 22:24 131 122/59 03/10/23 22:07 133 133/71 03/10/23 22:00 110 20 119/62 (81) 96 Mechanical Ventilator 45.00 03/10/23 21:10 98 20 95 35 03/10/23 21:00 80 25 130/69 (89) 95 Mechanical Ventilator 45.00 03/10/23 20:04 105 141/77 03/10/23 20:00 93 Mechanical Ventilator 45 03/10/23 20:00 60 17 141/77 (98) 97 Mechanical Ventilator 45.00 03/10/23 19:35 37.0 105 20 143/71 (95) 93 Mechanical Ventilator 45.00 03/10/23 19:16 105 132/63 03/10/23 19:00 90 03/10/23 18:42 95 21 97 45 03/10/23 18:00 76 14 143/73 (96) 92 Mechanical Ventilator 45.00 I & O 03/11/23 07:00 Intake Total 1760 ml Output Total 3050 ml Balance -1290 ml Capillary Refill : Less Than 3 Seconds General Appearance: No Apparent Distress, Chronically ill, Other (intubated) HEENT: Normal ENT Inspection Neck: Normal Inspection, Supple Respiratory: No Accessory Muscle Use, Other (equal chest rise) Cardiovascular: Regular Rate, Rhythm, No JVD Gastrointestinal: soft; No distended Extremity: Non Tender, No Calf Tenderness, No Pedal Edema Neurologic/Psychiatric: Other (intubated, sedated) Skin: Normal Color, Warm/Dry Lymphatic: No Adenopathy Results Lab Laboratory Tests 03/10/23 18:00: Glucometer 112H 03/10/23 23:53: Glucometer 86 03/11/23 03:27: White Blood Count 7.9, Red Blood Count 3.14L, Hemoglobin 9.2L, Hematocrit 28L, Mean Corpuscular Volume 89, Mean Corpuscular Hemoglobin 29, Mean Corpuscular Hemoglobin Concent 33, Red Cell Distribution Width 15.2H, Platelet Count 312, Mean Platelet Volume 10.3, Immature Granulocyte % (Auto) 0, Neutrophils (%) (Auto) 53, Lymphocytes (%) (Auto) 41, Monocytes (%) (Auto) 5, Eosinophils (%) (Auto) 1, Basophils (%) (Auto) 0, Neutrophils # (Auto) 4.1, Lymphocytes # (Auto) 3.2, Monocytes # (Auto) 0.4, Eosinophils # (Auto) 0.1, Basophils # (Auto) 0.0, Immature Granulocyte # (Auto) 0.0, Sodium Level 146H, Potassium Level 3.2L, Ch [place]oride Level 114H, Carbon Dioxide Level 20L, Anion Gap 12, Blood Urea Nitrogen 5L, Creatinine 0.41L, Estimat Glomerular Filtration Rate 160, BUN/Creatinine Ratio 12, Glucose Level 90, Calcium Level 8.2L, Corrected Calcium 8.8, Phosphorus Level 2.1L, Magnesium Level 2.0, Total Bilirubin 0.2, Aspartate Amino Transf (AST/SGOT) 22, Alanine Aminotransferase (ALT/SGPT) 35, Alkaline Phosphatase 58, Total Protein 5.2L, Albumin 3.2 03/11/23 11:42: Glucometer 145H Microbiology 03/02/23 Gram Stain - Final, Complete 03/02/23 Sputum Culture - Final, Complete Corynebacterium striatum 03/01/23 Blood Culture - Final, Complete No growth Assessment/Plan Assessment/Plan Assessment/Plan pneumonia b/l hypoxia respiratory failure requiring intubation poor venous access constipation Abdominal distension abdomen distention improved after bowel function -g tube feeds as tolerates Bowel regimen Right femoral line not able to gain access other areas at this time. would try and get to where just using port and can remove central line. RAFFI MAGAÑA DO Mar 11, 2023 17:43
--- NOTE | 2023-03-11 18:42 | Progress Note ---
Subjective Subjective/Events-last exam Patient stable. No ON events. Tolerating 1/2 of normal feeds Review of Systems Patient nonverbal at baseline Focused Exam Time of Focused Exam: 09:00 Objective Exam Last Set of Vital Signs Vital Signs Date Time Temp Pulse Resp B/P (MAP) Pulse Ox O2 Delivery O2 Flow Rate FiO2 03/11/23 18:33 35 03/11/23 18:00 93 15 126/67 (86) 97 Mechanical Ventilator 35.00 03/11/23 15:46 37.4 Capillary Refill : Less Than 3 Seconds I&O Intake and Output 03/10/23 23:59 Intake Total 1275 ml Output Total 2825 ml Balance -1550 ml Intake Oral 0 ml IV Total 1000 ml Tube Feeding 75 ml Enteral Flush 90 ml Other 110 ml Output Urine Total 2825 ml # Bowel Movements 8 General: Other (eyes awake, calm and comfortable) Lungs: Other (Diffuse wheezing throughout, normal work of breathing on vent) Heart: Rubs Abdomen: Soft, Other (mild distention) Extremities: Other (1-2+ pitting edema) Results/Procedures Lab Laboratory Tests 03/10/23 23:53: Glucometer 86 03/11/23 03:27: White Blood Count 7.9, Red Blood Count 3.14L, Hemoglobin 9.2L, Hematocrit 28L, Mean Corpuscular Volume 89, Mean Corpuscular Hemoglobin 29, Mean Corpuscular Hemoglobin Concent 33, Red Cell Distribution Width 15.2H, Platelet Count 312, Mean Platelet Volume 10.3, Immature Granulocyte % (Auto) 0, Neutrophils (%) (Auto) 53, Lymphocytes (%) (Auto) 41, Monocytes (%) (Auto) 5, Eosinophils (%) (Auto) 1, Basophils (%) (Auto) 0, Neutrophils # (Auto) 4.1, Lymphocytes # (Auto) 3.2, Monocytes # (Auto) 0.4, Eosinophils # (Auto) 0.1, Basophils # (Auto) 0.0, Immature Granulocyte # (Auto) 0.0, Sodium Level 146H, Potassium Level 3.2L, Chloride Level 114H, Carbon Dioxide Level 20L, Anion Gap 12, Blood Urea Nitrogen 5L, Creatinine 0.41L, Estimat Glomerular Filtration Rate 160, BUN/Creatinine Ratio 12, Glucose Level 90, Calcium Level 8.2L, Corrected Calcium 8.8, Phosphorus Level 2.1L, Magnesium Level 2.0, Total Bilirubin 0.2, Aspartate Amino Transf (AST/SGOT) 22, Alanine Aminotransferase (ALT/SGPT) 35, Alkaline Phosphatase 58, Total Protein 5.2L, Albumin 3.2 03/11/23 11:42: Glucometer 145H 03/11/23 17:43: Glucometer 114H Microbiology 03/02/23 Gram Stain - Final, Complete 03/02/23 Sputum Culture - Final, Complete Corynebacterium striatum 03/01/23 Blood Culture - Final, Complete No growth Radiology ADMIT DATE: 03/01/23/ICU Signed Date of Exam:03/01/23 CHEST 1 VIEW, AP/PA ONLY Indication: Hypoxia Frontal chest obtained at 1208 p.m. compared to 05/11/2015. The heart is normal in size. There is a Port-A-Cath over the right chest with tip overlying the low SVC. There is a shunt catheter over the left hemithorax. There is central vascular congestion with perihilar infiltrates. There is no pneumothorax or pleural fluid. Impression: Bilateral perihilar infiltrates are present, pneumonia is not excluded. There is no pneumothorax or pleural fluid. Heart is normal in size. There is dextroscoliotic change. Dictated by: Dictated on workstation # [id number] Dict: 03/01/23 1212 Trans: 03/01/23 1328 [facility] [id number] Interpreted by: KAMARI MACHUCA MD Assessment/Plan Assessment/Plan (1) Pneumonia Status: Acute Assessment & Plan: Directly admitted to ICU from the clinic via EMS due to pneumonia and hypoxia. At risk for decompensation due to multiple co-morbidities, discussed transfer options with mother and legal guardian and would like to stay at [facility] if possible and trial IV antibiotics. Currently requiring bi-pap at 60% FIO2 to maintain dixie in the low 90's. Antibiotics started - zithromax and meropenam IVF - will give fluid bolus x1L then 150mL/h initial cbc normal; blood cultures pending. Resume home meds and G-tube feeds - dietary consulted for conversion of home feeding regimen. 03/02/2023: Worsening respiratory status overnight, now requiring 70% FIO2 to maintain sats and prevent acidosis. More tachypneic. Consult Dr. Rahman for critical care. Recommending intubation. Discussed consideration of transfer, Dr. Rahman recommends intubation prior to transfer due to risk of clinical deterioration en route if transfer is chosen by parents Discussed code status, would like to proceed with intubation but would prefer not to have chest compressions. Parents are legal guardian of patient but as an adult, court must order DNR or modified DNR. 03/03/23: Intubated without incident yesterday. Sedated on vent currently, more comfortable. O2 98% on 80% FIO2; VBG 7. am CXR severe, bilateral infiltrates, unchanged from yesterday Vancomycin added yesterday. labs, vitals stable blood culture negative Dr. Rahman and eICU provider co-managing 03/04/23: Fi02 35%, stable, sedated on vent. continue current care 03/05/23: sputum culture grew corynebacterium - typically sensitive to vancomycin and meropenum Fi02 35%, stable, sedated on vent. continue current care 03/06/23: Persistent worsening hypoxia, FiO2 55% this am, continued on vancomycin, meropenem and azithromycin. Good diuresis with albumin and lasix yesterday, repeating today per [facility], appreciate recommendations. 03/07/23: Stable, continued current treatment plans 03/08/23: FiO2 down to 45% today, will resume vancomycin for corynebacterium, has com pleted azithromycin, will complete 2 more days of meropenem. Started dexamethasone 03/07 with possible slight improvement noted. 03/09/23: Stable, continue current vancomycin and meropenem, dexamethasone. 03/10: - Will titrate FiO2 as tolerated, weaning sedation in preparation of possible SBT, no change in antibiotics at this time 03/11: - Down to FiO2 35%, SBT today per [facility] Qualifiers: (2) Respiratory failure with hypoxia Status: Acute Assessment & Plan: Intubated 03/02/23 Qualifiers: Qualified Codes: J96.01 - Acute respiratory failure with hypoxia (3) Electrolyte abnormality Status: Acute Assessment & Plan: -potassium and magnesium replaced per protocol 03/06 will replace phos 03/07 replace phos and add extra K above protocol to try to get K above 4 due to obstipation (4) Hydrocephalus Status: Chronic Assessment & Plan: with [employer] shunt, no evidence of dysfunction (5) Hypokalemia Status: Acute (6) VACTERL association Status: Chronic (7) Cerebral palsy Status: Chronic (8) Seizure disorder Status: Chronic Assessment & Plan: No seizure activity noted, continue home meds (9) Subaortic valve stenosis, congenital Status: Chronic Assessment & Plan: Check echo given worsening respiratory status. (10) Obstipation Status: Acute Assessment & Plan: Appreciate Surgery recommendations. No bowel movement with enema yesterday per mother's report. 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 No acute need to change status at this time, continuing to address on a daily basis. (13) DVT prophylaxis Status: Acute Assessment & Plan: Enoxaparin CHERY HAAS MD Mar 11, 2023 18:42
[2023-03-11 18:52] VITALS: BP 122/69
[2023-03-11] MEDS: ZONISAMIDE 100 MG CAP (ZONEGRAN) NON-FORMULARY PO SCH (20:16)
[2023-03-11 21:36] VITALS: BP 122/69
[2023-03-12 02:20] LABS: BASOPHILS % (AUTO) 0 % (0-10); EOSINOPHILS # (AUTO) 0.2 10^3/uL (0.0-0.3); EOSINOPHILS % (AUTO) 2 % (0-10); HEMATOCRIT 31 % (40-54); LYMPHOCYTES # (AUTO) 3.2 10^3/uL (1.0-4.0); LYMPHOCYTES % (AUTO) 40 % (12-44); MEAN CORPUSCULAR HEMOGLOBIN 29 pg (25-34); MEAN CORPUSCULAR HGB CONC 33 g/dL (32-36); MEAN CORPUSCULAR VOLUME 89 fL (80-99); MEAN PLATELET VOLUME 10.4 fL (9.0-12.2); MONOCYTES # (AUTO) 0.6 10^3/uL (0.0-1.0); MONOCYTES % (AUTO) 7 % (0-12); NEUTROPHILS % (AUTO) 50 % (42-75); PLATELET COUNT 379 10^3/uL (130-400); WHITE BLOOD COUNT 7.9 10^3/uL (4.3-11.0)
[2023-03-12 02:36] LABS: ALBUMIN 3.4 GM/DL (3.2-4.5); BILIRUBIN,TOTAL 0.3 MG/DL (0.1-1.0); CALCIUM 8.4 MG/DL (8.5-10.1); CREATININE SERUM 0.41 MG/DL (0.60-1.30); MAGNESIUM 1.9 MG/DL (1.6-2.4); PHOSPHORUS 2.6 MG/DL (2.3-4.7); POTASSIUM 3.5 MMOL/L (3.6-5.0); TOTAL PROTEIN 5.4 GM/DL (6.4-8.2)
[2023-03-12] MEDS ORDERED: MAGNESIUM 1 GM/100 ML IVPB 200 ML IV ONE (03:08)
[2023-03-12] MEDS ORDERED: POTASSIUM CL 10MEQ/50ML IVPB 200 ML IV ONE (03:08)
[2023-03-12] MEDS: POTASSIUM CL 10MEQ/50ML IVPB 50 ML IV SCH ×3 (03:11→04:01)
[2023-03-12] MEDS: MAGNESIUM 1 GM/100 ML IVPB 100 ML IV SCH ×2 (03:11→04:01)
[2023-03-12] MEDS: RT-LEVALBUTEROL (XOPENEX) 1.25 MG/3 ML NEB NON-FORMULARY INH SCH ×4 (03:22→20:13)
[2023-03-12 03:23] VITALS: BP 102/55
[2023-03-12] MEDS: aCETylcysteine 20% (RT/PO) 4 ML SOLN VIAL INH SCH ×4 (03:23→20:14)
[2023-03-12] MEDS: DexMEDEtomidine 250 ML DRIP 250 ML IV SCH ×2 (03:51→22:00)
[2023-03-12] MEDS: KCL 20 MEQ TAB (K-DUR) PO SCH (04:01)
[2023-03-12] MEDS: VANCOMYCIN 1 GM/NS 250 ML IVPB IV SCH ×6 (05:02→21:07)
[2023-03-12 07:00] VITALS: BP 101/53
[2023-03-12] MEDS: TRILEPTAL GT SCH ×2 (09:00→21:09)
[2023-03-12] MEDS ORDERED: dexAMETHasone INJ 10 MG/ML 1 ML VIAL IV SCH (09:00)
[2023-03-12] MEDS: PANTOPRAZOLE 40 MG (PROTONIX) VIAL IV SCH (09:11)
[2023-03-12] MEDS: ENOXAPARIN 30 MG/0.3 ML SYRINGE SC SCH ×2 (09:11→21:07)
[2023-03-12] MEDS: LORATADINE 5 MG/5 ML SOLN (CLARITIN) UDC GT SCH ×2 (09:11→21:08)
[2023-03-12] MEDS: polyethylene glycoL POWDER 17 GM (MIRALAX) PACK GT SCH (09:11)
[2023-03-12] MEDS: dexAMETHasone INJ 4 MG/ML SDV IV SCH (09:11)
--- NOTE | 2023-03-12 09:33 | Diagnostic Imaging Report ---
INDICATION: Pneumonia. EXAMINATION: Chest 03/12/2023. COMPARISON: 03/11/2023. FINDINGS: ET tube lies just at the thoracic inlet. Right central line tip enters the right atrium. Heart stable. Pulmonary vasculature congested with findings of edema throughout both lungs. Likely superimposed diffuse bilateral infiltrates noted. No significant effusions. No pneumothorax. IMPRESSION: 1. Pulmonary edema with diffuse bilateral infiltrates. 2. Tubes and lines as above. Dictated by: Dictated on workstation # [id number]
--- NOTE | 2023-03-12 09:35 | Tele-ICU Progress Note ---
Subjective Date Seen by a Provider: Mar 12, 2023 Time Seen by a Provider: 09:31 Subjective/Events-last exam (Tele-ICU Physician , Progress Note ) Service provided via interactive audio and video telecommunications E-CARE system to a patient admitted to ICU bed in [facility]. Patient is seen today due to persistent need of ICU care Available chart/ vitals / labs / Images reviewed Video assessment done using teleICU camera, rest of exam as per RN Discussed with RN Has CP, scoliosis, PNA, CXR still shows considerable haziness on left also problems with ileus, was tried yesterday on SBT Now on vent AC Sepsis Event Evaluation Height, Weight, BMI Height: 4'0" Weight: 72lbs. oz. 32.913209vi; 24.98 BMI Method: Focused Exam Time of Focused Exam: 09:00 Exam Exam Patient acknowledged, consented, and participated in this virtual visit which was conducted using real time audio/video Vital Signs Date Time Temp Pulse Resp B/P (MAP) Pulse Ox O2 Delivery O2 Flow Rate FiO2 03/12/23 09:00 85 16 110/60 (74) 99 Mechanical Ventilator 35.00 03/12/23 08:00 98 35 101/59 (73) 98 Mechanical Ventilator 35.00 03/12/23 07:46 36.3 03/12/23 07:00 92 03/12/23 07:00 88 15 101/53 (69) 99 Mechanical Ventilator 35.00 03/12/23 07:00 91 16 99 35 03/12/23 06:00 95 16 107/61 (76) 100 Mechanical Ventilator 35.00 03/12/23 05:49 35 03/12/23 05:00 90 15 117/59 (78) 100 Mechanical Ventilator 35.00 03/12/23 04:00 81 16 105/56 (72) 98 Mechanical Ventilator 35.00 03/12/23 04:00 96 Mechanical Ventilator 35 03/12/23 04:00 36.9 03/12/23 03:51 84 105/58 03/12/23 03:23 84 16 98 35 03/12/23 03:00 74 15 105/58 (74) 99 Mechanical Ventilator 35.00 03/12/23 02:01 35 03/12/23 02:00 86 17 112/58 (76) 99 Mechanical Ventilator 35.00 03/12/23 01:00 98 14 110/57 (74) 98 Mechanical Ventilator 35.00 03/12/23 01:00 86 03/11/23 23:50 100 Mechanical Ventilator 35 03/11/23 23:30 36.7 76 16 126/62 (83) 100 Mechanical Ventilator 35.00 03/11/23 23:00 112 25 128/74 (92) 96 Mechanical Ventilator 35.00 03/11/23 22:30 35 03/11/23 22:00 97 16 127/64 (85) 98 Mechanical Ventilator 35.00 03/11/23 21:36 89 16 97 30 03/11/23 21:00 99 15 133/66 (88) 99 Mechanical Ventilator 35.00 03/11/23 20:00 80 15 123/66 (85) 98 Mechanical Ventilator 35.00 03/11/23 19:15 88 16 121/66 (84) 97 Mechanical Ventilator 35.00 03/11/23 19:11 89 03/11/23 19:10 97 Mechanical Ventilator 35 03/11/23 19:00 36.2 90 16 128/67 (87) 97 Mechanical Ventilator 35.00 03/11/23 18:52 89 16 97 30 03/11/23 18:33 35 03/11/23 18:00 93 15 126/67 (86) 97 Mechanical Ventilator 35.00 03/11/23 17:09 92 130/74 03/11/23 17:00 117 17 136/69 (91) 95 Mechanical Ventilator 35.00 03/11/23 16:31 113 130/70 03/11/23 16:01 120 132/69 03/11/23 16:00 97 16 132/69 (90) 94 Mechanical Ventilator 35.00 03/11/23 15:46 37.4 03/11/23 15:32 96 Mechanical Ventilator 35 03/11/23 15:31 117 143/73 03/11/23 15:15 126 35 92 35 03/11/23 15:00 111 34 134/69 (90) 95 Mechanical Ventilator 35.00 03/11/23 14:51 35 03/11/23 14:50 90 124/62 03/11/23 14:33 91 16 98 35 03/11/23 14:19 93 129/70 03/11/23 14:00 104 20 126/65 (85) 97 Mechanical Ventilator 35.00 03/11/23 13:24 99 121/71 03/11/23 13:21 35 03/11/23 13:00 101 20 121/71 (88) 97 Mechanical Ventilator 35.00 03/11/23 13:00 101 03/11/23 12:29 102 128/73 03/11/23 12:00 97 19 120/72 (88) 100 Mechanical Ventilator 35.00 03/11/23 11:55 36.4 03/11/23 11:42 95 127/67 03/11/23 11:36 95 127/67 03/11/23 11:05 97 Mechanical Ventilator 35 03/11/23 11:00 94 27 119/64 (82) 97 Mechanical Ventilator 35.00 03/11/23 10:58 86 112/63 03/11/23 10:57 35 03/11/23 10:21 105 105/58 03/11/23 10:07 98 20 98 35 03/11/23 10:00 97 20 105/58 (74) 94 Mechanical Ventilator 35.00 I & O 03/12/23 07:00 Intake Total 6200 ml Output Total 6125 ml Balance 75 ml Height & Weight Height: 4'0" Weight: 72lbs. oz. 32.512963tp; 24.98 BMI Method: General Appearance: No Apparent Distress, Chronically ill, Other (intubated) HEENT: Normal ENT Inspection Neck: Normal Inspection, Supple Respiratory: No Accessory Muscle Use, Other (equal chest rise) Cardiovascular: Regular Rate, Rhythm, No JVD Capillary Refill: Less Than 3 Seconds Gastrointestinal: soft; No distended Extremity: Non Tender, No Calf Tenderness, No Pedal Edema Neurologic/Psychiatric: Other (intubated, sedated) Skin: Normal Color, Warm/Dry Lymphatic: No Adenopathy Results Lab Laboratory Tests 03/11/23 03:27 03/12/23 02:11 Assessment/Plan Assessment/Plan PNA, will try SBT again vent as above ileus Critical Care: Ventilator Management Time spent with patient (mins): 25 CALLIE LOWE MD Mar 12, 2023 09:35
--- NOTE | 2023-03-12 10:49 | Progress Note - Surgery ---
Subjective Date Seen by a Provider: Mar 12, 2023 Time Seen by a Provider: 10:49 Subjective/Events-last exam Intubated and sedated. tolerating tube feeds. bowel function present. Mother at bedside. Focused Exam Time of Focused Exam: 09:00 Objective Exam Vital Signs Date Time Temp Pulse Resp B/P (MAP) Pulse Ox O2 Delivery O2 Flow Rate FiO2 03/12/23 10:00 99 16 104/60 (74) 99 Mechanical Ventilator 35.00 03/12/23 09:00 85 16 110/60 (74) 99 Mechanical Ventilator 35.00 03/12/23 08:00 98 Mechanical Ventilator 35 03/12/23 08:00 76 110/58 03/12/23 08:00 98 35 101/59 (73) 98 Mechanical Ventilator 35.00 03/12/23 07:46 36.3 03/12/23 07:00 92 03/12/23 07:00 88 15 101/53 (69) 99 Mechanical Ventilator 35.00 03/12/23 07:00 91 16 99 35 03/12/23 06:00 95 16 107/61 (76) 100 Mechanical Ventilator 35.00 03/12/23 05:49 35 03/12/23 05:00 90 15 117/59 (78) 100 Mechanical Ventilator 35.00 03/12/23 04:00 81 16 105/56 (72) 98 Mechanical Ventilator 35.00 03/12/23 04:00 96 Mechanical Ventilator 35 03/12/23 04:00 36.9 03/12/23 03:51 84 105/58 03/12/23 03:23 84 16 98 35 03/12/23 03:00 74 15 105/58 (74) 99 Mechanical Ventilator 35.00 03/12/23 02:01 35 03/12/23 02:00 86 17 112/58 (76) 99 Mechanical Ventilator 35.00 03/12/23 01:00 98 14 110/57 (74) 98 Mechanical Ventilator 35.00 03/12/23 01:00 86 03/11/23 23:50 100 Mechanical Ventilator 35 03/11/23 23:30 36.7 76 16 126/62 (83) 100 Mechanical Ventilator 35.00 03/11/23 23:00 112 25 128/74 (92) 96 Mechanical Ventilator 35.00 03/11/23 22:30 35 03/11/23 22:00 97 16 127/64 (85) 98 Mechanical Ventilator 35.00 03/11/23 21:36 89 16 97 30 03/11/23 21:00 99 15 133/66 (88) 99 Mechanical Ventilator 35.00 03/11/23 20:00 80 15 123/66 (85) 98 Mechanical Ventilator 35.00 03/11/23 19:15 88 16 121/66 (84) 97 Mechanical Ventilator 35.00 03/11/23 19:11 89 03/11/23 19:10 97 Mechanical Ventilator 35 03/11/23 19:00 36.2 90 16 128/67 (87) 97 Mechanical Ventilator 35.00 03/11/23 18:52 89 16 97 30 03/11/23 18:33 35 03/11/23 18:00 93 15 126/67 (86) 97 Mechanical Ventilator 35.00 03/11/23 17:09 92 130/74 03/11/23 17:00 117 17 136/69 (91) 95 Mechanical Ventilator 35.00 03/11/23 16:31 113 130/70 03/11/23 16:01 120 132/69 03/11/23 16:00 97 16 132/69 (90) 94 Mechanical Ventilator 35.00 03/11/23 15:46 37.4 03/11/23 15:32 96 Mechanical Ventilator 35 03/11/23 15:31 117 143/73 03/11/23 15:15 126 35 92 35 03/11/23 15:00 111 34 134/69 (90) 95 Mechanical Ventilator 35.00 03/11/23 14:51 35 03/11/23 14:50 90 124/62 03/11/23 14:33 91 16 98 35 03/11/23 14:19 93 129/70 03/11/23 14:00 104 20 126/65 (85) 97 Mechanical Ventilator 35.00 03/11/23 13:24 99 121/71 03/11/23 13:21 35 03/11/23 13:00 101 20 121/71 (88) 97 Mechanical Ventilator 35.00 03/11/23 13:00 101 03/11/23 12:29 102 128/73 03/11/23 12:00 97 19 120/72 (88) 100 Mechanical Ventilator 35.00 03/11/23 11:55 36.4 03/11/23 11:42 95 127/67 03/11/23 11:36 95 127/67 03/11/23 11:05 97 Mechanical Ventilator 35 03/11/23 11:00 94 27 119/64 (82) 97 Mechanical Ventilator 35.00 03/11/23 10:58 86 112/63 03/11/23 10:57 35 I & O 03/12/23 07:00 Intake Total 6200 ml Output Total 6125 ml Balance 75 ml Capillary Refill : Less Than 3 Seconds General Appearance: No Apparent Distress, Chronically ill, Other (intubated) HEENT: Normal ENT Inspection Neck: Normal Inspection, Non Tender, Supple Respiratory: No Accessory Muscle Use, Other (equal chest rise) Cardiovascular: Regular Rate, Rhythm, No JVD Gastrointestinal: soft; No distended; other (gastrostomy tube luq) Extremity: Non Tender, No Calf Tenderness, No Pedal Edema Neurologic/Psychiatric: Other (intubated, sedated) Skin: Normal Color, Warm/Dry Lymphatic: No Adenopathy Results Lab Laboratory Tests 03/11/23 11:42: Glucometer 145H 03/11/23 17:43: Glucometer 114H 03/11/23 23:45: Glucometer 105 03/12/23 02:11: White Blood Count 7.9, Red Blood Count 3.41L, Hemoglobin 10.0L, Hematocrit 31L, Mean Corpuscular Volume 89, Mean Corpuscular Hemoglobin 29, Mean Corpuscular Hemoglobin Concent 33, Red Cell Distribution Width 15.6H, Platelet Count 379, Mean Platelet Volume 10.4, Immature Granulocyte % (Auto) 0, Neutrophils (%) (Auto) 50, Lymphocytes (%) (Auto) 40, Monocytes (%) (Auto) 7, Eosinophils (%) (Auto) 2, Basophils (%) (Auto) 0, Neutrophils # (Auto) 4.0, Lymphocytes # (Auto) 3.2, Monocytes # (Auto) 0.6, Eosinophils # (Auto) 0.2, Basophils # (Auto) 0.0, Immature Granulocyte # (Auto) 0.0, Sodium Level 140, Potassium Level 3.5L, Chloride Level 109H, Carbon Dioxide Level 24, Anion Gap 7, Blood Urea Nitrogen 5L, Creatinine 0.41L, Estimat Glomerular Filtration Rate 160, BUN/Creatinine Ratio 12, Glucose Level 113H, Calcium Level 8.4L, Corrected Calcium 8.9, Phosphorus Level 2.6, Magnesium Level 1.9, Total Bilirubin 0.3, Aspartate Amino Transf (AST/SGOT) 18, Alanine Aminotransferase (ALT/SGPT) 39, Alkaline Phosphatase 67, Total Protein 5.4L, Albumin 3.4 Microbiology 03/02/23 Gram Stain - Final, Complete 03/02/23 Sputum Culture - Final, Complete Corynebacterium striatum 03/01/23 Blood Culture - Final, Complete No growth Assessment/Plan Assessment/Plan Assessment/Plan pneumonia b/l hypoxia respiratory failure requiring intubation poor venous access constipation Abdominal distension abdomen distention improved after bowel function g tube feeds as tolerates Bowel regimen Right femoral line, not able to gain access other areas at this time. would try and get to where just using port and can remove central line will sign off, call if needed may need trach in near future RAFFI MAGAÑA DO Mar 12, 2023 10:49
[2023-03-12 10:53] VITALS: BP 104/65
--- NOTE | 2023-03-12 11:58 | Progress Note ---
Subjective Subjective/Events-last exam No concerns per mother. No acute ON events. Did ok with SBT yesterday but got tired Review of Systems Patient nonverbal at baseline Focused Exam Time of Focused Exam: 09:00 Objective Exam Last Set of Vital Signs Vital Signs Date Time Temp Pulse Resp B/P (MAP) Pulse Ox O2 Delivery O2 Flow Rate FiO2 03/12/23 11:55 37.3 03/12/23 11:00 103 111/57 (75) 98 Mechanical Ventilator 35.00 03/12/23 10:53 18 35 Capillary Refill : Less Than 3 Seconds I&O Intake and Output 03/12/23 00:00 Intake Total 4900 ml Output Total 5125 ml Balance -225 ml Intake Oral 0 ml IV Total 1600 ml Tube Feeding 615 ml Enteral Flush 465 ml Other 2220 ml Output Urine Total 5125 ml # Bowel Movements 5 General: Other (Awake) Lungs: Normal Air Movement, Other (Basilar wheezing, improved exam) Heart: Regular Rate, Other (Systolic murmur) Abdomen: Normal Bowel Sounds, Soft Extremities: No Edema, No Tenderness/Swelling Results/Procedures Lab Laboratory Tests 03/11/23 17:43: Glucometer 114H 03/11/23 23:45: Glucometer 105 03/12/23 02:11: White Blood Count 7.9, Red Blood Count 3.41L, Hemoglobin 10.0L, Hematocrit 31L, Mean Corpuscular Volume 89, Mean Corpuscular Hemoglobin 29, Mean Corpuscular Hemoglobin Concent 33, Red Cell Distribution Width 15.6H, Platelet Count 379, Mean Platelet Volume 10.4, Immature Granulocyte % (Auto) 0, Neutrophils (%) (Auto) 50, Lymphocytes (%) (Auto) 40, Monocytes (%) (Auto) 7, Eosinophils (%) (Auto) 2, Basophils (%) (Auto) 0, Neutrophils # (Auto) 4.0, Lymphocytes # (Auto) 3.2, Monocytes # (Auto) 0.6, Eosinophils # (Auto) 0.2, Basophils # (Auto) 0.0, Immature Granulocyte # (Auto) 0.0, Sodium Level 140, Potassium Level 3.5L, Chloride Level 109H, Carbon Dioxide Level 24, Anion Gap 7, Blood Urea Nitrogen 5L, Creatinine 0.41L, Estimat Glomerular Filtration Rate 160, BUN/Creatinine Ratio 12, Glucose Level 113H, Calcium Level 8.4L, Corrected Calcium 8.9, Phosphorus Level 2.6, Magnesium Level 1.9, Total Bilirubin 0.3, Aspartate Amino Transf (AST/SGOT) 18, Alanine Aminotransferase (ALT/SGPT) 39, Alkaline Phosphatase 67, Total Protein 5.4L, Albumin 3.4 03/12/23 11:41: Glucometer 111H Microbiology 03/02/23 Gram Stain - Final, Complete 03/02/23 Sputum Culture - Final, Complete Corynebacterium striatum 03/01/23 Blood Culture - Final, Complete No growth Radiology ADMIT DATE: 03/01/23/ICU Signed Date of Exam:03/01/23 CHEST 1 VIEW, AP/PA ONLY Indication: Hypoxia Frontal chest obtained at 1208 p.m. compared to 05/11/2015. The heart is normal in size. There is a Port-A-Cath over the right chest with tip overlying the low SVC. There is a shunt catheter over the left hemithorax. There is central vascular congestion with perihilar infiltrates. There is no pneumothorax or pleural fluid. Impression: Bilateral perihilar infiltrates are present, pneumonia is not excluded. There is no pneumothorax or pleural fluid. Heart is normal in size. There is dextroscoliotic change. Dictated by: Dictated on workstation # [id number] Dict: 03/01/23 1212 Trans: 03/01/23 1328 [facility] [id number] Interpreted by: KAMARI MACHUCA MD Assessment/Plan Assessment/Plan (1) Pneumonia Status: Acute Assessment & Plan: Directly admitted to ICU from the clinic via EMS due to pneumonia and hypoxia. At risk for decompensation due to multiple co-morbidities, discussed transfer options with mother and legal guardian and would like to stay at [facility] if possible and trial IV antibiotics. Currently requiring bi-pap at 60% FIO2 to maintain dixie in the low 90's. Antibiotics started - zithromax and meropenam IVF - will give fluid bolus x1L then 150mL/h initial cbc normal; blood cultures pending. Resume home meds and G-tube feeds - dietary consulted for conversion of home feeding regimen. 03/02/2023: Worsening respiratory status overnight, now requiring 70% FIO2 to maintain sats and prevent acidosis. More tachypneic. Consult Dr. Rahman for critical care. Recommending intubation. Discussed consideration of transfer, Dr. Rahman recommends intubation prior to transfer due to risk of clinical deterioration en route if transfer is chosen by parents Discussed code status, would like to proceed with intubation but would prefer not to have chest compressions. Parents are legal guardian of patient but as an adult, court must order DNR or modified DNR. 03/03/23: Intubated without incident yesterday. Sedated on vent currently, more comfortable. O2 98% on 80% FIO2; VBG 7. am CXR severe, bilateral infiltrates, unchanged from yesterday Vancomycin added yesterday. labs, vitals stable blood culture negative Dr. aRhman and eICU provider co-managing 03/04/23: Fi02 35%, stable, sedated on vent. continue current care 03/05/23: sputum culture grew corynebacterium - typically sensitive to vancomycin and meropenum Fi02 35%, stable, sedated on vent. continue current care 03/06/23: Persistent worsening hypoxia, FiO2 55% this am, continued on vancomycin, meropenem and azithromycin. Good diuresis with albumin and lasix yesterday, repeating today per [facility], appreciate recommendations. 03/07/23: Stable, continued current treatment plans 03/08/23: FiO2 down to 45% today, will resume vancomycin for corynebacterium, has completed azithromycin, will complete 2 more days of meropenem. Started dexamethasone 03/07 with possible slight improvement noted. 03/09/23: Stable, continue current vancomycin and meropenem, dexamethasone. 03/10: - Will titrate FiO2 as tolerated, weaning sedation in preparation of possible SBT, no change in antibiotics at this time 03/11: - Down to FiO2 35%, SBT today per Judy 03/12: - SBT today, weaning sedation, lung exam improved Qualifiers: (2) Respiratory failure with hypoxia Status: Acute Assessment & Plan: Intubated 03/02/23 Qualifiers: Qualified Codes: J96.01 - Acute respiratory failure with hypoxia (3) Electrolyte abnormality Status: Acute Assessment & Plan: -potassium and magnesium replaced per protocol 03/06 will replace phos 03/07 replace phos and add extra K above protocol to try to get K above 4 due to obstipation (4) Hydrocephalus Status: Chronic Assessment & Plan: with INSURANCE ADJUSTOR shunt, no evidence of dysfunction (5) Hypokalemia Status: Acute (6) VACTERL association Status: Chronic (7) Cerebral palsy Status: Chronic (8) Seizure disorder Status: Chronic Assessment & Plan: No seizure activity noted, continue home meds (9) Subaortic valve stenosis, congenital Status: Chronic Assessment & Plan: Check echo given worsening respiratory status. (10) Obstipation Status: Acute Assessment & Plan: Appreciate Surgery recommendations. No bowel movement with enema yesterday per mother's report. 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 No acute need to change status at this time, continuing to address on a daily basis. (13) DVT prophylaxis Status: Acute Assessment & Plan: Enoxaparin CHERY HAAS MD Mar 12, 2023 11:58
[2023-03-12 14:45] VITALS: BP 132/68
[2023-03-12 20:14] VITALS: BP 127/63
[2023-03-12] MEDS: ZONISAMIDE 100 MG CAP (ZONEGRAN) NON-FORMULARY PO SCH (21:09)
[2023-03-12 22:24] VITALS: BP 134/66
[2023-03-12] MEDS: NS IV 1000 ML 1,000 ML IV SCH (23:09)
[2023-03-12] MEDS: PROPOFOL DRIP (ICU) 100 ML IV SCH (23:09)
[2023-03-13 02:52] VITALS: BP 108/53
[2023-03-13] MEDS: aCETylcysteine 20% (RT/PO) 4 ML SOLN VIAL INH SCH ×4 (02:52→21:57)
[2023-03-13] MEDS: RT-LEVALBUTEROL (XOPENEX) 1.25 MG/3 ML NEB NON-FORMULARY INH SCH ×4 (02:52→21:59)
[2023-03-13] MEDS: PROPOFOL DRIP (ICU) 100 ML IV SCH ×2 (03:30→19:33)
[2023-03-13 04:34] LABS: BASOPHILS # (AUTO) 0.1 10^3/uL (0.0-0.1); BASOPHILS % (AUTO) 0 % (0-10); EOSINOPHILS # (AUTO) 0.2 10^3/uL (0.0-0.3); EOSINOPHILS % (AUTO) 2 % (0-10); HEMATOCRIT 32 % (40-54); HEMOGLOBIN 10.2 g/dL (13.3-17.7); LYMPHOCYTES # (AUTO) 2.6 10^3/uL (1.0-4.0); LYMPHOCYTES % (AUTO) 23 % (12-44); MEAN CORPUSCULAR HEMOGLOBIN 29 pg (25-34); MEAN CORPUSCULAR HGB CONC 32 g/dL (32-36); MEAN CORPUSCULAR VOLUME 91 fL (80-99); MEAN PLATELET VOLUME 10.5 fL (9.0-12.2); MONOCYTES # (AUTO) 0.6 10^3/uL (0.0-1.0); MONOCYTES % (AUTO) 5 % (0-12); NEUTROPHILS # (AUTO) 8.1 10^3/uL (1.8-7.8); NEUTROPHILS % (AUTO) 70 % (42-75); PLATELET COUNT 466 10^3/uL (130-400); WHITE BLOOD COUNT 11.6 10^3/uL (4.3-11.0)
[2023-03-13 04:46] LABS: ALBUMIN 3.6 GM/DL (3.2-4.5); POTASSIUM 3.4 MMOL/L (3.6-5.0)
[2023-03-13 04:48] LABS: CALCIUM 8.5 MG/DL (8.5-10.1)
[2023-03-13 04:49] LABS: TOTAL PROTEIN 5.8 GM/DL (6.4-8.2)
[2023-03-13 04:51] LABS: BILIRUBIN,TOTAL 0.2 MG/DL (0.1-1.0)
[2023-03-13 04:52] LABS: CREATININE SERUM 0.45 MG/DL (0.60-1.30)
[2023-03-13] MEDS: VANCOMYCIN 1 GM/NS 250 ML IVPB IV SCH ×2 (05:02)
[2023-03-13] MEDS ORDERED: POTASSIUM CL 10MEQ/50ML IVPB 200 ML IV ONE (05:09)
[2023-03-13] MEDS: POTASSIUM CL 10MEQ/50ML IVPB 50 ML IV SCH ×4 (05:16→07:10)
[2023-03-13] MEDS: KCL 20 MEQ TAB (K-DUR) PO SCH (05:17)
[2023-03-13] MEDS: MAGNESIUM 1 GM/100 ML IVPB 100 ML IV SCH (05:17)
[2023-03-13 06:46] VITALS: BP 118/60
--- NOTE | 2023-03-13 07:22 | Progress Note - Hospitalist ---
Subjective HPI/CC On Admission Date Seen by Provider: Mar 13, 2023 Time Seen by Provider: 11:00 Chief complaint: Acute hypoxic respiratory failure due to pneumonia requiring intubation after failed BiPAP HPI: This is a 17-year-old male with a history of cerebral palsy and severe disability who presented to the ICU with acute hypoxic respiratory failure with hypercapnia requiring BiPAP. I was consulted due to decision for intubation due to failure on BiPAP. Patient has longstanding medical issues from his severe disability. Parents are at the bedside. Anesthesia was consulted and patient was intubated without complication. eICU was notified. Subjective/Events-last exam Patient still intubated Mother at the bedside Eyes are open Maintained on aggressive care Focused Exam Time of Focused Exam: 09:00 Objective Exam Vital Signs Vital Signs Date Time Temp Pulse Resp B/P (MAP) Pulse Ox O2 Delivery O2 Flow Rate FiO2 03/13/23 19:45 36.7 03/13/23 19:44 35 03/13/23 19:00 98 17 96 Mechanical Ventilator 35.00 Capillary Refill : Less Than 3 Seconds General Appearance: No Apparent Distress, WD/WN, Chronically ill, Other (Intubated) Respiratory: No Respiratory Distress, Crackles, Decreased Breath Sounds Cardiovascular: Regular Rate, Rhythm Results/Procedures Lab Laboratory Tests 03/13/23 04:15 Patient resulted labs reviewed. Assessment/Plan Assessment and Plan Assess & Plan/Chief Complaint Assessment: Acute hypoxic hypercapnic respiratory failure failed BiPAP requiring intubation Severe cerebral palsy with severe disability Sepsis DVT prophylaxis with Lovenox Plan: Intubation eICU consulted Antibiotics completed Supportive care Critical Care Ventilator Management JP UNDERWOOD DO Mar 13, 2023 07:22
--- NOTE | 2023-03-13 08:53 | Diagnostic Imaging Report ---
EXAMINATION: Chest 1 view HISTORY: Pneumonia COMPARISON: 03/12/2023 FINDINGS: Endotracheal tube is in the midtrachea. Right-sided port catheter is present. There are moderate bilateral airspace opacities, left greater than right, similar to prior exam. No pleural effusion or pneumothorax. Heart size is normal. There is dextroscoliosis of the thoracic spine. Feeding tube projects over the upper abdomen. IMPRESSION: 1. Unchanged moderate bilateral airspace opacities likely representing pneumonia. Dictated by: Dictated on workstation # [id number]
[2023-03-13] MEDS: NS IV 1000 ML 1,000 ML IV SCH (09:00)
[2023-03-13] MEDS: TRILEPTAL GT SCH ×2 (09:04→20:56)
[2023-03-13] MEDS: LORATADINE 5 MG/5 ML SOLN (CLARITIN) UDC GT SCH ×2 (09:04→20:56)
[2023-03-13] MEDS: ENOXAPARIN 30 MG/0.3 ML SYRINGE SC SCH ×2 (09:04→20:56)
[2023-03-13] MEDS: dexAMETHasone INJ 4 MG/ML SDV IV SCH (09:05)
[2023-03-13] MEDS: polyethylene glycoL POWDER 17 GM (MIRALAX) PACK GT SCH (09:05)
[2023-03-13] MEDS: PANTOPRAZOLE 40 MG (PROTONIX) VIAL IV SCH (09:05)
[2023-03-13 09:26] VITALS: BP 112/52
--- NOTE | 2023-03-13 11:59 | Tele-ICU Progress Note ---
Subjective Date Seen by a Provider: Mar 13, 2023 Time Seen by a Provider: 11:57 Subjective/Events-last exam (Tele-ICU Physician , Progress Note ) Service provided via interactive audio and video telecommunications E-CARE system to a patient admitted to ICU bed in [facility]. Patient is seen today due to persistent need of ICU care Available chart/ vitals / labs / Images reviewed Video assessment done using teleICU camera, rest of exam as per RN Discussed with RN Events overnight : Afebrile hemodynamically stable Respiratory - 60% I/O = NEG Drips: Pressors- no VENT SETTINGS and ABG reviewed CANDIDATE for SBTreviewed possible contraindications including Cardiovascular Stability /Sedation Score / FI02/PEEP / ABG / CXR/ secretions Sedation, discussed with RN, RASS -1 -propfol 20 precedex 1.0 Hospital course: (03/01) 17y/o M admitted with pneumonia, hypoxia. (03/02) INTUBATED 03/03-Ac 20 380 + 8 60% , RASS -1 on propfol 30 precedex 0.8 , added mucomist , cut down fluids 03/05- Ac 20 380 + 5 35 % propfol 50 precedex 1.4 03/06-Ac 20 380 + 5 50% propfol 50 precedex 1.4 , echo EF 60% , RVSP 30 mmHg, subaortic stenosis- moder 03/07- large neg fluid balance , ? ARDS - empiric steroids 03/07 ( decadron 4 q24 03/08- vent. AC 20, 380, 45% ,peep 5. not ready for SBT 03/09- Bowel regimen Mag citrate started -RASS -1 -propfol 45 precedex 1.2 ,Ac 20 380 + 5 50% 03/11 -sedation back 2/2 oral secretion , tachycardia-> propofol 20 , precedex 1.0 ,diuresis - RESPONDED WELL with less rhonchorous , good UO, TF resumed 03/12- SBP - failed with tachypnea , off precedex 03/13-AC 16, 380, 35% ,peep 5, precedex resumed, TF up to goal , decreased decadron to 2 q24h A/P Acute hypoxic resp failure ( with congenital scoliosis, tracheomalacia and MADISYN ) - pna WITH SUSPRCTEED ARDS -(03/02) INTUBATED AC 16, 380, 35% ,peep 5 - thick secretions -duo neb and mucomist - less amount - -? 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 - cont Trileptal Abd distension 03/05, Ileus - Sx consuled - lactulose / Mag citrate with improvement - starting TF now - up to goal ( h/o Esophageal stricture , nissanfundoplication , PEG tube placement H/o Hydrocephalus - s/p MOISTURE METER OPERATOR shunt Baclofen pump - 60 mg/day - cont Anemia stable skin - clear MADISYN- BIPAP 05/11 at night , NOT on O2 when doing well Nutrition - TF on hold 03/05 - resumed 03/11 -> 03/13 up to goal Elev TGL - on propfol , repeted pending Lines : R port periph , RIGHT fem line , (Central Line Necessity Reviewed) [place]: + OG: Nutrition: PEG - off TF 03/05 Analgesia: Anxiety/ delirium VTE Prophylaxis: 30 Stress Ulcer Prophylaxis: na Plans in collaboration with bedside consultants and IM MDs. Discussed with RN to reach out if any questions or concerns Case and care daily discussed on multidisciplinary rounds ( RN, PharmD, Licensed Chemical Spray Technician , Respiratory Therapy, direct service worker ) A total of 31 minutes of critical care time was devoted to this patient today, required to treat and/or prevent further deterioration of critical care condition ( as above ) . Sepsis Event Evaluation Height, Weight, BMI Height: 4'0" Weight: 72lbs. oz. 32.211616po; 24.98 BMI Method: Focused Exam Time of Focused Exam: 09:00 Exam Exam Patient acknowledged, consented, and participated in this virtual visit which was conducted using real time audio/video Vital Signs Date Time Temp Pulse Resp B/P (MAP) Pulse Ox O2 Delivery O2 Flow Rate FiO2 03/13/23 11:00 105 17 98 Mechanical Ventilator 35.00 03/13/23 10:00 112 17 116/54 (72) 98 Mechanical Ventilator 35.00 03/13/23 09:26 106 19 99 35 03/13/23 09:00 101 15 95/57 (71) 98 Mechanical Ventilator 35.00 03/13/23 08:00 98 Mechanical Ventilator 35 03/13/23 08:00 92 15 114/58 (76) 99 Mechanical Ventilator 35.00 03/13/23 07:00 101 17 120/64 (83) 100 Mechanical Ventilator 35.00 03/13/23 07:00 100 03/13/23 06:46 97 16 100 35 03/13/23 06:00 98 16 119/58 (78) 98 Mechanical Ventilator 35.00 03/13/23 05:00 104 15 99/47 (64) 98 Mechanical Ventilator 35.00 03/13/23 04:00 96 15 104/58 (73) 99 Mechanical Ventilator 35.00 03/13/23 04:00 98 Mechanical Ventilator 35 03/13/23 03:59 35 03/13/23 03:00 100 15 113/56 (75) 98 Mechanical Ventilator 35.00 03/13/23 02:52 93 16 100 35 03/13/23 02:00 98 16 101/51 (68) 98 Mechanical Ventilator 35.00 03/13/23 01:00 104 03/13/23 01:00 96 16 100/57 (71) 97 Mechanical Ventilator 35.00 03/13/23 00:00 37.0 03/13/23 00:00 118 20 104/52 (69) 98 Mechanical Ventilator 35.00 03/12/23 23:59 35 03/12/23 23:59 98 Mechanical Ventilator 35 03/12/23 23:00 122 21 108/59 (75) 96 Mechanical Ventilator 35.00 03/12/23 22:24 123 21 96 35 03/12/23 22:00 93 108/53 03/12/23 22:00 138 25 121/60 (80) 93 Mechanical Ventilator 35.00 03/12/23 21:00 131 31 115/68 (84) 94 Mechanical Ventilator 35.00 03/12/23 20:14 116 20 92 35 03/12/23 20:00 98 Mechanical Ventilator 35 03/12/23 20:00 120 31 137/63 (87) 92 Mechanical Ventilator 35.00 7/7/23 19:58 35 03/12/23 19:00 121 03/12/23 19:00 109 15 138/57 (84) 93 Mechanical Ventilator 35.00 03/12/23 18:00 117 19 123/68 (86) 96 Mechanical Ventilator 35.00 03/12/23 18:00 37.2 104 18 120/64 (82) 97 Mechanical Ventilator 35.00 03/12/23 17:00 118 17 134/58 (83) 97 Mechanical Ventilator 35.00 03/12/23 16:00 112 23 119/72 (78) 95 Mechanical Ventilator 35.00 03/12/23 16:00 98 Mechanical Ventilator 35 03/12/23 15:58 37.5 03/12/23 15:00 112 24 121/61 (88) 94 Mechanical Ventilator 35.00 03/12/23 14:45 112 30 95 35 03/12/23 14:00 105 21 110/71 (79) 96 Mechanical Ventilator 35.00 03/12/23 13:00 111 19 119/63 (81) 96 Mechanical Ventilator 35.00 03/12/23 12:27 96 03/12/23 12:00 98 Mechanical Ventilator 35 03/12/23 12:00 94 22 112/60 (80) 97 Mechanical Ventilator 35.00 I & O 03/13/23 07:00 Intake Total 2820 ml Output Total 5500 ml Balance -2680 ml Height & Weight Height: 4'0" Weight: 72lbs. oz. 32.946223hc; 24.98 BMI Method: General Appearance: No Apparent Distress, Chronically ill, Other (intubated) HEENT: Normal ENT Inspection Neck: Normal Inspection, Non Tender, Supple Respiratory: No Accessory Muscle Use, Other (equal chest rise) Cardiovascular: Regular Rate, Rhythm, No JVD Capillary Refill: Less Than 3 Seconds Gastrointestinal: soft; No distended; other (gastrostomy tube luq) Extremity: Non Tender, No Calf Tenderness, No Pedal Edema Neurologic/Psychiatric: Other (intubated, sedated) Skin: Normal Color, Warm/Dry Lymphatic: No Adenopathy Results Lab Laboratory Tests 03/12/23 02:11 03/13/23 04:15 Assessment/Plan Assessment/Plan 1 VANESSA MIRAMONTES MD Mar 13, 2023 11:59
[2023-03-13 16:28] VITALS: BP 127/66
[2023-03-13 18:49] VITALS: BP 130/78
[2023-03-13] MEDS: ZONISAMIDE 100 MG CAP (ZONEGRAN) NON-FORMULARY PO SCH (20:56)
[2023-03-13 22:05] VITALS: BP 130/69
[2023-03-14] VITALS (9 sets, daily range): BP systolic 106–142; BP diastolic 69–90
[2023-03-14] MEDS: NS IV 1000 ML 1,000 ML IV SCH ×2 (01:53→19:24)
[2023-03-14] MEDS: RT-LEVALBUTEROL (XOPENEX) 1.25 MG/3 ML NEB NON-FORMULARY INH SCH ×4 (02:37→21:10)
[2023-03-14] MEDS: aCETylcysteine 20% (RT/PO) 4 ML SOLN VIAL INH SCH ×4 (02:38→21:10)
[2023-03-14 04:50] LABS: BASOPHILS # (AUTO) 0.1 10^3/uL (0.0-0.1); BASOPHILS % (AUTO) 1 % (0-10); EOSINOPHILS # (AUTO) 0.3 10^3/uL (0.0-0.3); EOSINOPHILS % (AUTO) 3 % (0-10); HEMATOCRIT 33 % (40-54); HEMOGLOBIN 10.9 g/dL (13.3-17.7); LYMPHOCYTES % (AUTO) 27 % (12-44); MEAN CORPUSCULAR HEMOGLOBIN 30 pg (25-34); MEAN CORPUSCULAR HGB CONC 33 g/dL (32-36); MEAN CORPUSCULAR VOLUME 90 fL (80-99); MEAN PLATELET VOLUME 10.4 fL (9.0-12.2); MONOCYTES # (AUTO) 0.9 10^3/uL (0.0-1.0); MONOCYTES % (AUTO) 8 % (0-12); NEUTROPHILS # (AUTO) 7.1 10^3/uL (1.8-7.8); NEUTROPHILS % (AUTO) 63 % (42-75); PLATELET COUNT 537 10^3/uL (130-400); WHITE BLOOD COUNT 11.3 10^3/uL (4.3-11.0)
[2023-03-14 05:04] LABS: POTASSIUM 3.4 MMOL/L (3.6-5.0)
[2023-03-14 05:05] LABS: CALCIUM 9.2 MG/DL (8.5-10.1)
[2023-03-14 05:09] LABS: CREATININE SERUM 0.45 MG/DL (0.60-1.30)
[2023-03-14] MEDS: POTASSIUM CL 10MEQ/50ML IVPB 50 ML IV SCH ×4 (05:27→08:43)
[2023-03-14] MEDS: KCL 20 MEQ TAB (K-DUR) PO SCH (05:57)
[2023-03-14] MEDS: MAGNESIUM 1 GM/100 ML IVPB 100 ML IV SCH (05:57)
--- NOTE | 2023-03-14 07:18 | Progress Note - Hospitalist ---
Subjective HPI/CC On Admission Date Seen by Provider: Mar 14, 2023 Time Seen by Provider: 11:00 Chief complaint: Acute hypoxic respiratory failure due to pneumonia requiring intubation after failed BiPAP HPI: This is a 17-year-old male with a history of cerebral palsy and severe disability who presented to the ICU with acute hypoxic respiratory failure with hypercapnia requiring BiPAP. I was consulted due to decision for intubation due to failure on BiPAP. Patient has longstanding medical issues from his severe disability. Parents are at the bedside. Anesthesia was consulted and patient was intubated without complication. eICU was notified. Subjective/Events-last exam SBT trial today Patient alert White count revealed slight elevation No other concerns Mother at bedside Focused Exam Lactate Level 03/14/23 14:40: Lactic Acid Level 2.97*H 03/14/23 16:55: Lactic Acid Level 0.64 Time of Focused Exam: 09:00 Lactic Acid Level Laboratory Tests Test 03/14/23 16:55 Lactic Acid Level 0.64 MMOL/L (0.50-2.00) Objective Exam Vital Signs Vital Signs Date Time Temp Pulse Resp B/P (MAP) Pulse Ox O2 Delivery O2 Flow Rate FiO2 03/14/23 18:27 86 16 97 21 03/14/23 18:10 36.8 03/14/23 18:00 122/90 (101) Mechanical Ventilator 21.00 Capillary Refill : Less Than 3 Seconds General Appearance: No Apparent Distress, Chronically ill, Other (Intubated) Results/Procedures Lab Laboratory Tests 03/14/23 04:40 Patient resulted labs reviewed. Assessment/Plan Assessment and Plan Assess & Plan/Chief Complaint Assessment: Acute hypoxic hypercapnic respiratory failure failed BiPAP requiring intubation Severe cerebral palsy with severe disability Sepsis DVT prophylaxis with Lovenox Plan: Intubation but SBT trial today eICU consulted Antibiotics completed Supportive care Critical Care Ventilator Management JP UNDERWOOD DO Mar 14, 2023 07:18
[2023-03-14] MEDS: polyethylene glycoL POWDER 17 GM (MIRALAX) PACK GT SCH ×2 (07:31→10:21)
--- NOTE | 2023-03-14 07:50 | Tele-ICU Progress Note ---
Progress Note video rounds completed (Tele-ICU Physician , Progress Note ) Service provided via interactive audio and video telecommunications E-CARE system to a patient admitted to ICU bed in [facility]. Patient is seen today due to persistent need of ICU care Available chart/ vitals / labs / Images reviewed Video assessment done using teleICU camera, rest of exam as per RN Discussed with RN Events overnight : Afebrile hemodynamically stable Respiratory - 60% I/O = NEG Drips: propofol and precedex Pressors- no VENT SETTIINGS: 16/380/30/5 CANDIDATE for SBT today Hospital course: (03/01) 17y/o M admitted with pneumonia, hypoxia. (03/02) INTUBATED 03/03-Ac 20 380 + 8 60% , RASS -1 on propfol 30 precedex 0.8 , added mucomist , cut down fluids 03/05- Ac 20 380 + 5 35 % propfol 50 precedex 1.4 03/06-Ac 20 380 + 5 50% propfol 50 precedex 1.4 , echo EF 60% , RVSP 30 mmHg, subaortic stenosis- moder 03/07- large neg fluid balance , ? ARDS - empiric steroids 03/07 ( decadron 4 q24 03/08- vent. AC 20, 380, 45% ,peep 5. not ready for SBT 03/09- Bowel regimen Mag citrate started -RASS -1 -propfol 45 precedex 1.2 ,Ac 20 380 + 5 50% 03/11 -sedation back 2/2 oral secretion , tachycardia-> propofol 20 , precedex 1.0 ,diuresis - RESPONDED WELL with less rhonchorous , good UO, TF resumed 03/12- SBP - failed with tachypnea , off precedex 03/13-AC 16, 380, 35% ,peep 5, precedex resumed, TF up to goal , decreased decadron to 2 q24h 03/14 SBT today A/P Acute hypoxic resp failure ( with congenital scoliosis, tracheomalacia and MADISYN ) - pna WITH SUSPRCTEED ARDS -(03/02) INTUBATED AC 16, 380, 35% ,peep 5 - thick secretions -duo neb and mucomist - less amount - -? 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 - cont Trileptal Abd distension 03/05, Ileus - Sx consuled - lactulose / Mag citrate with improvement - starting TF now - up to goal ( h/o Esophageal stricture , nissanfundoplication , PEG tube placement H/o Hydrocephalus - s/p AADC PLANS 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 Discussed with RN to reach out if any questions or concerns Case and care daily discussed on multidisciplinary rounds ( RN, PharmD, Crossing Watchman , Respiratory Therapy, culinary worker ) A total of 31 minutes of critical care time was devoted to this patient today, required to treat and/or prevent further deterioration of critical care condi tion ( as above ) . Sepsis Event Evaluation Height, Weight, BMI Height: 4'0" Weight: 72lbs. oz. 32.930930un; 24.98 BMI Method: Focused Exam Time of Focused Exam: 09:00 Exam Exam Patient acknowledged, consented, and participated in this virtual visit which was conducted using real time audio/video Vital Signs Date Time Temp Pulse Resp B/P (MAP) Pulse Ox O2 Delivery O2 Flow Rate FiO2 03/13/23 11:00 105 17 98 Mechanical Ventilator 35.00 03/13/23 10:00 112 17 116/54 (72) 98 Mechanical Ventilator 35.00 03/13/23 09:26 106 19 99 35 03/13/23 09:00 101 15 95/57 (71) 98 Mechanical Ventilator 35.00 03/13/23 08:00 98 Mechanical Ventilator 35 03/13/23 08:00 92 15 114/58 (76) 99 Mechanical Ventilator 35.00 03/13/23 07:00 101 17 120/64 (83) 100 Mechanical Ventilator 35.00 03/13/23 07:00 100 03/13/23 06:46 97 16 100 35 03/13/23 06:00 98 16 119/58 (78) 98 Mechanical Ventilator 35.00 03/13/23 05:00 104 15 99/47 (64) 98 Mechanical Ventilator 35.00 03/13/23 04:00 96 15 104/58 (73) 99 Mechanical Ventilator 35.00 03/13/23 04:00 98 Mechanical Ventilator 35 03/13/23 03:59 35 03/13/23 03:00 100 15 113/56 (75) 98 Mechanical Ventilator 35.00 03/13/23 02:52 93 16 100 35 03/13/23 02:00 98 16 101/51 (68) 98 Mechanical Ventilator 35.00 03/13/23 01:00 104 03/13/23 01:00 96 16 100/57 (71) 97 Mechanical Ventilator 35.00 03/13/23 00:00 37.0 03/13/23 00:00 118 20 104/52 (69) 98 Mechanical Ventilator 35.00 03/12/23 23:59 35 03/12/23 23:59 98 Mechanical Ventilator 35 03/12/23 23:00 122 21 108/59 (75) 96 Mechanical Ventilator 35.00 03/12/23 22:24 123 21 96 35 03/12/23 22:00 93 108/53 03/12/23 22:00 138 25 121/60 (80) 93 Mechanical Ventilator 35.00 03/12/23 21:00 131 31 115/68 (84) 94 Mechanical Ventilator 35.00 03/12/23 20:14 116 20 92 35 03/12/23 20:00 98 Mechanical Ventilator 35 03/12/23 20:00 120 31 137/63 (87) 92 Mechanical Ventilator 35.00 03/12/23 19:58 35 03/12/23 19:00 121 03/12/23 19:00 109 15 138/57 (84) 93 Mechanical Ventilator 35.00 03/12/23 18:00 117 19 123/68 (86) 96 Mechanical Ventilator 35.00 03/12/23 18:00 37.2 104 18 120/64 (82) 97 Mechanical Ventilator 35.00 03/12/23 17:00 118 17 134/58 (83) 97 Mechanical Ventilator 35.00 03/12/23 16:00 112 23 119/72 (78) 95 Mechanical Ventilator 35.00 03/12/23 16:00 98 Mechanical Ventilator 35 03/12/23 15:58 37.5 03/12/23 15:00 112 24 121/61 (88) 94 Mechanical Ventilator 35.00 03/12/23 14:45 112 30 95 35 03/12/23 14:00 105 21 110/71 (79) 96 Mechanical Ventilator 35.00 03/12/23 13:00 111 19 119/63 (81) 96 Mechanical Ventilator 35.00 03/12/23 12:27 96 03/12/23 12:00 98 Mechanical Ventilator 35 03/12/23 12:00 94 22 112/60 (80) 97 Mechanical Ventilator 35.00 I & O 03/13/23 07:00 Intake Total 2820 ml Output Total 5500 ml Balance -2680 ml Height & Weight Height: 4'0" Weight: 72lbs. oz. 32.820216cp; 24.98 BMI Method: General Appearance: No Apparent Distress, Chronically ill, Other (intubated) HEENT: Normal ENT Inspection Neck: Normal Inspection, Non Tender, Supple Respiratory: No Accessory Muscle Use, Other (equal chest rise) Cardiovascular: Regular Rate, Rhythm, No JVD Capillary Refill: Less Than 3 Seconds Gastrointestinal: soft; No distended; other (gastrostomy tube luq) Extremity: Non Tender, No Calf Tenderness, No Pedal Edema Neurologic/Psychiatric: Other (intubated, sedated) Skin: Normal Color, Warm/Dry Lymphatic: No Adenopathy Time spent on review: 22 minutes I am monitoring this patient remotely from another state. I am unable to examine the patient. Review is based upon nursing and laboratory review and video examination. Focused Exam Height, Weight, BMI Height: 4'0" Weight: 72lbs. oz. 32.447719al; 24.98 BMI Method: Time of Focused Exam: 09:00 Labs Laboratory Tests 03/14/23 04:40 Results Results/Procedures Labs Laboratory Tests 03/13/23 04:15 7/9/23 04:40 Patient resulted labs reviewed. Results Labs Labs Laboratory Tests 03/13/23 11:29: Glucometer 129H 03/13/23 18:01: Glucometer 122H 03/14/23 04:40: White Blood Count 11.3H, Red Blood Count 3.70L, Hemoglobin 10.9L, Hematocrit 33L , Mean Corpuscular Volume 90, Mean Corpuscular Hemoglobin 30, Mean Corpuscular Hemoglobin Concent 33, Red Cell Distribution Width 16.2H, Platelet Count 537H, Mean Platelet Volume 10.4, Immature Granulocyte % (Auto) 0, Neutrophils (%) (Auto) 63, Lymphocytes (%) (Auto) 27, Monocytes (%) (Auto) 8, Eosinophils (%) (Auto) 3, Basophils (%) (Auto) 1, Neutrophils # (Auto) 7.1, Lymphocytes # (Auto) 3.0, Monocytes # (Auto) 0.9, Eosinophils # (Auto) 0.3, Basophils # (Auto) 0.1, Immature Granulocyte # (Auto) 0.0, Sodium Level 141, Potassium Level 3.4L, Chloride Level 107, Carbon Dioxide Level 23, Anion Gap 11, Blood Urea Nitrogen 7, Creatinine 0.45L, Estimat Glomerular Filtration Rate 156, BUN/Creatinine Ratio 16, Glucose Level 113H, Calcium Level 9.2, Phosphorus Level 3.0, Magnesium Level 2.0 Microbiology 03/02/23 Gram Stain - Final, Complete 03/02/23 Sputum Culture - Final, Complete Corynebacterium striatum 03/01/23 Blood Culture - Final, Complete No growth CALLIE WAGNER MD Mar 14, 2023 07:50
[2023-03-14] MEDS: ENOXAPARIN 30 MG/0.3 ML SYRINGE SC SCH ×2 (08:42→22:46)
[2023-03-14] MEDS: dexAMETHasone INJ 4 MG/ML SDV IV SCH (08:42)
[2023-03-14] MEDS: PANTOPRAZOLE 40 MG (PROTONIX) VIAL IV SCH (08:42)
[2023-03-14] MEDS: TRILEPTAL GT SCH ×2 (08:44→22:46)
[2023-03-14] MEDS: LORATADINE 5 MG/5 ML SOLN (CLARITIN) UDC GT SCH ×2 (08:50→22:46)
--- NOTE | 2023-03-14 10:26 | Tele-ICU Progress Note ---
Progress Note todays cxr looks like bilateral ARDS, bilateral infiltrates. Probably not a candidadte for extubation today Focused Exam Height, Weight, BMI Height: 4'0" Weight: 72lbs. oz. 32.509385mr; 24.98 BMI Method: Time of Focused Exam: 09:00 CALLIE WAGNER MD Mar 14, 2023 10:26
--- NOTE | 2023-03-14 10:26 | Diagnostic Imaging Report ---
EXAMINATION: Chest 1 view HISTORY: Follow-up pneumonia. Intubated. COMPARISON: 03/13/2023. FINDINGS: Stable endotracheal tube, Dobbhoff, and right port. There is slight improvement in the patchy and hazy opacities throughout both lungs. Possible small right pleural effusion. No pneumothorax. Stable cardiac silhouette. IMPRESSION: 1. Slight improved aeration of the lungs with continued involvement throughout all 5 lobes. Findings are concerning for multifocal pneumonia. Continued follow-up is recommended. 2. Stable support devices. Dictated by: Dictated on workstation # [id number]
[2023-03-14] MEDS: PROPOFOL DRIP (ICU) 100 ML IV SCH (11:10)
[2023-03-14] MEDS: ACETAMINOPHEN 325 MG/10.15 ML ORAL SOLN UDC PO PRN (13:41)
[2023-03-14] MEDS ORDERED: DexMEDEtomidine 250 ML DRIP 250 ML IV SCH (13:45)
[2023-03-14] MEDS ORDERED: LORazepam INJ 2 MG/ML (ATIVAN) VIAL IVP ONE ×2 (14:15→14:30)
[2023-03-14] MEDS: ZONISAMIDE 100 MG CAP (ZONEGRAN) NON-FORMULARY PO SCH (14:32)
[2023-03-14] MEDS: DexMEDEtomidine 250 ML DRIP 250 ML IV SCH ×2 (14:44→20:01)
[2023-03-14] MEDS ORDERED: LORazepam INJ 2 MG/ML (ATIVAN) VIAL IVP PRN (14:45)
--- NOTE | 2023-03-14 16:06 | Tele-ICU Progress Note ---
Progress Note WBC up to 11.3 today spiked fever and gold cultured lactate 2.97 Will restart meropenam (20mg/kg + 920) Focused Exam Lactate Level 03/14/23 14:40: Lactic Acid Level 2.97*H Height, Weight, BMI Height: 4'0" Weight: 72lbs. oz. 32.386714db; 24.98 BMI Method: Time of Focused Exam: 09:00 Lactic Acid Level Laboratory Tests Test 03/14/23 14:40 Lactic Acid Level 2.97 MMOL/L (0.50-2.00) *H Labs Laboratory Tests 03/14/23 04:40 CALLIE WAGNER MD Mar 14, 2023 16:06
[2023-03-14] MEDS: MEROPENEM IV SCH (16:53)
[2023-03-14] MEDS: NS IV SCH (16:53)
[2023-03-14] MEDS ORDERED: NS IV 500 ML 500 ML IV SCH (18:00)
[2023-03-15] MEDS: MEROPENEM IV SCH ×4 (00:09→23:59)
[2023-03-15] MEDS: NS IV SCH ×4 (00:09→23:59)
--- NOTE | 2023-03-15 01:19 | Tele-ICU Progress Note ---
Progress Note pT WITH SEPSIS , sOFT bp sbp 80S. NS 250 ML BOLUS ORDERED AND D/W THE BEDSIDE NURSE. NORMAL LACTIC ACID . Focused Exam Lactate Level 03/14/23 14:40: Lactic Acid Level 2.97*H 03/14/23 16:55: Lactic Acid Level 0.64 Height, Weight, BMI Height: 4'0" Weight: 72lbs. oz. 32.967953mv; 24.98 BMI Method: Time of Focused Exam: 09:00 VALENTIN CALLAHAN MD Mar 15, 2023 01:19
[2023-03-15] MEDS ORDERED: NS 250 ML (IVPB) BAG IV ONE (01:30)
[2023-03-15] MEDS: RT-LEVALBUTEROL (XOPENEX) 1.25 MG/3 ML NEB NON-FORMULARY INH SCH ×4 (02:43→21:18)
[2023-03-15 02:44] VITALS: BP 124/89
[2023-03-15] MEDS: aCETylcysteine 20% (RT/PO) 4 ML SOLN VIAL INH SCH ×3 (02:44→14:08)
[2023-03-15] MEDS: PROPOFOL DRIP (ICU) 100 ML IV SCH ×2 (04:06→18:56)
[2023-03-15 05:19] LABS: BASOPHILS # (AUTO) 0.1 10^3/uL (0.0-0.1); BASOPHILS % (AUTO) 1 % (0-10); EOSINOPHILS # (AUTO) 0.2 10^3/uL (0.0-0.3); EOSINOPHILS % (AUTO) 3 % (0-10); HEMATOCRIT 29 % (40-54); HEMOGLOBIN 9.5 g/dL (13.3-17.7); LYMPHOCYTES % (AUTO) 35 % (12-44); MEAN CORPUSCULAR HEMOGLOBIN 30 pg (25-34); MEAN CORPUSCULAR HGB CONC 33 g/dL (32-36); MEAN CORPUSCULAR VOLUME 91 fL (80-99); MEAN PLATELET VOLUME 10.6 fL (9.0-12.2); MONOCYTES # (AUTO) 0.6 10^3/uL (0.0-1.0); MONOCYTES % (AUTO) 7 % (0-12); NEUTROPHILS # (AUTO) 4.5 10^3/uL (1.8-7.8); NEUTROPHILS % (AUTO) 54 % (42-75); PLATELET COUNT 481 10^3/uL (130-400); WHITE BLOOD COUNT 8.3 10^3/uL (4.3-11.0)
[2023-03-15 05:33] LABS: POTASSIUM 3.1 MMOL/L (3.6-5.0)
[2023-03-15 05:34] LABS: CALCIUM 8.8 MG/DL (8.5-10.1)
[2023-03-15 05:38] LABS: CREATININE SERUM 0.44 MG/DL (0.60-1.30)
[2023-03-15 05:41] LABS: MAGNESIUM 2.1 MG/DL (1.6-2.4)
[2023-03-15] MEDS: MAGNESIUM 1 GM/100 ML IVPB 100 ML IV SCH (05:45)
[2023-03-15] MEDS: KCL 20 MEQ TAB (K-DUR) PO SCH (05:46)
[2023-03-15] MEDS: POTASSIUM CL 10MEQ/50ML IVPB 50 ML IV SCH ×7 (05:58→11:24)
[2023-03-15 07:02] VITALS: BP 106/58
[2023-03-15] MEDS: ENOXAPARIN 30 MG/0.3 ML SYRINGE SC SCH ×2 (07:39→19:59)
[2023-03-15] MEDS: polyethylene glycoL POWDER 17 GM (MIRALAX) PACK GT SCH (08:01)
[2023-03-15] MEDS: LORATADINE 5 MG/5 ML SOLN (CLARITIN) UDC GT SCH ×2 (08:02→20:02)
[2023-03-15] MEDS: TRILEPTAL GT SCH ×2 (08:02→19:59)
[2023-03-15] MEDS: PANTOPRAZOLE 40 MG (PROTONIX) VIAL IV SCH (08:02)
[2023-03-15] MEDS: dexAMETHasone INJ 4 MG/ML SDV IV SCH (08:02)
--- NOTE | 2023-03-15 08:46 | Progress Note - Hospitalist ---
Subjective HPI/CC On Admission Date Seen by Provider: Mar 15, 2023 Time Seen by Provider: 08:45 Chief complaint: Acute hypoxic respiratory failure due to pneumonia requiring intubation after failed BiPAP HPI: This is a 17-year-old male with a history of cerebral palsy and severe disability who presented to the ICU with acute hypoxic respiratory failure with hypercapnia requiring BiPAP. I was consulted due to decision for intubation due to failure on BiPAP. Patient has longstanding medical issues from his severe disability. Parents are at the bedside. Anesthesia was consulted and patient was intubated without complication. eICU was notified. Subjective/Events-last exam No major changes Labs stable Chest x-ray no change May need trach Focused Exam Lactate Level 03/14/23 14:40: Lactic Acid Level 2.97*H 03/14/23 16:55: Lactic Acid Level 0.64 Time of Focused Exam: 09:00 Objective Exam Vital Signs Vital Signs Date Time Temp Pulse Resp B/P (MAP) Pulse Ox O2 Delivery O2 Flow Rate FiO2 03/15/23 19:35 126 28 94 30 03/15/23 19:15 Mechanical Ventilator 03/15/23 19:00 36.8 123/67 (85) 30.00 Capillary Refill : Less Than 3 Seconds General Appearance: No Apparent Distress, WD/WN, Chronically ill, Other (Intubated) Respiratory: No Accessory Muscle Use, No Respiratory Distress, Decreased Breath Sounds Cardiovascular: Regular Rate, Rhythm Results/Procedures Lab Laboratory Tests 03/15/23 05:10 Patient resulted labs reviewed. Assessment/Plan Assessment and Plan Assess & Plan/Chief Complaint Assessment: Acute hypoxic hypercapnic respiratory failure failed BiPAP requiring intubation Severe cerebral palsy with severe disability Sepsis DVT prophylaxis with Lovenox Plan: SBT if continues to fail needs trach eICU consulted Antibiotics completed Supportive care Critical Care Ventilator Management JP UNDERWOOD DO Mar 15, 2023 08:46
[2023-03-15] MEDS: IBUPROFEN SUSP 100MG/5ML (MOTRIN) UDC PO PRN (09:57)
[2023-03-15] MEDS: NS IV 1000 ML 1,000 ML IV SCH (10:19)
[2023-03-15 10:37] VITALS: BP 124/68
--- NOTE | 2023-03-15 10:44 | Tele-ICU Progress Note ---
Subjective Date Seen by a Provider: Mar 15, 2023 Time Seen by a Provider: 10:44 Subjective/Events-last exam (Tele-ICU Physician , Progress Note ) Service provided via interactive audio and video telecommunications E-CARE system to a patient admitted to ICU bed in [facility]. Patient is seen today due to persistent need of ICU care Available chart/ vitals / labs / Images reviewed Video assessment done using teleICU camera, rest of exam as per RN Discussed with RN Events overnight : Afebrile hemodynamically stable Respiratory - 60% I/O = NEG Drips: Pressors- no VENT SETTINGS and ABG reviewed CANDIDATE for SBTreviewed possible contraindications including Cardiovascular Stability /Sedation Score / FI02/PEEP / ABG / CXR/ secretions Sedation, discussed with RN, RASS -1 -propfol 20 precedex 1.0 Hospital course: (03/01) 17y/o M admitted with pneumonia, hypoxia. (03/02) INTUBATED 03/03-Ac 20 380 + 8 60% , RASS -1 on propfol 30 precedex 0.8 , added mucomist , cut down fluids 03/05- Ac 20 380 + 5 35 % propfol 50 precedex 1.4 03/06-Ac 20 380 + 5 50% propfol 50 precedex 1.4 , echo EF 60% , RVSP 30 mmHg, subaortic stenosis- moder 03/07- large neg fluid balance , ? ARDS - empiric steroids 03/07 ( decadron 4 q24 03/08- vent. AC 20, 380, 45% ,peep 5. not ready for SBT 03/09- Bowel regimen Mag citrate started -RASS -1 -propfol 45 precedex 1.2 ,Ac 20 380 + 5 50% 03/11 -sedation back 2/2 oral secretion , tachycardia-> propofol 20 , precedex 1.0 ,diuresis - RESPONDED WELL with less rhonchorous , good UO, TF resumed 03/12- SBP - failed with tachypnea , off precedex 03/13-AC 16, 380, 35% ,peep 5, precedex resumed, TF up to goal , decreased decadron twith plans to stop 03/18 03/14- SBT for 1 h - SEIZURE at the end - reveiced ativan 03/15 - tachycardic , fever ( CX DONE ) off sedation , FLEXISEAL for diarrhea - CT chest , CT head A/P Acute hypoxic resp failure ( with congenital scoliosis, tracheomalacia and MADISYN ) - pna WITH SUSPRCTED ARDS -(03/02) INTUBATED AC 16, 380, 35% ,peep 5 - thick secretions -duo neb and mucomist - less amount - -? 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 - cont Trileptal Abd distension 03/05, Ileus RESOLVED - Sx consuled - lactulose / Mag citrate starting TF now - up to goal ( h/o Esophageal stricture , nissanfundoplication , PEG tube placement H/o Hydrocephalus - s/p AIRCRAFT ENGINE INSTALLER shunt Baclofen pump - 60 mg/day - cont Anemia stable skin - clear MADISYN- BIPAP 05/11 at night , NOT on O2 when doing well Nutrition - TF on hold 03/05 - resumed 03/11 -> 03/13 up to goal Elev TGL - on propfol , repeted pending Lines : R port periph , RIGHT fem line , (Central Line Necessity Reviewed) [place]: + Flexi seal 03/15 OG: Nutrition: PEG - off TF 03/05 Analgesia: Anxiety/ delirium VTE Prophylaxis: 30 Stress Ulcer Prophylaxis: na Plans in collaboration with bedside consultants and IM MDs. Discussed with RN to reach out if any questions or concerns Case and care daily discussed on multidisciplinary rounds ( RN, PharmD, Biochemist , Respiratory Therapy, dye house worker ) A total of 31 minutes of critical care time was devoted to this patient today, required to treat and/or prevent further deterioration of critical care condition ( as above ) . Sepsis Event Evaluation Height, Weight, BMI Height: 4'0" Weight: 72lbs. oz. 32.762489pi; 24.98 BMI Method: Focused Exam Lactate Level 03/14/23 14:40: Lactic Acid Level 2.97*H 03/14/23 16:55: Lactic Acid Level 0.64 Time of Focused Exam: 09:00 Exam Exam Patient acknowledged, consented, and participated in this virtual visit which was conducted using real time audio/video Vital Signs Date Time Temp Pulse Resp B/P (MAP) Pulse Ox O2 Delivery O2 Flow Rate FiO2 03/15/23 09:00 124 124/65 (84) 94 Mechanical Ventilator 21.00 03/15/23 08:00 36.5 Mechanical Ventilator 21.00 03/15/23 08:00 120 120/73 (89) 95 Mechanical Ventilator 21.00 03/15/23 08:00 96 Mechanical Ventilator 21 03/15/23 07:52 21 03/15/23 07:02 98 16 95 21 03/15/23 07:00 112 119/66 (83) 95 Mechanical Ventilator 21.00 03/15/23 07:00 101 03/15/23 06:09 36.4 03/15/23 06:00 95 16 99/54 (69) 95 Mechanical Ventilator 21.00 03/15/23 05:45 92 16 101/58 (72) 97 Mechanical Ventilator 21.00 03/15/23 05:00 91 16 89/52 (64) 98 Mechanical Ventilator 21.00 03/15/23 04:00 93 16 95/47 (63) 94 Mechanical Ventilator 21.00 03/15/23 04:00 95 Mechanical Ventilator 21 03/15/23 04:00 21 03/15/23 03:00 96 16 87/45 (59) 94 Mechanical Ventilator 21.00 03/15/23 02:44 94 16 97 21 03/15/23 02:12 101 16 111/63 (72) 97 Mechanical Ventilator 21.00 03/15/23 02:00 94 16 85/44 (55) 96 Mechanical Ventilator 21.00 03/15/23 01:15 99 15 92/36 (60) 93 Mechanical Ventilator 21.00 03/15/23 01:00 103 03/15/23 01:00 103 16 86/41 (59) 92 Mechanical Ventilator 21.00 03/15/23 00:00 93 Mechanical Ventilator 21 03/15/23 00:00 111 16 104/51 (68) 93 Mechanical Ventilator 21.00 03/14/23 23:59 21 03/14/23 23:42 36.4 03/14/23 23:00 107 16 118/64 (82) 92 Mechanical Ventilator 21.00 03/14/23 22:00 110 16 120/61 (80) 92 Mechanical Ventilator 21.00 03/14/23 21:10 101 16 94 21 03/14/23 21:00 105 16 106/71 (83) 94 Mechanical Ventilator 21.00 03/14/23 20:01 86 122/90 03/14/23 20:00 93 Mechanical Ventilator 21 03/14/23 20:00 116 16 122/72 (89) 95 Mechanical Ventilator 21.00 03/14/23 20:00 36.5 03/14/23 19:59 21 03/14/23 19:00 108 16 116/71 (86) 96 Mechanical Ventilator 21.00 03/14/23 19:00 108 03/14/23 18:44 86 122/90 03/14/23 18:27 86 16 97 21 03/14/23 18:10 36.8 03/14/23 18:00 93 15 122/90 (101) 95 Mechanical Ventilator 21.00 03/14/23 17:44 93 87/39 03/14/23 17:01 36.3 03/14/23 17:00 94 28 86/41 (56) 96 Mechanical Ventilator 21.00 03/14/23 16:00 125 16 122/98 (106) 93 Mechanical Ventilator 21.00 03/14/23 16:00 36.0 03/14/23 16:00 98 Mechanical Ventilator 30 03/14/23 15:59 35 03/14/23 15:57 21 03/14/23 15:43 114 17 99 30 03/14/23 15:00 131 16 116/69 (86) 97 Mechanical Ventilator 30.00 03/14/23 14:44 131 135/75 03/14/23 14:20 37.3 03/14/23 14:20 37.3 03/14/23 14:00 126 28 135/75 (94) 97 Mechanical Ventilator 30.00 03/14/23 13:41 37.6 03/14/23 13:38 37.6 03/14/23 13:00 128 20 137/73 (89) 96 Mechanical Ventilator 30.00 03/14/23 12:48 133 03/14/23 12:34 123 16 96 30 03/14/23 12:32 128 24 96 30 03/14/23 12:00 98 Mechanical Ventilator 30 03/14/23 12:00 134 21 133/78 (90) 94 Mechanical Ventilator 30.00 03/14/23 11:59 35 03/14/23 11:44 36.9 03/14/23 11:30 122 29 94 30 03/14/23 11:00 112 16 142/76 (86) 94 Mechanical Ventilator 30.00 I & O 03/15/23 07:00 Intake Total 2210 ml Output Total 2350 ml Balance -140 ml Height & Weight Height: 4'0" Weight: 72lbs. oz. 32.859684ol; 24.98 BMI Method: General Appearance: No Apparent Distress, Chronically ill, Other (Intubated) HEENT: Normal ENT Inspection Neck: Normal Inspection, Non Tender, Supple Respiratory: No Respiratory Distress, Crackles, Decreased Breath Sounds Cardiovascular: Regular Rate, Rhythm Capillary Refill: Less Than 3 Seconds Gastrointestinal: soft; No distended; other (gastrostomy tube luq) Extremity: Non Tender, No Calf Tenderness, No Pedal Edema Neurologic/Psychiatric: Other (intubated, sedated) Skin: Normal Color, Warm/Dry Lymphatic: No Adenopathy Results Lab Laboratory Tests 03/14/23 04:40 03/15/23 05:10 Assessment/Plan Assessment/Plan 1 VANESSA MIRAMONTES MD Mar 15, 2023 10:44
[2023-03-15] MEDS ORDERED: IOHEXOL 350 MG/ML 100 ML (OMNIPAQUE 350) VIAL IV ONE (11:15)
[2023-03-15] MEDS ORDERED: NS 100 ML (IVPB) BAG IV ONE (11:15)
--- NOTE | 2023-03-15 11:23 | Diagnostic Imaging Report ---
PROCEDURE: CT angiography of the chest with contrast. TECHNIQUE: Multiple contiguous axial images were obtained through the chest after uneventful bolus administration of intravenous contrast. 3D reconstructed CTA MIP acquisitions were also performed. Auto Exposure Controls were utilized during the CT exam to meet ALARA standards for radiation dose reduction. INDICATION: Hypoxia. Shortness of breath. COMPARISON: Chest radiograph performed earlier this same date. FINDINGS: This helical CT pulmonary angiogram is diagnostic to the segmental level branches of the pulmonary artery and demonstrates no pulmonary emboli. The heart and great vessels are unremarkable. There is no pericardial effusion. A right-sided port is seen with the tip in the cavoatrial juncture. There is no axillary, mediastinal, or hilar adenopathy. Lung volumes are low. Endotracheal tube is in place with the tip below the thoracic inlet and above the claudia. There are patchy and hazy opacities throughout the lungs, greatest in the apices. No focal mass. No central endobronchial obstructing lesion. No pleural effusion or pneumothorax. There is right convexity scoliosis of the thoracic spine. Limited views of the upper abdomen are unremarkable. IMPRESSION: 1. No acute pulmonary embolus. 2. Patchy and hazy opacities scattered throughout the lungs, greatest in the apices. Findings may represent infection or edema. Dictated by: Dictated on workstation # [id number]
--- NOTE | 2023-03-15 11:31 | Diagnostic Imaging Report ---
PROCEDURE: CT head without contrast. TECHNIQUE: Multiple contiguous axial images were obtained through the brain without the use of intravenous contrast. Auto Exposure Controls were utilized during the CT exam to meet ALARA standards for radiation dose reduction. INDICATION: Seizure-like activity. Patient has a STONECUTTER ASSISTANT shunt. COMPARISON: Correlation is made with prior CT from 10/07/2015. FINDINGS: A left frontal STONECUTTER ASSISTANT shunt tube has the tip crossing the left lateral ventricle and located near the midline. The left lateral ventricle is completely decompressed. There is slight dilatation of the right lateral ventricle but similar to prior head CT. There is no sulcal effacement or midline shift. No acute intra-axial or extra-axial hemorrhage is detected. Cisterns are patent. Visualized paranasal sinuses are clear apart from minimal fluid or mucosal thickening in the right maxillary sinus as well as some opacification of multiple ethmoid air cells. IMPRESSION: Postop changes. Overall appearance is stable to exam dating back to 2015. No acute intracranial process is detected. Dictated by: Dictated on workstation # [id number]
[2023-03-15 14:11] VITALS: BP 122/67
--- NOTE | 2023-03-15 14:37 | Diagnostic Imaging Report ---
INDICATION: Pneumonia. Follow-up. COMPARISON: 03/14/2023. FINDINGS: Single frontal radiographic view of the chest was obtained and again demonstrates indwelling endotracheal tube with tip at the clavicular heads. Right internal jugular Port-A-Cath is also seen with tip in the right atrium. Deformity to the chest and abdomen is again identified secondary to underlying moderate S-shaped scoliotic deformity. Lungs continue to show diffuse airspace opacities, not significantly changed compared to prior exam. Small effusions may be present. There is no pneumothorax. Cardiac silhouette is stable. IMPRESSION: 1. Stable diffuse bilateral pulmonary opacities concerning for pneumonia. 2. Small bilateral effusions may be present as well. Dictated by: Dictated on workstation # [id number]
[2023-03-15 19:05] VITALS: BP 123/67
[2023-03-15] MEDS: ZONISAMIDE 100 MG CAP (ZONEGRAN) NON-FORMULARY PO SCH (20:00)
[2023-03-15 20:55] VITALS: BP_SYST 105; BP_SYST 122; BP_DIAS 60; BP_DIAS 67
[2023-03-16 02:29] VITALS: BP 103/58
[2023-03-16] MEDS: RT-LEVALBUTEROL (XOPENEX) 1.25 MG/3 ML NEB NON-FORMULARY INH SCH ×4 (02:29→21:51)
[2023-03-16 03:26] LABS: BASOPHILS # (AUTO) 0.1 10^3/uL (0.0-0.1); BASOPHILS % (AUTO) 1 % (0-10); EOSINOPHILS # (AUTO) 0.1 10^3/uL (0.0-0.3); EOSINOPHILS % (AUTO) 2 % (0-10); HEMATOCRIT 30 % (40-54); HEMOGLOBIN 9.9 g/dL (13.3-17.7); LYMPHOCYTES # (AUTO) 3.4 10^3/uL (1.0-4.0); LYMPHOCYTES % (AUTO) 38 % (12-44); MEAN CORPUSCULAR HEMOGLOBIN 30 pg (25-34); MEAN CORPUSCULAR HGB CONC 33 g/dL (32-36); MEAN CORPUSCULAR VOLUME 90 fL (80-99); MEAN PLATELET VOLUME 10.4 fL (9.0-12.2); MONOCYTES # (AUTO) 0.8 10^3/uL (0.0-1.0); MONOCYTES % (AUTO) 9 % (0-12); NEUTROPHILS # (AUTO) 4.5 10^3/uL (1.8-7.8); NEUTROPHILS % (AUTO) 51 % (42-75); PLATELET COUNT 516 10^3/uL (130-400); WHITE BLOOD COUNT 8.9 10^3/uL (4.3-11.0)
[2023-03-16 03:43] LABS: POTASSIUM 3.4 MMOL/L (3.6-5.0)
[2023-03-16 03:44] LABS: CALCIUM 9.1 MG/DL (8.5-10.1)
[2023-03-16 03:49] LABS: CREATININE SERUM 0.48 MG/DL (0.60-1.30)
[2023-03-16 03:51] LABS: MAGNESIUM 2.2 MG/DL (1.6-2.4)
[2023-03-16] MEDS: NS IV 1000 ML 1,000 ML IV SCH ×2 (03:55→19:37)
[2023-03-16] MEDS: KCL 20 MEQ TAB (K-DUR) PO SCH (03:56)
[2023-03-16] MEDS: MAGNESIUM 1 GM/100 ML IVPB 100 ML IV SCH (03:57)
[2023-03-16] MEDS: POTASSIUM CL 10MEQ/50ML IVPB 50 ML IV SCH ×4 (03:57→04:53)
--- NOTE | 2023-03-16 05:41 | Progress Note - Hospitalist ---
Subjective HPI/CC On Admission Date Seen by Provider: Mar 16, 2023 Time Seen by Provider: 11:00 Chief complaint: Acute hypoxic respiratory failure due to pneumonia requiring intubation after failed BiPAP HPI: This is a 17-year-old male with a history of cerebral palsy and severe disability who presented to the ICU with acute hypoxic respiratory failure with hypercapnia requiring BiPAP. I was consulted due to decision for intubation due to failure on BiPAP. Patient has longstanding medical issues from his severe disability. Parents are at the bedside. Anesthesia was consulted and patient was intubated without complication. eICU was notified. Subjective/Events-last exam Awaiting extubation Spoke to EICU Dr Bishop in-depth Anesthesia will be needed at bedside Focused Exam Lactate Level 03/14/23 14:40: Lactic Acid Level 2.97*H 03/14/23 16:55: Lactic Acid Level 0.64 Time of Focused Exam: 09:00 Objective Exam Vital Signs Vital Signs Date Time Temp Pulse Resp B/P (MAP) Pulse Ox O2 Delivery O2 Flow Rate FiO2 03/16/23 20:00 116 159/81 (107) 95 High Flow N/C 8.00 03/16/23 19:00 36.6 30 03/16/23 10:10 30 Capillary Refill : Less Than 3 Seconds General Appearance: No Apparent Distress, WD/WN, Chronically ill Respiratory: Lungs Clear, Normal Breath Sounds Results/Procedures Lab Laboratory Tests 03/16/23 03:17 Patient resulted labs reviewed. Assessment/Plan Assessment and Plan Assess & Plan/Chief Complaint Assessment: Acute hypoxic hypercapnic respiratory failure failed BiPAP requiring intubation Severe cerebral palsy with severe disability Sepsis DVT prophylaxis with Lovenox Plan: Extubate eICU consulted Antibiotics completed Supportive care Critical Care Ventilator Management JP UNDERWOOD DO Mar 16, 2023 05:41
[2023-03-16 07:37] VITALS: BP 130/66
--- NOTE | 2023-03-16 08:16 | Tele-ICU Progress Note ---
Subjective Date Seen by a Provider: Mar 16, 2023 Time Seen by a Provider: 08:11 Subjective/Events-last exam (Tele-ICU Physician , Progress Note ) Service provided via interactive audio and video telecommunications E-CARE system to a patient admitted to ICU bed in [facility]. 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 oz. 32.534372tj; 24.61 BMI Method: Focused Exam Lactate Level 03/14/23 14:40: Lactic Acid Level 2.97*H 03/14/23 16:55: Lactic Acid Level 0.64 Time of Focused Exam: 09:00 Exam Exam Patient acknowledged, consented, and participated in this virtual visit which was conducted using real time audio/video Vital Signs Date Time Temp Pulse Resp B/P (MAP) Pulse Ox O2 Delivery O2 Flow Rate FiO2 03/16/23 07:55 36.5 03/16/23 07:37 104 23 95 30 03/16/23 07:00 107 03/16/23 06:00 105 16 132/60 (84) 97 Mechanical Ventilator 30.00 03/16/23 05:00 108 16 129/78 (92) 98 Mechanical Ventilator 30.00 03/16/23 04:02 36.3 03/16/23 04:00 101 16 131/70 (87) 98 Mechanical Ventilator 30.00 03/16/23 04:00 99 Mechanical Ventilator 30 03/16/23 03:34 30 03/16/23 03:00 105 16 108/64 (79) 98 Mechanical Ventilator 30.00 03/16/23 02:29 101 16 96 30 03/16/23 02:00 112 16 103/58 (78) 96 Mechanical Ventilator 30.00 03/16/23 01:09 36.4 03/16/23 01:00 112 03/16/23 01:00 114 16 114/72 (80) 98 Mechanical Ventilator 30.00 03/16/23 00:00 30 03/16/23 00:00 109 16 122/69 (86) 97 Mechanical Ventilator 30.00 03/16/23 00:00 97 Mechanical Ventilator 30 03/15/23 23:38 36.6 03/15/23 23:00 112 16 126/68 (85) 96 Mechanical Ventilator 30.00 03/15/23 22:05 30 03/15/23 22:00 115 16 128/63 (84) 96 Mechanical Ventilator 30.00 03/15/23 21:00 112 16 106/62 (71) 93 Mechanical Ventilator 30.00 03/15/23 20:55 121 19 96 30 03/15/23 20:00 112 16 127/67 (82) 96 Mechanical Ventilator 30.00 03/15/23 19:35 126 28 94 30 03/15/23 19:15 95 Mechanical Ventilator 30 03/15/23 19:15 30 03/15/23 19:05 121 25 96 30 03/15/23 19:00 127 03/15/23 19:00 36.8 116 16 123/67 (85) 95 Mechanical Ventilator 30.00 03/15/23 18:00 121 12 120/71 (87) 93 Mechanical Ventilator 30.00 03/15/23 17:00 125 54 130/68 (88) 92 Mechanical Ventilator 30.00 03/15/23 16:00 116 122/70 (87) 94 Mechanical Ventilator 30.00 03/15/23 16:00 95 Mechanical Ventilator 21 03/15/23 15:59 30 03/15/23 15:51 37.1 03/15/23 15:00 128 123/74 (90) 94 Mechanical Ventilator 30.00 03/15/23 14:55 Mechanical Ventilator 30.00 03/15/23 14:11 126 25 95 21 03/15/23 14:00 116 122/70 (87) 94 Mechanical Ventilator 21.00 03/15/23 13:52 Mechanical Ventilator 30.00 03/15/23 13:24 123 24 92 21 03/15/23 13:00 133 119/67 (84) 95 Mechanical Ventilator 21.00 03/15/23 12:47 106 03/15/23 12:18 21 03/15/23 12:00 95 Mechanical Ventilator 21 03/15/23 12:00 98 100/57 (71) 91 Mechanical Ventilator 21.00 03/15/23 11:41 36.8 Mechanical Ventilator 21.00 03/15/23 11:00 115 108/59 (75) 91 Mechanical Ventilator 21.00 03/15/23 10:37 121 20 91 21 03/15/23 10:00 108 124/68 (86) 93 Mechanical Ventilator 21.00 03/15/23 09:00 124 124/65 (84) 94 Mechanical Ventilator 21.00 I & O 03/16/23 07:00 Intake Total 1795 ml Output Total 1815 ml Balance -20 ml Height & Weight Height: 4'0" Weight: 72lbs. oz. 32.972481tm; 24.61 BMI Method: General Appearance: No Apparent Distress, WD/WN, Chronically ill, Other (Intubated) HEENT: Normal ENT Inspection Neck: Normal Inspection, Non Tender, Supple Respiratory: No Accessory Muscle Use, No Respiratory Distress, Decreased Breath Sounds, Other (air exchange is better) Cardiovascular: Regular Rate, Rhythm, Tachycardia, Other (HR is better than yesterday) Capillary Refill: Less Than 3 Seconds Gastrointestinal: normal bowel sounds, non tender, soft, no organomegaly; No distended; other (gastrostomy tube luq) Extremity: Non Tender, No Calf Tenderness, No Pedal Edema Neurologic/Psychiatric: Other (intubated, sedated) Skin: Normal Color, Warm/Dry Lymphatic: No Adenopathy Results Lab Laboratory Tests 03/15/23 05:10 03/16/23 03:17 Assessment/Plan Assessment/Plan Intubated 2 weeks but doing well on PSV, will test for cuff leak and may be able to extubate, Spoke to Dr Rahman, Would like to have anesthesiologist in room when extubated WIll then palce on BiPAP 06/10, Has MADISYN but does not keep CPAP on at night Pt was not a difficult intubation. Spoke to pt's mother re plan Critical Care: Ventilator Management Time spent with patient (mins): 35 CALLIE LOWE MD Mar 16, 2023 08:16
[2023-03-16] MEDS: MEROPENEM IV SCH ×3 (08:31→23:48)
[2023-03-16] MEDS: NS IV SCH ×3 (08:31→23:48)
[2023-03-16] MEDS: PANTOPRAZOLE 40 MG (PROTONIX) VIAL IV SCH (08:32)
[2023-03-16] MEDS: LORATADINE 5 MG/5 ML SOLN (CLARITIN) UDC GT SCH ×2 (08:32→20:00)
[2023-03-16] MEDS: ENOXAPARIN 30 MG/0.3 ML SYRINGE SC SCH ×2 (08:32→20:00)
[2023-03-16] MEDS: polyethylene glycoL POWDER 17 GM (MIRALAX) PACK GT SCH (08:32)
[2023-03-16] MEDS: TRILEPTAL GT SCH ×2 (08:33→20:00)
[2023-03-16] MEDS ORDERED: RT-RACEPINEPHRINE 2.25% 0.5 ML VIAL INH PRN (09:30)
[2023-03-16] MEDS: dexAMETHasone INJ 4 MG/ML SDV IV SCH (10:08)
[2023-03-16 10:10] VITALS: BP 138/80
[2023-03-16] MEDS: PROPOFOL DRIP (ICU) 100 ML IV SCH (10:30)
--- NOTE | 2023-03-16 11:13 | Tele-ICU Progress Note ---
Subjective Date Seen by a Provider: Mar 16, 2023 Time Seen by a Provider: 11:11 Subjective/Events-last exam Pt did well today on PSV 10, cuff leak test done which showed a 170 mL leak. pt successfully extubated, 10 min later-no stridor, no resp distress, SpO2 100% on NC Sepsis Event Evaluation Height, Weight, BMI Height: 4'0" Weight: 72lbs. oz. 32.184505ml; 24.61 BMI Method: Focused Exam Lactate Level 03/14/23 14:40: Lactic Acid Level 2.97*H 03/14/23 16:55: Lactic Acid Level 0.64 Time of Focused Exam: 09:00 Exam Exam Patient acknowledged, consented, and participated in this virtual visit which was conducted using real time audio/video Vital Signs Date Time Temp Pulse Resp B/P (MAP) Pulse Ox O2 Delivery O2 Flow Rate FiO2 03/16/23 10:10 105 26 96 30 03/16/23 10:00 109 23 138/80 (99) 97 Mechanical Ventilator 30.00 03/16/23 09:00 98 24 140/71 (94) 96 Mechanical Ventilator 30.00 03/16/23 08:55 30 03/16/23 08:00 100 Mechanical Ventilator 30 03/16/23 08:00 104 20 140/76 (97) 100 Mechanical Ventilator 30.00 03/16/23 07:55 36.5 03/16/23 07:37 104 23 95 30 03/16/23 07:00 107 03/16/23 07:00 99 17 130/66 (87) 98 Mechanical Ventilator 30.00 03/16/23 06:00 105 16 132/60 (84) 97 Mechanical Ventilator 30.00 03/16/23 05:00 108 16 129/78 (92) 98 Mechanical Ventilator 30.00 03/16/23 04:02 36.3 03/16/23 04:00 101 16 131/70 (87) 98 Mechanical Ventilator 30.00 03/16/23 04:00 99 Mechanical Ventilator 30 03/16/23 03:34 30 03/16/23 03:00 105 16 108/64 (79) 98 Mechanical Ventilator 30.00 03/16/23 02:29 101 16 96 30 03/16/23 02:00 112 16 103/58 (78) 96 Mechanical Ventilator 30.00 03/16/23 01:09 36.4 03/16/23 01:00 112 03/16/23 01:00 114 16 114/72 (80) 98 Mechanical Ventilator 30.00 03/16/23 00:00 30 03/16/23 00:00 109 16 122/69 (86) 97 Mechanical Ventilator 30.00 03/16/23 00:00 97 Mechanical Ventilator 30 03/15/23 23:38 36.6 03/15/23 23:00 112 16 126/68 (85) 96 Mechanical Ventilator 30.00 03/15/23 22:05 30 03/15/23 22:00 115 16 128/63 (84) 96 Mechanical Ventilator 30.00 03/15/23 21:00 112 16 106/62 (71) 93 Mechanical Ventilator 30.00 03/15/23 20:55 121 19 96 30 03/15/23 20:00 112 16 127/67 (82) 96 Mechanical Ventilator 30.00 03/15/23 19:35 126 28 94 30 03/15/23 19:15 95 Mechanical Ventilator 30 03/15/23 19:15 30 03/15/23 19:05 121 25 96 30 03/15/23 19:00 127 03/15/23 19:00 36.8 116 16 123/67 (85) 95 Mechanical Ventilator 30.00 03/15/23 18:00 121 12 120/71 (87) 93 Mechanical Ventilator 30.00 03/15/23 17:00 125 54 130/68 (88) 92 Mechanical Ventilator 30.00 03/15/23 16:00 116 122/70 (87) 94 Mechanical Ventilator 30.00 03/15/23 16:00 95 Mechanical Ventilator 21 03/15/23 15:59 30 03/15/23 15:51 37.1 03/15/23 15:00 128 123/74 (90) 94 Mechanical Ventilator 30.00 03/15/23 14:55 Mechanical Ventilator 30.00 03/15/23 14:11 126 25 95 21 03/15/23 14:00 116 122/70 (87) 94 Mechanical Ventilator 21.00 03/15/23 13:52 Mechanical Ventilator 30.00 03/15/23 13:24 123 24 92 21 03/15/23 13:00 133 119/67 (84) 95 Mechanical Ventilator 21.00 03/15/23 12:47 106 03/15/23 12:18 21 03/15/23 12:00 95 Mechanical Ventilator 21 03/15/23 12:00 98 100/57 (71) 91 Mechanical Ventilator 21.00 03/15/23 11:41 36.8 Mechanical Ventilator 21.00 I & O 03/16/23 07:00 Intake Total 1795 ml Output Total 1815 ml Balance -20 ml Height & Weight Height: 4'0" Weight: 72lbs. oz. 32.288790zf; 24.61 BMI Method: General Appearance: No Apparent Distress, WD/WN, Chronically ill, Other (Intubated) HEENT: Normal ENT Inspection Neck: Normal Inspection, Non Tender, Supple Respiratory: No Accessory Muscle Use, No Respiratory Distress, Decreased Breath Sounds, Other (air exchange is better) Cardiovascular: Regular Rate, Rhythm, Tachycardia, Other (HR is better than yesterday) Capillary Refill: Less Than 3 Seconds Gastrointestinal: normal bowel sounds, non tender, soft, no organomegaly; No distended; other (gastrostomy tube luq) Extremity: Non Tender, No Calf Tenderness, No Pedal Edema Neurologic/Psychiatric: Other (intubated, sedated) Skin: Normal Color, Warm/Dry Lymphatic: No Adenopathy Results Lab Laboratory Tests 03/15/23 05:10 03/16/23 03:17 Assessment/Plan Assessment/Plan Pt did well today on PSV 10, cuff leak test done which showed a 170 mL leak. pt successfully extubated, 10 min later-no stridor, no resp distress, SpO2 100% on NC Critical Care: Critically Ill Patient Time spent with patient (mins): 15 CALLIE LOWE MD Mar 16, 2023 11:13
[2023-03-16] MEDS: IBUPROFEN SUSP 100MG/5ML (MOTRIN) UDC PO PRN (16:21)
[2023-03-16] MEDS: ZONISAMIDE 100 MG CAP (ZONEGRAN) NON-FORMULARY PO SCH (20:00)
[2023-03-17] MEDS: RT-LEVALBUTEROL (XOPENEX) 1.25 MG/3 ML NEB NON-FORMULARY INH SCH ×4 (03:00→21:23)
[2023-03-17 03:11] LABS: BASOPHILS # (AUTO) 0.1 10^3/uL (0.0-0.1); BASOPHILS % (AUTO) 1 % (0-10); EOSINOPHILS # (AUTO) 0.1 10^3/uL (0.0-0.3); EOSINOPHILS % (AUTO) 1 % (0-10); HEMATOCRIT 34 % (40-54); HEMOGLOBIN 10.9 g/dL (13.3-17.7); LYMPHOCYTES # (AUTO) 2.3 10^3/uL (1.0-4.0); LYMPHOCYTES % (AUTO) 15 % (12-44); MEAN CORPUSCULAR HEMOGLOBIN 29 pg (25-34); MEAN CORPUSCULAR HGB CONC 32 g/dL (32-36); MEAN CORPUSCULAR VOLUME 93 fL (80-99); MEAN PLATELET VOLUME 10.5 fL (9.0-12.2); MONOCYTES % (AUTO) 7 % (0-12); NEUTROPHILS # (AUTO) 11.5 10^3/uL (1.8-7.8); NEUTROPHILS % (AUTO) 76 % (42-75); PLATELET COUNT 566 10^3/uL (130-400); WHITE BLOOD COUNT 15.1 10^3/uL (4.3-11.0)
[2023-03-17] MEDS: PROPOFOL DRIP (ICU) 100 ML IV SCH ×2 (03:27→16:55)
[2023-03-17 03:28] LABS: POTASSIUM 3.6 MMOL/L (3.6-5.0)
[2023-03-17 03:29] LABS: CALCIUM 9.2 MG/DL (8.5-10.1)
[2023-03-17 03:34] LABS: CREATININE SERUM 0.47 MG/DL (0.60-1.30)
[2023-03-17 03:36] LABS: MAGNESIUM 2.3 MG/DL (1.6-2.4)
[2023-03-17] MEDS: MAGNESIUM 1 GM/100 ML IVPB 100 ML IV SCH (03:41)
[2023-03-17] MEDS: KCL 20 MEQ TAB (K-DUR) PO SCH (03:41)
[2023-03-17] MEDS: POTASSIUM CL 10MEQ/50ML IVPB 50 ML IV SCH ×3 (03:41→04:52)
[2023-03-17 03:50] LABS: ATYPICAL LYMPHOCYTES 3 %; EOSINOPHILS % (MANUAL) 3 %; LYMPHOCYTES % (MANUAL) 11 %; MONOCYTES % (MANUAL) 3 %; NEUTROPHILS % (MANUAL) 80 %; POLYCHROMASIA SLIGHT
[2023-03-17] MEDS: LORATADINE 5 MG/5 ML SOLN (CLARITIN) UDC GT SCH ×2 (08:36→20:12)
[2023-03-17] MEDS: ENOXAPARIN 30 MG/0.3 ML SYRINGE SC SCH ×2 (08:36→20:12)
[2023-03-17] MEDS: dexAMETHasone INJ 4 MG/ML SDV IV SCH (08:37)
[2023-03-17] MEDS: polyethylene glycoL POWDER 17 GM (MIRALAX) PACK GT SCH (08:37)
[2023-03-17] MEDS: MEROPENEM IV SCH ×3 (08:37→23:12)
[2023-03-17] MEDS: PANTOPRAZOLE 40 MG (PROTONIX) VIAL IV SCH (08:37)
[2023-03-17] MEDS: NS IV SCH ×3 (08:37→23:12)
[2023-03-17] MEDS: TRILEPTAL GT SCH ×2 (08:38→20:12)
--- NOTE | 2023-03-17 11:05 | Progress Note - Hospitalist ---
Subjective HPI/CC On Admission Date Seen by Provider: Mar 17, 2023 Time Seen by Provider: 11:00 Chief complaint: Acute hypoxic respiratory failure due to pneumonia requiring intubation after failed BiPAP HPI: This is a 17-year-old male with a history of cerebral palsy and severe disability who presented to the ICU with acute hypoxic respiratory failure with hypercapnia requiring BiPAP. I was consulted due to decision for intubation due to failure on BiPAP. Patient has longstanding medical issues from his severe disability. Parents are at the bedside. Anesthesia was consulted and patient was intubated without complication. eICU was notified. Subjective/Events-last exam Patient has been extubated for 2 days Tachycardia continues but no distress Family at the bedside Focused Exam Lactate Level Time of Focused Exam: 09:00 Objective Exam Vital Signs Vital Signs Date Time Temp Pulse Resp B/P (MAP) Pulse Ox O2 Delivery O2 Flow Rate FiO2 03/17/23 19:40 93 High Flow N/C 3.00 03/17/23 19:00 36.7 111 28 110/63 (79) 03/16/23 10:10 30 Capillary Refill : Less Than 3 Seconds General Appearance: No Apparent Distress, WD/WN, Chronically ill Respiratory: Lungs Clear, Normal Breath Sounds Cardiovascular: Tachycardia Results/Procedures Lab Laboratory Tests 03/17/23 03:02 Patient resulted labs reviewed. Assessment/Plan Assessment and Plan Assess & Plan/Chief Complaint Assessment: Acute hypoxic hypercapnic respiratory failure failed BiPAP requiring intubationnow extubated Severe cerebral palsy with severe disability Sepsisresolved DVT prophylaxis with Lovenox Tachycardia Plan: Extubated eICU consulted Antibiotics completed Supportive care Critical Care Critically Ill Patient JP UNDERWOOD DO Mar 17, 2023 11:05
[2023-03-17] MEDS: NS IV 1000 ML 1,000 ML IV SCH (13:00)
--- NOTE | 2023-03-17 13:28 | Physical Therapy Progress Note ---
Therapy Progress Note Per nurse, patient is at PLOF. Patient is bed ridden and requires total assistance for all ADLs. No PT evaluation or treatment warranted. ZANDER SINGH PT Mar 17, 2023 13:28
--- NOTE | 2023-03-17 14:42 | Tele-ICU Progress Note ---
Subjective Date Seen by a Provider: Mar 17, 2023 Time Seen by a Provider: 14:39 Subjective/Events-last exam (Tele-ICU Physician , Progress Note ) Service provided via interactive audio and video telecommunications E-CARE system to a patient admitted to ICU bed in [facility]. Patient is seen today due to persistent need of ICU care Available chart/ vitals / labs / Images reviewed Video assessment done using teleICU camera, rest of exam as per RN Discussed with RN Events overnight : Afebrile hemodynamically stable Respiratory - 60% I/O = NEG Drips: Pressors- no VENT SETTINGS and ABG reviewed CANDIDATE for SBTreviewed possible contraindications including Cardiovascular Stability /Sedation Score / FI02/PEEP / ABG / CXR/ secretions Sedation, discussed with RN, RASS -1 -propfol 20 precedex 1.0 Hospital course: (03/01) 17y/o M admitted with pneumonia, hypoxia. (03/02) INTUBATED 03/03-Ac 20 380 + 8 60% , RASS -1 on propfol 30 precedex 0.8 , added mucomist , cut down fluids 03/05- Ac 20 380 + 5 35 % propfol 50 precedex 1.4 03/06-Ac 20 380 + 5 50% propfol 50 precedex 1.4 , echo EF 60% , RVSP 30 mmHg, subaortic stenosis- moder 03/07- large neg fluid balance , ? ARDS - empiric steroids 03/07 ( decadron 4 q24 03/08- vent. AC 20, 380, 45% ,peep 5. not ready for SBT 03/09- Bowel regimen Mag citrate started -RASS -1 -propfol 45 precedex 1.2 ,Ac 20 380 + 5 50% 03/11 -sedation back 2/2 oral secretion , tachycardia-> propofol 20 , precedex 1.0 ,diuresis - RESPONDED WELL with less rhonchorous , good UO, TF resumed 03/12- SBP - failed with tachypnea , off precedex 03/13-AC 16, 380, 35% ,peep 5, precedex resumed, TF up to goal , decreased decadron twith plans to stop 03/18 03/14- SBT for 1 h - SEIZURE at the end - reveiced ativan - C 03/15 - tachycardic , fever ( CX DONE ) off sedation , FLEXISEAL for diarrhea - CT chest- infiltrates, CT head - no acute prosess 03/16- EXTUBATED 03/17 - on 3 l o2 A/P Acute hypoxic resp failure ( with congenital scoliosis, tracheomalacia and MADISYN ) - pna WITH SUSPRCTED ARDS -(03/02) INTUBATED - 03/16- EXTUBATED -cont chest pt amd nebs PNA - 03/02 sputum= corinebacterioum - ON VANCO AND MERREM - finished course -RESTARTED MERREM 03/14 for fever and hypotesion - CT CHEST - No NECROSIS, ABSCESS - to finish merrem ECHO 03/06/23 -echo EF 60% , RVSP 30 mmHg, subaortic stenosis- moder Cerebral palsy Right temporal lobe Sz dz - SX at SBT 03/14 - ATIVAN 2+2 - CT HEAD no acute changes ( h/o 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 shunt in place - cont Trileptal Abd distension 03/05, Ileus RESOLVED - Sx consuled - lactulose / Mag citrate starting TF now - up to goal ( h/o Esophageal stricture , nissanfundoplication , PEG tube placement H/o Hydrocephalus - s/p 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 shunt Baclofen pump - 60 mg/day - cont Anemia stable skin - clear MADISYN- BIPAP 05/11 at night , ( NOT on O2 when doing well at home ) - to confirm - if correct - to cont here Nutrition - TF on hold 03/05 - resumed 03/11 -> 03/13 up to goal Lines : R port periph , RIGHT fem line , (Central Line Necessity Reviewed) [place]: + Flexi seal 03/15 OG: Nutrition: PEG - off TF 03/05 Analgesia: Anxiety/ delirium VTE Prophylaxis: 30 Stress Ulcer Prophylaxis: na Plans in collaboration with bedside consultants and IM MDs. Discussed with RN to reach out if any questions or concerns Case and care daily discussed on multidisciplinary rounds ( RN, PharmD, Reconstructive Dentist , Respiratory Therapy, emergency worker ) A total of 20 minutes of critical care time was devoted to this patient today, required to treat and/or prevent further deterioration of critical care condition ( as above ) . Sepsis Event Evaluation Height, Weight, BMI Height: 4'0" Weight: 72lbs. oz. 32.522064gd; 23.32 BMI Method: Focused Exam Lactate Level 03/14/23 14:40: Lactic Acid Level 2.97*H 03/14/23 16:55: Lactic Acid Level 0.64 Time of Focused Exam: 09:00 Exam Exam Patient acknowledged, consented, and participated in this virtual visit which was conducted using real time audio/video Vital Signs Date Time Temp Pulse Resp B/P (MAP) Pulse Ox O2 Delivery O2 Flow Rate FiO2 03/17/23 14:00 111 20 132/86 (101) 92 High Flow N/C 3.00 03/17/23 13:00 114 22 145/58 (87) 91 High Flow N/C 3.00 03/17/23 12:53 112 03/17/23 12:00 101 22 141/38 (72) 93 High Flow N/C 3.00 03/17/23 12:00 93 High Flow N/C 3.00 03/17/23 11:00 105 19 118/74 (89) 93 High Flow N/C 3.00 03/17/23 10:00 129 19 103/63 (76) 94 High Flow N/C 3.00 03/17/23 09:45 93 High Flow N/C 3.00 03/17/23 09:00 103 19 103/55 (71) 92 High Flow N/C 3.00 03/17/23 08:00 105 39 106/66 (79) 94 High Flow N/C 3.00 03/17/23 08:00 93 High Flow N/C 3.00 03/17/23 07:16 36.1 03/17/23 07:00 111 23 101/66 (78) 94 High Flow N/C 3.00 03/17/23 07:00 101 03/17/23 06:37 High Flow N/C 3.00 03/17/23 06:35 93 High Flow N/C 3.00 03/17/23 06:21 96 High Flow N/C 4.00 03/17/23 06:00 112 23 106/73 (84) 93 High Flow N/C 4.00 03/17/23 05:40 High Flow N/C 4.00 03/17/23 05:20 High Flow N/C 6.00 03/17/23 05:00 107 25 126/81 (96) 100 High Flow N/C 4.00 03/17/23 04:00 93 High Flow N/C 4.00 03/17/23 04:00 96 18 98/55 (69) 93 High Flow N/C 4.00 03/17/23 03:53 36.4 93 19 94 High Flow N/C 4.00 03/17/23 03:00 96 High Flow N/C 8.00 03/17/23 03:00 93 23 111/57 (75) 97 High Flow N/C 4.00 03/17/23 02:20 High Flow N/C 4.00 03/17/23 02:00 107 20 112/60 (77) 96 High Flow N/C 6.00 03/17/23 01:00 118 29 118/70 (86) 92 High Flow N/C 6.00 03/17/23 00:23 121 03/17/23 00:00 110 28 109/67 (81) 93 High Flow N/C 6.00 03/16/23 23:45 37.3 112 22 94 High Flow N/C 6.00 03/16/23 23:45 94 High Flow N/C 6.00 03/16/23 23:00 114 23 103/66 (78) 94 High Flow N/C 6.00 03/16/23 22:33 High Flow N/C 6.00 03/16/23 22:00 115 27 101/61 (74) 94 High Flow N/C 8.00 03/16/23 21:51 94 High Flow N/C 8.00 03/16/23 21:00 117 20 103/63 (76) 94 High Flow N/C 8.00 03/16/23 20:13 103/59 (74) 03/16/23 20:00 116 159/81 (107) 95 High Flow N/C 8.00 03/16/23 19:35 94 High Flow N/C 8.00 03/16/23 19:00 36.6 120 30 151/84 (106) 94 High Flow N/C 8.00 03/16/23 19:00 123 03/16/23 18:00 122 24 152/85 (107) 92 High Flow N/C 8.00 03/16/23 17:00 112 30 139/90 (106) 96 High Flow N/C 8.00 03/16/23 16:02 98 High Flow N/C 8.00 03/16/23 16:00 125 34 129/92 (104) 92 High Flow N/C 8.00 03/16/23 15:43 36.5 03/16/23 15:31 High Flow N/C 8.00 03/16/23 15:30 91 High Flow N/C 8.00 03/16/23 15:00 125 24 137/76 (96) 90 Nasal Cannula 5.00 03/16/23 14:44 91 High Flow N/C 5.00 I & O 03/17/23 06:59 Intake Total 1475 ml Output Total 2375 ml Balance -900 ml Height & Weight Height: 4'0" Weight: 72lbs. oz. 32.207455ko; 23.32 BMI Method: General Appearance: No Apparent Distress, WD/WN, Chronically ill HEENT: Normal ENT Inspection Neck: Normal Inspection, Non Tender, Supple Respiratory: Lungs Clear, Normal Breath Sounds Cardiovascular: Regular Rate, Rhythm, Tachycardia, Other (HR is better than yesterday) Capillary Refill: Less Than 3 Seconds Gastrointestinal: normal bowel sounds, non tender, soft, no organomegaly; No distended; other (gastrostomy tube luq) Extremity: Non Tender, No Calf Tenderness, No Pedal Edema Neurologic/Psychiatric: Other (intubated, sedated) Skin: Normal Color, Warm/Dry Lymphatic: No Adenopathy Results Lab Laboratory Tests 03/16/23 03:17 03/17/23 03:02 Assessment/Plan Assessment/Plan 1 VANESSA MIRAMONTES MD Mar 17, 2023 14:42
--- NOTE | 2023-03-17 14:48 | Occ Therapy Progress Note ---
Therapy Progress Note OT order received, Patient is baseline at PLOF w/ dependant care and no mobility. Bedridden. Plan to DC communicated w/RN Please DC OT CARI MENDOZA OT Mar 17, 2023 14:48
[2023-03-17] MEDS: aCETylcysteine 20% (RT/PO) 4 ML SOLN VIAL INH PRN (15:39)
[2023-03-17] MEDS: ZONISAMIDE 100 MG CAP (ZONEGRAN) NON-FORMULARY PO SCH (20:12)
[2023-03-18] MEDS: NS IV 1000 ML 1,000 ML IV SCH ×2 (02:27→23:47)
[2023-03-18 03:18] LABS: BASOPHILS # (AUTO) 0.1 10^3/uL (0.0-0.1); BASOPHILS % (AUTO) 1 % (0-10); EOSINOPHILS # (AUTO) 0.2 10^3/uL (0.0-0.3); EOSINOPHILS % (AUTO) 2 % (0-10); HEMATOCRIT 37 % (40-54); HEMOGLOBIN 11.9 g/dL (13.3-17.7); LYMPHOCYTES # (AUTO) 2.1 10^3/uL (1.0-4.0); LYMPHOCYTES % (AUTO) 17 % (12-44); MEAN CORPUSCULAR HEMOGLOBIN 30 pg (25-34); MEAN CORPUSCULAR HGB CONC 32 g/dL (32-36); MEAN CORPUSCULAR VOLUME 92 fL (80-99); MEAN PLATELET VOLUME 10.6 fL (9.0-12.2); MONOCYTES # (AUTO) 0.9 10^3/uL (0.0-1.0); MONOCYTES % (AUTO) 7 % (0-12); NEUTROPHILS # (AUTO) 9.6 10^3/uL (1.8-7.8); NEUTROPHILS % (AUTO) 74 % (42-75); PLATELET COUNT 555 10^3/uL (130-400); WHITE BLOOD COUNT 12.9 10^3/uL (4.3-11.0)
[2023-03-18 03:27] LABS: POTASSIUM 3.7 MMOL/L (3.6-5.0)
[2023-03-18 03:29] LABS: CALCIUM 9.7 MG/DL (8.5-10.1)
[2023-03-18 03:33] LABS: CREATININE SERUM 0.52 MG/DL (0.60-1.30)
[2023-03-18] MEDS: POTASSIUM CL 10MEQ/50ML IVPB 50 ML IV SCH ×3 (03:34→03:52)
[2023-03-18] MEDS: KCL 20 MEQ TAB (K-DUR) PO SCH (03:34)
[2023-03-18 03:35] LABS: MAGNESIUM 2.2 MG/DL (1.6-2.4)
[2023-03-18] MEDS: MAGNESIUM 1 GM/100 ML IVPB 100 ML IV SCH (03:51)
[2023-03-18] MEDS: ACETAMINOPHEN 325 MG/10.15 ML ORAL SOLN UDC PO PRN (03:52)
[2023-03-18] MEDS: RT-LEVALBUTEROL (XOPENEX) 1.25 MG/3 ML NEB NON-FORMULARY INH SCH ×4 (04:02→21:41)
--- NOTE | 2023-03-18 05:58 | Progress Note - Hospitalist ---
Subjective HPI/CC On Admission Date Seen by Provider: Mar 18, 2023 Time Seen by Provider: 11:00 Chief complaint: Acute hypoxic respiratory failure due to pneumonia requiring intubation after failed BiPAP HPI: This is a 17-year-old male with a history of cerebral palsy and severe disability who presented to the ICU with acute hypoxic respiratory failure with hypercapnia requiring BiPAP. I was consulted due to decision for intubation due to failure on BiPAP. Patient has longstanding medical issues from his severe disability. Parents are at the bedside. Anesthesia was consulted and patient was intubated without complication. eICU was notified. Subjective/Events-last exam Requiring a bit more O2 Can't really cough to clear secretions Mother at bedside Focused Exam Time of Focused Exam: 09:00 Objective Exam Vital Signs Vital Signs Date Time Temp Pulse Resp B/P (MAP) Pulse Ox O2 Delivery O2 Flow Rate FiO2 03/18/23 20:09 92 NIV Bilevel 42 03/18/23 20:00 36.5 03/18/23 19:47 98 27 42.00 03/18/23 18:00 113/66 (82) Capillary Refill : Less Than 3 Seconds General Appearance: No Apparent Distress, WD/WN, Chronically ill Respiratory: Lungs Clear, Normal Breath Sounds Results/Procedures Lab Laboratory Tests 03/18/23 03:12 Patient resulted labs reviewed. Assessment/Plan Assessment and Plan Assess & Plan/Chief Complaint Assessment: Acute hypoxic hypercapnic respiratory failure failed BiPAP requiring intubationnow extubated Severe cerebral palsy with severe disability Sepsisresolved DVT prophylaxis with Lovenox Tachycardia Plan: Extubated eICU consulted Antibiotics completed Supportive care Critical Care Critically Ill Patient JP UNDERWOOD DO Mar 18, 2023 05:58
[2023-03-18] MEDS: MEROPENEM IV SCH ×3 (08:12→23:43)
[2023-03-18] MEDS: NS IV SCH ×3 (08:12→23:43)
[2023-03-18] MEDS: ENOXAPARIN 30 MG/0.3 ML SYRINGE SC SCH ×2 (08:13→20:36)
[2023-03-18] MEDS: PANTOPRAZOLE 40 MG (PROTONIX) VIAL IV SCH (08:13)
[2023-03-18] MEDS: LORATADINE 5 MG/5 ML SOLN (CLARITIN) UDC GT SCH ×2 (08:13→20:36)
[2023-03-18] MEDS: dexAMETHasone INJ 4 MG/ML SDV IV SCH (08:13)
[2023-03-18] MEDS: TRILEPTAL GT SCH ×2 (08:14→21:11)
[2023-03-18] MEDS: polyethylene glycoL POWDER 17 GM (MIRALAX) PACK GT SCH (08:14)
--- NOTE | 2023-03-18 08:59 | Diagnostic Imaging Report ---
EXAMINATION: Chest 1 view HISTORY: Hypoxia. COMPARISON: 03/15/2023. FINDINGS: There are moderate airspace opacities throughout both lungs. There are small pleural effusions. No pneumothorax. Heart size is normal. Right port catheter tip terminates in the superior vena cava. There is severe scoliosis. IMPRESSION: 1. Moderate airspace opacities throughout both lungs similar to prior exam with small pleural effusions. Dictated by: Dictated on workstation # [id number]
--- NOTE | 2023-03-18 10:30 | Tele-ICU Progress Note ---
Subjective Date Seen by a Provider: Mar 18, 2023 Time Seen by a Provider: 10:29 Subjective/Events-last exam (Tele-ICU Physician , Progress Note ) Service provided via interactive audio and video telecommunications E-CARE system to a patient admitted to ICU bed in [facility]. Patient is seen today due to persistent need of ICU care Available chart/ vitals / labs / Images reviewed Video assessment done using teleICU camera, rest of exam as per RN Discussed with RN Events overnight : Afebrile hemodynamically stable Respiratory - 60% I/O = NEG Drips: Pressors- no VENT SETTINGS and ABG reviewed CANDIDATE for SBTreviewed possible contraindications including Cardiovascular Stability /Sedation Score / FI02/PEEP / ABG / CXR/ secretions Sedation, discussed with RN, RASS -1 -propfol 20 precedex 1.0 Hospital course: (03/01) 17y/o M admitted with pneumonia, hypoxia. (03/02) INTUBATED 03/03-Ac 20 380 + 8 60% , RASS -1 on propfol 30 precedex 0.8 , added mucomist , cut down fluids 03/05- Ac 20 380 + 5 35 % propfol 50 precedex 1.4 03/06-Ac 20 380 + 5 50% propfol 50 precedex 1.4 , echo EF 60% , RVSP 30 mmHg, subaortic stenosis- moder 03/07- large neg fluid balance , ? ARDS - empiric steroids 03/07 ( decadron 4 q24 03/08- vent. AC 20, 380, 45% ,peep 5. not ready for SBT 03/09- Bowel regimen Mag citrate started -RASS -1 -propfol 45 precedex 1.2 ,Ac 20 380 + 5 50% 03/11 -sedation back 2/2 oral secretion , tachycardia-> propofol 20 , precedex 1.0 ,diuresis - RESPONDED WELL with less rhonchorous , good UO, TF resumed 03/12- SBP - failed with tachypnea , off precedex 03/13-AC 16, 380, 35% ,peep 5, precedex resumed, TF up to goal , decreased decadron twith plans to stop 03/18 03/14- SBT for 1 h - SEIZURE at the end - reveiced ativan - C 03/15 - tachycardic , fever ( CX DONE ) off sedation , FLEXISEAL for diarrhea - CT chest- infiltrates, CT head - no acute prosess 03/16- EXTUBATED 03/17 - on 3 l o2 03/18 - 3 L , OFF steroids A/P Acute hypoxic resp failure ( with congenital scoliosis, tracheomalacia and MADISYN ) - pna WITH SUSPRCTED ARDS -(03/02) INTUBATED - 03/16- EXTUBATED -cont chest pt amd nebs - 3L O2 PNA - 03/02 sputum= corinebacterioum - ON VANCO AND MERREM - finished course -RESTARTED MERREM 03/14 for fever and hypotesion - CT CHEST - No NECROSIS, ABSCESS - to finish merrem ECHO 03/06/23 -echo EF 60% , RVSP 30 mmHg, subaortic stenosis- moder Cerebral palsy Right temporal lobe Sz dz - SX at SBT 03/14 - ATIVAN 2+2 - CT HEAD no acute changes ( h/o BREASTER shunt in place - cont Trileptal Abd distension 03/05, Ileus RESOLVED - Sx consuled - lactulose / Mag citrate on TF now - up to goal -INCREASE H20 ( h/o Esophageal stricture , nissanfundoplication , PEG tube placement H/o Hydrocephalus - s/p BREASTER shunt Baclofen pump - 60 mg/day - cont Anemia stable skin - clear Nutrition - TF on hold 03/05 - resumed 03/11 -> 03/13 up to goal Lines : R port periph , RIGHT fem line 02/26 - OUT , (Central Line Necessity Reviewed) [place]: + Flexi seal 03/15 -OUT OG: Nutrition: PEG -TF Analgesia: Anxiety/ delirium VTE Prophylaxis: trina 30 Stress Ulcer Prophylaxis: na Plans in collaboration with bedside consultants and IM MDs. Discussed with RN to reach out if any questions or concerns Case and care daily discussed on multidisciplinary rounds ( RN, PharmD, Motor And Generator Assembler , Respiratory Therapy, dust box worker ) A total of 20 minutes of critical care time was devoted to this patient today, required to treat and/or prevent further deterioration of critical care condition ( as above ) . Sepsis Event Evaluation Height, Weight, BMI Height: 4'0" Weight: 72lbs. oz. 32.421503lf; 22.26 BMI Method: Focused Exam Time of Focused Exam: 09:00 Exam Exam Patient acknowledged, consented, and participated in this virtual visit which was conducted using real time audio/video Vital Signs Date Time Temp Pulse Resp B/P (MAP) Pulse Ox O2 Delivery O2 Flow Rate FiO2 03/18/23 10:00 88 10 115/38 (63) 97 High Flow N/C 8.00 03/18/23 09:00 114 10 111/32 (58) 96 High Flow N/C 8.00 03/18/23 08:00 109 21 136/77 (96) 96 High Flow N/C 8.00 03/18/23 08:00 92 High Flow N/C 10.00 03/18/23 07:52 112 03/18/23 07:52 36.4 03/18/23 07:00 113 23 118/56 (76) 91 High Flow N/C 8.00 03/18/23 06:53 94 High Flow N/C 8.00 03/18/23 06:45 89 High Flow N/C 8.00 03/18/23 06:00 105 23 117/61 (79) 93 High Flow N/C 8.00 03/18/23 05:00 116 24 126/71 (89) 93 High Flow N/C 8.00 03/18/23 04:42 High Flow N/C 8.00 03/18/23 04:02 95 High Flow N/C 10.00 03/18/23 04:00 118 30 124/78 (93) 93 High Flow N/C 10.00 03/18/23 03:55 92 High Flow N/C 10.00 03/18/23 03:37 36.8 83 High Flow N/C 10.00 03/18/23 03:30 High Flow N/C 6.00 03/18/23 03:00 112 24 117/54 (75) 89 High Flow N/C 3.00 03/18/23 02:00 110 26 108/52 (70) 94 High Flow N/C 3.00 03/18/23 01:00 112 26 115/66 (82) 96 High Flow N/C 3.00 03/18/23 01:00 107 03/18/23 00:00 105 26 113/69 (84) 93 High Flow N/C 3.00 03/17/23 23:10 96 High Flow N/C 3.00 03/17/23 23:10 37.1 105 26 97 High Flow N/C 3.00 03/17/23 23:00 103 25 119/68 (85) 96 High Flow N/C 3.00 03/17/23 22:00 112 28 115/85 (95) 96 High Flow N/C 3.00 03/17/23 21:24 95 High Flow N/C 3.00 03/17/23 21:00 99 22 107/62 (77) 97 High Flow N/C 3.00 03/17/23 20:00 111 33 104/67 (79) 91 High Flow N/C 3.00 03/17/23 19:40 93 High Flow N/C 3.00 03/17/23 19:00 36.7 111 28 110/63 (79) 94 High Flow N/C 3.00 03/17/23 19:00 110 03/17/23 18:00 106 30 110/48 (79) 98 03/17/23 17:00 112 25 107/64 (78) 96 High Flow N/C 3.00 03/17/23 16:00 93 High Flow N/C 3.00 03/17/23 16:00 112 29 103/54 (70) 92 High Flow N/C 3.00 03/17/23 16:00 36.6 101 22 141/38 (72) 93 High Flow N/C 3.00 03/17/23 15:39 93 High Flow N/C 3.00 03/17/23 15:00 115 41 103/75 (84) 86 High Flow N/C 3.00 03/17/23 14:00 108 34 132/86 (101) 89 High Flow N/C 3.00 03/17/23 14:00 111 20 132/86 (101) 92 High Flow N/C 3.00 03/17/23 13:00 114 22 145/58 (87) 91 High Flow N/C 3.00 03/17/23 12:53 112 03/17/23 12:00 101 22 141/38 (72) 93 High Flow N/C 3.00 03/17/23 12:00 93 High Flow N/C 3.00 03/17/23 11:00 105 19 118/74 (89) 93 High Flow N/C 3.00 I & O 03/18/23 07:00 Intake Total 1075 ml Output Total 1715 ml Balance -640 ml Height & Weight Height: 4'0" Weight: 72lbs. oz. 32.972571xn; 22.26 BMI Method: General Appearance: No Apparent Distress, WD/WN, Chronically ill HEENT: Normal ENT Inspection Neck: Normal Inspection, Non Tender, Supple Respiratory: Lungs Clear, Normal Breath Sounds Cardiovascular: Tachycardia Capillary Refill: Less Than 3 Seconds Gastrointestinal: normal bowel sounds, non tender, soft, no organomegaly; No distended; other (gastrostomy tube luq) Extremity: Non Tender, No Calf Tenderness, No Pedal Edema Neurologic/Psychiatric: Other (intubated, sedated) Skin: Normal Color, Warm/Dry Lymphatic: No Adenopathy Results Lab Laboratory Tests 03/17/23 03:02 03/18/23 03:12 Assessment/Plan Assessment/Plan 1 VANESSA MIRAMONTES MD Mar 18, 2023 10:29
[2023-03-18 17:20] VITALS: BP 131/66
[2023-03-18 19:47] VITALS: BP 131/66
[2023-03-18] MEDS: ZONISAMIDE 100 MG CAP (ZONEGRAN) NON-FORMULARY PO SCH (20:38)
[2023-03-18 21:42] VITALS: BP 110/71
[2023-03-19] MEDS: RT-LEVALBUTEROL (XOPENEX) 1.25 MG/3 ML NEB NON-FORMULARY INH SCH ×5 (02:33→21:04)
[2023-03-19 02:34] VITALS: BP 122/90
[2023-03-19 04:51] LABS: BASOPHILS # (AUTO) 0.1 10^3/uL (0.0-0.1); BASOPHILS % (AUTO) 1 % (0-10); EOSINOPHILS # (AUTO) 0.3 10^3/uL (0.0-0.3); EOSINOPHILS % (AUTO) 2 % (0-10); HEMATOCRIT 36 % (40-54); HEMOGLOBIN 11.4 g/dL (13.3-17.7); LYMPHOCYTES # (AUTO) 2.8 10^3/uL (1.0-4.0); LYMPHOCYTES % (AUTO) 21 % (12-44); MEAN CORPUSCULAR HEMOGLOBIN 30 pg (25-34); MEAN CORPUSCULAR HGB CONC 32 g/dL (32-36); MEAN CORPUSCULAR VOLUME 93 fL (80-99); MONOCYTES # (AUTO) 1.1 10^3/uL (0.0-1.0); MONOCYTES % (AUTO) 8 % (0-12); NEUTROPHILS # (AUTO) 8.7 10^3/uL (1.8-7.8); NEUTROPHILS % (AUTO) 67 % (42-75); PLATELET COUNT 478 10^3/uL (130-400)
[2023-03-19 05:14] LABS: CALCIUM 9.5 MG/DL (8.5-10.1); CREATININE SERUM 0.5 MG/DL (0.60-1.30); POTASSIUM 3.7 MMOL/L (3.6-5.0)
[2023-03-19] MEDS ORDERED: POTASSIUM CL 10MEQ/50ML IVPB 100 ML IV ONE (05:36)
[2023-03-19] MEDS: POTASSIUM CL 10MEQ/50ML IVPB 50 ML IV SCH ×2 (06:25→06:52)
[2023-03-19] MEDS: MAGNESIUM 1 GM/100 ML IVPB 100 ML IV SCH (06:52)
[2023-03-19] MEDS: KCL 20 MEQ TAB (K-DUR) PO SCH (06:53)
[2023-03-19 07:00] VITALS: BP 122/77
[2023-03-19] MEDS: TRILEPTAL GT SCH ×2 (08:07→21:12)
[2023-03-19] MEDS: MEROPENEM IV SCH ×3 (08:08→23:37)
[2023-03-19] MEDS: polyethylene glycoL POWDER 17 GM (MIRALAX) PACK GT SCH (08:08)
[2023-03-19] MEDS: PANTOPRAZOLE 40 MG (PROTONIX) VIAL IV SCH (08:08)
[2023-03-19] MEDS: NS IV SCH ×3 (08:08→23:37)
[2023-03-19] MEDS: LORATADINE 5 MG/5 ML SOLN (CLARITIN) UDC GT SCH ×2 (08:08→21:11)
[2023-03-19] MEDS: ENOXAPARIN 30 MG/0.3 ML SYRINGE SC SCH ×2 (08:09→21:11)
[2023-03-19] MEDS: IBUPROFEN SUSP 100MG/5ML (MOTRIN) UDC PO PRN (08:40)
[2023-03-19 10:42] VITALS: BP 117/71
[2023-03-19] MEDS: aCETylcysteine 20% (RT/PO) 4 ML SOLN VIAL INH PRN (10:42)
[2023-03-19] MEDS: RT-ALBUTEROL SULF 2.5 MG/3 ML PRE-MIX VIAL INH PRN (10:42)
--- NOTE | 2023-03-19 11:14 | Progress Note - Hospitalist ---
Subjective HPI/CC On Admission Date Seen by Provider: Mar 19, 2023 Time Seen by Provider: 11:00 Chief complaint: Acute hypoxic respiratory failure due to pneumonia requiring intubation after failed BiPAP HPI: This is a 17-year-old male with a history of cerebral palsy and severe disability who presented to the ICU with acute hypoxic respiratory failure with hypercapnia requiring BiPAP. I was consulted due to decision for intubation due to failure on BiPAP. Patient has longstanding medical issues from his severe disability. Parents are at the bedside. Anesthesia was consulted and patient was intubated without complication. eICU was notified. Subjective/Events-last exam Requiring biPAP again Mother at bedside Labs reviewed Abx reviewed Focused Exam Time of Focused Exam: 09:00 Objective Exam Vital Signs Vital Signs Date Time Temp Pulse Resp B/P (MAP) Pulse Ox O2 Delivery O2 Flow Rate FiO2 03/19/23 22:00 98 16 117/62 (80) 99 Vapotherm 20.00 50.00 03/19/23 18:30 50 03/19/23 12:00 36.1 Capillary Refill : Less Than 3 Seconds General Appearance: Chronically ill, Other (asleep) Respiratory: No Accessory Muscle Use, No Respiratory Distress, Crackles, Decreased Breath Sounds Results/Procedures Lab Laboratory Tests 03/19/23 04:29 Patient resulted labs reviewed. Assessment/Plan Assessment and Plan Assess & Plan/Chief Complaint Assessment: Acute hypoxic hypercapnic respiratory failure failed BiPAP requiring intubationnow extubated but now biPAP dependence Severe cerebral palsy with severe disability Sepsisresolved DVT prophylaxis with Lovenox Tachycardia Plan: Extubated eICU consulted Antibiotics completed Supportive care Critical Care Critically Ill Patient JP UNDERWOOD DO Mar 19, 2023 11:14
[2023-03-19] MEDS: NS IV 1000 ML 1,000 ML IV SCH (15:00)
[2023-03-19] MEDS: aCETylcysteine 20% (RT/PO) 4 ML SOLN VIAL INH SCH ×3 (15:01→21:04)
--- NOTE | 2023-03-19 18:29 | Tele-ICU Progress Note ---
Subjective Date Seen by a Provider: Mar 19, 2023 Time Seen by a Provider: 11:54 Subjective/Events-last exam (Tele-ICU Physician , Progress Note ) Service provided via interactive audio and video telecommunications E-CARE system to a patient admitted to ICU bed in [facility]. Patient is seen today due to persistent need of ICU care Available chart/ vitals / labs / Images reviewed Video assessment done using teleICU camera, rest of exam as per RN Discussed with RN Events overnight : Afebrile hemodynamically stable Respiratory - 60% I/O = NEG Drips: Pressors- no VENT SETTINGS and ABG reviewed CANDIDATE for SBTreviewed possible contraindications including Cardiovascular Stability /Sedation Score / FI02/PEEP / ABG / CXR/ secretions Sedation, discussed with RN, RASS -1 -propfol 20 precedex 1.0 Hospital course: (03/01) 17y/o M admitted with pneumonia, hypoxia. (03/02) INTUBATED 03/03-Ac 20 380 + 8 60% , RASS -1 on propfol 30 precedex 0.8 , added mucomist , cut down fluids 03/05- Ac 20 380 + 5 35 % propfol 50 precedex 1.4 03/06-Ac 20 380 + 5 50% propfol 50 precedex 1.4 , echo EF 60% , RVSP 30 mmHg, subaortic stenosis- moder 03/07- large neg fluid balance , ? ARDS - empiric steroids 03/07 ( decadron 4 q24 03/08- vent. AC 20, 380, 45% ,peep 5. not ready for SBT 03/09- Bowel regimen Mag citrate started -RASS -1 -propfol 45 precedex 1.2 ,Ac 20 380 + 5 50% 03/11 -sedation back 2/2 oral secretion , tachycardia-> propofol 20 , precedex 1.0 ,diuresis - RESPONDED WELL with less rhonchorous , good UO, TF resumed 03/12- SBP - failed with tachypnea , off precedex 03/13-AC 16, 380, 35% ,peep 5, precedex resumed, TF up to goal , decreased decadron twith plans to stop 03/18 03/14- SBT for 1 h - SEIZURE at the end - reveiced ativan - C 03/15 - tachycardic , fever ( CX DONE ) off sedation , FLEXISEAL for diarrhea - CT chest- infiltrates, CT head - no acute prosess 03/16- EXTUBATED 03/17 - on 3 l o2 03/18 - 3 L , OFF steroids 03/19 -BIPAP 70 % 06/10 rr 20 460- > to VT / agressive pulm toilet A/P Acute hypoxic resp failure ( with congenital scoliosis, tracheomalacia and MADISYN ) - pna WITH SUSPRCTED ARDS -(03/02) INTUBATED - 03/16- EXTUBATED - placed on BIPAP yestrday evening , and this am on BIPAP 70 % . will check abg anf if no hypercarbia, will try ORGANIZATIONAL EFFECTIVENESS DIRECTOR and implement agressive pulm toilet PNA - 03/02 sputum= corinebacterioum - ON VANCO AND MERREM - finished course -RESTARTED MERREM 03/14 for fever and hypotesion - CT CHEST - No NECROSIS, ABSCESS - to finish merrem ECHO 03/06/23 -echo EF 60% , RVSP 30 mmHg, subaortic stenosis- moder Cerebral palsy Right temporal lobe Sz dz - SX at SBT 03/14 - ATIVAN 2+2 - CT HEAD no acute changes ( h/o ORGANIZATIONAL EFFECTIVENESS DIRECTOR shunt in place - cont Trileptal Abd distension 03/05, Ileus RESOLVED - Sx consuled - lactulose / Mag citrate on TF now - up to goal -INCREASE H20 ( h/o Esophageal stricture , nissanfundoplication , PEG tube placement H/o Hydrocephalus - s/p ORGANIZATIONAL EFFECTIVENESS DIRECTOR shunt Baclofen pump - 60 mg/day - cont Anemia stable skin - clear Nutrition - TF on hold 03/05 - resumed 03/11 -> 03/13 up to goal Lines : R port periph , RIGHT fem line 02/26 - OUT , (Central Line Necessity Reviewed) [place]: + Flexi seal 03/15 -OUT OG: Nutrition: PEG -TF Analgesia: Anxiety/ delirium VTE Prophylaxis: 30 Stress Ulcer Prophylaxis: na Plans in collaboration with bedside consultants and IM MDs. Discussed with RN to reach out if any questions or concerns Case and care daily discussed on multidisciplinary rounds ( RN, PharmD, Emanations Analysis Technician , Respiratory Therapy, auto glass worker ) A total of 20 minutes of critical care time was devoted to this patient today, required to treat and/or prevent further deterioration of critical care condition ( as above ) . Sepsis Event Evaluation Height, Weight, BMI Height: 4'0" Weight: 72lbs. oz. 32.052291cp; 23.22 BMI Method: Focused Exam Time of Focused Exam: 09:00 Exam Exam Patient acknowledged, consented, and participated in this virtual visit which was conducted using real time audio/video Vital Signs Date Time Temp Pulse Resp B/P (MAP) Pulse Ox O2 Delivery O2 Flow Rate FiO2 03/19/23 18:00 108 19 95 Vapotherm 20.00 50.00 03/19/23 17:00 101 23 89/55 (68) 94 Vapotherm 20.00 50.00 03/19/23 16:39 Vapotherm 20.00 50.00 03/19/23 16:00 92 17 106/62 (72) 94 NIV Bilevel 70.00 03/19/23 16:00 94 NIV Bilevel 70 03/19/23 15:02 97 Vapotherm 20.00 50 03/19/23 15:00 94 20 105/58 (74) 95 NIV Bilevel 70.00 03/19/23 14:00 106 23 115/61 (86) 98 NIV Bilevel 70.00 03/19/23 13:00 90 16 119/65 (78) 99 NIV Bilevel 70.00 03/19/23 12:32 89 03/19/23 12:00 90 18 119/66 (82) 98 NIV Bilevel 70.00 03/19/23 12:00 94 NIV Bilevel 70 03/19/23 12:00 36.1 03/19/23 11:00 107 16 105/69 (79) 95 NIV Bilevel 70.00 03/19/23 10:42 97 23 97 70.00 03/19/23 10:00 108 117/71 (85) 99 NIV Bilevel 70.00 03/19/23 09:00 112 35 108/62 (80) 98 NIV Bilevel 70.00 03/19/23 08:00 110 20 120/72 (89) 98 NIV Bilevel 70.00 03/19/23 08:00 94 NIV Bilevel 70 03/19/23 07:51 36.2 03/19/23 07:00 105 03/19/23 07:00 98 18 99 70.00 7/14/23 07:00 101 23 127/77 (90) 94 NIV Bilevel 70.00 03/19/23 06:00 103 19 129/86 (100) 98 NIV Bilevel 70.00 03/19/23 05:00 87 17 106/65 (79) 96 NIV Bilevel 70.00 03/19/23 04:22 94 NIV Bilevel 70 03/19/23 04:00 97 18 141/91 (108) 97 NIV Bilevel 70.00 03/19/23 03:00 97 18 115/71 (86) 98 NIV Bilevel 70.00 03/19/23 02:47 NIV Bilevel 70.00 03/19/23 02:34 98 19 99 100.00 03/19/23 02:00 117 122/90 (101) 91 NIV Bilevel 70.00 03/19/23 02:00 NIV Bilevel 70.00 03/19/23 01:00 121 03/19/23 01:00 120 30 120/74 (89) 97 NIV Bilevel 55.00 03/19/23 00:00 112 26 121/74 (90) 97 NIV Bilevel 55.00 03/19/23 00:00 36.1 03/18/23 23:47 96 NIV Bilevel 55 03/18/23 23:00 106 24 119/69 (86) 94 NIV Bilevel 55.00 03/18/23 22:00 96 20 115/64 (81) 91 NIV Bilevel 55.00 03/18/23 21:42 96 21 94 42.00 03/18/23 21:30 NIV Bilevel 55.00 03/18/23 21:15 NIV Bilevel 45.00 03/18/23 21:00 96 22 110/71 (84) 91 NIV Bilevel 42.00 03/18/23 20:09 92 NIV Bilevel 42 03/18/23 20:00 95 22 116/66 (83) 91 NIV Bilevel 42.00 03/18/23 20:00 36.5 03/18/23 19:47 98 27 92 42.00 03/18/23 19:00 107 03/18/23 19:00 100 25 119/66 (83) 91 NIV Bilevel 42.00 I & O 03/19/23 07:00 Intake Total 2550 ml Output Total 900 ml Balance 1650 ml Height & Weight Height: 4'0" Weight: 72lbs. oz. 32.746026al; 23.22 BMI Method: General Appearance: No Apparent Distress, WD/WN, Chronically ill HEENT: Normal ENT Inspection Neck: Normal Inspection, Non Tender, Supple Respiratory: Lungs Clear, Normal Breath Sounds Cardiovascular: Tachycardia Capillary Refill: Less Than 3 Seconds Gastrointestinal: normal bowel sounds, non tender, soft, no organomegaly; No distended; other (gastrostomy tube luq) Extremity: Non Tender, No Calf Tenderness, No Pedal Edema Neurologic/Psychiatric: Other (intubated, sedated) Skin: Normal Color, Warm/Dry Lymphatic: No Adenopathy Results Lab Laboratory Tests 03/18/23 03:12 03/19/23 04:29 Assessment/Plan Assessment/Plan 1 VANESSA MIRAMONTES MD Mar 19, 2023 18:29
[2023-03-19 21:04] VITALS: BP 117/64
[2023-03-19] MEDS: ZONISAMIDE 100 MG CAP (ZONEGRAN) NON-FORMULARY PO SCH (21:13)
[2023-03-19] MEDS: LORazepam INJ 2 MG/ML (ATIVAN) VIAL IVP PRN (23:37)
[2023-03-20] MEDS: aCETylcysteine 20% (RT/PO) 4 ML SOLN VIAL INH SCH ×6 (02:10→21:27)
[2023-03-20] MEDS: RT-LEVALBUTEROL (XOPENEX) 1.25 MG/3 ML NEB NON-FORMULARY INH SCH ×6 (02:10→21:27)
[2023-03-20 04:58] LABS: BASOPHILS # (AUTO) 0.1 10^3/uL (0.0-0.1); BASOPHILS % (AUTO) 1 % (0-10); EOSINOPHILS # (AUTO) 0.4 10^3/uL (0.0-0.3); EOSINOPHILS % (AUTO) 5 % (0-10); HEMATOCRIT 36 % (40-54); HEMOGLOBIN 11.5 g/dL (13.3-17.7); LYMPHOCYTES # (AUTO) 2.4 10^3/uL (1.0-4.0); LYMPHOCYTES % (AUTO) 24 % (12-44); MEAN CORPUSCULAR HEMOGLOBIN 29 pg (25-34); MEAN CORPUSCULAR HGB CONC 32 g/dL (32-36); MEAN CORPUSCULAR VOLUME 93 fL (80-99); MEAN PLATELET VOLUME 10.9 fL (9.0-12.2); MONOCYTES # (AUTO) 0.9 10^3/uL (0.0-1.0); MONOCYTES % (AUTO) 9 % (0-12); NEUTROPHILS % (AUTO) 61 % (42-75); PLATELET COUNT 404 10^3/uL (130-400); WHITE BLOOD COUNT 9.9 10^3/uL (4.3-11.0)
[2023-03-20 05:08] LABS: POTASSIUM 3.9 MMOL/L (3.6-5.0)
[2023-03-20 05:09] LABS: CALCIUM 9.4 MG/DL (8.5-10.1)
[2023-03-20 05:13] LABS: CREATININE SERUM 0.45 MG/DL (0.60-1.30)
[2023-03-20 05:16] LABS: MAGNESIUM 2.1 MG/DL (1.6-2.4)
[2023-03-20] MEDS: POTASSIUM CL 10MEQ/50ML IVPB 50 ML IV SCH ×3 (05:38→06:47)
[2023-03-20] MEDS: MAGNESIUM 1 GM/100 ML IVPB 100 ML IV SCH (05:38)
[2023-03-20] MEDS: KCL 20 MEQ TAB (K-DUR) PO SCH (05:39)
[2023-03-20] MEDS: NS IV 1000 ML 1,000 ML IV SCH (07:50)
--- NOTE | 2023-03-20 08:15 | Tele-ICU Progress Note ---
Progress Note video rounds completed. 17 y/o male with cerebral palsy admitted with PNA. Was intubated, now extubated and on intermittent BIPAP (Tele-ICU Physician , Progress Note ) Service provided via interactive audio and video telecommunications E-CARE system to a patient admitted to ICU bed in [facility]. Patient is seen today due to persistent need of ICU care PE: lying comfortably in bed Hemodynamically normal No issues overnight Hospital course: (03/01) 17y/o M admitted with pneumonia, hypoxia. (03/02) INTUBATED 03/03-Ac 20 380 + 8 60% , RASS -1 on propfol 30 precedex 0.8 , added mucomist , cut down fluids 03/05- Ac 20 380 + 5 35 % propfol 50 precedex 1.4 03/06-Ac 20 380 + 5 50% propfol 50 precedex 1.4 , echo EF 60% , RVSP 30 mmHg, subaortic stenosis- moder 03/07- large neg fluid balance , ? ARDS - empiric steroids 03/07 ( decadron 4 q24 03/08- vent. AC 20, 380, 45% ,peep 5. not ready for SBT 03/09- Bowel regimen Mag citrate started -RASS -1 -propfol 45 precedex 1.2 ,Ac 20 380 + 5 50% 03/11 -sedation back 2/2 oral secretion , tachycardia-> propofol 20 , precedex 1.0 ,diuresis - RESPONDED WELL with less rhonchorous , good UO, TF resumed 03/12- SBP - failed with tachypnea , off precedex 03/13-AC 16, 380, 35% ,peep 5, precedex resumed, TF up to goal , decreased decadron twith plans to stop 03/18 03/14- SBT for 1 h - SEIZURE at the end - reveiced ativan - C 03/15 - tachycardic , fever ( CX DONE ) off sedation , FLEXISEAL for diarrhea - CT chest- infiltrates, CT head - no acute prosess 03/16- EXTUBATED 03/17 - on 3 l o2 03/18 - 3 L , OFF steroids 03/19 -BIPAP 70 % 06/10 rr 20 460- > to VT / agressive pulm toilet 03/20 Still using intermittent BIPAP when needed, WBC now normal at 9.9 A/P Acute hypoxic resp failure ( with congenital scoliosis, tracheomalacia and MADISYN ) - pna WITH SUSPRCTED ARDS -(03/02) INTUBATED - 03/16- EXTUBATED - placed on BIPAP PNA - 03/02 sputum= corinebacterioum - ON VANCO AND MERREM - finished course -RESTARTED MERREM 03/14 for fever and hypotesion - CT CHEST - No NECROSIS, ABSCESS - to finish merrem ECHO 03/06/23 -echo EF 60% , RVSP 30 mmHg, subaortic stenosis- moder Cerebral palsy Right temporal lobe Sz dz - SX at SBT 03/14 - ATIVAN 2+2 - CT HEAD no acute changes ( h/o UPSTREAM BIOMANUFACTURING TECHNICIAN shunt in place - cont Trileptal Abd distension 03/05, Ileus RESOLVED - Sx consuled - lactulose / Mag citrate on TF now - up to goal -INCREASE H20 ( h/o Esophageal stricture , nissanfundoplication , PEG tube placement H/o Hydrocephalus - s/p UPSTREAM BIOMANUFACTURING TECHNICIAN shunt Baclofen pump - 60 mg/day - cont Anemia stable skin - clear Nutrition - TF on hold 03/05 - resumed 03/11 -> 03/13 up to goal Lines : R port periph , RIGHT fem line 02/26 - OUT , (Central Line Necessity Reviewed) [place]: + Flexi seal 03/15 -OUT OG: Nutrition: PEG -TF Analgesia: Anxiety/ delirium VTE Prophylaxis: trina 30mg daily Plans in collaboration with bedside consultants and IM MDs. Discussed with RN to reach out if any questions or concerns Case and care daily discussed on multidisciplinary rounds ( RN, PharmD, Indexer , Respiratory Therapy, warehouse insulation worker ) A total of 20 minutes of critical care time was devoted to this patient today Sepsis Event Evaluation Height, Weight, BMI Height: 4'0" Weight: 72lbs. oz. 32.443432yv; 23.22 BMI Method: Focused Exam Time of Focused Exam: 09:00 Exam Exam Patient acknowledged, consented, and participated in this virtual visit which was conducted using real time audio/video Vital Signs Date Time Temp Pulse Resp B/P (MAP) Pulse Ox O2 Delivery O2 Flow Rate FiO2 03/19/23 18:00 108 19 95 Vapotherm 20.00 50.00 03/19/23 17:00 101 23 89/55 (68) 94 Vapotherm 20.00 50.00 03/19/23 16:39 Vapotherm 20.00 50.00 03/19/23 16:00 92 17 106/62 (72) 94 NIV Bilevel 70.00 03/19/23 16:00 94 NIV Bilevel 70 03/19/23 15:02 97 Vapotherm 20.00 50 03/19/23 15:00 94 20 105/58 (74) 95 NIV Bilevel 70.00 03/19/23 14:00 106 23 115/61 (86) 98 NIV Bilevel 70.00 03/19/23 13:00 90 16 119/65 (78) 99 NIV Bilevel 70.00 03/19/23 12:32 89 03/19/23 12:00 90 18 119/66 (82) 98 NIV Bilevel 70.00 03/19/23 12:00 94 NIV Bilevel 70 03/19/23 12:00 36.1 03/19/23 11:00 107 16 105/69 (79) 95 NIV Bilevel 70.00 03/19/23 10:42 97 23 97 70.00 03/19/23 10:00 108 117/71 (85) 99 NIV Bilevel 70.00 03/19/23 09:00 112 35 108/62 (80) 98 NIV Bilevel 70.00 03/19/23 08:00 110 20 120/72 (89) 98 NIV Bilevel 70.00 03/19/23 08:00 94 NIV Bilevel 70 03/19/23 07:51 36.2 03/19/23 07:00 105 03/19/23 07:00 98 18 99 70.00 03/19/23 07:00 101 23 127/77 (90) 94 NIV Bilevel 70.00 03/19/23 06:00 103 19 129/86 (100) 98 NIV Bilevel 70.00 03/19/23 05:00 87 17 106/65 (79) 96 NIV Bilevel 70.00 03/19/23 04:22 94 NIV Bilevel 70 03/19/23 04:00 97 18 141/91 (108) 97 NIV Bilevel 70.00 03/19/23 03:00 97 18 115/71 (86) 98 NIV Bilevel 70.00 03/19/23 02:47 NIV Bilevel 70.00 03/19/23 02:34 98 19 99 100.00 03/19/23 02:00 117 122/90 (101) 91 NIV Bilevel 70.00 03/19/23 02:00 NIV Bilevel 70.00 03/19/23 01:00 121 03/19/23 01:00 120 30 120/74 (89) 97 NIV Bilevel 55.00 03/19/23 00:00 112 26 121/74 (90) 97 NIV Bilevel 55.00 03/19/23 00:00 36.1 03/18/23 23:47 96 NIV Bilevel 55 03/18/23 23:00 106 24 119/69 (86) 94 NIV Bilevel 55.00 03/18/23 22:00 96 20 115/64 (81) 91 NIV Bilevel 55.00 03/18/23 21:42 96 21 94 42.00 03/18/23 21:30 NIV Bilevel 55.00 03/18/23 21:15 NIV Bilevel 45.00 03/18/23 21:00 96 22 110/71 (84) 91 NIV Bilevel 42.00 03/18/23 20:09 92 NIV Bilevel 42 03/18/23 20:00 95 22 116/66 (83) 91 NIV Bilevel 42.00 03/18/23 20:00 36.5 03/18/23 19:47 98 27 92 42.00 03/18/23 19:00 107 03/18/23 19:00 100 25 119/66 (83) 91 NIV Bilevel 42.00 I & O 03/19/23 07:00 Intake Total 2550 ml Output Total 900 ml Balance 1650 ml Height & Weight Height: 4'0" Weight: 72lbs. oz. 32.868557be; 23.22 BMI Method: General Appearance: No Apparent Distress, WD/WN, Chronically ill HEENT: Normal ENT Inspection Neck: Normal Inspection, Non Tender, Supple Respiratory: Lungs Clear, Normal Breath Sounds Cardiovascular: Tachycardia Capillary Refill: Less Than 3 Seconds Gastrointestinal: normal bowel sounds, non tender, soft, no organomegaly; No distended; other (gastrostomy tube luq) Extremity: Non Tender, No Calf Tenderness, No Pedal Edema Neurologic/Psychiatric: Other (intubated, sedated) Skin: Normal Color, Warm/Dry Lymphatic: No Adenopathy Results Lab Laboratory Tests 03/18/23 03:12 03/19/23 04:29 Assessment/Plan Assessment/Plan Focused Exam Height, Weight, BMI Height: 4'0" Weight: 72lbs. oz. 32.339884ny; 22.53 BMI Method: Time of Focused Exam: 09:00 Labs Laboratory Tests 03/20/23 04:45 Results Results/Procedures Labs Laboratory Tests 03/19/23 04:29 03/20/23 04:45 Patient resulted labs reviewed. Results Labs Labs Laboratory Tests 03/19/23 13:10: Venous Blood pH 7.37, Venous Blood Partial Pressure CO2 48, Venous Blood HCO3 27 03/20/23 04:45: White Blood Count 9.9, Red Blood Count 3.91L, Hemoglobin 11.5L, Hematocrit 36L, Mean Corpuscular Volume 93, Mean Corpuscular Hemoglobin 29, Mean Corpuscular Hemoglobin Concent 32, Red Cell Distribution Width 16.1H, Platelet Count 404H, Mean Platelet Volume 10.9, Immature Granulocyte % (Auto) 0, Neutrophils (%) (Auto) 61, Lymphocytes (%) (Auto) 24, Monocytes (%) (Auto) 9, Eosinophils (%) (Auto) 5, Basophils (%) (Auto) 1, Neutrophils # (Auto) 6.0, Lymphocytes # (Auto) 2.4, Monocytes # (Auto) 0.9, Eosinophils # (Auto) 0.4H, Basophils # (Auto) 0.1, Immature Granulocyte # (Auto) 0.0, Sodium Level 142, Potassium Level 3.9, Chloride Level 107, Carbon Dioxide Level 27, Anion Gap 8, Blood Urea Nitrogen 10, Creatinine 0.45L, Estimat Glomerular Filtration Rate 156, BUN/Creatinine Ratio 22, Glucose Level 94, Calcium Level 9.4, Magnesium Level 2.1 Microbiology 03/14/23 Gram Stain - Final, Complete 03/14/23 Sputum Culture - Final, Complete Usual upper respiratory sabra 03/14/23 Urine Culture - Final, Complete NO GROWTH 03/14/23 Blood Culture - Final, Complete No growth CALLIE WAGNER MD Mar 20, 2023 08:15
[2023-03-20] MEDS: ENOXAPARIN 30 MG/0.3 ML SYRINGE SC SCH ×2 (08:58→21:40)
[2023-03-20] MEDS: LORATADINE 5 MG/5 ML SOLN (CLARITIN) UDC GT SCH ×2 (08:58→21:41)
[2023-03-20] MEDS: PANTOPRAZOLE 40 MG (PROTONIX) VIAL IV SCH (08:58)
[2023-03-20] MEDS: polyethylene glycoL POWDER 17 GM (MIRALAX) PACK GT SCH ×2 (08:59→10:22)
[2023-03-20] MEDS: NS IV SCH ×2 (08:59→16:24)
[2023-03-20] MEDS: MEROPENEM IV SCH ×2 (08:59→16:24)
[2023-03-20] MEDS: TRILEPTAL GT SCH ×2 (09:00→21:41)
--- NOTE | 2023-03-20 11:31 | Progress Note - Hospitalist ---
Subjective HPI/CC On Admission Date Seen by Provider: Mar 20, 2023 Time Seen by Provider: 07:45 Chief complaint: Acute hypoxic respiratory failure due to pneumonia requiring intubation after failed BiPAP HPI: This is a 17-year-old male with a history of cerebral palsy and severe disability who presented to the ICU with acute hypoxic respiratory failure with hypercapnia requiring BiPAP. I was consulted due to decision for intubation due to failure on BiPAP. Patient has longstanding medical issues from his severe disability. Parents are at the bedside. Anesthesia was consulted and patient was intubated without complication. eICU was notified. Subjective/Events-last exam Patient resting comfortably on Vapotherm mild tachypnea but respirations were not labored. At baseline he is nonverbal due to cerebral palsy did not appear to be in acute distress.Increase in liquid diarrhea nonbloody per staff. Focused Exam Time of Focused Exam: 09:00 Objective Exam Vital Signs Vital Signs Date Time Temp Pulse Resp B/P (MAP) Pulse Ox O2 Delivery O2 Flow Rate FiO2 03/20/23 11:19 95 Vapotherm 25.00 65 03/20/23 11:00 93 16 101/65 (72) 03/19/23 12:00 36.1 Capillary Refill : Less Than 3 Seconds General Appearance: No Apparent Distress Respiratory: Other (Coarse breath sounds throughout no wheezing noted) Cardiovascular: Regular Rate, Rhythm, No Edema, No Gallop, No JVD, No Murmur Gastrointestinal: Normal Bowel Sounds, Soft Results/Procedures Lab Laboratory Tests 03/20/23 04:45 Patient resulted labs reviewed. Assessment/Plan Assessment and Plan Assess & Plan/Chief Complaint Assessment: Acute hypoxic hypercapnic respiratory failure failed BiPAP requiring intubationnow extubated but now biPAP dependence Severe cerebral palsy with severe disability Sepsisresolved DVT prophylaxis with Lovenox Tachycardia 03/20: Currently patient tolerating Vapotherm maintaining saturations in the mid to upper 90 range. Considering diffuse patchy airspace disease suspect pneumonia with underlying ARDS respiratory status still very tenuous. Patient is having increased liquid diarrhea and has been on broad-spectrum antibiotics for a long period of time we will send another stool for C. difficile. Esau appears to be comfortable at this time. Prognosis remains quite poor. Plan: Extubated eICU consulted Antibiotics completed Supportive care Critical Care Critically Ill Patient CHERELLE LOMBARDI MD Mar 20, 2023 11:31
[2023-03-20 21:27] VITALS: BP 112/60
[2023-03-20] MEDS: ZONISAMIDE 100 MG CAP (ZONEGRAN) NON-FORMULARY PO SCH (21:41)
[2023-03-20] MEDS: LORazepam INJ 2 MG/ML (ATIVAN) VIAL IVP PRN (21:44)
[2023-03-21] MEDS: MEROPENEM IV SCH ×4 (00:55→23:45)
[2023-03-21] MEDS: NS IV SCH ×4 (00:55→23:45)
[2023-03-21] MEDS: RT-LEVALBUTEROL (XOPENEX) 1.25 MG/3 ML NEB NON-FORMULARY INH SCH ×6 (02:06→22:42)
[2023-03-21] MEDS: aCETylcysteine 20% (RT/PO) 4 ML SOLN VIAL INH SCH ×6 (02:06→22:42)
[2023-03-21 02:07] VITALS: BP 102/62
[2023-03-21 05:22] LABS: BASOPHILS # (AUTO) 0.1 10^3/uL (0.0-0.1); BASOPHILS % (AUTO) 1 % (0-10); EOSINOPHILS # (AUTO) 0.5 10^3/uL (0.0-0.3); EOSINOPHILS % (AUTO) 5 % (0-10); HEMATOCRIT 36 % (40-54); HEMOGLOBIN 11.7 g/dL (13.3-17.7); LYMPHOCYTES # (AUTO) 2.5 10^3/uL (1.0-4.0); LYMPHOCYTES % (AUTO) 25 % (12-44); MEAN CORPUSCULAR HEMOGLOBIN 30 pg (25-34); MEAN CORPUSCULAR HGB CONC 32 g/dL (32-36); MEAN CORPUSCULAR VOLUME 91 fL (80-99); MEAN PLATELET VOLUME 11.3 fL (9.0-12.2); MONOCYTES # (AUTO) 0.7 10^3/uL (0.0-1.0); MONOCYTES % (AUTO) 8 % (0-12); NEUTROPHILS % (AUTO) 62 % (42-75); PLATELET COUNT 376 10^3/uL (130-400); WHITE BLOOD COUNT 9.7 10^3/uL (4.3-11.0)
[2023-03-21 05:32] LABS: POTASSIUM 4.1 MMOL/L (3.6-5.0)
[2023-03-21 05:34] LABS: CALCIUM 9.6 MG/DL (8.5-10.1)
[2023-03-21 05:38] LABS: CREATININE SERUM 0.46 MG/DL (0.60-1.30)
[2023-03-21] MEDS: KCL 20 MEQ TAB (K-DUR) PO SCH (05:49)
[2023-03-21] MEDS: MAGNESIUM 1 GM/100 ML IVPB 100 ML IV SCH (05:49)
[2023-03-21] MEDS: POTASSIUM CL 10MEQ/50ML IVPB 50 ML IV SCH (05:49)
[2023-03-21 06:26] VITALS: BP 121/73
[2023-03-21] MEDS: PANTOPRAZOLE 40 MG (PROTONIX) VIAL IV SCH (08:38)
[2023-03-21] MEDS: TRILEPTAL GT SCH ×2 (08:39→21:39)
[2023-03-21] MEDS: polyethylene glycoL POWDER 17 GM (MIRALAX) PACK GT SCH (08:39)
[2023-03-21] MEDS: ENOXAPARIN 30 MG/0.3 ML SYRINGE SC SCH ×2 (08:39→19:46)
[2023-03-21] MEDS: LORATADINE 5 MG/5 ML SOLN (CLARITIN) UDC GT SCH ×2 (08:39→21:38)
[2023-03-21 10:21] VITALS: BP 105/61
--- NOTE | 2023-03-21 11:14 | Tele-ICU Progress Note ---
Subjective Date Seen by a Provider: Mar 21, 2023 Time Seen by a Provider: 11:10 Subjective/Events-last exam (Tele-ICU Physician , Progress Note ) Service provided via interactive audio and video telecommunications E-CARE system to a patient admitted to ICU bed in [facility]. Patient is seen today due to persistent need of ICU care Available chart/ vitals / labs / Images reviewed Video assessment done using teleICU camera, rest of exam as per RN Discussed with RN Events overnight : Afebrile hemodynamically stable Respiratory - 60% I/O = NEG Drips: Pressors- no VENT SETTINGS and ABG reviewed CANDIDATE for SBTreviewed possible contraindications including Cardiovascular Stability /Sedation Score / FI02/PEEP / ABG / CXR/ secretions Sedation, discussed with RN, RASS -1 -propfol 20 precedex 1.0 Hospital course: (03/01) 17y/o M admitted with pneumonia, hypoxia. (03/02) INTUBATED 03/03-Ac 20 380 + 8 60% , RASS -1 on propfol 30 precedex 0.8 , added mucomist , cut down fluids 03/05- Ac 20 380 + 5 35 % propfol 50 precedex 1.4 03/06-Ac 20 380 + 5 50% propfol 50 precedex 1.4 , echo EF 60% , RVSP 30 mmHg, subaortic stenosis- moder 03/07- large neg fluid balance , ? ARDS - empiric steroids 03/07 ( decadron 4 q24 03/08- vent. AC 20, 380, 45% ,peep 5. not ready for SBT 03/09- Bowel regimen Mag citrate started -RASS -1 -propfol 45 precedex 1.2 ,Ac 20 380 + 5 50% 03/11 -sedation back 2/2 oral secretion , tachycardia-> propofol 20 , precedex 1.0 ,diuresis - RESPONDED WELL with less rhonchorous , good UO, TF resumed 03/12- SBP - failed with tachypnea , off precedex 03/13-AC 16, 380, 35% ,peep 5, precedex resumed, TF up to goal , decreased decadron twith plans to stop 03/18 03/14- SBT for 1 h - SEIZURE at the end - reveiced ativan - C 03/15 - tachycardic , fever ( CX DONE ) off sedation , FLEXISEAL for diarrhea - CT chest- infiltrates, CT head - no acute prosess 03/16- EXTUBATED 03/17 - on 3 l o2 03/18 - 3 L , OFF steroids 03/19 -BIPAP 70 % 06/10 rr 20 460- > to VT / agressive pulm toilet 03/21, on vapotherm 20 land 50%. tolerating ok. A/P Acute hypoxic resp failure ( with congenital scoliosis, tracheomalacia and MADISYN ) - pna WITH SUSPRCTED ARDS -(03/02) INTUBATED - 03/16- EXTUBATED - placed on BIPAP yestrday evening , and this am on BIPAP 70 % . will check abg anf if no hypercarbia, will try IT PROFESSIONAL and implement agressive pulm toilet PNA - 03/02 sputum= corinebacterioum - ON VANCO AND MERREM - finished course -RESTARTED MERREM 03/14 for fever and hypotesion - CT CHEST - No NECROSIS, ABSCESS - to finish merrem ECHO 03/06/23 -echo EF 60% , RVSP 30 mmHg, subaortic stenosis- moder Cerebral palsy Right temporal lobe Sz dz - SX at SBT 03/14 - ATIVAN 2+2 - CT HEAD no acute changes ( h/o IT PROFESSIONAL shunt in place - cont Trileptal Abd distension 03/05, Ileus RESOLVED - Sx consuled - lactulose / Mag citrate on TF now - up to goal -INCREASE H20 ( h/o Esophageal stricture , nissanfundoplication , PEG tube placement H/o Hydrocephalus - s/p IT PROFESSIONAL shunt Baclofen pump - 60 mg/day - cont Anemia stable skin - clear Nutrition - TF on hold 03/05 - resumed 03/11 -> 03/13 up to goal Lines : R port periph , RIGHT fem line 02/26 - OUT , (Central Line Necessity Reviewed) [place]: + Flexi seal 03/15 -OUT OG: Nutrition: PEG -TF Analgesia: Anxiety/ delirium VTE Prophylaxis: trina 30 Q 12 s/q Stress Ulcer Prophylaxis: na Plans in collaboration with bedside consultants and IM MDs. Discussed with RN to reach out if any questions or concerns Case and care daily discussed on multidisciplinary rounds ( RN, PharmD, Remote Operations Producer , Respiratory Therapy, die storage worker ) A total of 20 minutes of critical care time was devoted to this patient today, required to treat and/or prevent further deterioration of critical care condition ( as above ) . Sepsis Event Evaluation Height, Weight, BMI Height: 4'0" Weight: 72lbs. oz. 32.474577aj; 22.49 BMI Method: Focused Exam Time of Focused Exam: 09:00 Exam Exam Patient acknowledged, consented, and participated in this virtual visit which was conducted using real time audio/video Vital Signs Date Time Temp Pulse Resp B/P (MAP) Pulse Ox O2 Delivery O2 Flow Rate FiO2 03/21/23 11:00 102 20 112/63 (79) 99 NIV Bilevel 65.00 03/21/23 10:21 111 20 98 65.00 03/21/23 10:00 105 18 105/61 (68) 92 Vapotherm 20.00 50.00 03/21/23 09:01 Vapotherm 20.00 50.00 03/21/23 09:00 110 25 107/64 (76) 100 Vapotherm 20.00 55.00 03/21/23 09:00 Vapotherm 20.00 55.00 03/21/23 08:56 94 NIV Bilevel 65 03/21/23 08:55 36.5 03/21/23 08:00 106 16 112/88 (98) 100 NIV Bilevel 65.00 03/21/23 07:00 89 19 111/76 (91) 98 NIV Bilevel 65.00 03/21/23 07:00 106 03/21/23 06:26 96 16 97 65.00 03/21/23 06:00 103 21 121/73 (89) 95 NIV Bilevel 65.00 03/21/23 05:00 96 20 99/55 (70) 96 NIV Bilevel 65.00 03/21/23 04:00 92 20 95/52 (66) 97 NIV Bilevel 65.00 03/21/23 04:00 98 NIV Bilevel 65 03/21/23 03:00 101 18 95/53 (67) 97 NIV Bilevel 65.00 03/21/23 02:10 NIV Bilevel 65 03/21/23 02:07 89 18 98 65.00 03/21/23 02:00 87 17 102/62 (75) 96 NIV Bilevel 65.00 03/21/23 01:00 93 20 99/50 (66) 97 NIV Bilevel 65.00 03/21/23 01:00 92 03/21/23 00:00 99 28 83/52 (62) 92 NIV Bilevel 65.00 03/21/23 00:00 35.9 03/20/23 23:59 97 NIV Bilevel 65 03/20/23 23:00 116 27 82/47 (59) 93 NIV Bilevel 65.00 03/20/23 22:00 103 29 107/65 (79) 98 NIV Bilevel 65.00 03/20/23 21:30 NIV Bilevel 65 03/20/23 21:27 106 22 95 65.00 03/20/23 21:00 102 25 113/60 (77) 91 NIV Bilevel 65.00 03/20/23 20:00 96 Vapotherm 25.00 65 03/20/23 20:00 116 27 115/68 (84) 94 Vapotherm 20.00 60.00 03/20/23 19:00 105 03/20/23 19:00 102 23 91 Vapotherm 20.00 60.00 03/20/23 18:40 95 Vapotherm 20.00 65 03/20/23 18:36 96 Vapotherm 20.00 65 03/20/23 18:00 109 22 98 NIV Bilevel 65.00 03/20/23 17:00 92 18 108/65 (78) 94 NIV Bilevel 65.00 03/20/23 16:00 92 33 103/56 (72) 95 NIV Bilevel 65.00 03/20/23 15:23 95 Vapotherm 25.00 65 03/20/23 15:17 95 Vapotherm 25.00 65 03/20/23 15:00 93 19 101/54 (70) 95 NIV Bilevel 65.00 03/20/23 14:00 105 15 121/69 (87) NIV Bilevel 65.00 03/20/23 13:00 93 22 110/57 (72) NIV Bilevel 65.00 03/20/23 12:22 111 03/20/23 12:00 116 122/74 (87) 91 NIV Bilevel 65.00 03/20/23 12:00 95 Vapotherm 25.00 65 03/20/23 11:19 95 Vapotherm 25.00 65 I & O 03/21/23 07:00 Intake Total 2850 ml Output Total 2750 ml Balance 100 ml Height & Weight Height: 4'0" Weight: 72lbs. oz. 32.177701pv; 22.49 BMI Method: General Appearance: No Apparent Distress HEENT: Normal ENT Inspection Neck: Normal Inspection, Non Tender, Supple Respiratory: Other (Coarse breath sounds throughout no wheezing noted) Cardiovascular: Regular Rate, Rhythm, No Edema, No Gallop, No JVD, No Murmur Capillary Refill: Less Than 3 Seconds Gastrointestinal: normal bowel sounds, non tender, soft, no organomegaly; No distended; other (gastrostomy tube luq) Extremity: Non Tender, No Calf Tenderness, No Pedal Edema Neurologic/Psychiatric: Other (intubated, sedated) Skin: Normal Color, Warm/Dry Lymphatic: No Adenopathy Results Lab Laboratory Tests 03/20/23 04:45 03/21/23 04:55 Assessment/Plan Assessment/Plan as above Critical Care: Critically Ill Patient Time spent with patient (mins): 20 PANKAJ CANDELARIA MD Mar 21, 2023 11:13
--- NOTE | 2023-03-21 13:06 | Progress Note - Hospitalist ---
Subjective HPI/CC On Admission Date Seen by Provider: Mar 21, 2023 Time Seen by Provider: 07:30 Chief complaint: Acute hypoxic respiratory failure due to pneumonia requiring intubation after failed BiPAP HPI: This is a 17-year-old male with a history of cerebral palsy and severe disability who presented to the ICU with acute hypoxic respiratory failure with hypercapnia requiring BiPAP. I was consulted due to decision for intubation due to failure on BiPAP. Patient has longstanding medical issues from his severe disability. Parents are at the bedside. Anesthesia was consulted and patient was intubated without complication. eICU was notified. Subjective/Events-last exam Patient resting on BiPAP appears to be in no acute distress no care problems reported per staff or reported episodes of respiratory distress. Focused Exam Time of Focused Exam: 09:00 Objective Exam Vital Signs Vital Signs Date Time Temp Pulse Resp B/P (MAP) Pulse Ox O2 Delivery O2 Flow Rate FiO2 03/21/23 12:23 108 03/21/23 12:00 30 109/66 (94) 100 NIV Bilevel 65.00 03/21/23 08:56 65 03/21/23 08:55 36.5 Capillary Refill : Less Than 3 Seconds General Appearance: No Apparent Distress Respiratory: No Accessory Muscle Use, No Respiratory Distress, Other (Coarse rhonchi throughout no wheezing noted.) Cardiovascular: Regular Rate, Rhythm, No Murmur Extremity: No Pedal Edema Results/Procedures Lab Laboratory Tests 03/21/23 04:55 Patient resulted labs reviewed. Assessment/Plan Assessment and Plan Assess & Plan/Chief Complaint Assessment: Acute hypoxic hypercapnic respiratory failure failed BiPAP requiring int ubationnow extubated but now biPAP dependence Severe cerebral palsy with severe disability Sepsisresolved DVT prophylaxis with Lovenox Tachycardia 03/20: Currently patient tolerating Vapotherm maintaining saturations in the mid to upper 90 range. Considering diffuse patchy airspace disease suspect pneumonia with underlying ARDS respiratory status still very tenuous. Patient is having increased liquid diarrhea and has been on broad-spectrum antibiotics for a long period of time we will send another stool for C. difficile. Esau appears to be comfortable at this time. Prognosis remains quite poor. 03/21: Respiratory status stable but remains tenuous. Decreased diarrhea C. difficile negative. Plan: Extubated eICU consulted Antibiotics completed Supportive care Critical Care Critically Ill Patient CHERELLE LOMBARDI MD Mar 21, 2023 13:06
[2023-03-21] MEDS: NS IV 1000 ML 1,000 ML IV SCH ×2 (17:36)
[2023-03-21] MEDS: LORazepam INJ 2 MG/ML (ATIVAN) VIAL IVP PRN (21:06)
[2023-03-21] MEDS: ZONISAMIDE 100 MG CAP (ZONEGRAN) NON-FORMULARY PO SCH (21:39)
[2023-03-21 22:37] VITALS: BP 105/62
[2023-03-22] MEDS: RT-LEVALBUTEROL (XOPENEX) 1.25 MG/3 ML NEB NON-FORMULARY INH SCH ×6 (02:28→22:17)
[2023-03-22] MEDS: aCETylcysteine 20% (RT/PO) 4 ML SOLN VIAL INH SCH ×6 (02:28→22:17)
[2023-03-22 02:29] VITALS: BP 111/77
[2023-03-22 04:18] LABS: BASOPHILS # (AUTO) 0.1 10^3/uL (0.0-0.1); BASOPHILS % (AUTO) 1 % (0-10); EOSINOPHILS # (AUTO) 0.6 10^3/uL (0.0-0.3); EOSINOPHILS % (AUTO) 7 % (0-10); HEMATOCRIT 35 % (40-54); HEMOGLOBIN 11.6 g/dL (13.3-17.7); LYMPHOCYTES # (AUTO) 2.4 10^3/uL (1.0-4.0); LYMPHOCYTES % (AUTO) 27 % (12-44); MEAN CORPUSCULAR HEMOGLOBIN 30 pg (25-34); MEAN CORPUSCULAR HGB CONC 33 g/dL (32-36); MEAN CORPUSCULAR VOLUME 91 fL (80-99); MONOCYTES # (AUTO) 0.8 10^3/uL (0.0-1.0); MONOCYTES % (AUTO) 9 % (0-12); NEUTROPHILS # (AUTO) 5.1 10^3/uL (1.8-7.8); NEUTROPHILS % (AUTO) 57 % (42-75); PLATELET COUNT 336 10^3/uL (130-400)
[2023-03-22 04:37] LABS: POTASSIUM 3.9 MMOL/L (3.6-5.0)
[2023-03-22 04:38] LABS: CALCIUM 9.6 MG/DL (8.5-10.1)
[2023-03-22 04:43] LABS: CREATININE SERUM 0.49 MG/DL (0.60-1.30)
[2023-03-22 04:45] LABS: MAGNESIUM 1.9 MG/DL (1.6-2.4)
[2023-03-22] MEDS: KCL 20 MEQ TAB (K-DUR) PO SCH (05:01)
[2023-03-22] MEDS: POTASSIUM CL 10MEQ/50ML IVPB 50 ML IV SCH ×3 (05:36→06:41)
[2023-03-22] MEDS: MAGNESIUM 1 GM/100 ML IVPB 100 ML IV SCH ×3 (05:37→06:41)
[2023-03-22] MEDS: MEROPENEM IV SCH ×3 (08:05→23:36)
[2023-03-22] MEDS: LORATADINE 5 MG/5 ML SOLN (CLARITIN) UDC GT SCH ×2 (08:05→21:00)
[2023-03-22] MEDS: NS IV SCH ×3 (08:05→23:36)
[2023-03-22] MEDS: PANTOPRAZOLE 40 MG (PROTONIX) VIAL IV SCH (08:05)
[2023-03-22] MEDS: TRILEPTAL GT SCH ×2 (08:06→20:59)
[2023-03-22] MEDS: ENOXAPARIN 30 MG/0.3 ML SYRINGE SC SCH ×2 (08:06→20:07)
[2023-03-22] MEDS: polyethylene glycoL POWDER 17 GM (MIRALAX) PACK GT SCH (08:06)
--- NOTE | 2023-03-22 08:53 | Progress Note ---
Subjective Subjective/Events-last exam On vapotherm, had to increase FiO2 after bath and movement, but otherwise nursing feels he has improved slightly. Focused Exam Time of Focused Exam: 09:00 Objective Exam Last Set of Vital Signs Vital Signs Date Time Temp Pulse Resp B/P (MAP) Pulse Ox O2 Delivery O2 Flow Rate FiO2 03/22/23 08:08 Vapotherm 50.00 03/22/23 08:00 117 28 128/80 (96) 95 03/22/23 07:36 45 03/22/23 07:33 35.8 Capillary Refill : Less Than 3 Seconds I&O Intake and Output 03/22/23 00:00 Intake Total 2960 ml Output Total 2525 ml Balance 435 ml IV Total 100 ml Tube Feeding 840 ml Enteral Flush 280 ml Other 1740 ml Output Urine Total 2525 ml General: Alert Lungs: Other (ronchi throughout) Heart: Regular Rate, Other (systolic murmur) Extremities: No Edema Results/Procedures Lab Laboratory Tests 03/22/23 00:14: Glucometer 94 03/22/23 04:10: White Blood Count 9.0, Red Blood Count 3.90L, Hemoglobin 11.6L, Hematocrit 35L, Mean Corpuscular Volume 91, Mean Corpuscular Hemoglobin 30, Mean Corpuscular Hemoglobin Concent 33, Red Cell Distribution Width 15.9H, Platelet Count 336, Mean Platelet Volume 11.0, Immature Granulocyte % (Auto) 0, Neutrophils (%) (Auto) 57, Lymphocytes (%) (Auto) 27, Monocytes (%) (Auto) 9, Eosinophils (%) (Auto) 7, Basophils (%) (Auto) 1, Neutrophils # (Auto) 5.1, Lymphocytes # (Auto) 2.4, Monocytes # (Auto) 0.8, Eosinophils # (Auto) 0.6H, Basophils # (Auto) 0.1, Immature Granulocyte # (Auto) 0.0, Sodium Level 139, Potassium Level 3.9, Chloride Level 104, Carbon Dioxide Level 26, Anion Gap 9, Blood Urea Nitrogen 9, Creatinine 0.49L, Estimat Glomerular Filtration Rate 152, BUN/Creatinine Ratio 18, Glucose Level 105, Calcium Level 9.6, Magnesium Level 1.9 Microbiology 03/20/23 C. difficile GDH Antigen & Toxins - Final, Complete 03/19/23 Gram Stain - Final, Resulted 03/19/23 Sputum Culture - Preliminary, Resulted Corynebacterium species 03/14/23 Urine Culture - Final, Complete NO GROWTH 03/14/23 Blood Culture - Final, Complete No growth Radiology ADMIT DATE: 03/01/23/ICU Signed Date of Exam:03/01/23 CHEST 1 VIEW, AP/PA ONLY Indication: Hypoxia Frontal chest obtained at 1208 p.m. compared to 05/11/2015. The heart is normal in size. There is a Port-A-Cath over the right chest with tip overlying the low SVC. There is a shunt catheter over the left hemithorax. There is central vascular congestion with perihilar infiltrates. There is no pneumothorax or pleural fluid. Impression: Bilateral perihilar infiltrates are present, pneumonia is not excluded. There is no pneumothorax or pleural fluid. Heart is normal in size. There is dextroscoliotic change. Dictated by: Dictated on workstation # [id number] Dict: 03/01/23 1212 Trans: 03/01/23 1328 [facility] [id number] Interpreted by: KAMARI MACHUCA MD Assessment/Plan Assessment/Plan (1) Pneumonia Status: Acute Assessment & Plan: Directly admitted to ICU from the clinic via EMS due to pneumonia and hypoxia. At risk for decompensation due to multiple co-morbidities, discussed transfer options with mother and legal guardian and would like to stay at [facility] if possible and trial IV antibiotics. Currently requiring bi-pap at 60% FIO2 to maintain dixie in the low 90's. Antibiotics started - zithromax and meropenam IVF - will give fluid bolus x1L then 150mL/h initial cbc normal; blood cultures pending. Resume home meds and G-tube feeds - dietary consulted for conversion of home feeding regimen. 03/02/2023: Worsening respiratory status overnight, now requiring 70% FIO2 to maintain sats and prevent acidosis. More tachypneic. Consult Dr. Rahman for critical care. Recommending intubation. Discussed consideration of transfer, Dr. Rahman recommends intubation prior to transfer due to risk of clinical deterioration en route if transfer is chosen by parents Discussed code status, would like to proceed with intubation but would prefer not to have chest compressions. Parents are legal guardian of patient but as an adult, court must order DNR or modified DNR. 03/03/23: Intubated without incident yesterday. Sedated on vent currently, more comfortable. O2 98% on 80% FIO2; VBG 7. am CXR severe, bilateral infiltrates, unchanged from yesterday Vancomycin added yesterday. labs, vitals stable [facility] 03/04/23: Fi02 35%, stable, sedated on vent. continue current care 03/05/23: sputum culture grew corynebacterium - typically sensitive to vancomycin and meropenum Fi02 35%, stable, sedated on vent. continue current care 03/06/23: Persistent worsening hypoxia, FiO2 55% this am, continued on vancomycin, meropenem and azithromycin. Good diuresis with albumin and lasix yesterday, repeating today per [facility], appreciate recommendations. 03/07/23: Stable, continued current treatment plans 03/08/23: FiO2 down to 45% today, will resume vancomycin for corynebacterium, has completed azithromycin, will complete 2 more days of meropenem. Started dexamethasone 03/07 with possible slight improvement noted. 03/16/23: Extubated 03/22/23: requiring vapotherm, repeat sputum still with corynebacterium, continued on meropenem Qualifiers: (2) Respiratory failure with hypoxia Status: Acute Assessment & Plan: Intubated 03/02/23, extubated 03/16, currently on vapotherm. History of asthma, will add inhaled ICS/LABA to short acting. Qualifiers: Qualified Codes: J96.01 - Acute respiratory failure with hypoxia (3) Electrolyte abnormality Status: Resolved Assessment & Plan: -potassium and magnesium replaced per protocol 03/06 will replace phos 03/07 replace phos and add extra K above protocol to try to get K above 4 due to obstipation (4) Hydrocephalus Status: Chronic Assessment & Plan: with BOAT DECKHAND shunt, no evidence of dysfunction (5) Hypokalemia Status: Resolved (6) VACTERL association Status: Chronic (7) Cerebral palsy Status: Chronic (8) Seizure disorder Status: Chronic Assessment & Plan: No seizure activity noted, continued home meds. Questionable activity 03/15, CT head unremarkable. (9) Subaortic valve stenosis, congenital Status: Chronic Assessment & Plan: Echo 03/06 with moderate subaortic stenosis, normal EF (10) Obstipation Status: Resolved Assessment & Plan: Appreciate Surgery recommendations. No bowel movement with enema yesterday per mother's report. 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 No acute need to change status at this time, continuing to address on a daily basis. (13) DVT prophylaxis Status: Acute Assessment & Plan: Enoxaparin RADHA SCHROEDER MD Mar 22, 2023 08:53
[2023-03-22] MEDS: Lactobacillus Rhamnosus GG (CULTURELLE) packet PO SCH (09:30)
--- NOTE | 2023-03-22 09:57 | Tele-ICU Progress Note ---
Subjective Date Seen by a Provider: Mar 22, 2023 Time Seen by a Provider: 09:56 Subjective/Events-last exam (Tele-ICU Physician , Progress Note ) Service provided via interactive audio and video telecommunications E-CARE system to a patient admitted to ICU bed in [facility]. Patient is seen today due to persistent need of ICU care Available chart/ vitals / labs / Images reviewed Video assessment done using teleICU camera, rest of exam as per RN Discussed with RN Events overnight : Afebrile hemodynamically stable Respiratory - 60% I/O = NEG Drips: Pressors- no VENT SETTINGS and ABG reviewed CANDIDATE for SBTreviewed possible contraindications including Cardiovascular Stability /Sedation Score / FI02/PEEP / ABG / CXR/ secretions Sedation, discussed with RN, RASS -1 -propfol 20 precedex 1.0 Hospital course: (03/01) 17y/o M admitted with pneumonia, hypoxia. (03/02) INTUBATED 03/03-Ac 20 380 + 8 60% , RASS -1 on propfol 30 precedex 0.8 , added mucomist , cut down fluids 03/05- Ac 20 380 + 5 35 % propfol 50 precedex 1.4 03/06-Ac 20 380 + 5 50% propfol 50 precedex 1.4 , echo EF 60% , RVSP 30 mmHg, subaortic stenosis- moder 03/07- large neg fluid balance , ? ARDS - empiric steroids 03/07 ( decadron 4 q24 03/08- vent. AC 20, 380, 45% ,peep 5. not ready for SBT 03/09- Bowel regimen Mag citrate started -RASS -1 -propfol 45 precedex 1.2 ,Ac 20 380 + 5 50% 03/11 -sedation back 2/2 oral secretion , tachycardia-> propofol 20 , precedex 1.0 ,diuresis - RESPONDED WELL with less rhonchorous , good UO, TF resumed 03/12- SBP - failed with tachypnea , off precedex 03/13-AC 16, 380, 35% ,peep 5, precedex resumed, TF up to goal , decreased decadron twith plans to stop 03/18 03/14- SBT for 1 h - SEIZURE at the end - reveiced ativan - C 03/15 - tachycardic , fever ( CX DONE ) off sedation , FLEXISEAL for diarrhea - CT chest- infiltrates, CT head - no acute prosess 03/16- EXTUBATED 03/17 - on 3 l o2 03/18 - 3 L , OFF steroids 03/19 -BIPAP 70 % 06/10 rr 20 460- > to VT / agressive pulm toilet 03/22 VT 15L 50% A/P Acute hypoxic resp failure ( with congenital scoliosis, tracheomalacia and MADISYN ) PNA/ suspected ARDS -(03/02) INTUBATED - 03/16- EXTUBATED to 3 L -VT 15L 50% - agressive pulm toilet, nucomist nebs - check cxr - cpm PNA - 03/02 sputum= corinebacterioum - ON VANCO AND MERREM - finished course -RESTARTED MERREM 03/14 for fever and hypotesion - CT CHEST - No NECROSIS, ABSCESS - to finish merrem ECHO 03/06/23 -echo EF 60% , RVSP 30 mmHg, subaortic stenosis- moder Cerebral palsy Right temporal lobe Sz dz - SX at SBT 03/14 - ATIVAN 2+2 - CT HEAD no acute changes ( 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 - cont Trileptal Abd distension 03/05, Ileus RESOLVED - Sx consuled - lactulose / Mag citrate on TF now - up to goal -INCREASE H20 ( h/o Esophageal stricture , nissanfundoplication , PEG tube placement H/o Hydrocephalus - s/p PRINCIPAL SYSTEM SOFTWARE ENGINEER shunt Baclofen pump - 60 mg/day - cont Anemia stable skin - clear Nutrition - TF on hold 03/05 - resumed 03/11 -> 03/13 up to goal , no issues intermitted diarrhea - as per mother - ususal for this patient Lines : R port periph , RIGHT fem line 02/26 - OUT , (Central Line Necessity Reviewed) [place]: + Flexi seal 03/15 -OUT OG: Nutrition: PEG -TF Analgesia: Anxiety/ delirium VTE Prophylaxis: 30 Stress Ulcer Prophylaxis: na Plans in collaboration with bedside consultants and IM MDs. Discussed with RN to reach out if any questions or concerns Case and care daily discussed on multidisciplinary rounds ( RN, PharmD, Mechanical Technician , Respiratory Therapy, irrigation worker ) A total of 20 minutes of critical care time was devoted to this patient today, required to treat and/or prevent further deterioration of critical care condition ( as above ) . Sepsis Event Evaluation Height, Weight, BMI Height: 4'0" Weight: 72lbs. oz. 32.984159bb; 22.53 BMI Method: Focused Exam Time of Focused Exam: 09:00 Exam Exam Patient acknowledged, consented, and participated in this virtual visit which was conducted using real time audio/video Vital Signs Date Time Temp Pulse Resp B/P (MAP) Pulse Ox O2 Delivery O2 Flow Rate FiO2 03/22/23 08:08 Vapotherm 50.00 03/22/23 08:00 117 28 128/80 (96) 95 Vapotherm 15.00 45.00 03/22/23 07:36 90 Vapotherm 45 03/22/23 07:33 35.8 Vapotherm 45.00 03/22/23 07:03 96 Vapotherm 15.00 45 03/22/23 07:00 105 03/22/23 07:00 89 23 108/70 (83) 97 Vapotherm 15.00 45.00 03/22/23 06:00 94 38 88/76 (78) 97 Vapotherm 15.00 45.00 03/22/23 06:00 38 88/76 (78) 97 Vapotherm 15.00 45.00 03/22/23 05:30 97 20 95 Vapotherm 15.00 45.00 03/22/23 05:00 99 57 107/66 (77) 90 Vapotherm 15.00 45.00 03/22/23 05:00 57 107/66 (77) 90 Vapotherm 15.00 45.00 03/22/23 04:30 108 26 96 Vapotherm 15.00 45.00 03/22/23 04:18 95 Vapotherm 15.00 45 03/22/23 04:00 35.6 106 24 105/79 (89) 95 Vapotherm 15.00 45.00 03/22/23 04:00 105 105/79 (89) 96 Vapotherm 15.00 45.00 03/22/23 03:00 89 112/62 (77) 96 Vapotherm 15.00 45.00 03/22/23 02:29 94 16 95 65.00 03/22/23 02:00 100 38 111/77 (82) 100 NIV Bilevel 65.00 03/22/23 01:00 101 56 118/77 (91) 93 NIV Bilevel 65.00 03/22/23 00:41 106 03/22/23 00:00 35.2 03/22/23 00:00 100 20 109/72 (79) 99 NIV Bilevel 65.00 03/21/23 23:58 93 NIV Bilevel 45 03/21/23 23:00 112 39 115/69 (90) 99 NIV Bilevel 65.00 03/21/23 22:37 102 20 95 65.00 03/21/23 22:00 101 20 105/62 (80) 91 Vapotherm 20.00 45.00 03/21/23 21:00 110 19 105/63 (77) 84 Vapotherm 20.00 45.00 03/21/23 20:00 93 NIV Bilevel 20.00 45 03/21/23 20:00 110 30 97/82 (88) 93 Vapotherm 20.00 45.00 03/21/23 19:30 108 94 Vapotherm 20.00 45.00 03/21/23 19:13 95 Vapotherm 20.00 45 03/21/23 19:00 35.5 104 108/63 (76) 92 Vapotherm 20.00 45.00 03/21/23 19:00 105 03/21/23 18:37 Vapotherm 20.00 45.00 03/21/23 18:28 94 Vapotherm 20.00 35.00 03/21/23 18:00 108 25 107/68 (77) 92 Vapotherm 20.00 45.00 03/21/23 17:34 98 Vapotherm 20.00 45.00 03/21/23 17:00 104 90/34 (49) 91 NIV Bilevel 65.00 03/21/23 16:02 98 NIV Bilevel 65 03/21/23 16:00 102 32 108/62 (79) 89 NIV Bilevel 65.00 03/21/23 15:24 NIV Bilevel 65.00 03/21/23 15:00 105 36 104/62 (76) 83 Vapotherm 20.00 50.00 03/21/23 14:10 96 Vapotherm 20.00 50 03/21/23 14:00 96 27 101/84 (94) 95 Vapotherm 20.00 50.00 03/21/23 13:45 Vapotherm 20.00 50.00 03/21/23 13:00 96 28 100/63 (77) 98 NIV Bilevel 65.00 03/21/23 12:23 108 03/21/23 12:00 94 NIV Bilevel 65 03/21/23 12:00 108 30 109/66 (94) 100 NIV Bilevel 65.00 03/21/23 11:00 102 20 112/63 (79) 99 NIV Bilevel 65.00 03/21/23 10:21 111 20 98 65.00 03/21/23 10:00 105 18 105/61 (68) 92 Vapotherm 20.00 50.00 I & O 03/22/23 07:00 Intake Total 3210 ml Output Total 2400 ml Balance 810 ml Height & Weight Height: 4'0" Weight: 72lbs. oz. 32.412131cd; 22.53 BMI Method: General Appearance: No Apparent Distress HEENT: Normal ENT Inspection Neck: Normal Inspection, Non Tender, Supple Respiratory: No Accessory Muscle Use, No Respiratory Distress, Other (Coarse rhonchi throughout no wheezing noted.) Cardiovascular: Regular Rate, Rhythm, No Murmur Capillary Refill: Less Than 3 Seconds Gastrointestinal: normal bowel sounds, non tender, soft, no organomegaly; No distended; other (gastrostomy tube luq) Extremity: No Pedal Edema Neurologic/Psychiatric: Other (intubated, sedated) Skin: Normal Color, Warm/Dry Lymphatic: No Adenopathy Results Lab Laboratory Tests 03/21/23 04:55 03/22/23 04:10 Assessment/Plan Assessment/Plan 1 VANESSA MIRAMONTES MD Mar 22, 2023 09:57
[2023-03-22] MEDS: NS IV 1000 ML 1,000 ML IV SCH (10:55)
--- NOTE | 2023-03-22 11:36 | Diagnostic Imaging Report ---
INDICATION: Hypoxia. Compared with study 03/18/2023 FINDINGS: Reciprocal scoliotic curvature chronic. Chronic deformities to the right shoulder stable. 5 lobe pulmonary opacities greater left have increased on the left. It is unclear if this is pneumonia or pulmonary edema. No obvious pleural fluid. No pneumothorax. IMPRESSION: Bilateral pulmonary opacities asymmetric greater left have increased in the interim. Edema versus pneumonia. No pleural pathology, vascular catheter at the lower SVC stable. Chronic bony deformity stable. Dictated by: Dictated on workstation # [id number]
[2023-03-22] MEDS: ZONISAMIDE 100 MG CAP (ZONEGRAN) NON-FORMULARY PO SCH (20:59)
[2023-03-22] MEDS ORDERED: ADVAIR HFA 115/21 MCG INHALER 8 GM IH SCH (21:00)
[2023-03-23] MEDS: NS IV 1000 ML 1,000 ML IV SCH (01:40)
[2023-03-23] MEDS: RT-LEVALBUTEROL (XOPENEX) 1.25 MG/3 ML NEB NON-FORMULARY INH SCH ×3 (02:42→10:53)
[2023-03-23] MEDS: aCETylcysteine 20% (RT/PO) 4 ML SOLN VIAL INH SCH ×3 (02:42→10:54)
[2023-03-23 04:03] LABS: BASOPHILS % (AUTO) 0 % (0-10); EOSINOPHILS # (AUTO) 0.5 10^3/uL (0.0-0.3); EOSINOPHILS % (AUTO) 4 % (0-10); HEMATOCRIT 34 % (40-54); LYMPHOCYTES # (AUTO) 2.1 10^3/uL (1.0-4.0); LYMPHOCYTES % (AUTO) 18 % (12-44); MEAN CORPUSCULAR HEMOGLOBIN 29 pg (25-34); MEAN CORPUSCULAR HGB CONC 32 g/dL (32-36); MEAN CORPUSCULAR VOLUME 90 fL (80-99); MEAN PLATELET VOLUME 11.4 fL (9.0-12.2); MONOCYTES # (AUTO) 0.9 10^3/uL (0.0-1.0); MONOCYTES % (AUTO) 8 % (0-12); NEUTROPHILS # (AUTO) 8.1 10^3/uL (1.8-7.8); NEUTROPHILS % (AUTO) 69 % (42-75); PLATELET COUNT 290 10^3/uL (130-400); WHITE BLOOD COUNT 11.7 10^3/uL (4.3-11.0)
[2023-03-23 04:17] LABS: POTASSIUM 4.1 MMOL/L (3.6-5.0)
[2023-03-23 04:19] LABS: CALCIUM 9.3 MG/DL (8.5-10.1)
[2023-03-23 04:23] LABS: CREATININE SERUM 0.49 MG/DL (0.60-1.30)
[2023-03-23] MEDS: MAGNESIUM 1 GM/100 ML IVPB 100 ML IV SCH (04:27)
[2023-03-23] MEDS: KCL 20 MEQ TAB (K-DUR) PO SCH (04:27)
[2023-03-23] MEDS: POTASSIUM CL 10MEQ/50ML IVPB 50 ML IV SCH (04:27)
--- NOTE | 2023-03-23 06:55 | Progress Note ---
Subjective Subjective/Events-last exam When I saw patient this morning, he was alert and smiling at me. I returned later to speak with mother and she noted he has been having seizures this morning. Mother states his usual seizures if not grand mal include Left facial twitching and left sided eye deviation, sometimes right leg, sometimes diaphragm spasms. He has been observed to have aspiration with seizures in the past. Focused Exam Time of Focused Exam: 09:00 Objective Exam Last Set of Vital Signs Vital Signs Date Time Temp Pulse Resp B/P (MAP) Pulse Ox O2 Delivery O2 Flow Rate FiO2 03/23/23 06:00 93 28 114/57 (64) 92 Vapotherm 20.00 40.00 03/23/23 04:24 40 03/23/23 04:00 36.0 Capillary Refill : Less Than 3 Seconds I&O Intake and Output 03/23/23 00:00 Intake Total 3470 ml Output Total 2350 ml Balance 1120 ml IV Total 550 ml Tube Feeding 840 ml Enteral Flush 280 ml Other 1800 ml Output Urine Total 2350 ml General: Alert, No Acute Distress Lungs: Other (ronchi throughout) Heart: Regular Rate, Other (systolic murmur) Abdomen: Normal Bowel Sounds, Soft Extremities: No Edema Results/Procedures Lab Laboratory Tests 03/23/23 03:55: White Blood Count 11.7H, Red Blood Count 3.76L, Hemoglobin 11.0L, Hematocrit 34L , Mean Corpuscular Volume 90, Mean Corpuscular Hemoglobin 29, Mean Corpuscular Hemoglobin Concent 32, Red Cell Distribution Width 15.4H, Platelet Count 290, Mean Platelet Volume 11.4, Immature Granulocyte % (Auto) 0, Neutrophils (%) (Auto) 69, Lymphocytes (%) (Auto) 18, Monocytes (%) (Auto) 8, Eosinophils (%) (Auto) 4, Basophils (%) (Auto) 0, Neutrophils # (Auto) 8.1H, Lymphocytes # (Auto) 2.1, Monocytes # (Auto) 0.9, Eosinophils # (Auto) 0.5H, Basophils # (Auto) 0.0, Immature Granulocyte # (Auto) 0.0, Sodium Level 137, Potassium Level 4.1, Chloride Level 102, Carbon Dioxide Level 26, Anion Gap 9, Blood Urea Nitrogen 8, Creatinine 0.49L, Estimat Glomerular Filtration Rate 152, BUN/Creatinine Ratio 16, Glucose Level 116H, Calcium Level 9.3, Magnesium Level 2.0 Microbiology 03/20/23 C. difficile GDH Antigen & Toxins - Final, Complete 03/19/23 Gram Stain - Final, Complete 03/19/23 Sputum Culture - Final, Complete Corynebacterium species See Comments 03/14/23 Urine Culture - Final, Complete NO GROWTH 03/14/23 Blood Culture - Final, Complete No growth Radiology ADMIT DATE: 03/01/23/ICU Signed Date of Exam:03/01/23 CHEST 1 VIEW, AP/PA ONLY Indication: Hypoxia Frontal chest obtained at 1208 p.m. compared to 05/11/2015. The heart is normal in size. There is a Port-A-Cath over the right chest with tip overlying the low SVC. There is a shunt catheter over the left hemithorax. There is central vascular congestion with perihilar infiltrates. There is no pneumothorax or pleural fluid. Impression: Bilateral perihilar infiltrates are present, pneumonia is not excluded. There is no pneumothorax or pleural fluid. Heart is normal in size. There is dextroscoliotic change. Dictated by: Dictated on workstation # [id number] Dict: 03/01/23 1212 Trans: 03/01/23 1328 [facility] [id number] Interpreted by: KAMARI MACHUCA MD Assessment/Plan Assessment/Plan (1) Pneumonia Status: Acute Assessment & Plan: Directly admitted to ICU from the clinic via EMS due to pneumonia and hypoxia. At risk for decompensation due to multiple co-morbidities, discussed transfer options with mother and legal guardian and would like to stay at [facility] if possible and trial IV antibiotics. Currently requiring bi-pap at 60% FIO2 to maintain dixie in the low 90's. Antibiotics started - zithromax and meropenam IVF - will give fluid bolus x1L then 150mL/h initial cbc normal; blood cultures pending. Resume home meds and G-tube feeds - dietary consulted for conversion of home feeding regimen. 03/02/2023: Worsening respiratory status overnight, now requiring 70% FIO2 to maintain sats and prevent acidosis. More tachypneic. Consult Dr. Rahman for critical care. Recommending intubation. Discussed consideration of transfer, Dr. Rahman recommends intubation prior to transfer due to risk of clinical deterioration en route if transfer is chosen by parents Discussed code status, would like to proceed with intubation but would prefer not to have chest compressions. Parents are legal guardian of patient but as an adult, court must order DNR or modified DNR. 03/03/23: Intubated without incident yesterday. Sedated on vent currently, more comfortable. O2 98% on 80% FIO2; VBG 7. am CXR severe, bilateral infiltrates, unchanged from yesterday Vancomycin added yesterday. labs, vitals stable blood culture negative Dr. Rahman and eICU provider co-managing 03/04/23: Fi02 35%, stable, sedated on vent. continue current care 03/05/23: sputum culture grew corynebacterium - typically sensitive to vancomycin and meropenum Fi02 35%, stable, sedated on vent. continue current care 03/06/23: Persistent worsening hypoxia, FiO2 55% this am, continued on vancomycin, m eropenem and azithromycin. Good diuresis with albumin and lasix yesterday, repeating today per [facility] ICU, appreciate recommendations. 03/07/23: Stable, continued current treatment plans 03/08/23: FiO2 down to 45% today, will resume vancomycin for corynebacterium, has completed azithromycin, will complete 2 more days of meropenem. Started dexamethasone 03/07 with possible slight improvement noted. 03/16/23: Extubated 03/22/23: requiring vapotherm, repeat sputum still with corynebacterium, continued on meropenem 03/23/23: has completed 20 days of meropenem, will d/c. Qualifiers: (2) Respiratory failure with hypoxia Status: Acute Assessment & Plan: Intubated 03/02/23, extubated 03/16, currently on vapotherm. History of asthma, will add inhaled ICS/LABA to short acting. 03/23 will give a dose of lasix today as it seems pneumonia is treated, but he continues to have respiratory issues, also working on getting cough assist device. Appreciate [facility] ICU recs. Qualifiers: Qualified Codes: J96.01 - Acute respiratory failure with hypoxia (3) Electrolyte abnormality Status: Resolved Assessment & Plan: -potassium and magnesium replaced per protocol 03/06 will replace phos 7/2 replace phos and add extra K above protocol to try to get K above 4 due to obstipation (4) Hydrocephalus Status: Chronic Assessment & Plan: with PRODUCT STRATEGY DIRECTOR shunt, no evidence of dysfunction (5) Hypokalemia Status: Resolved (6) VACTERL association Status: Chronic (7) Cerebral palsy Status: Chronic (8) Seizure disorder Status: Chronic Assessment & Plan: originally no seizure activity noted, continued home meds. Questionable activity 03/15, CT head unremarkable. 03/23 having recurrent seizures, trileptal level low. Discussed with his Neurologist, Dr. Yi in [place] and will increase Trileptal dose and load with fosphenytoin and continue IV for next couple of days. (9) Subaortic valve stenosis, congenital Status: Chronic Assessment & Plan: Echo 03/06 with moderate subaortic stenosis, normal EF (10) Obstipation Status: Resolved Assessment & Plan: Appreciate Surgery recommendations. No bowel movement with enema yesterday per mother's report. 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
[2023-03-23] MEDS ORDERED: FLUTICASONE/VILANTEROL 100 MCG 14'S (BREO) IH SCH (08:00)
[2023-03-23] MEDS: MEROPENEM IV SCH ×2 (08:58→16:17)
[2023-03-23] MEDS: NS IV SCH ×2 (08:58→16:17)
[2023-03-23] MEDS: LORATADINE 5 MG/5 ML SOLN (CLARITIN) UDC GT SCH (08:58)
[2023-03-23] MEDS: PANTOPRAZOLE 40 MG (PROTONIX) VIAL IV SCH (08:59)
[2023-03-23] MEDS: ENOXAPARIN 30 MG/0.3 ML SYRINGE SC SCH (08:59)
[2023-03-23] MEDS: Lactobacillus Rhamnosus GG (CULTURELLE) packet PO SCH (09:01)
[2023-03-23] MEDS: TRILEPTAL GT SCH (09:03)
[2023-03-23] MEDS: polyethylene glycoL POWDER 17 GM (MIRALAX) PACK GT SCH (09:09)
[2023-03-23] MEDS ORDERED: PHENYTOIN INJ NR ×3 (11:30)
[2023-03-23] MEDS ORDERED: FILTER INJ NR ×3 (11:30)
[2023-03-23] MEDS ORDERED: NS INJ NR ×3 (11:30)
[2023-03-23] MEDS ORDERED: FUROSEMIDE 40 MG/4 ML INJ (LASIX) IVP NR (11:45)
[2023-03-23] MEDS ORDERED: RT-HYPERTONIC SALINE 3% 4 ML NEB INH SCH ×2 (11:46→15:00)
[2023-03-23] MEDS: ACETAMINOPHEN 325 MG/10.15 ML ORAL SOLN UDC PO PRN (11:57)
--- NOTE | 2023-03-23 13:18 | Tele-ICU Progress Note ---
Subjective Date Seen by a Provider: Mar 23, 2023 Time Seen by a Provider: 13:14 Subjective/Events-last exam (Tele-ICU Physician , Progress Note ) Service provided via interactive audio and video telecommunications E-CARE sy stem to a patient admitted to ICU bed in [facility]. Patient is seen today due to persistent need of ICU care Available chart/ vitals / labs / Images reviewed Video assessment done using teleICU camera, rest of exam as per RN Discussed with RN Events overnight : Afebrile, hemodynamically stable Noted to have left facial twitcthing and myoclonic movements of arms concerning for possible seizures. Respiratory - VT 20/40 I/O = NEG Drips: Pressors- no Hospital course: (03/01) 17y/o M admitted with pneumonia, hypoxia. (03/02) INTUBATED 03/03-Ac 20 380 + 8 60% , RASS -1 on propfol 30 precedex 0.8 , added mucomist , cut down fluids 03/05- Ac 20 380 + 5 35 % propfol 50 precedex 1.4 03/06-Ac 20 380 + 5 50% propfol 50 precedex 1.4 , echo EF 60% , RVSP 30 mmHg, subaortic stenosis- moder 03/07- large neg fluid balance , ? ARDS - empiric steroids 03/07 ( decadron 4 q24 03/08- vent. AC 20, 380, 45% ,peep 5. not ready for SBT 03/09- Bowel regimen Mag citrate started -RASS -1 -propfol 45 precedex 1.2 ,Ac 20 380 + 5 50% 03/11 -sedation back 2/2 oral secretion , tachycardia-> propofol 20 , precedex 1.0 ,diuresis - RESPONDED WELL with less rhonchorous , good UO, TF resumed 03/12- SBP - failed with tachypnea , off precedex 03/13-AC 16, 380, 35% ,peep 5, precedex resumed, TF up to goal , decreased decadron twith plans to stop 03/18 03/14- SBT for 1 h - SEIZURE at the end - reveiced ativan - C 03/15 - tachycardic , fever ( CX DONE ) off sedation , FLEXISEAL for diarrhea - CT chest- infiltrates, CT head - no acute prosess 03/16- EXTUBATED 03/17 - on 3 l o2 03/18 - 3 L , OFF steroids 03/19 -BIPAP 70 % 06/10 rr 20 460- > to VT / agressive pulm toilet 03/22 VT 15L 50% 03/23 VT 20L 30% Sp02-90%, Noted to have a possible seizure yesterday. 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 Cont at this time. Await repeat cultures. Abd distension 03/05, Ileus RESOLVED H/o Hydrocephalus - s/p PATIENT ACCOUNTING REPRESENTATIVE shunt Baclofen pump - 60 mg/day - cont Anemia stable skin - clear Nutrition - TF on hold 03/05 - resumed 03/11 -> 03/13 up to goal , no issues intermitted diarrhea - as per mother - usual for this patient Lines : R port periph , RIGHT fem line 02/26 - OUT , (Central Line Necessity Reviewed) [place]: + Flexi seal 03/15 -OUT OG: Nutrition: PEG -TF Analgesia: Anxiety/ delirium VTE Prophylaxis: 30 Stress Ulcer Prophylaxis: na Plans in collaboration with bedside consultants and IM MDs. Discussed with RN to reach out if any questions or concerns Case and care daily discussed on multidisciplinary rounds ( RN, PharmD, Classroom Instructional Aide , Respiratory Therapy, line assembly utility worker ) A total of 31 minutes of critical care time was devoted to this patient today, required to treat and/or prevent further deterioration of critical care condition (as above) Sepsis Event Evaluation Height, Weight, BMI Height: 4'0" Weight: 72lbs. oz. 32.330786ft; 22.99 BMI Method: Focused Exam Time of Focused Exam: 09:00 Exam Exam Patient acknowledged, consented, and participated in this virtual visit which was conducted using real time audio/video Vital Signs Date Time Temp Pulse Resp B/P (MAP) Pulse Ox O2 Delivery O2 Flow Rate FiO2 03/23/23 12:00 130 121/62 (81) 94 Vapotherm 25.00 30.00 03/23/23 11:43 36.8 03/23/23 11:00 103 26 115/70 (85) 89 Vapotherm 25.00 30.00 03/23/23 10:54 91 Vapotherm 25.00 30 03/23/23 10:00 98 117/63 (81) 91 Vapotherm 25.00 30.00 03/23/23 09:47 Vapotherm 25.00 30.00 03/23/23 09:00 98 106/53 (70) 90 Vapotherm 20.00 30.00 03/23/23 08:05 88 Vapotherm 20.00 30 03/23/23 08:00 111 109/56 (73) 92 Vapotherm 20.00 40.00 03/23/23 07:49 Vapotherm 20.00 30 03/23/23 07:46 94 Vapotherm 20.00 30 03/23/23 07:34 35.8 03/23/23 07:00 111 03/23/23 07:00 91 114/58 (76) 96 Vapotherm 20.00 40.00 03/23/23 06:59 96 Vapotherm 20.00 40 03/23/23 06:00 93 28 114/57 (64) 92 Vapotherm 20.00 40.00 03/23/23 05:00 98 106/60 (75) 90 Vapotherm 20.00 40.00 03/23/23 04:24 93 Vapotherm 20.00 40 03/23/23 04:00 36.0 91 24 125/73 (87) 94 Vapotherm 20.00 40.00 03/23/23 03:00 96 101/78 (86) 94 Vapotherm 20.00 40.00 03/23/23 02:46 95 Vapotherm 20.00 40 03/23/23 02:00 98 117/62 (76) 94 Vapotherm 20.00 40.00 03/23/23 01:00 35.8 106 121/87 (93) 92 Vapotherm 20.00 40.00 03/23/23 01:00 108 03/23/23 00:00 105 28 108/63 (77) 92 Vapotherm 20.00 40.00 03/22/23 23:59 92 Vapotherm 20.00 40 03/22/23 23:00 112 118/77 (87) 92 Vapotherm 20.00 40.00 03/22/23 22:19 98 Vapotherm 20.00 40 03/22/23 22:00 109 35 114/59 (83) 93 Vapotherm 20.00 40.00 03/22/23 21:00 110 27 122/76 (87) 92 Vapotherm 20.00 40.00 03/22/23 20:00 95 18 125/64 (79) 91 Vapotherm 20.00 40.00 03/22/23 20:00 93 Vapotherm 20.00 40 03/22/23 19:00 98 03/22/23 19:00 35.9 111 24 124/54 (73) 91 Vapotherm 20.00 40.00 03/22/23 18:49 98 Vapotherm 25.00 50 03/22/23 18:00 102 22 106/65 (79) 93 Vapotherm 25.00 40.00 03/22/23 17:00 111 24 124/66 (85) 94 Vapotherm 25.00 40.00 03/22/23 16:42 Vapotherm 25.00 40.00 03/22/23 16:29 95 Vapotherm 50 03/22/23 16:29 36.6 03/22/23 16:00 107 19 113/67 (82) 95 Vapotherm 25.00 50.00 03/22/23 15:00 104 21 116/69 (85) 97 Vapotherm 25.00 50.00 03/22/23 14:24 96 Vapotherm 25.00 50 03/22/23 14:00 96 15 112/58 (76) 97 Vapotherm 25.00 50.00 I & O 03/23/23 07:00 Intake Total 3320 ml Output Total 2575 ml Balance 745 ml Height & Weight Height: 4'0" Weight: 72lbs. oz. 32.345899gh; 22.99 BMI Method: General Appearance: No Apparent Distress HEENT: Normal ENT Inspection Neck: Normal Inspection, Non Tender, Supple Respiratory: No Accessory Muscle Use, No Respiratory Distress, Other (Coarse rhonchi throughout no wheezing noted.) Cardiovascular: Regular Rate, Rhythm, No Murmur Capillary Refill: Less Than 3 Seconds Gastrointestinal: normal bowel sounds, non tender, soft, no organomegaly; No distended; other (gastrostomy tube luq) Extremity: No Pedal Edema Neurologic/Psychiatric: Other (intubated, sedated) Skin: Normal Color, Warm/Dry Lymphatic: No Adenopathy Results Lab Laboratory Tests 03/22/23 04:10 03/23/23 03:55 Assessment/Plan Assessment/Plan . GRAYSON HOWARD MD Mar 23, 2023 13:18
[2023-03-23] MEDS ORDERED: levETIRAcetam 1000 mg/NS 100ml 100 ML IV SCH (14:15)
[2023-03-23] MEDS ORDERED: RT-LEVALBUTEROL (XOPENEX) 1.25 MG/3 ML NEB NON-FORMULARY INH SCH (15:00)
[2023-03-23 18:07] VITALS: BP 106/56
[2023-03-23] MEDS ORDERED: SODIUM CHLORIDE IV SCH ×3 (21:00)
[2023-03-23] MEDS ORDERED: [UNRECOGNIZED DRUG - OTHER] IV SCH ×3 (21:00)
[2023-03-23] MEDS ORDERED: TRILEPTAL GT SCH ×2 (21:00)
[2023-03-23] MEDS ORDERED: PHENYTOIN IV SCH ×3 (21:00)
--- NOTE | 2023-03-23 22:37 | Discharge Summary ---
Discharge Summary Hospital Course Problems/Diagnosis: (1) Pneumonia Status: Acute Assessment & Plan: Directly admitted to ICU from the clinic via EMS due to pneumonia and hypoxia. At risk for decompensation due to multiple co-morbidities, discussed transfer options with mother and legal guardian and would like to stay at [facility] if possible and trial IV antibiotics. Currently requiring bi-pap at 60% FIO2 to maintain dixie in the low 90's. Antibiotics started - zithromax and meropenam IVF - will give fluid bolus x1L then 150mL/h initial cbc normal; blood cultures pending. Resume home meds and G-tube feeds - dietary consulted for conversion of home feeding regimen. 03/02/2023: Worsening respiratory status overnight, now requiring 70% FIO2 to maintain sats and prevent acidosis. More tachypneic. Consult Dr. Rahman for critical care. Recommending intubation. Discussed consideration of transfer, Dr. Rahman recommends intubation prior to transfer due to risk of clinical deterioration en route if transfer is chosen by parents Discussed code status, would like to proceed with intubation but would prefer not to have chest compressions. Parents are legal guardian of patient but as an adult, court must order DNR or modified DNR. 03/03/23: Intubated without incident yesterday. Sedated on vent currently, more c omfortable. O2 98% on 80% FIO2; VBG 7. am CXR severe, bilateral infiltrates, unchanged from yesterday Vancomycin added yesterday. labs, vitals stable blood culture negative Dr. Rahman and eICU provider co-managing 03/04/23: Fi02 35%, stable, sedated on vent. continue current care 03/05/23: sputum culture grew corynebacterium - typically sensitive to vancomycin and meropenum Fi02 35%, stable, sedated on vent. continue current care 03/06/23: Persistent worsening hypoxia, FiO2 55% this am, continued on vancomycin, meropenem and azithromycin. Good diuresis with albumin and lasix yesterday, repeating today per [facility], appreciate recommendations. 03/07/23: Stable, continued current treatment plans 03/08/23: FiO2 down to 45% today, will resume vancomycin for corynebacterium, has completed azithromycin, will complete 2 more days of meropenem. Started dexamethasone 03/07 with possible slight improvement noted. 03/16/23: Extubated 03/22/23: requiring vapotherm, repeat sputum still with corynebacterium, continue d on meropenem 03/23/23: has completed 20 days of meropenem, will d/c. Qualifiers: (2) Respiratory failure with hypoxia Status: Acute Assessment & Plan: Intubated 03/02/23, extubated 03/16, currently on vapotherm. History of asthma, will add inhaled ICS/LABA to short acting. 03/23 will give a dose of lasix today as it seems pneumonia is treated, but he continues to have respiratory issues, also working on getting cough assist device. Appreciate [facility] ICU recs. Qualifiers: Qualified Codes: J96.01 - Acute respiratory failure with hypoxia (3) Electrolyte abnormality Status: Resolved Resolution Date/Time: 03/22/23 @ 14:47 Assessment & Plan: -potassium and magnesium replaced per protocol 03/06 will replace phos 03/07 replace phos and add extra K above protocol to try to get K above 4 due to obstipation (4) Hydrocephalus Status: Chronic Assessment & Plan: with COUNTY CORONER shunt, no evidence of dysfunction (5) Hypokalemia Status: Resolved Resolution Date/Time: 03/22/23 @ 14:48 (6) VACTERL association Status: Chronic (7) Cerebral palsy Status: Chronic (8) Seizure disorder Status: Chronic Assessment & Plan: originally no seizure activity noted, continued home meds. Questionable activity 03/15, CT head unremarkable. 03/23 having recurrent seizures, trileptal level low. Discussed with his Neurologist, Dr. Yi in [place] and will increase Trileptal dose and load with fosphenytoin and continue IV for next couple of days. After loading he continued to have seizures, so transfer was done to [place] for Neurology availability. (9) Subaortic valve stenosis, congenital Status: Chronic Assessment & Plan: Echo 03/06 with moderate subaortic stenosis, normal EF (10) Obstipation Status: Resolved Resolution Date/Time: 03/09/23 @ 14:49 Assessment & Plan: Appreciate Surgery recommendations. No bowel movement with enema yesterday per mother's report. 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 Assessment & Plan: Tube feeds Hospital Course Date of Admission: Mar 01, 2023 at 10:14 Admission Diagnosis : Family Physician/Provider: Brenna Mar MD Date of Discharge: 03/23/23 Discharge Diagnosis: See problem list Hospital Course: See problem list Labs and Pending Lab Test: Laboratory Tests 03/23/23 03:55: White Blood Count 11.7H, Red Blood Count 3.76L, Hemoglobin 11.0L, Hematocrit 34L , Mean Corpuscular Volume 90, Mean Corpuscular Hemoglobin 29, Mean Corpuscular Hemoglobin Concent 32, Red Cell Distribution Width 15.4H, Platelet Count 290, Mean Platelet Volume 11.4, Immature Granulocyte % (Auto) 0, Neutrophils (%) (Auto) 69, Lymphocytes (%) (Auto) 18, Monocytes (%) (Auto) 8, Eosinophils (%) (Auto) 4, Basophils (%) (Auto) 0, Neutrophils # (Auto) 8.1H, Lymphocytes # (Auto) 2.1, Monocytes # (Auto) 0.9, Eosinophils # (Auto) 0.5H, Basophils # (Auto) 0.0, Immature Granulocyte # (Auto) 0.0, Sodium Level 137, Potassium Level 4.1, Chloride Level 102, Carbon Dioxide Level 26, Anion Gap 9, Blood Urea Nitrogen 8, Creatinine 0.49L, Estimat Glomerular Filtration Rate 152, BUN/Creatinine Ratio 16, Glucose Level 116H, Calcium Level 9.3, Magnesium Level 2.0 03/23/23 12:51: Glucometer 168H Microbiology 03/20/23 C. difficile GDH Antigen & Toxins - Final, Complete 03/19/23 Gram Stain - Final, Complete 03/19/23 Sputum Culture - Final, Complete Corynebacterium species See Comments 03/14/23 Urine Culture - Final, Complete NO GROWTH 03/14/23 Blood Culture - Final, Complete No growth Home Meds Active Cytra-K Oral Solution (Potassium Citrate/Citric Acid) 1,100 Mg-334 Mg/5 Ml Solution 10 Ml GT BID 30 Days Reported Mometasone Furoate 50 Mcg/Actuation [place].pump 2 Sprays NS BID PRN Miralax (Polyethylene Glycol 3350) 17 Gram Powd.pack 17 Gm GT HS Ventolin Hfa (Albuterol Sulfate) 1 Puff Puff 2 Puff INH Q4H PRN Culturelle (Lactobacillus Rhamnosus GG) 15 Billion Cell Cap.sprink 1 Each GT DAILY Hydrochlorothiazide 25 Mg Tablet 25 Mg GT DAILY Zonisamide 100 Mg Capsule 300 Mg GT HS TAKES 3 (100MG) CAPS Trileptal (Oxcarbazepine) 300 Mg/5 Ml (60 Mg/Ml) Susp 10 Ml GT HS Trileptal (Oxcarbazepine) 300 Mg/5 Ml (60 Mg/Ml) Susp 5 Ml GT DAILY Xyzal (Levocetirizine Dihydrochloride) 2.5 Mg/5 Ml Solution 2.5 Mg GT BID Prevacid (Lansoprazole) 30 Mg Tab.rap.dr 30 Mg GT BID Assessment/Pt DC Instructions Transferred to [facility] Discharge Physical Examination Allergies: Coded Allergies: cefazolin (Verified Allergy, Severe, ANAPHYLAXIS, 03/01/23) latex (Verified Allergy, Unknown, 10/28/10) morphine (Verified Allergy, Unknown, 05/12/15) RADHA SCHROEDER MD Mar 23, 2023 22:37
--- NOTE | 2023-03-31 09:08 | Physician Query Clarification ---
PQ-Present on Admission Admission/Discharge Admission Date: Mar 01, 2023 at 10:14 Discharge Date: Mar 23, 2023 at 18:07 Dr. Cruz, Question: Sepsis was documented in 03/[address] Rahman. Can you specify if this condition was present on admission? Please document a response in Progress Note or Discharge Summary. 1. Yes - Condition was present at the time of inpatient admission. 2. No - Condition was not present at the time of inpatient admission and it developed during the inpatient stay. 3. W - Provider is unable to clinically determine whether condition was present on admission or not. 4. Other [please specify] PHYSICIAN RESPONSE Condition was Present on Admit: Yes In responding to this query, please exercise your independent professional vega gment. The purpose of this communication is to more accurately reflect the complexity of your patients condition. The fact that a question is asked does not imply that any particular answer is desired or expected. Thank you for your timely response to this clarification. Requestors name: [employer] THIS PHYSICIAN QUERY FORM IS A PERMANENT PART OF THE MEDICAL RECORD [facility]SEY LOWERY Mar 31, 2023 09:08 RADHA CRUZ MD Apr 04, 2023 22:06
== END 2023-03-23 18:07 | disposition short-term general hospital (02) | DRG 870 ==
LOC: ICU 10:14
PROVIDERS: ADMIT Family Medicine; ATTEND Family Medicine
PROC: 5A09457 Assistance with Respiratory Ventilation, 24-96 Consecutive Hours, Continuous Positive Airway Pressure (ICD-10-PCS; 2023-03-01)
PROC: 5A1955Z Respiratory Ventilation, Greater than 96 Consecutive Hours (ICD-10-PCS; principal; 2023-03-02)
PROC: 0BH17EZ Insertion of Endotracheal Airway into Trachea, Via Natural or Artificial Opening (ICD-10-PCS; 2023-03-02)
PROC: 06HM33Z Insertion of Infusion Device into Right Femoral Vein, Percutaneous Approach (ICD-10-PCS; 2023-03-05)
PROC: 5A0945A Assistance with Respiratory Ventilation, 24-96 Consecutive Hours, High Flow/Velocity Cannula (ICD-10-PCS; 2023-03-16)
DX: A41.9 Sepsis, unspecified organism (principal); J18.9 Pneumonia, unspecified organism; J80 Acute respiratory distress syndrome; Q24.4 Congenital subaortic stenosis; G80.1 Spastic diplegic cerebral palsy; Q67.5 Congenital deformity of spine; G91.9 Hydrocephalus, unspecified; G47.33 Obstructive sleep apnea (adult) (pediatric); G80.9 Cerebral palsy, unspecified; Z20.822 Contact with and (suspected) exposure to COVID-19; K22.2 Esophageal obstruction; G40.909 Epilepsy, unspecified, not intractable, without status epilepticus; E87.6 Hypokalemia; R00.1 Bradycardia, unspecified; J39.8 Other specified diseases of upper respiratory tract; E87.8 Other disorders of electrolyte and fluid balance, not elsewhere classified; Z98.2 Presence of cerebrospinal fluid drainage device; K59.00 Constipation, unspecified; H54.7 Unspecified visual loss; H91.90 Unspecified hearing loss, unspecified ear; R47.9 Unspecified speech disturbances; Z93.1 Gastrostomy status; Z79.899 Other long term (current) drug therapy; Z88.1 Allergy status to other antibiotic agents; Z88.5 Allergy status to narcotic agent
CPT/HCPCS: 36415; 70450; 71045; 71275; 74018; 80048; 80053; 80076; 80183; 80202; 82805; 82947; 83605; 83735; 84100; 84132; 84478; 85007; 85025; 85027; 87040; 87070; 87081; 87088; 87205; 87324; 87449; 87636; 93306; 94002; 94003; 94640; 94660; 94668; 94799